=== PATIENT | male | born 1940 | race Caucasian/White ===

== ENCOUNTER → 2017-01-16 | Outpatient (CLI) | payer MEDICARE, BC ==
--- NOTE | 2017-01-16 10:53 | US ---
EXAMINATION TYPE: US venous doppler duplex LE DATE OF EXAM: 01/16/2017 9:28 AM COMPARISON: NONE CLINICAL HISTORY: I82.579 DVT. SIDE PERFORMED: Leg swelling TECHNIQUE: The lower extremity deep venous system is examined utilizing real time linear array sonog linda with graded compression, doppler sonography and color-flow sonography. VESSELS IMAGED: External Iliac Vein (EIV) Common Femoral Vein Deep Femoral Vein Greater Saphenous Vein * Femoral Vein Popliteal Vein Small Saphenous Vein * Proximal Calf Veins (* superficial vessels) Right Leg: Positive for DVT at distal popliteal extending into calf v's Left Leg: Negative for DVT Peripherally within the right popliteal vein there is a lack of color flow and compressibility extend ing into the calf veins on the right. IMPRESSION: Grayscale, color doppler, spectral doppler imaging performed of the deep veins of the lo wer extremities. There is deep venous thrombosis within the right popliteal vein described. Report r elayed to Dr. Orellana telephonically at the time of performance of the exam.
--- NOTE | 2017-01-17 09:08 | ECHOF ---
Referral Reason:Z01.818 pre chemo,C85.10 lymphoma MEASUREMENTS -------- HEIGHT: 177.8 cm WEIGHT: 65.8 kg BP: 114/51 RVIDd: 3.2 cm (< 3.3) IVSd: 1.2 cm (0.6 - 1.1) LVIDd: 5.4 cm (3.9 - 5.3) LVPWd: 1.2 cm (0.6 - 1.1) IVSs: 1.7 cm LVIDs: 3.7 cm LVPWs: 2.0 cm LA Diam: 3.9 cm (2.7 - 3.8) LAESV Index (A-L): 44.88 ml/m Ao Diam: 3.3 cm (2.0 - 3.7) AV Cusp: 2.1 cm (1.5 - 2.6) MV EXCURSION: 21.866 mm (> 18.000) MV EF SLOPE: 70 mm/s (70 - 150) EPSS: 0.9 cm MV E Urban: 0.62 m/s MV DecT: 317 ms MV A Urban: 0.71 m/s MV E/A Ratio: 0.88 AV maxP.47 mmHg AV meanP.32 mmHg AR PHT: 1384 ms RAP: 5.00 mmHg RVSP: 34.46 mmHg FINDINGS -------- Resting bradycardia (HR<60bpm). This was a technically good study. The left ventricular size is normal. There is borderline concentric left ventricular hypertrophy. Overall left ventricular systolic function is normal with, an EF between 60 - 65 %. The right ventricle is normal in size. LA is severely dilated >40 ml/m2 The right atrium is normal in size. There is mild aortic valve sclerosis. There is mild aortic regurgitation. There is mild aortic st enosis present. Peak/mean gradient across the Aortic Valve is 16.47mmHg / 6.32mmHg. Mild mitral annular calcification present. Mild mitral regurgitation is present. There is mildly calcified chordae. Mild tricuspid regurgitation present. There is borderline pulmonary hypertension. The right ventr icular systolic pressure, as measured by Doppler, is 34.46mmHg. Trace/mild (physiologic) pulmonic regurgitation. The aortic root size is normal. Normal inferior vena cava with normal inspiratory collapse consistent with estimated right atrial pre ssure of 5 mmHg. There is no pericardial effusion. CONCLUSIONS -------- 1. Resting bradycardia (HR<60bpm). 2. This was a technically good study. 3. The left ventricular size is normal. 4. There is borderline concentric left ventricular hypertrophy. 5. Overall left ventricular systolic function is normal with, an EF between 60 - 65 %. 6. The right ventricle is normal in size. 7. LA is severely dilated >40 ml/m2 8. The right atrium is normal in size. 9. There is mild aortic valve sclerosis. 10. There is mild aortic regurgitation. 11. There is mild aortic stenosis present. 12. Peak/mean gradient across the Aortic Valve is 16.47mmHg / 6.32mmHg. 13. Mild mitral annular calcification present. 14. Mild mitral regurgitation is present. 15. There is mildly calcified chordae. 16. Mild tricuspid regurgitation present. 17. There is borderline pulmonary hypertension. 18. The right ventricular systolic pressure, as measured by Doppler, is 34.46mmHg. 19. Trace/mild (physiologic) pulmonic regurgitation. 20. The aortic root size is normal. 21. Normal inferior vena cava with normal inspiratory collapse consistent with estimated right atrial pressure of 5 mmHg. 22. There is no pericardial effusion. [employer] FRIER: Kelly Mcdonald RDCS
== END | disposition home or self-care (01) ==
LOC: RADUSMAIN 08:29
PROVIDERS: ATTEND Internal Medicine Hematology & Oncology
DX: I82.4Z1 Acute embolism and thrombosis of unspecified deep veins of right distal lower extremity (principal)
CPT/HCPCS: 93306; 93970

== ENCOUNTER → 2017-01-17 | Outpatient (CLI) | payer MEDICARE, BC ==
--- NOTE | 2017-01-20 13:11 | PE ---
Nuclear medicine PET/CT HISTORY: Diffuse large B-cell lymphoma, subsequent treatment strategy, PS Patient received 15.6 mCi F-18 FDG intravenously. Delayed scanning performed from the skull base to t he mid thighs. No comparisons Patient received 15.6 mCi F-18 FDG intravenously in delayed scanning was performed from the skull bas e to the mid thighs. Localization and attenuation correction CT was also performed. Neck and chest: There is no cervical, mediastinal, axillary, or hilar adenopathy. Carotid artery calc ifications are present. Dental mouth causes some streak artifact on the exam. Lung bases are normal. No suspicious hypermetabolic uptake. Coronary artery calcifications are present. No evident lung mass . No pleural or pericardial effusion. Gynecomastia changes are present. Abdomen and pelvis: Left inguinal hernia is present containing bowel loops. No evident bowel obstruct ion. No retroperitoneal adenopathy, no pelvic adenopathy. No suspicious hypermetabolic uptake. Surgic al clips are present in the pelvis. Patient may be post prostatectomy. Aorta shows atheromatous trevizo e and tortuosity. Diverticular changes associated with the colon. Postop changes noted to the bowel. Paraspinal musculature and bowel shows uptake likely physiologic. Osseous structures: Multilevel degenerative disc change, osteoporotic compression fracture noted. Old rib fractures are present, some uptake along the anterior ribs likely due to remote trauma, healing fractures. Uptake in the cervical spine likely due to facet arthropathy at C3 on the left. IMPRESSION: No evident recurrence. Additional findings above.
== END | disposition home or self-care (01) ==
LOC: RADPETMAIN 07:53
PROVIDERS: ATTEND Internal Medicine Hematology & Oncology
DX: C83.38 Diffuse large B-cell lymphoma, lymph nodes of multiple sites (principal)
CPT/HCPCS: 78815; A9552

== ENCOUNTER 2017-03-03 08:03 | Inpatient (IN) | payer MEDICARE, BC ==
[2017-03-03 10:14] LABS: Basophils # (A) 0.1 k/uL (0-0.2); Basophils % (A) 0 %; Eosinophils # (A) 0.3 k/uL (0-0.7); Eosinophils % (A) 2 %; HCT 26.8 % (39.0-53.0); HGB 8.6 gm/dL (13.0-17.5); Lymphocytes % (A) 9 %; MCH 33.4 pg (25.0-35.0); MCHC 32.2 g/dL (31.0-37.0); MCV 103.6 fL (80.0-100.0); Macrocytosis Slight; Mean Platelet Volume 7.9; Monocytes # (A) 0.5 k/uL (0-1.0); Monocytes % (A) 5 %; Neutrophils # (A) 8.9 k/uL (1.3-7.7); Neutrophils % (A) 81 %; Platelet Count 333 k/uL (150-450); RBC 2.59 m/uL (4.30-5.90); RDW 15.2 % (11.5-15.5)
[2017-03-03 10:29] LABS: ALT 30 U/L (21-72); AST 17 U/L (17-59); Albumin 2.8 g/dL (3.5-5.0); Alkaline Phosphatase 81 U/L (38-126); Anion Gap 7 mmol/L; Blood Urea Nitrogen 24 mg/dL (9-20); Carbon Dioxide 28 mmol/L (22-30); Chloride 107 mmol/L (98-107); Glucose 89 mg/dL (74-99); Potassium 4.3 mmol/L (3.5-5.1); Sodium 142 mmol/L (137-145); Total Bilirubin 0.3 mg/dL (0.2-1.3); Total Protein 5.2 g/dL (6.3-8.2); Uric Acid 4.6 mg/dL (3.5-8.5)
[2017-03-03] MEDS ORDERED: FAMOTIDINE 20 MG/2 ML VIAL IV SCH ×2 (10:30)
[2017-03-03] MEDS ORDERED: ACETAMINOPHEN TAB 325 MG TAB PO ONE (10:30)
[2017-03-03] MEDS ORDERED: ONDANSETRON 16 MG in SODIUM CHLORIDE 0.9% 50 ML IVPB SCH (10:30)
[2017-03-03] MEDS ORDERED: diphenhydrAMINE 50 MG/ML 1 ML VIAL IVP ONE (10:30)
[2017-03-03] MEDS ORDERED: riTUXimab 700 MG in SODIUM CHLORIDE 0.9% 500 ML IV ONE (11:00)
[2017-03-03] MEDS: metFORMIN 500 MG TAB PO SCH ×2 (11:03→18:17)
[2017-03-03] MEDS: predniSONE 50 MG TAB PO SCH ×2 (11:04→20:28)
[2017-03-03] MEDS: ALLOPURINOL 300 MG TAB PO SCH (11:04)
[2017-03-03] MEDS: predniSONE 10 MG TAB PO SCH ×2 (11:04→20:13)
[2017-03-03] MEDS: SODIUM CHLORIDE 0.9% 1,000 ML IV SCH (11:05)
[2017-03-03] MEDS ORDERED: METOPROLOL SUCCINATE (ER) 25 MG TAB.ER.24H PO STA (11:07)
[2017-03-03] MEDS: SODIUM CHLORIDE 0.9% IV SCH ×2 (16:32→16:33)
[2017-03-03] MEDS: VINCRISTINE SULFATE IV SCH (16:32)
[2017-03-03] MEDS: DOXORUBICIN HCL IV SCH (16:33)
[2017-03-03] MEDS: ETOPOSIDE 90 MG in SODIUM CHLORIDE 0.9% 250 ML IV SCH (16:33)
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
[2017-03-03] MEDS: CHOLECALCIFEROL 1,000 UNIT TAB PO SCH (18:18)
[2017-03-03] MEDS: VIT A,C & E-LUTEIN-MINERALS 1 EACH TAB PO SCH (20:13)
[2017-03-03] MEDS: CLOBETASOL PROP 0.05% CR 15GM TOPICAL SCH (20:13)
[2017-03-03] MEDS: CALCIUM CARB-VIT D 500MG-200UN 1 EACH TAB PO SCH (20:13)
[2017-03-03] MEDS: FERROUS SULFATE 325 MG TAB PO SCH (20:13)
[2017-03-03] MEDS: ASPIRIN 81 MG PO SCH (20:13)
[2017-03-03] MEDS: SALT AND SODA MOUTHWASH 1,000 ML PO SCH (20:15)
[2017-03-03] MEDS: ACETAMINOPHEN TAB 325 MG TAB PO SCH (20:21)
[2017-03-03] MEDS: NON-FORMULARY DRUG (Mirabegron [Myrbetriq] 50 MG) PO SCH (20:24)
[2017-03-03] MEDS ORDERED: NON-FORMULARY DRUG (Omega-3 Fatty Acids/Fish Oil [Fish Oil 1,000 Mg Softgel] 1 CAP) PO SCH (21:00)
[2017-03-04] MEDS: SODIUM CHLORIDE 0.9% 1,000 ML IV SCH ×2 (00:14→16:29)
[2017-03-04] MEDS: SALT AND SODA MOUTHWASH 1,000 ML PO SCH ×6 (00:15→22:52)
[2017-03-04 07:38] LABS: Phosphorus 3.4 mg/dL (2.5-4.5); Uric Acid 3.4 mg/dL (3.5-8.5)
[2017-03-04] MEDS: metFORMIN 500 MG TAB PO SCH ×2 (07:46→18:22)
[2017-03-04] MEDS: PANTOPRAZOLE 40 MG TABLET PO SCH (07:46)
[2017-03-04] MEDS: predniSONE 50 MG TAB PO SCH ×2 (07:47→22:52)
[2017-03-04] MEDS: ACETAMINOPHEN TAB 325 MG TAB PO SCH ×2 (07:47→22:55)
[2017-03-04] MEDS: predniSONE 10 MG TAB PO SCH ×2 (07:48→22:53)
[2017-03-04] MEDS: CLOBETASOL PROP 0.05% CR 15GM TOPICAL SCH ×2 (07:48→22:52)
[2017-03-04] MEDS: ALLOPURINOL 300 MG TAB PO SCH (07:49)
[2017-03-04] MEDS: CLOPIDOGREL 75 MG TAB PO SCH (07:49)
[2017-03-04] MEDS: DOCUSATE 100 MG CAP PO SCH (07:49)
[2017-03-04] MEDS: METOPROLOL SUCCINATE (ER) 25 MG TAB.ER.24H PO SCH (07:50)
[2017-03-04] MEDS: ENOXAPARIN 40 MG/0.4 ML SYRINGE SQ SCH (07:50)
[2017-03-04] MEDS: ATORVASTATIN 10 MG TAB PO SCH (07:50)
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
[2017-03-04] MEDS ORDERED: ALLOPURINOL 300 MG TAB PO SCH (09:00)
[2017-03-04 10:02] LABS: Basophils % (A) 0 %; Eosinophils % (A) 0 %; HCT 27.4 % (39.0-53.0); HGB 8.6 gm/dL (13.0-17.5); Lymphocytes # (A) 0.5 k/uL (1.0-4.8); Lymphocytes % (A) 3 %; MCHC 31.2 g/dL (31.0-37.0); MCV 105.5 fL (80.0-100.0); Macrocytosis Moderate; Mean Platelet Volume 8.3; Monocytes # (A) 0.3 k/uL (0-1.0); Monocytes % (A) 2 %; Neutrophils # (A) 14.1 k/uL (1.3-7.7); Neutrophils % (A) 94 %; Platelet Count 395 k/uL (150-450); RBC 2.59 m/uL (4.30-5.90); RDW 14.4 % (11.5-15.5)
[2017-03-04] MEDS: CHOLECALCIFEROL 1,000 UNIT TAB PO SCH ×2 (11:57→18:22)
--- NOTE | 2017-03-04 16:42 | P.PN ---
Subjective Progress Note Date: 03/04/17 Principal diagnosis: CIVI DLBCL Pt seen today in follow up, he is eating and drinking in decent amounts, no fevers, oral irritation, nausea, cough, constipation, diarrhea, dysuria or pain. Objective - Vital Signs Vital signs: Vital Signs Temp 97.0 F L 03/04/17 15:00 Pulse 66 03/04/17 15:00 Resp 16 03/04/17 15:00 BP 141/74 03/04/17 15:00 Pulse Ox 98 03/04/17 15:00 Intake & Output 03/03/17 03/04/17 03/04/17 18:59 06:59 18:59 Intake Total 1045.666 800 Balance 1045.666 800 Weight 67.721 kg Intake: Intake, IV Titration 1045.666 600 Amount Ondansetron 16 mg In 50 Sodium Chloride 0.9% 50 ml @ 100 mls/hr IVPB Q24H [facility] Rx#:[id number] Sodium Chloride 0.9% 1, 525 600 000 ml @ 75 mls/hr IV . [id number] [facility] Rx#:[id number] riTUXimab 700 mg In 470.666 Sodium Chloride 0.9% 500 ml @ Titrate IV .Q0M [facility] Rx#:[id number] Oral 200 Other: Voiding Method Toilet Toilet Toilet # Voids 1 2 - Constitutional General appearance: Present: cooperative, no acute distress - EENT Eyes: Present: EOMI ENT: Present: normal oropharynx - Respiratory Respiratory: bilateral: CTA - Cardiovascular Heart sounds: normal: S1, S2 - Peripheral edema leg Peripheral Edema: bilateral: 2+, Pitting - Gastrointestinal General gastrointestinal: Present: normal bowel sounds, soft. Absent: absent bowel sounds, decreased bowel sounds, distended, hepatomegaly, hyperactive bowel sounds, organomegaly, rigid, scaphoid, splenomegaly, tenderness, umbilical hernia, ventral hernia - Integumentary Integumentary: Present: normal - Neurologic Neurologic: Present: CNII-XII intact - Musculoskeletal Musculoskeletal: Present: generalized weakness, strength equal bilaterally - Psychiatric Psychiatric: Present: A&O x's 3, appropriate affect, intact judgment & insight - Labs CBC & Chem 7: 03/04/17 06:59 03/03/17 10:00 Labs: Abnormal Lab Results - Last 24 Hours (Table) 03/04/17 03/04/17 Range/Units 06:59 06:59 WBC 15.0 H (3.8-10.6) k/uL RBC 2.59 L (4.30-5.90) m/uL Hgb 8.6 L (13.0-17.5) gm/dL Hct 27.4 L (39.0-53.0) % MCV 105.5 H (80.0-100.0) fL Neutrophils # 14.1 H (1.3-7.7) k/uL Lymphocytes # 0.5 L (1.0-4.8) k/uL Uric Acid 3.4 L (3.5-8.5) mg/dL Assessment and Plan (1) Diffuse large B-cell lymphoma of extranodal site Narrative/Plan: Cont chemo without adjustement Labs daily Supportive meds as ordered Current Visit: Yes Status: Acute Priority: High Code(s): C83.39 - DIFFUSE LARGE B-CELL LYMPHOMA, EXTRNOD AND SOLID ORGAN SITES SNOMED Code(s): 522403110 (2) Essential (primary) hypertension Current Visit: No Status: Acute Code(s): I10 - ESSENTIAL (PRIMARY) HYPERTENSION SNOMED Code(s): 33515906 (3) Diabetes mellitus Current Visit: No Status: Chronic Priority: Medium Code(s): E11.9 - TYPE 2 DIABETES MELLITUS WITHOUT COMPLICATIONS SNOMED Code(s): 06141199 (4) Hyperlipidemia Current Visit: No Status: Chronic Priority: Low Code(s): E78.5 - HYPERLIPIDEMIA, UNSPECIFIED SNOMED Code(s): 15716335 Plan: Medical Management per Dr. Frances
[2017-03-04] MEDS: ONDANSETRON 16 MG in SODIUM CHLORIDE 0.9% 50 ML IVPB SCH (17:17)
[2017-03-04] MEDS: FAMOTIDINE 20 MG/2 ML VIAL IV SCH (17:18)
[2017-03-04] MEDS: VINCRISTINE SULFATE IV SCH (18:09)
[2017-03-04] MEDS: SODIUM CHLORIDE 0.9% IV SCH ×2 (18:09)
[2017-03-04] MEDS: DOXORUBICIN HCL IV SCH (18:09)
[2017-03-04] MEDS: ETOPOSIDE 90 MG in SODIUM CHLORIDE 0.9% 250 ML IV SCH (18:09)
[2017-03-04] MEDS: FERROUS SULFATE 325 MG TAB PO SCH (22:52)
[2017-03-04] MEDS: CALCIUM CARB-VIT D 500MG-200UN 1 EACH TAB PO SCH (22:52)
[2017-03-04] MEDS: VIT A,C & E-LUTEIN-MINERALS 1 EACH TAB PO SCH (22:52)
[2017-03-04] MEDS: ASPIRIN 81 MG PO SCH (22:53)
[2017-03-04] MEDS: NON-FORMULARY DRUG (Mirabegron [Myrbetriq] 50 MG) PO SCH (22:56)
[2017-03-05] MEDS: SALT AND SODA MOUTHWASH 1,000 ML PO SCH ×7 (02:05→23:40)
[2017-03-05] MEDS: SODIUM CHLORIDE 0.9% 1,000 ML IV SCH ×2 (05:33→19:33)
[2017-03-05] MEDS: predniSONE 50 MG TAB PO SCH ×2 (08:00→20:17)
[2017-03-05] MEDS: PANTOPRAZOLE 40 MG TABLET PO SCH (08:01)
[2017-03-05] MEDS: CLOPIDOGREL 75 MG TAB PO SCH (08:01)
[2017-03-05] MEDS: DOCUSATE 100 MG CAP PO SCH (08:01)
[2017-03-05] MEDS: ATORVASTATIN 10 MG TAB PO SCH (08:01)
[2017-03-05] MEDS: predniSONE 10 MG TAB PO SCH ×2 (08:01→20:17)
[2017-03-05] MEDS: ALLOPURINOL 300 MG TAB PO SCH (08:01)
[2017-03-05] MEDS: metFORMIN 500 MG TAB PO SCH ×2 (08:01→19:33)
[2017-03-05] MEDS: METOPROLOL SUCCINATE (ER) 25 MG TAB.ER.24H PO SCH (08:01)
[2017-03-05] MEDS: CHOLECALCIFEROL 1,000 UNIT TAB PO SCH ×2 (08:02→19:33)
[2017-03-05] MEDS: CLOBETASOL PROP 0.05% CR 15GM TOPICAL SCH ×2 (08:02→20:17)
[2017-03-05] MEDS: ACETAMINOPHEN TAB 325 MG TAB PO SCH ×2 (08:19→19:32)
[2017-03-05 08:20] LABS: Basophils % (A) 0 %; Eosinophils % (A) 0 %; HCT 24.5 % (39.0-53.0); HGB 7.7 gm/dL (13.0-17.5); Lymphocytes # (A) 0.3 k/uL (1.0-4.8); Lymphocytes % (A) 2 %; MCH 32.9 pg (25.0-35.0); MCHC 31.5 g/dL (31.0-37.0); MCV 104.3 fL (80.0-100.0); Macrocytosis Slight; Mean Platelet Volume 7.3; Monocytes # (A) 0.4 k/uL (0-1.0); Monocytes % (A) 2 %; Neutrophils # (A) 18.3 k/uL (1.3-7.7); Neutrophils % (A) 96 %; Platelet Count 431 k/uL (150-450); RBC 2.35 m/uL (4.30-5.90); RDW 14.6 % (11.5-15.5); WBC 19.1 k/uL (3.8-10.6)
[2017-03-05 08:41] LABS: ALT 28 U/L (21-72); AST 15 U/L (17-59); Albumin 2.5 g/dL (3.5-5.0); Alkaline Phosphatase 61 U/L (38-126); Anion Gap 6 mmol/L; Blood Urea Nitrogen 30 mg/dL (9-20); Calcium 8.8 mg/dL (8.4-10.2); Carbon Dioxide 23 mmol/L (22-30); Chloride 109 mmol/L (98-107); Glucose 133 mg/dL (74-99); Phosphorus 3.1 mg/dL (2.5-4.5); Potassium 4.8 mmol/L (3.5-5.1); Sodium 138 mmol/L (137-145); Total Bilirubin 0.2 mg/dL (0.2-1.3); Total Protein 4.8 g/dL (6.3-8.2); Uric Acid 3.5 mg/dL (3.5-8.5)
--- NOTE | 2017-03-05 10:40 | P.PN ---
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 He is ambulating to the bathroom. Objective - Vital Signs Vital signs: Vital Signs Temp 96.6 F L 03/05/17 07:00 Pulse 73 03/05/17 07:00 Resp 16 03/05/17 07:00 BP 141/78 03/05/17 07:00 Pulse Ox 96 03/05/17 07:00 Intake & Output 03/04/17 03/05/17 03/05/17 18:59 06:59 18:59 Intake Total 800 Balance 800 Intake: Intake, IV Titration 600 Amount Sodium Chloride 0.9% 1, 600 000 ml @ 75 mls/hr IV . [id number] [facility] Rx#:[id number] Oral 200 Other: Voiding Method Toilet Toilet # Voids 2 2 - Constitutional General appearance: Present: cooperative, no acute distress, thin - EENT Eyes: Present: anicteric sclerae, normal appearance ENT: Present: normal oropharynx - Respiratory Respiratory: bilateral: CTA - Cardiovascular Heart sounds: normal: S1, S2 - Peripheral edema leg Peripheral Edema: bilateral: 2+, Pitting - Gastrointestinal General gastrointestinal: Present: normal bowel sounds, soft - Integumentary Integumentary: Present: pale - Neurologic Neurologic: Present: CNII-XII intact - Musculoskeletal Musculoskeletal: Present: strength equal bilaterally - Psychiatric Psychiatric: Present: A&O x's 3, appropriate affect, intact judgment & insight - Labs CBC & Chem 7: 03/05/17 07:51 03/05/17 07:51 Labs: Abnormal Lab Results - Last 24 Hours (Table) 03/05/17 03/05/17 Range/Units 07:51 07:51 WBC 19.1 H (3.8-10.6) k/uL RBC 2.35 L (4.30-5.90) m/uL Hgb 7.7 L (13.0-17.5) gm/dL Hct 24.5 L (39.0-53.0) % MCV 104.3 H (80.0-100.0) fL Neutrophils # 18.3 H (1.3-7.7) k/uL Lymphocytes # 0.3 L (1.0-4.8) k/uL Chloride 109 H (98-107) mmol/L BUN 30 H (9-20) mg/dL Creatinine 1.33 H (0.66-1.25) mg/dL Glucose 133 H (74-99) mg/dL AST 15 L (17-59) U/L Total Protein 4.8 L (6.3-8.2) g/dL Albumin 2.5 L (3.5-5.0) g/dL Assessment and Plan (1) Diffuse large B-cell lymphoma of extranodal site Narrative/Plan: continue chemotherapy without adjustment Supportive medications ordered Labs daily Current Visit: Yes Status: Acute Priority: High Code(s): C83.39 - DIFFUSE LARGE B-CELL LYMPHOMA, EXTRNOD AND SOLID ORGAN SITES SNOMED Code(s): 741286737 (2) Essential (primary) hypertension Current Visit: No Status: Acute Code(s): I10 - ESSENTIAL (PRIMARY) HYPERTENSION SNOMED Code(s): 23648941 (3) Diabetes mellitus Current Visit: No Status: Chronic Priority: Medium Code(s): E11.9 - TYPE 2 DIABETES MELLITUS WITHOUT COMPLICATIONS SNOMED Code(s): 19836700 (4) Hyperlipidemia Current Visit: No Status: Chronic Priority: Low Code(s): E78.5 - HYPERLIPIDEMIA, UNSPECIFIED SNOMED Code(s): 40213911 Plan: Medical Management per Dr. Frances GI/DVT prophylaxis
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
[2017-03-05] MEDS: ONDANSETRON 16 MG in SODIUM CHLORIDE 0.9% 50 ML IVPB SCH (18:18)
[2017-03-05] MEDS: FAMOTIDINE 20 MG/2 ML VIAL IV SCH (18:19)
[2017-03-05] MEDS: SODIUM CHLORIDE 0.9% IV SCH ×2 (19:34)
[2017-03-05] MEDS: ETOPOSIDE 90 MG in SODIUM CHLORIDE 0.9% 250 ML IV SCH (19:34)
[2017-03-05] MEDS: VINCRISTINE SULFATE IV SCH (19:34)
[2017-03-05] MEDS: DOXORUBICIN HCL IV SCH (19:34)
[2017-03-05] MEDS: VIT A,C & E-LUTEIN-MINERALS 1 EACH TAB PO SCH (20:16)
[2017-03-05] MEDS: CALCIUM CARB-VIT D 500MG-200UN 1 EACH TAB PO SCH (20:17)
[2017-03-05] MEDS: FERROUS SULFATE 325 MG TAB PO SCH (20:17)
[2017-03-05] MEDS: ASPIRIN 81 MG PO SCH (20:17)
[2017-03-05] MEDS: NON-FORMULARY DRUG (Mirabegron [Myrbetriq] 50 MG) PO SCH (20:39)
--- NOTE | 2017-03-05 23:53 | P.CON ---
Consult Note - . Consult date: 03/05/17 Assessment/Plan:: This is a 76-year-old male patient who was diagnosed with diffuse large B-cell non-Hodgkin's lymphoma in August 2016 with a complicated course status post bowel resection with perforation and injected jejunum followed by infection treated in [facility]. He recently started chemotherapy with R- EPOCH last month. Patient states he did not have any difficulties with the chemotherapy and didn't develop any significant symptoms. He has been admitted now for his second cycle. We have been asked to see the patient regarding redness to the left knee and drainage. Patient states that he has had a problem with this for many years and was seen by a head of precision targeting in [place] 5 years ago as he was already there for treatment of skin lesions on his scalp. The head of precision targeting placed on clobetasol cream for the knee lesion which he has continued. Patient states that he does not have any pain and has good range of motion. Initially and recently there has been no injury. He states initially the area started out as a pimple which she manipulated and with scab over and he 'll eventually recur tenderness pattern continued for a number of years. He also states that when he was kneeling it was sometimes pop open on its own. Recently, the drainage has been in the form of blood and he stopped trying to pop it. He denies any fever or chills and he has full range of motion. Also noted and patient's history is rheumatoid arthritis for which she was previously on methotrexate and a second medication which she could not remember the name and these were discontinued once he was diagnosed with lymphoma. Please see the consult note is dictated by nurse practitioner Mrs. Gerri Gaming. Pleasant 76-year-old gentleman who has noted has diffuse large B-cell lymphoma is presented first chemotherapy. As noted he has a chronic difficulty to the skin of his left knee. Isn't present for years and uses some topical therapy. It continues to give him irritation at times. The patient used to work for the [employer]. Likely has an area of chronic irritation to the tissue that is not infected at this point in time. Certainly if it changes he may require some further intervention. We discussed that if he has a chronic irritation to the bursa in that region which is showing as this difficulty only a surgical debridement would be possible which she is not a candidate for. In since he is not ill and having no difficulties infection at that site is not indicated at this time anyway. Local care can be given with antibiotic ointment. I agree with evaluation, assessment and plan is dictated by nurse practitioner Mrs. Gerri Gaming.
[2017-03-06] MEDS: SALT AND SODA MOUTHWASH 1,000 ML PO SCH ×6 (03:38→23:28)
[2017-03-06 07:50] LABS: Uric Acid 3.4 mg/dL (3.5-8.5)
[2017-03-06] MEDS: ACETAMINOPHEN TAB 325 MG TAB PO SCH ×2 (07:53→20:35)
[2017-03-06] MEDS: CLOBETASOL PROP 0.05% CR 15GM TOPICAL SCH ×2 (07:54→20:35)
[2017-03-06] MEDS: CLOPIDOGREL 75 MG TAB PO SCH (07:54)
[2017-03-06] MEDS: predniSONE 50 MG TAB PO SCH ×2 (07:54→20:35)
[2017-03-06] MEDS: METOPROLOL SUCCINATE (ER) 25 MG TAB.ER.24H PO SCH (07:54)
[2017-03-06] MEDS: ALLOPURINOL 300 MG TAB PO SCH (07:54)
[2017-03-06] MEDS: metFORMIN 500 MG TAB PO SCH ×2 (07:55→17:34)
[2017-03-06] MEDS: PANTOPRAZOLE 40 MG TABLET PO SCH (07:55)
[2017-03-06] MEDS: ENOXAPARIN 40 MG/0.4 ML SYRINGE SQ SCH (07:56)
[2017-03-06] MEDS: predniSONE 10 MG TAB PO SCH ×2 (07:56→20:35)
[2017-03-06] MEDS: MUPIROCIN 2% OINT 22 GM TUBE TOPICAL SCH (07:57)
--- NOTE | 2017-03-06 08:34 | P.PN ---
Subjective Progress Note Date: 03/06/17 Principal diagnosis: The patient is a 76-year-old white male with history of B-cell lymphoma. This is a continue present on a 76-year-old white male who was new to my practice but I have known since she's been in the area. We are following from a medical perspective. He has underlying history of hypertension. He has some confusion last night but now seems to be stable this morning. Objective - Vital Signs Vital signs: Vital Signs Temp 98.1 F 03/06/17 07:00 Pulse 47 L 03/06/17 07:00 Resp 16 03/06/17 07:00 BP 137/64 03/06/17 07:00 Pulse Ox 97 03/06/17 07:00 Intake & Output 03/05/17 03/06/17 03/06/17 18:59 06:59 18:59 Intake Total 1100 1180 Balance 1100 1180 Intake: Intake, IV Titration 600 Amount Sodium Chloride 0.9% 1, 600 000 ml @ 75 mls/hr IV . [id number] [facility] Rx#:[id number] Oral 500 1180 Other: Voiding Method Toilet Toilet # Voids 2 3 - Constitutional General appearance: Present: average body habitus - EENT Eyes: Absent: abnormal pupil - Neck Neck: Absent: lymphadenopathy - Respiratory Respiratory: bilateral: CTA - Cardiovascular Rhythm: regular Heart sounds: normal: S1, S2 - Gastrointestinal General gastrointestinal: Present: soft. Absent: tenderness - Labs CBC & Chem 7: 03/05/17 07:51 03/05/17 07:51 Labs: Abnormal Lab Results - Last 24 Hours (Table) 03/05/17 03/06/17 Range/Units 07:51 07:00 Chloride 109 H (98-107) mmol/L BUN 30 H (9-20) mg/dL Creatinine 1.33 H (0.66-1.25) mg/dL Glucose 133 H (74-99) mg/dL Uric Acid 3.4 L (3.5-8.5) mg/dL AST 15 L (17-59) U/L Total Protein 4.8 L (6.3-8.2) g/dL Albumin 2.5 L (3.5-5.0) g/dL Assessment and Plan (1) Diffuse large B-cell lymphoma of extranodal site Current Visit: Yes Status: Acute Priority: High Code(s): C83.39 - DIFFUSE LARGE B-CELL LYMPHOMA, EXTRNOD AND SOLID ORGAN SITES SNOMED Code(s): 159952277 (2) Essential (primary) hypertension Current Visit: No Status: Acute Code(s): I10 - ESSENTIAL (PRIMARY) HYPERTENSION SNOMED Code(s): 24046650 (3) Diabetes mellitus Current Visit: No Status: Chronic Priority: Medium Code(s): E11.9 - TYPE 2 DIABETES MELLITUS WITHOUT COMPLICATIONS SNOMED Code(s): 89405205 (4) Hyperlipidemia Current Visit: No Status: Chronic Priority: Low Code(s): E78.5 - HYPERLIPIDEMIA, UNSPECIFIED SNOMED Code(s): 30453132 Plan: Continue current regimen of treatment. We will continue to follow her medical perspective. Dr. Sher's group will be covering for the weekend. See orders otherwise.
[2017-03-06 08:46] LABS: Basophils % (A) 0 %; Eosinophils % (A) 0 %; HCT 25.1 % (39.0-53.0); HGB 7.8 gm/dL (13.0-17.5); Lymphocytes # (A) 0.3 k/uL (1.0-4.8); Lymphocytes % (A) 2 %; MCH 32.5 pg (25.0-35.0); MCHC 31.1 g/dL (31.0-37.0); MCV 104.6 fL (80.0-100.0); Macrocytosis Slight; Mean Platelet Volume 7.6; Monocytes # (A) 0.3 k/uL (0-1.0); Monocytes % (A) 2 %; Neutrophils # (A) 14.1 k/uL (1.3-7.7); Neutrophils % (A) 96 %; Platelet Count 489 k/uL (150-450); RBC 2.39 m/uL (4.30-5.90); RDW 14.8 % (11.5-15.5); WBC 14.7 k/uL (3.8-10.6)
[2017-03-06] MEDS: SODIUM CHLORIDE 0.9% 1,000 ML IV SCH (12:05)
[2017-03-06] MEDS: CHOLECALCIFEROL 1,000 UNIT TAB PO SCH ×2 (12:05→17:34)
[2017-03-06] MEDS: DOCUSATE 100 MG CAP PO SCH (12:05)
[2017-03-06] MEDS: ATORVASTATIN 10 MG TAB PO SCH (12:05)
[2017-03-06 13:46] LABS: ALT 31 U/L (21-72); AST 15 U/L (17-59); Albumin 2.5 g/dL (3.5-5.0); Alkaline Phosphatase 57 U/L (38-126); Anion Gap 7 mmol/L; Blood Urea Nitrogen 31 mg/dL (9-20); Calcium 8.8 mg/dL (8.4-10.2); Carbon Dioxide 25 mmol/L (22-30); Chloride 108 mmol/L (98-107); Glucose 130 mg/dL (74-99); Potassium 4.5 mmol/L (3.5-5.1); Sodium 140 mmol/L (137-145); Total Bilirubin 0.2 mg/dL (0.2-1.3); Total Protein 4.7 g/dL (6.3-8.2)
--- NOTE | 2017-03-06 15:14 | P.PN ---
Subjective Progress Note Date: 03/06/17 Principal diagnosis: continuous IV infusion chemotherapy for diffuse large B-cell lymphoma Pt seen in f/u, he continues to tolerate treatment well, no fever, nausea, oral irritation, cough, abd pain, diarrhea or constipation, he is ambulating in the room, sleeping fairly well, no pain. Objective - Vital Signs Vital signs: Vital Signs Temp 98.1 F 03/06/17 07:00 Pulse 47 L 03/06/17 07:00 Resp 16 03/06/17 07:00 BP 137/64 03/06/17 07:00 Pulse Ox 97 03/06/17 07:00 Intake & Output 03/05/17 03/06/17 03/06/17 18:59 06:59 18:59 Intake Total 1100 1180 792 Balance 1100 1180 792 Intake: Intake, IV Titration 600 792 Amount DOXOrubicin HCL 18 mg In 88 Sodium Chloride 0.9% 250 ml @ 10.792 mls/hr IV Q24H [facility] Rx#:[id number] Etoposide 90 mg In Sodium 88 Chloride 0.9% 250 ml @ 10.604 mls/hr IV Q24H [facility] Rx#:[id number] Sodium Chloride 0.9% 1, 600 600 000 ml @ 75 mls/hr IV . [id number] [facility] Rx#:[id number] vinCRIStine SULFATE 0.7 16 mg In Sodium Chloride 0.9 % 50 ml @ 2.113 mls/hr IV Q24H [facility] Rx#:[id number] Oral 500 1180 Other: Voiding Method Toilet Toilet Toilet # Voids 2 3 - Constitutional General appearance: Present: cooperative, no acute distress, thin - EENT Eyes: Present: anicteric sclerae, normal appearance ENT: Present: normal oropharynx - Respiratory Respiratory: bilateral: CTA - Cardiovascular Heart sounds: normal: S1, S2 Abnormal Heart Sounds: Present: systolic murmur - Peripheral edema leg Peripheral Edema: bilateral: 1+, Pitting - Gastrointestinal General gastrointestinal: Present: normal bowel sounds, soft - Integumentary Integumentary: Present: pale - Neurologic Neurologic: Present: CNII-XII intact - Musculoskeletal Musculoskeletal: Present: generalized weakness, strength equal bilaterally - Psychiatric Psychiatric: Present: A&O x's 3, appropriate affect, intact judgment & insight - Labs CBC & Chem 7: 03/06/17 07:00 01/05/18 07:00 Labs: Abnormal Lab Results - Last 24 Hours (Table) 03/06/17 03/06/17 03/06/17 Range/Units 07:00 07:00 07:00 WBC 14.7 H (3.8-10.6) k/uL RBC 2.39 L (4.30-5.90) m/uL Hgb 7.8 L (13.0-17.5) gm/dL Hct 25.1 L (39.0-53.0) % MCV 104.6 H (80.0-100.0) fL Plt Count 489 H (150-450) k/uL Neutrophils # 14.1 H (1.3-7.7) k/uL Lymphocytes # 0.3 L (1.0-4.8) k/uL Chloride 108 H (98-107) mmol/L BUN 31 H (9-20) mg/dL Creatinine 1.37 H (0.66-1.25) mg/dL Glucose 130 H (74-99) mg/dL Uric Acid 3.4 L (3.5-8.5) mg/dL AST 15 L (17-59) U/L Total Protein 4.7 L (6.3-8.2) g/dL Albumin 2.5 L (3.5-5.0) g/dL Assessment and Plan (1) Diffuse large B-cell lymphoma of extranodal site Narrative/Plan: continue chemotherapy without adjustment, should be completed in the next 48 hours Supportive medications as ordered Labs continue daily Current Visit: Yes Status: Acute Priority: High Code(s): C83.39 - DIFFUSE LARGE B-CELL LYMPHOMA, EXTRNOD AND SOLID ORGAN SITES SNOMED Code(s): 563072465 (2) Essential (primary) hypertension Current Visit: No Status: Acute Code(s): I10 - ESSENTIAL (PRIMARY) HYPERTENSION SNOMED Code(s): 62374052 (3) Diabetes mellitus Current Visit: No Status: Chronic Priority: Medium Code(s): E11.9 - TYPE 2 DIABETES MELLITUS WITHOUT COMPLICATIONS SNOMED Code(s): 55325332 (4) Hyperlipidemia Current Visit: No Status: Chronic Priority: Low Code(s): E78.5 - HYPERLIPIDEMIA, UNSPECIFIED SNOMED Code(s): 52760218 (5) Anemia Narrative/Plan: No transfusion at this time. Current Visit: Yes Status: Acute Priority: Medium Code(s): D64.9 - ANEMIA , UNSPECIFIED SNOMED Code(s): 844179824 Plan: Medical Management per Dr. Frances GI/DVT prophylaxis
[2017-03-06] MEDS: ASPIRIN 81 MG PO SCH (20:35)
[2017-03-06] MEDS: VIT A,C & E-LUTEIN-MINERALS 1 EACH TAB PO SCH (20:35)
[2017-03-06] MEDS: FERROUS SULFATE 325 MG TAB PO SCH (20:35)
[2017-03-06] MEDS: CALCIUM CARB-VIT D 500MG-200UN 1 EACH TAB PO SCH (20:35)
[2017-03-06] MEDS: FAMOTIDINE 20 MG/2 ML VIAL IV SCH (20:35)
[2017-03-06] MEDS: ONDANSETRON 16 MG in SODIUM CHLORIDE 0.9% 50 ML IVPB SCH (20:36)
[2017-03-06 21:24] LABS: Glucose,Whole Blood 133 mg/dL (75-99)
[2017-03-06] MEDS: ETOPOSIDE 90 MG in SODIUM CHLORIDE 0.9% 250 ML IV SCH (23:24)
[2017-03-06] MEDS: DOXORUBICIN HCL IV SCH (23:24)
[2017-03-06] MEDS: SODIUM CHLORIDE 0.9% IV SCH ×2 (23:24)
[2017-03-06] MEDS: VINCRISTINE SULFATE IV SCH (23:24)
[2017-03-06] MEDS: NON-FORMULARY DRUG (Mirabegron [Myrbetriq] 50 MG) PO SCH (23:28)
[2017-03-07] MEDS: SODIUM CHLORIDE 0.9% 1,000 ML IV SCH ×2 (03:45→07:44)
[2017-03-07] MEDS: SALT AND SODA MOUTHWASH 1,000 ML PO SCH ×5 (06:21→20:06)
[2017-03-07 07:12] LABS: Basophils % (A) 0 %; Eosinophils % (A) 0 %; HCT 24.5 % (39.0-53.0); HGB 7.6 gm/dL (13.0-17.5); Lymphocytes # (A) 0.3 k/uL (1.0-4.8); Lymphocytes % (A) 2 %; MCH 31.8 pg (25.0-35.0); MCHC 31.1 g/dL (31.0-37.0); MCV 102.5 fL (80.0-100.0); Macrocytosis Slight; Monocytes # (A) 0.1 k/uL (0-1.0); Monocytes % (A) 1 %; Neutrophils % (A) 96 %; Platelet Count 481 k/uL (150-450); RBC 2.39 m/uL (4.30-5.90); RDW 15.2 % (11.5-15.5); WBC 10.4 k/uL (3.8-10.6)
[2017-03-07] MEDS: metFORMIN 500 MG TAB PO SCH ×2 (07:38→17:46)
[2017-03-07] MEDS: predniSONE 50 MG TAB PO SCH ×2 (07:38→20:07)
[2017-03-07] MEDS: MUPIROCIN 2% OINT 22 GM TUBE TOPICAL SCH (07:38)
[2017-03-07] MEDS: CLOBETASOL PROP 0.05% CR 15GM TOPICAL SCH ×2 (07:39→20:07)
[2017-03-07] MEDS: METOPROLOL SUCCINATE (ER) 25 MG TAB.ER.24H PO SCH (07:39)
[2017-03-07] MEDS: predniSONE 10 MG TAB PO SCH ×2 (07:39→20:07)
[2017-03-07] MEDS: DOCUSATE 100 MG CAP PO SCH (07:39)
[2017-03-07] MEDS: ENOXAPARIN 40 MG/0.4 ML SYRINGE SQ SCH (07:39)
[2017-03-07] MEDS: CLOPIDOGREL 75 MG TAB PO SCH (07:39)
[2017-03-07] MEDS: PANTOPRAZOLE 40 MG TABLET PO SCH (07:40)
[2017-03-07] MEDS: ATORVASTATIN 10 MG TAB PO SCH (07:40)
[2017-03-07] MEDS: ALLOPURINOL 300 MG TAB PO SCH (07:40)
[2017-03-07] MEDS: ACETAMINOPHEN TAB 325 MG TAB PO SCH ×2 (07:44→20:06)
[2017-03-07 07:56] LABS: ALT 30 U/L (21-72); AST 13 U/L (17-59); Albumin 2.4 g/dL (3.5-5.0); Alkaline Phosphatase 51 U/L (38-126); Anion Gap 8 mmol/L; Blood Urea Nitrogen 31 mg/dL (9-20); Calcium 8.5 mg/dL (8.4-10.2); Carbon Dioxide 26 mmol/L (22-30); Chloride 108 mmol/L (98-107); Glucose 132 mg/dL (74-99); Potassium 4.4 mmol/L (3.5-5.1); Sodium 142 mmol/L (137-145); Total Bilirubin 0.4 mg/dL (0.2-1.3); Total Protein 4.6 g/dL (6.3-8.2)
[2017-03-07] MEDS: CHOLECALCIFEROL 1,000 UNIT TAB PO SCH ×2 (11:27→17:46)
[2017-03-07] MEDS ORDERED: SODIUM CHLORIDE 0.9% IV ONE (13:00)
[2017-03-07] MEDS ORDERED: CYCLOPHOSPHAMIDE IV ONE (13:00)
--- NOTE | 2017-03-07 15:44 | P.PN ---
Subjective Feels well Tolerating Chemotherapy well > No N/V Reported mild/moderate weakness Objective - Vital Signs Vital signs: Vital Signs Temp 97.8 F 03/07/17 14:55 Pulse 59 L 03/07/17 14:55 Resp 16 03/07/17 14:55 BP 123/63 03/07/17 14:55 Pulse Ox 97 03/07/17 14:55 Intake & Output 03/06/17 03/07/17 03/07/17 18:59 06:59 18:59 Intake Total 792 366 792.8 Balance 792 366 792.8 Intake: Intake, IV Titration 792 366 792.8 Amount DOXOrubicin HCL 18 mg In 88 42 88 Sodium Chloride 0.9% 250 ml @ 10.792 mls/hr IV Q24H SHERICE Rx#:[id number] Etoposide 90 mg In Sodium 88 42 88 Chloride 0.9% 250 ml @ 10.604 mls/hr IV Q24H SHERICE Rx#:[id number] Ondansetron 16 mg In 50 Sodium Chloride 0.9% 50 ml @ 100 mls/hr IVPB Q24H SHER[facility] Rx#:[id number] Sodium Chloride 0.9% 1, 600 225 600 000 ml @ 75 mls/hr IV . [id number] SHERICE Rx#:[id number] vinCRIStine SULFATE 0.7 16 7 16.8 mg In Sodium Chloride 0.9 % 50 ml @ 2.113 mls/hr IV Q24H SHERICE Rx#:[id number] Other: Voiding Method Toilet Toilet Toilet # Voids 3 - Constitutional General appearance: Present: no acute distress - EENT Eyes: Present: PERRLA ENT: Present: normal oropharynx - Neck Neck: Present: normal ROM - Respiratory Respiratory: bilateral: CTA - Cardiovascular Rhythm: regular Heart sounds: normal: S1, S2 - Gastrointestinal General gastrointestinal: Present: absent bowel sounds, soft - Labs CBC & Chem 7: 03/07/17 06:35 03/07/17 06:35 Labs: Abnormal Lab Results - Last 24 Hours (Table) 03/06/17 03/07/17 03/07/17 Range/Units 21:18 06:35 06:35 RBC 2.39 L (4.30-5.90) m/uL Hgb 7.6 L (13.0-17.5) gm/dL Hct 24.5 L (39.0-53.0) % MCV 102.5 H (80.0-100.0) fL Plt Count 481 H (150-450) k/uL Neutrophils # 10.0 H (1.3-7.7) k/uL Lymphocytes # 0.3 L (1.0-4.8) k/uL Chloride 108 H (98-107) mmol/L BUN 31 H (9-20) mg/dL Glucose 132 H (74-99) mg/dL POC Glucose (mg/dL) 133 H (75-99) mg/dL AST 13 L (17-59) U/L Total Protein 4.6 L (6.3-8.2) g/dL Albumin 2.4 L (3.5-5.0) g/dL Assessment and Plan (1) Anemia Current Visit: Yes Status: Acute Priority: Medium Code(s): D64.9 - ANEMIA , UNSPECIFIED SNOMED Code(s): 641757733 (2) Diffuse large B-cell lymphoma of extranodal site Current Visit: Yes Status: Acute Priority: High Code(s): C83.39 - DIFFUSE LARGE B-CELL LYMPHOMA, EXTRNOD AND SOLID ORGAN SITES SNOMED Code(s): 001246449 (3) Essential (primary) hypertension Current Visit: No Status: Acute Code(s): I10 - ESSENTIAL (PRIMARY) HYPERTENSION SNOMED Code(s): 78858365 (4) Diabetes mellitus Current Visit: No Status: Chronic Priority: Medium Code(s): E11.9 - TYPE 2 DIABETES MELLITUS WITHOUT COMPLICATIONS SNOMED Code(s): 59904519 (5) Hyperlipidemia Current Visit: No Status: Chronic Priority: Low Code(s): E78.5 - HYPERLIPIDEMIA, UNSPECIFIED SNOMED Code(s): 03956019 Plan: 1- Proceed with day#4 of 4 of Chemotherapy today 2- Will discharge in AM
[2017-03-07] MEDS: ONDANSETRON 16 MG in SODIUM CHLORIDE 0.9% 50 ML IVPB SCH (20:05)
[2017-03-07] MEDS: FAMOTIDINE 20 MG/2 ML VIAL IV SCH (20:05)
[2017-03-07] MEDS: FERROUS SULFATE 325 MG TAB PO SCH (20:06)
[2017-03-07] MEDS: CALCIUM CARB-VIT D 500MG-200UN 1 EACH TAB PO SCH (20:06)
[2017-03-07] MEDS: VIT A,C & E-LUTEIN-MINERALS 1 EACH TAB PO SCH (20:06)
[2017-03-07] MEDS: ASPIRIN 81 MG PO SCH (20:07)
--- NOTE | 2017-03-07 21:11 | PN ---
PROGRESS NOTE DATE OF SERVICE: 03/07/2017 I am covering for Dr. Frances. This 76-year-old gentleman was admitted with diffuse large-cell B-cell lymphoma is being closely monitored. Chemotherapy is ongoing at this time. Patient has hypertension. No chest pain. No palpitations. No fever. EXAM: Alert and oriented times three. Pulse 59, blood pressure 123/60. Respirations 16, temperature 97.8, pulse ox 97% on room air. HEENT: Conjunctivae normal. Neck: No jugular venous distention. Cardiovascular systems: S1, S2 muffled. Respirations: Breath sounds diminished at the bases. No rhonchi and no crackles. Abdomen is soft, nontender. No mass palpable. Legs: No edema. No swelling. Nervous system: No focal deficits. LAB STUDIES: WBC 10.2, hemoglobin 7.6, sodium 142, potassium 4.4. ASSESSMENT: 1. Diffuse B-cell lymphoma on chemotherapy. 2. Hypertension. 3. Diabetes type 2. 4. Hyperlipidemia. 5. Anemia, macrocytic possibly secondary to chemotherapy. RECOMMENDATIONS AND DISCUSSION: Recommend to continue current management and symptomatic treatment. Otherwise monitor closely. Repeat labs. Continue the chemotherapy. Closely follow with Hematology/Oncology. Further recommendations to follow. MMODL / IJN: [id number] /
[2017-03-07] MEDS: NON-FORMULARY DRUG (Mirabegron [Myrbetriq] 50 MG) PO SCH (21:47)
[2017-03-08] MEDS: SALT AND SODA MOUTHWASH 1,000 ML PO SCH ×3 (03:42→08:02)
[2017-03-08] MEDS: SODIUM CHLORIDE 0.9% 1,000 ML IV SCH (03:56)
[2017-03-08 04:20] VITALS: RESP 16
[2017-03-08 07:43] LABS: Albumin 2.6 g/dL (3.5-5.0); Anion Gap 7 mmol/L; Calcium 8.5 mg/dL (8.4-10.2); Carbon Dioxide 23 mmol/L (22-30); Chloride 110 mmol/L (98-107); Glucose 116 mg/dL (74-99); Sodium 140 mmol/L (137-145); Total Bilirubin 0.6 mg/dL (0.2-1.3)
[2017-03-08 07:50] LABS: Basophils % (A) 0 %; Eosinophils % (A) 0 %; HGB 7.9 gm/dL (13.0-17.5); Lymphocytes # (A) 0.2 k/uL (1.0-4.8); Lymphocytes % (A) 2 %; MCH 32.7 pg (25.0-35.0); MCHC 31.6 g/dL (31.0-37.0); MCV 103.2 fL (80.0-100.0); Macrocytosis Slight; Mean Platelet Volume 7.2; Monocytes # (A) 0.1 k/uL (0-1.0); Monocytes % (A) 1 %; Neutrophils # (A) 9.9 k/uL (1.3-7.7); Neutrophils % (A) 97 %; Platelet Count 551 k/uL (150-450); RBC 2.42 m/uL (4.30-5.90); RDW 14.5 % (11.5-15.5); WBC 10.3 k/uL (3.8-10.6)
[2017-03-08 07:54] LABS: ALT 31 U/L (21-72); AST 19 U/L (17-59); Alkaline Phosphatase 44 U/L (38-126); Blood Urea Nitrogen 36 mg/dL (9-20); Potassium 4.6 mmol/L (3.5-5.1)
[2017-03-08] MEDS: metFORMIN 500 MG TAB PO SCH (08:01)
[2017-03-08] MEDS: CLOBETASOL PROP 0.05% CR 15GM TOPICAL SCH (08:02)
[2017-03-08] MEDS: ALLOPURINOL 300 MG TAB PO SCH (08:02)
[2017-03-08] MEDS: ATORVASTATIN 10 MG TAB PO SCH (08:02)
[2017-03-08] MEDS: MUPIROCIN 2% OINT 22 GM TUBE TOPICAL SCH (08:02)
[2017-03-08] MEDS: ENOXAPARIN 40 MG/0.4 ML SYRINGE SQ SCH (08:02)
[2017-03-08] MEDS: DOCUSATE 100 MG CAP PO SCH (08:02)
[2017-03-08] MEDS: CLOPIDOGREL 75 MG TAB PO SCH (08:02)
[2017-03-08] MEDS: PANTOPRAZOLE 40 MG TABLET PO SCH (08:02)
[2017-03-08] MEDS: METOPROLOL SUCCINATE (ER) 25 MG TAB.ER.24H PO SCH (08:03)
[2017-03-08] MEDS: ACETAMINOPHEN TAB 325 MG TAB PO SCH (08:04)
[2017-03-08 08:35] VITALS: BP 148/76; PULSE 71; TEMP 97.6
--- NOTE | 2017-03-09 10:34 | PN ---
PROGRESS NOTE DATE OF SERVICE: 03/08/2017. I am covering for Dr. Frances. HISTORY: This 76-year-old gentleman who was admitted after chemotherapy for diffuse large B cell lymphoma, is improving significantly. No chest pain, no palpitations, no fever. EXAM: Alert and oriented x3, pulse 71, blood pressure 140/70, respirations 16, temperature 97.2, pulse ox 97% on room air. HEENT: Conjunctivae normal. NECK: No JVD. RESPIRATORY SYSTEM: Breath sounds diminished at the bases. No rhonchi, no crackles. ABDOMEN: Soft, nontender. EXTREMITIES: Legs no edema. CENTRAL NERVOUS SYSTEM: No focal deficits. LABS: Hemoglobin 7.9, otherwise albumin is 2.6. ASSESSMENT: 1. Diffuse B-cell lymphoma, on chemotherapy. 2. Hypertension. 3. Diabetes type 2. 4. Hyperlipidemia. 5. Anemia, macrocytic, possibly secondary to chemotherapy. RECOMMENDATIONS AND DISCUSSION: Continue current management and symptomatic. Recommendations per Dr. Garcia. Follow closely with Dr. Frances in the outpatient setting. Further recommendations to follow. MMODL / IJN: [id number] /
--- NOTE | 2017-05-18 15:45 | P.DS ---
Providers Date of admission: 03/03/17 08:03 Expected date of discharge: 03/08/17 Attending physician: Bennie Garcia Consults: 03/03/17 09:56 Consult Physician Routine Consulting Provider: Ck Frances Consult Reason/Comments: medical management Do you want consulting provider notified?: Yes 03/04/17 16:42 Consult Physician Routine Consulting Provider: Jason Franz Consult Reason/Comments: left knee redness and drainage Do you want consulting provider notified?: Yes, Notify in am Primary care physician: Stated None - Discharge Diagnosis(es) (1) Diffuse large B-cell lymphoma of extranodal site Status: Acute Priority: High (2) Essential (primary) hypertension Status: Chronic (3) Diabetes mellitus Status: Chronic Priority: Medium (4) Hyperlipidemia Status: Chronic Priority: Low (5) Anemia Status: Chronic Priority: Medium Hospital Course: Pt admitted for cycle #2 of CIVI chemo for DLBCL, pt tolerated treatment well, remained afebrile, no acute chemo side effects, denies physical c/o, has follow up in the AM at the office. Pertinent Studies: none Procedures: none Patient Condition at Discharge: Stable Plan - Discharge Summary Discharge Rx Participant: Yes New Discharge Prescriptions: No Action Docusate [Colace] 100 mg PO DAILY@1200 Vits A,C,E/Lutein/Minerals [Ocuvite with Lutein Tablet] 1 tab PO HS Cholecalciferol [Vitamin D3] 1,000 unit PO BID Acetaminophen [Tylenol 8 Hour] 650 mg PO BID Ferrous Sulfate [Iron (65 MG Elemental)] 325 mg PO HS Cameron-3 Fatty Acids/Fish Oil [Fish Oil 1,000 mg Softgel] 1 cap PO BID Jeferson/D3/Mag11/Zinc/Cash Manager/Azar/Bor [Caltrate 600+D Plus Tablet] 1 tab PO HS Aspirin 81 mg PO HS Allopurinol [Zyloprim] 300 mg PO DAILY Pantoprazole Sodium [Protonix] 40 mg PO AC-BRKFST Mirabegron [Myrbetriq] 50 mg PO HS metFORMIN HCL 1,000 mg PO BID Metoprolol Succinate [Toprol XL] 25 mg PO DAILY Clopidogrel Bisulfate [Plavix] 75 mg PO DAILY Atorvastatin [Lipitor] 10 mg PO DAILY Ondansetron [Zofran ODT] 4 mg PO Q4HR PRN #50 tab PRN Reason: Nausea And Vomiting amLODIPine [Norvasc] 10 mg PO HS Magnesium Oxide [Mag-Ox] 400 mg PO HS Discharge Medication List Acetaminophen [Tylenol 8 Hour] 650 mg PO BID 02/10/17 [History] Allopurinol [Zyloprim] 300 mg PO DAILY 02/10/17 [History] Aspirin 81 mg PO HS 02/10/17 [History] Atorvastatin [Lipitor] 10 mg PO DAILY 02/10/17 [History] Jeferson/D3/Mag11/Zinc/Cash Manager/Azar/Bor [Caltrate 600+D Plus Tablet] 1 tab PO HS [History] Cholecalciferol [Vitamin D3] 1,000 unit PO BID 02/10/17 [History] Clopidogrel Bisulfate [Plavix] 75 mg PO DAILY 02/10/17 [History] Docusate [Colace] 100 mg PO DAILY@1200 02/10/17 [History] Ferrous Sulfate [Iron (65 MG Elemental)] 325 mg PO HS 02/10/17 [History] Metoprolol Succinate [Toprol XL] 25 mg PO DAILY 02/10/17 [History] Mirabegron [Myrbetriq] 50 mg PO HS 02/10/17 [History] Cameron-3 Fatty Acids/Fish Oil [Fish Oil 1,000 mg Softgel] 1 cap PO BID 02/10/17 [ History] Pantoprazole Sodium [Protonix] 40 mg PO AC-BRKFST 02/10/17 [History] Vits A,C,E/Lutein/Minerals [Ocuvite with Lutein Tablet] 1 tab PO HS 02/10/17 [ History] metFORMIN HCL 1,000 mg PO BID 02/10/17 [History] Ondansetron [Zofran ODT] 4 mg PO Q4HR PRN #50 tab 02/15/17 [Rx] Magnesium Oxide [Mag-Ox] 400 mg PO HS 04/07/17 [History] amLODIPine [Norvasc] 10 mg PO HS 04/07/17 [History] Follow up Appointment(s)/Referral(s): Coleman Orellana MD [STAFF PHYSICIAN] - 03/09/17 10:00 am Patient Instructions/Handouts: Eating During Cancer Treatment (DC) Activity/Diet/Wound Care/Special Instructions: Activity as tolerated Diet as tolerated Discharge Disposition: HOME SELF-CARE Pending Studies Pending Results: none
== END 2017-03-08 13:10 | disposition home or self-care (01) | DRG 847 ==
LOC: 5ONC 08:03
PROVIDERS: ADMIT Internal Medicine Hematology & Oncology; ATTEND Internal Medicine Hematology & Oncology
DX: Z51.11 Encounter for antineoplastic chemotherapy (principal); C83.39 Diffuse large B-cell lymphoma, extranodal and solid organ sites; D64.81 Anemia due to antineoplastic chemotherapy; T45.1X5A Adverse effect of antineoplastic and immunosuppressive drugs, initial encounter; E11.9 Type 2 diabetes mellitus without complications; E78.5 Hyperlipidemia, unspecified; I10 Essential (primary) hypertension; K21.9 Gastro-esophageal reflux disease without esophagitis; M06.9 Rheumatoid arthritis, unspecified; Z79.02 Long term (current) use of antithrombotics/antiplatelets; Z79.82 Long term (current) use of aspirin; Z79.84 Long term (current) use of oral hypoglycemic drugs; Z79.899 Other long term (current) drug therapy; Z82.49 Family history of ischemic heart disease and other diseases of the circulatory system; Z85.46 Personal history of malignant neoplasm of prostate; Z90.49 Acquired absence of other specified parts of digestive tract; Z88.2 Allergy status to sulfonamides; Z88.0 Allergy status to penicillin
CPT/HCPCS: 80053; 84100; 84550; 85025

== ENCOUNTER 2017-03-14 08:43 | Inpatient (IN) | payer MEDICARE, BC ==
[2017-03-14] MEDS ORDERED: SODIUM CHLORIDE 0.9% 1,000 ML IV STA (09:07)
[2017-03-14] MEDS ORDERED: FAMOTIDINE 20 MG/2 ML VIAL IV STA (09:08)
[2017-03-14 09:27] LABS: HCT 23.3 % (39.0-53.0); HGB 7.5 gm/dL (13.0-17.5); MCH 33.1 pg (25.0-35.0); MCHC 32.1 g/dL (31.0-37.0); MCV 103.1 fL (80.0-100.0); Macrocytosis Slight; Mean Platelet Volume 7.9; RBC 2.26 m/uL (4.30-5.90); RDW 14.2 % (11.5-15.5)
[2017-03-14 09:39] LABS: ALT 25 U/L (21-72); AST 12 U/L (17-59); Albumin 2.6 g/dL (3.5-5.0); Alkaline Phosphatase 53 U/L (38-126); Amylase 36 U/L (30-110); Anion Gap 8 mmol/L; Blood Urea Nitrogen 29 mg/dL (9-20); Calcium 8.3 mg/dL (8.4-10.2); Carbon Dioxide 28 mmol/L (22-30); Chloride 105 mmol/L (98-107); Glucose 171 mg/dL (74-99); Lipase 22 U/L (23-300); Platelet Count 134 k/uL (150-450); Potassium 4.2 mmol/L (3.5-5.1); Sodium 141 mmol/L (137-145); Total Bilirubin 0.7 mg/dL (0.2-1.3); Total Protein 4.8 g/dL (6.3-8.2)
[2017-03-14 09:40] LABS: WBC 0.3 k/uL (3.8-10.6)
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
--- NOTE | 2017-03-14 10:37 | XR ---
EXAMINATION TYPE: XR KUB , ONE VIEW DATE OF EXAM ORDERED: 03/14/2017 HISTORY: pain. COMPARISON: None. FINDINGS: There are scattered air-fluid levels throughout the abdomen. There is no evidence of obstr uction or free air. No unusual air collections are seen. The lung bases are clear. IMPRESSION: FINDINGS MOST CONSISTENT WITH GENERALIZED ILEUS.
[2017-03-14 10:50] LABS: Appearance,Urine Clear (Clear); Bacteria,Urine Few /hpf; Bilirubin,Urine Negative (Negative); Blood,Urine Negative (Negative); Color,Urine Yellow; Glucose,Urine (UA) Negative (Negative); Ketones,Urine Negative (Negative); Leukocyte Esterase,Urine Negative (Negative); Mucus,Urine Occasional /hpf; Nitrite,Urine Negative (Negative); PH, Urine 6.5 (5.0-8.0); Protein,Urine 2+ (Negative); RBC,Urine <1 /hpf (0-5); Specific Gravity,Urine 1.015 (1.001-1.035); WBC,Urine 3 /hpf (0-5)
[2017-03-14] MEDS ORDERED: RX INFO: IV CONTRAST WAS GIVEN 1 EACH MISC MISCELLANE PRN (10:52)
--- NOTE | 2017-03-14 11:47 | CT ---
EXAMINATION TYPE: CT abdomen pelvis w con DATE OF EXAM: 03/14/2017 REFERENCE: NONE HISTORY: Pain HISTORY: Nausea and vomiting REFERENCE: NONE CT DLP: 490.7 mGy Automated exposure control for dose reduction was used. TECHNIQUE: Helical acquisition through the abdomen and pelvis was obtained following the oral ingesti on of without Oral Contrast and following intravenous administration of 80 mL of Visipaque 320. The d adrian was reformatted in axial, coronal and sagittal projections. FINDINGS: Visualized portions of the lungs are clear. There is evidence of an old fracture of the po sterior aspect of the left eighth rib. There is no pleural or pericardial fluid. The heart is upper limits of normal in size. Within the abdomen, the liver and spleen are normal. The gallbladder is contracted. Both adrenal glands are normal. Both kidneys demonstrate function and appear morphologically normal. Limited views of the pancreas are normal. There is no significant retroperitoneal, iliac or inguinal adenopathy. The bladder is unremarkable. There is a large amount of stool within the colon. The appendix is not visualized. There is mild dilatation of the proximal small bowel. The distal small bowel is more normal in calibe r. There has been a previous bowel resection in the on the right. This appears to represent the trans ition point. No free fluid or free air is seen. There are wedge compression fractures of L1, L2 on L3. There have been previous kyphoplasty is at L2 and L3. There is a moderate dextroscoliosis in the dorsal spine. IMPRESSION: 1. PARTIAL SMALL BOWEL OBSTRUCTION WITH A TRANSITION POINT AT APPROXIMATELY THE LEVEL OF THE PREVIOUS RESECTION. 2. CONSTIPATION. 3. WEDGE COMPRESSION FRACTURES OF L1, L2 ON L3 WELL IN THE LEFT-SIDED EIGHTH RIB FRACTURE.
[2017-03-14] MEDS ORDERED: ONDANSETRON 4 MG/2 ML VIAL IVP PRN (13:39)
[2017-03-14] MEDS ORDERED: NALOXONE 0.4 MG/ML 1 ML VIAL IV PRN (13:39)
[2017-03-14] MEDS ORDERED: HYDROmorphone 0.5 MG/0.5 ML SYRINGE IVP PRN (13:39)
--- NOTE | 2017-03-14 14:12 | XR ---
EXAMINATION TYPE: XR abdomen 1V , ONE VIEW DATE OF EXAM ORDERED: 03/14/2017 HISTORY: verify placement of NG tube. COMPARISON: Previous study of earlier today.. FINDINGS: An NG tube is been passed. Its tip is in the distal esophagus. This should BE advanced. There continue to be multiple air-fluid levels within the abdomen. There is evidence of previous kyph oplasty in the upper lumbar spine. IMPRESSION: HIGH RIDING NG TUBE. THIS SHOULD BE ADVANCED.
[2017-03-14 15:53] VITALS: BMI 21.5
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
[2017-03-14 17:17] LABS: Glucose,Whole Blood 135 mg/dL (75-99)
[2017-03-14] MEDS: INSULIN ASPART 100 UNIT/ML 1 ML 10 ML VIAL SQ SCH ×2 (17:27→21:39)
[2017-03-14] MEDS: SODIUM CHLORIDE 0.9% 1,000 ML IV SCH (18:48)
[2017-03-14 20:57] LABS: Glucose,Whole Blood 103 mg/dL (75-99)
[2017-03-14] MEDS: HEPARIN SODIUM,PORCINE 5,000 UNIT/ML 1 ML VIAL SQ SCH (21:39)
[2017-03-15] MEDS: SODIUM CHLORIDE 0.9% 1,000 ML IV SCH (07:24)
[2017-03-15] MEDS: INSULIN ASPART 100 UNIT/ML 1 ML 10 ML VIAL SQ SCH ×4 (07:33→21:35)
[2017-03-15] MEDS: HEPARIN SODIUM,PORCINE 5,000 UNIT/ML 1 ML VIAL SQ SCH (07:33)
[2017-03-15 07:36] LABS: MCHC 31.7 g/dL (31.0-37.0); MCV 104.1 fL (80.0-100.0); Macrocytosis Slight; RBC 1.91 m/uL (4.30-5.90); RDW 14.2 % (11.5-15.5)
[2017-03-15 07:39] LABS: Glucose,Whole Blood 79 mg/dL (75-99)
[2017-03-15 07:40] LABS: Anion Gap 5 mmol/L; Blood Urea Nitrogen 22 mg/dL (9-20); Calcium 7.7 mg/dL (8.4-10.2); Carbon Dioxide 29 mmol/L (22-30); Chloride 108 mmol/L (98-107); Glucose 81 mg/dL (74-99); Potassium 3.6 mmol/L (3.5-5.1); Sodium 142 mmol/L (137-145)
[2017-03-15 07:42] LABS: HCT 19.9 % (39.0-53.0)
[2017-03-15 07:43] LABS: HGB 6.3 gm/dL (13.0-17.5); Platelet Count 74 k/uL (150-450); WBC 0.8 k/uL (3.8-10.6)
[2017-03-15] MEDS: DEXTROSE 5%-0.9% NACL 1,000 ML IV SCH ×2 (09:10→23:03)
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
[2017-03-15 10:03] LABS: Poikilocytosis (M) Present
[2017-03-15 11:35] LABS: Glucose,Whole Blood 101 mg/dL (75-99)
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
[2017-03-15 17:37] LABS: Glucose,Whole Blood 78 mg/dL (75-99)
[2017-03-15 18:41] LABS: Hemoglobin A1C 6.2 % (4.0-6.0)
[2017-03-15 21:22] LABS: Glucose,Whole Blood 85 mg/dL (75-99)
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
[2017-03-16 07:05] LABS: Glucose,Whole Blood 93 mg/dL (75-99)
[2017-03-16 07:18] LABS: Anisocytosis Slight; HCT 25.2 % (39.0-53.0); Hypochromasia Slight; MCH 31.9 pg (25.0-35.0); MCV 99.7 fL (80.0-100.0); Macrocytosis Slight; Mean Platelet Volume 8.8; RBC 2.53 m/uL (4.30-5.90); RDW 18.6 % (11.5-15.5); WBC 4.9 k/uL (3.8-10.6)
[2017-03-16 07:19] LABS: HGB 8.1 gm/dL (13.0-17.5); Platelet Count 78 k/uL (150-450)
[2017-03-16 07:48] LABS: Anion Gap 6 mmol/L; Blood Urea Nitrogen 18 mg/dL (9-20); Calcium 8.1 mg/dL (8.4-10.2); Carbon Dioxide 29 mmol/L (22-30); Chloride 110 mmol/L (98-107); Glucose 97 mg/dL (74-99); Potassium 3.3 mmol/L (3.5-5.1); Sodium 145 mmol/L (137-145)
[2017-03-16] MEDS: INSULIN ASPART 100 UNIT/ML 1 ML 10 ML VIAL SQ SCH ×4 (07:56→22:06)
[2017-03-16 08:14] LABS: Band Neutrophils % 4 %; Eosinophils # (M) 0.25 k/uL (0-0.7); Lymphocytes # (M) 0.15 k/uL (1.0-4.8); Monocytes # (M) 0.15 k/uL (0-1.0); Neutrophils % (M) 85 %; Nucleated Red Blood Cells 0 /100 WBC (0-0); Total Cells Counted 100
[2017-03-16 08:19] LABS: Poikilocytosis (M) Present
--- NOTE | 2017-03-16 08:31 | XR ---
EXAMINATION TYPE: XR abdomen 2V DATE OF EXAM: 03/16/2017 COMPARISON: 03/14/2017 HISTORY: Abdominal pain TECHNIQUE: 3 view abdominal series FINDINGS: Vertebroplasty, compression deformities and severe degenerative disc disease noted. NG tube noted. Jacques rgical change seen. Bowel gas pattern nonspecific. Extensive retained fecal debris throughout the col on. Right interstitial lung disease at the lung bases suspected. Atherosclerotic change of the aorta. Nathalia gical clips in the pelvis noted. Arthropathy of the hips. Diffuse osteopenia. IMPRESSION: 1. Nonspecific abdomen no evidence of bowel dilation. Air is seen throughout the colon.
--- NOTE | 2017-03-16 08:35 | P.PN ---
Subjective Progress Note Date: 03/16/17 Principal diagnosis: History of B-cell lymphoma with partial small bowel obstruction. This is a history and physical/progress note on a 76-year-old white male who has recently joined my practice. Patient has an underlying history of B-cell lymphoma. This developed partial small bowel obstruction and now has NG tube suction. The patient states he is much more comfortable mobility perspective. He states flatus. No overt bowel movement is otherwise noted. Objective - Vital Signs Vital signs: Vital Signs Temp 98.3 F 03/15/17 21:52 Pulse 76 03/15/17 21:52 Resp 18 03/15/17 21:52 BP 153/74 03/15/17 21:52 Pulse Ox 97 03/15/17 21:52 Intake & Output 03/15/17 03/16/17 03/16/17 18:59 06:59 18:59 Intake Total 310 1000 Output Total 725 500 Balance -415 500 Intake: Intake, IV Titration 1000 Amount Sodium Chloride 0.9% 1, 1000 000 ml @ 80 mls/hr IV . [id number] [facility] Rx#:[id number] Blood Product 310 Rc As-1 Unit 310 [id number] Output: Gastric Drainage 325 200 Urine 400 300 Other: Voiding Method Toilet Toilet Urinal Urinal # Voids 1 1 - Constitutional General appearance: Present: average body habitus - EENT Eyes: Absent: abnormal pupil - Respiratory Respiratory: bilateral: CTA - Cardiovascular Rhythm: regular Heart sounds: normal: S1, S2 - Gastrointestinal General gastrointestinal: Present: absent bowel sounds - Psychiatric Psychiatric: Present: A&O x's 3. Absent: appropriate affect - Labs CBC & Chem 7: 03/16/17 06:56 03/16/17 06:56 Labs: Abnormal Lab Results - Last 24 Hours (Table) 03/14/17 03/15/17 03/15/17 Range/Units 09:00 09:32 11:16 RBC (4.30-5.90) m/uL Hgb (13.0-17.5) gm/dL Hct (39.0-53.0) % RDW (11.5-15.5) % Plt Count (150-450) k/uL Lymphocytes # (Manual) (1.0-4.8) k/uL Potassium (3.5-5.1) mmol/L Chloride (98-107) mmol/L POC Glucose (mg/dL) 101 H (75-99) mg/dL Hemoglobin A1c 6.2 H (4.0-6.0) % Calcium (8.4-10.2) mg/dL Crossmatch See Detail 03/16/17 03/16/17 Range/Units 06:56 06:56 RBC 2.53 L (4.30-5.90) m/uL Hgb 8.1 L D (13.0-17.5) gm/dL Hct 25.2 L (39.0-53.0) % RDW 18.6 H (11.5-15.5) % Plt Count 78 L (150-450) k/uL Lymphocytes # (Manual) 0.15 L (1.0-4.8) k/uL Potassium 3.3 L (3.5-5.1) mmol/L Chloride 110 H (98-107) mmol/L POC Glucose (mg/dL) (75-99) mg/dL Hemoglobin A1c (4.0-6.0) % Calcium 8.1 L (8.4-10.2) mg/dL Crossmatch Assessment and Plan (1) Pancytopenia due to antineoplastic chemotherapy Current Visit: Yes Status: Acute Code(s): D61.810 - ANTINEOPLASTIC CHEMOTHERAPY INDUCED PANCYTOPENIA; T45.1X5A - ADVERSE EFFECT OF ANTINEOPLASTIC AND IMMUNOSUP DRUGS, INIT SNOMED Code(s): 730863674211884 (2) Partial small bowel obstruction Current Visit: Yes Status: Acute Code(s): K56.600 - PARTIAL INTESTINAL OBSTRUCTION, UNSPECIFIED TO CAUSE SNOMED Code(s): 232125085 (3) Essential (primary) hypertension Current Visit: No Status: Acute Code(s): I10 - ESSENTIAL (PRIMARY) HYPERTENSION SNOMED Code(s): 99864490 (4) Diabetes mellitus Current Visit: No Status: Chronic Priority: Medium Code(s): E11.9 - TYPE 2 DIABETES MELLITUS WITHOUT COMPLICATIONS SNOMED Code(s): 00984323 Plan: Continue NG tube suction. Check CBC and CMP in a.m. Appreciate surgical consultation. Had a long discussion about the prognostic indicators for the patient's pathology. Abdominal x-ray is pending.
[2017-03-16] MEDS: DEXTROSE 5%-0.9% NACL 1,000 ML IV SCH ×2 (10:41→11:31)
[2017-03-16] MEDS ORDERED: Potassium Replacement Protocol 1 EACH MISC MISCELLANE PRN (10:57)
[2017-03-16] MEDS ORDERED: POTASSIUM CHLORIDE 20 MEQ in WATER FOR INJECTION 1 100ML.BAG IVPB ONE ×2 (10:57→16:00)
[2017-03-16] MEDS: POTASSIUM CHLORIDE 10 MEQ in WATER FOR INJECTION 1 100ML.BAG IVPB SCH ×2 (11:31→12:42)
[2017-03-16 12:05] LABS: Glucose,Whole Blood 88 mg/dL (75-99)
--- NOTE | 2017-03-16 12:23 | CDI ---
Last Revision, January 2017 Documentation Clarification Form Date: 03/16/2017 11:49:00 AM From: Marimar Hollis RN, CCDS Admit Date: 03/14/2017 2:11:00 PM Patient Name: Zev Strong Visit Number: [id number] Discharge Date: ATTENTION: The Clinical Documentation Specialists (CDI) and [facility] Coding Staff appreciate your assistance in clarifying documentation. Please respond to the clarification below the line at the bottom and electronically sign. The CDI & [facility] Coding staff will review the response and follow-up if needed. Please note: Queries are made part of the Legal Health Record. If you have any questions, please contact the author of this message via ITS. Dr. Ck Frances Partial small bowel obstruction is documented in your progress notes. Patient history/risk factors: Diffuse large B cell lymphoma, NIDDM type II, Hypertension, Clinical Indicators: Present with complaints of belching and heartburn. He developed nausea and vomiting. Lab findings: WBC 0.8, HGB 6.3, HCT 19.9, PLT 74 Cat scan showed suspected partial small bowel obstruction at the anastomosis site. Vital Signs on admission: 117/58 84 16 99 97 % RA Treatment: Small bowel series NGT to suction Monitor labs NPO IV Fluids Oncology consults: Presentation is highly unlikely to be related to lymphoma recurrence. This is more likely due to adhesions and or constipation. In your professional opinion, can you please further clarify possible, suspected , cause of the partial small bowel obstruction? With adhesion Other, please specify Unable to determine Please continue to document in your progress notes and discharge summary in order to capture severity of illness and risk of mortality. Include clinical findings that support your diagnosis. MTDD
[2017-03-16 16:22] LABS: Glucose,Whole Blood 92 mg/dL (75-99)
--- NOTE | 2017-03-16 16:50 | P.PN ---
Subjective Progress Note Date: 03/16/17 Principal diagnosis: Small bowel obstruction Patient doing well today. No flatus or bowel movement. Denies abdominal pain. Nasogastric tube remains intact. Today's x-rays are nonspecific. White blood cell count improved. He is afebrile. Objective - Vital Signs Vital signs: Vital Signs Temp 98.8 F 03/16/17 15:00 Pulse 75 03/16/17 15:00 Resp 16 03/16/17 15:00 BP 165/73 03/16/17 15:00 Pulse Ox 99 03/16/17 15:00 Intake & Output 03/15/17 03/16/17 03/16/17 18:59 06:59 18:59 Intake Total 310 1000 Output Total 725 500 400 Balance -415 500 -400 Intake: Intake, IV Titration 1000 Amount Sodium Chloride 0.9% 1, 1000 000 ml @ 80 mls/hr IV . [id number] [facility] Rx#:[id number] Blood Product 310 Rc As-1 Unit 310 [id number] Output: Gastric Drainage 325 200 Urine 400 300 400 Other: Voiding Method Toilet Toilet Toilet Urinal Urinal Urinal # Voids 1 1 2 - Exam Abdomen: Soft, nondistended, nontender - Labs CBC & Chem 7: 03/16/17 06:56 03/16/17 14:53 Labs: Abnormal Lab Results - Last 24 Hours (Table) 03/14/17 03/16/17 03/16/17 Range/Units 09:00 06:56 06:56 RBC 2.53 L (4.30-5.90) m/uL Hgb 8.1 L D (13.0-17.5) gm/dL Hct 25.2 L (39.0-53.0) % RDW 18.6 H (11.5-15.5) % Plt Count 78 L (150-450) k/uL Lymphocytes # (Manual) 0.15 L (1.0-4.8) k/uL Potassium 3.3 L (3.5-5.1) mmol/L Chloride 110 H (98-107) mmol/L Hemoglobin A1c 6.2 H (4.0-6.0) % Calcium 8.1 L (8.4-10.2) mg/dL 01/15/18 Range/Units 14:53 RBC (4.30-5.90) m/uL Hgb (13.0-17.5) gm/dL Hct (39.0-53.0) % RDW (11.5-15.5) % Plt Count (150-450) k/uL Lymphocytes # (Manual) (1.0-4.8) k/uL Potassium 3.3 L (3.5-5.1) mmol/L Chloride (98-107) mmol/L Hemoglobin A1c (4.0-6.0) % Calcium (8.4-10.2) mg/dL Assessment and Plan (1) Partial small bowel obstruction Narrative/Plan: Today's x-rays are improved. CAT scan however did suggest a partial obstruction at the anastomosis. Will check small bowel series tomorrow. Decisions regarding surgery will be made based on that study. Current Visit: Yes Status: Acute Code(s): K56.600 - PARTIAL INTESTINAL OBSTRUCTION, UNSPECIFIED TO CAUSE SNOMED Code(s): 905665061
--- NOTE | 2017-03-16 16:55 | P.PN ---
Subjective Progress Note Date: 03/16/17 Principal diagnosis: SBO Pt seen today in follow up. He does not remember what brought him to the hospital, he denies nausea, minimal discomfort from the NG tube, he does not remember his last BM, his abd is tender to deep palpation. Objective - Vital Signs Vital signs: Vital Signs Temp 98.8 F 03/16/17 15:00 Pulse 75 03/16/17 15:00 Resp 16 03/16/17 15:00 BP 165/73 03/16/17 15:00 Pulse Ox 99 03/16/17 15:00 Intake & Output 03/15/17 03/16/17 03/16/17 18:59 06:59 18:59 Intake Total 310 1000 Output Total 725 500 400 Balance -415 500 -400 Intake: Intake, IV Titration 1000 Amount Sodium Chloride 0.9% 1, 1000 000 ml @ 80 mls/hr IV . [id number] [facility] Rx#:[id number] Blood Product 310 Rc As-1 Unit 310 [id number] Output: Gastric Drainage 325 200 Urine 400 300 400 Other: Voiding Method Toilet Toilet Toilet Urinal Urinal Urinal # Voids 1 1 2 - Constitutional General appearance: Present: cooperative, no acute distress, thin - EENT Eyes: Present: anicteric sclerae - Respiratory Respiratory: bilateral: CTA - Cardiovascular Details: aortic pulsations can be felt in the abdomen Heart sounds: normal: S1, S2 - Gastrointestinal General gastrointestinal: Present: soft, tenderness Localized gastrointestinal: tender: epigastric periumbilical, suprabubic, midline - Integumentary Integumentary: Present: pale - Neurologic Neurologic: Present: CNII-XII intact - Musculoskeletal Musculoskeletal: Present: generalized weakness, strength equal bilaterally - Psychiatric Psychiatric: Present: A&O x's 3, appropriate affect - Labs CBC & Chem 7: 03/16/17 06:56 03/16/17 14:53 Labs: Abnormal Lab Results - Last 24 Hours (Table) 03/14/17 03/16/17 03/16/17 Range/Units 09:00 06:56 06:56 RBC 2.53 L (4.30-5.90) m/uL Hgb 8.1 L D (13.0-17.5) gm/dL Hct 25.2 L (39.0-53.0) % RDW 18.6 H (11.5-15.5) % Plt Count 78 L (150-450) k/uL Lymphocytes # (Manual) 0.15 L (1.0-4.8) k/uL Potassium 3.3 L (3.5-5.1) mmol/L Chloride 110 H (98-107) mmol/L Hemoglobin A1c 6.2 H (4.0-6.0) % Calcium 8.1 L (8.4-10.2) mg/dL 03/16/17 Range/Units 14:53 RBC (4.30-5.90) m/uL Hgb (13.0-17.5) gm/dL Hct (39.0-53.0) % RDW (11.5-15.5) % Plt Count (150-450) k/uL Lymphocytes # (Manual) (1.0-4.8) k/uL Potassium 3.3 L (3.5-5.1) mmol/L Chloride (98-107) mmol/L Hemoglobin A1c (4.0-6.0) % Calcium (8.4-10.2) mg/dL Assessment and Plan (1) Partial small bowel obstruction Narrative/Plan: NG output seems to be decreasing, pt does not recall BM, no documented BM. Abd Xray today shows large amt of stool retained in large intestine. Pt being monitored and managed by Surgery. Current Visit: Yes Status: Acute Priority: High Code(s): K56.600 - PARTIAL INTESTINAL OBSTRUCTION, UNSPECIFIED TO CAUSE SNOMED Code(s): 686224905 (2) Pancytopenia due to antineoplastic chemotherapy Narrative/Plan: WBC recovered, adequate ANC, mild anemia and thrombocytopenia, no transfusions needed today, CBC in AM. Current Visit: Yes Status: Acute Priority: Medium Code(s): D61.810 - ANTINEOPLASTIC CHEMOTHERAPY INDUCED PANCYTOPENIA; T45.1X5A - ADVERSE EFFECT OF ANTINEOPLASTIC AND IMMUNOSUP DRUGS, INIT SNOMED Code(s): 113758061621044 (3) Diffuse large B-cell lymphoma of extranodal site Narrative/Plan: Pt will likely continue his treatment for DLBCL on schedule if he is completely recovered, pt will be evaluated prior to next cycle. Current Visit: No Status: Chronic Priority: Medium Code(s): C83.39 - DIFFUSE LARGE B-CELL LYMPHOMA, EXTRNOD AND SOLID ORGAN SITES SNOMED Code(s): 882034223
[2017-03-16 20:16] LABS: Glucose,Whole Blood 85 mg/dL (75-99)
[2017-03-16] MEDS ORDERED: POTASSIUM CHLORIDE 20 MEQ in WATER FOR INJECTION 1 100ML.BAG IVPB STA (20:40)
[2017-03-17] MEDS ORDERED: Potassium Replacement Protocol 1 EACH MISC MISCELLANE PRN ×2 (02:51→07:09)
[2017-03-17] MEDS: POTASSIUM CHLORIDE 10 MEQ in WATER FOR INJECTION 1 100ML.BAG IVPB SCH ×2 (03:58→05:01)
[2017-03-17 06:50] LABS: Glucose,Whole Blood 87 mg/dL (75-99)
[2017-03-17 07:00] LABS: Anisocytosis Slight; HCT 25.7 % (39.0-53.0); HGB 8.2 gm/dL (13.0-17.5); Hypochromasia Slight; MCH 31.1 pg (25.0-35.0); MCHC 31.7 g/dL (31.0-37.0); MCV 97.9 fL (80.0-100.0); Macrocytosis Slight; Mean Platelet Volume 8.7; RBC 2.63 m/uL (4.30-5.90); RDW 18.2 % (11.5-15.5); WBC 16.4 k/uL (3.8-10.6)
[2017-03-17 07:14] LABS: Platelet Count 77 k/uL (150-450)
[2017-03-17 07:17] LABS: ALT 28 U/L (21-72); AST 16 U/L (17-59); Albumin 2.4 g/dL (3.5-5.0); Alkaline Phosphatase 88 U/L (38-126); Anion Gap 9 mmol/L; Blood Urea Nitrogen 15 mg/dL (9-20); Calcium 8.3 mg/dL (8.4-10.2); Carbon Dioxide 26 mmol/L (22-30); Chloride 111 mmol/L (98-107); Glucose 84 mg/dL (74-99); Potassium 3.9 mmol/L (3.5-5.1); Sodium 146 mmol/L (137-145); Total Bilirubin 0.8 mg/dL (0.2-1.3); Total Protein 4.5 g/dL (6.3-8.2)
--- NOTE | 2017-03-17 07:23 | P.PN ---
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 This is a history and physical/progress note on a 76-year-old white male who has recently joined my practice. Patient has an underlying history of B-cell lymphoma. This developed partial small bowel obstruction and now has NG tube suction. The patient states he is much more comfortable mobility perspective. He states flatus. No overt bowel movement is otherwise noted. Objective - Vital Signs Vital signs: Vital Signs Temp 98.7 F 03/16/17 22:16 Pulse 86 03/16/17 22:16 Resp 16 03/16/17 22:16 BP 140/70 03/16/17 22:16 Pulse Ox 100 03/16/17 22:16 Intake & Output 03/16/17 03/17/17 03/17/17 18:59 06:59 18:59 Intake Total 380 Output Total 700 600 Balance -700 -220 Weight 68.039 kg Intake: Intake, IV Titration 380 Amount Dextrose 5%-0.9% NaCl 1, 80 000 ml @ 83 mls/hr IV . Q12H3M [facility] Rx#:[id number] Potassium Chloride 10 meq 100 In Water For Injection 1 100ml.bag @ 100 mls/hr IVPB Q1H [facility] Rx#: [id number] Potassium Chloride 20 meq 200 In Water For Injection 1 100ml.bag @ 50 mls/hr IVPB ONCE [facility] Rx#: [id number] Output: Gastric Drainage 300 Urine 400 600 Other: Voiding Method Toilet Toilet Urinal Urinal # Voids 2 - Constitutional General appearance: Present: average body habitus - EENT Eyes: Absent: abnormal pupil - Neck Neck: Absent: lymphadenopathy - Respiratory Respiratory: bilateral: CTA - Gastrointestinal General gastrointestinal: Present: distended, normal bowel sounds - Neurologic Neurologic: Present: CNII-XII intact - Labs CBC & Chem 7: 03/17/17 06:37 03/17/17 06:37 Labs: Abnormal Lab Results - Last 24 Hours (Table) 03/16/17 03/16/17 03/16/17 Range/Units 06:56 06:56 14:53 WBC (3.8-10.6) k/uL RBC (4.30-5.90) m/uL Hgb (13.0-17.5) gm/dL Hct (39.0-53.0) % RDW (11.5-15.5) % Plt Count (150-450) k/uL Lymphocytes # (Manual) 0.15 L (1.0-4.8) k/uL Sodium (137-145) mmol/L Potassium 3.3 L 3.3 L (3.5-5.1) mmol/L Chloride 110 H (98-107) mmol/L Calcium 8.1 L (8.4-10.2) mg/dL AST (17-59) U/L Total Protein (6.3-8.2) g/dL Albumin (3.5-5.0) g/dL 03/16/17 03/17/17 03/17/17 Range/Units 20:05 06:37 06:37 WBC 16.4 H (3.8-10.6) k/uL RBC 2.63 L (4.30-5.90) m/uL Hgb 8.2 L (13.0-17.5) gm/dL Hct 25.7 L (39.0-53.0) % RDW 18.2 H (11.5-15.5) % Plt Count 77 L (150-450) k/uL Lymphocytes # (Manual) (1.0-4.8) k/uL Sodium 146 H (137-145) mmol/L Potassium 3.4 L (3.5-5.1) mmol/L Chloride 111 H (98-107) mmol/L Calcium 8.3 L (8.4-10.2) mg/dL AST 16 L (17-59) U/L Total Protein 4.5 L (6.3-8.2) g/dL Albumin 2.4 L (3.5-5.0) g/dL Assessment and Plan (1) Pancytopenia due to antineoplastic chemotherapy Current Visit: Yes Status: Acute Priority: Medium Code(s): D61.810 - ANTINEOPLASTIC CHEMOTHERAPY INDUCED PANCYTOPENIA; T45.1X5A - ADVERSE EFFECT OF ANTINEOPLASTIC AND IMMUNOSUP DRUGS, INIT SNOMED Code(s): 916149738265899 (2) Partial small bowel obstruction Current Visit: Yes Status: Acute Priority: High Code(s): K56.600 - PARTIAL INTESTINAL OBSTRUCTION, UNSPECIFIED TO CAUSE SNOMED Code(s): 678750071 (3) Essential (primary) hypertension Current Visit: No Status: Acute Code(s): I10 - ESSENTIAL (PRIMARY) HYPERTENSION SNOMED Code(s): 39697365 (4) Diabetes mellitus Current Visit: No Status: Chronic Priority: Medium Code(s): E11.9 - TYPE 2 DIABETES MELLITUS WITHOUT COMPLICATIONS SNOMED Code(s): 13276961 Plan: We'll continue to follow with surgery. Small bowel series being consulted by surgery at this time. Prognosis is guarded secondary multiple comorbidities.
[2017-03-17] MEDS ORDERED: POTASSIUM CHLORIDE 10 MEQ in WATER FOR INJECTION 1 100ML.BAG IVPB SCH (08:00)
[2017-03-17] MEDS: INSULIN ASPART 100 UNIT/ML 1 ML 10 ML VIAL SQ SCH ×4 (09:06→20:12)
[2017-03-17] MEDS: DEXTROSE 5%-0.9% NACL 1,000 ML IV SCH ×2 (12:07→20:41)
[2017-03-17] MEDS: PANTOPRAZOLE 40 MG/10 ML VIAL IVP SCH (12:08)
[2017-03-17 12:22] LABS: Glucose,Whole Blood 111 mg/dL (75-99)
--- NOTE | 2017-03-17 12:52 | FL ---
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 CT with concern for partial small bowel obstruction and transition point at the prior rese ction site. TECHNIQUE: A single contrast small bowel follow through is performed utilizing barium. 9 images we re saved and 8 seconds of fluoroscopy time was utilized. COMPARISON: None FINDINGS: Area Field Manager image of the abdomen demonstrates enteric tube slightly cephalad placement with its radiopaque fenestrated portion above the gastroesophageal junction. This should be advanced at least 6 cm optimal placement. Additionally multilevel vertebroplasty changes of the lumbar spine are noted. Surgical sutures are noted within the right mid abdomen at the level of the transverse process of L4 . The small bowel study shows normal transit to the colon in less then 106 minutes. There is a normal m ucosal fold pattern throughout the small bowel. There is no evidence of any stricture or filling def ect noted. The terminal ileum is spotted and appears unremarkable. IMPRESSION: No evidence of bowel obstruction. Enteric tube should be advanced at least 6 cm for optim al placement.
--- NOTE | 2017-03-17 13:03 | P.PN ---
Subjective Progress Note Date: 03/17/17 Principal diagnosis: Small bowel obstruction Patient doing well today. Denies abdominal pain. Small bowel series showed no evidence of bowel obstruction. Objective - Vital Signs Vital signs: Vital Signs Temp 98 F 03/17/17 07:00 Pulse 71 03/17/17 07:00 Resp 20 03/17/17 08:00 BP 142/70 03/17/17 07:00 Pulse Ox 96 03/17/17 07:00 Intake & Output 03/16/17 03/17/17 03/17/17 18:59 06:59 18:59 Intake Total 380 360 Output Total 700 600 400 Balance -700 -220 -40 Weight 68.039 kg 68.039 kg Intake: Intake, IV Titration 380 360 Amount Dextrose 5%-0.9% NaCl 1, 80 360 000 ml @ 83 mls/hr IV . Q12H3M [facility] Rx#:[id number] Potassium Chloride 10 meq 100 In Water For Injection 1 100ml.bag @ 100 mls/hr IVPB Q1H [facility] Rx#: [id number] Potassium Chloride 20 meq 200 In Water For Injection 1 100ml.bag @ 50 mls/hr IVPB ONCE STA Rx#: [id number] Output: Gastric Drainage 300 400 Urine 400 600 Other: Voiding Method Toilet Toilet Toilet Urinal Urinal Urinal # Voids 2 2 - Exam Abdomen: Soft, nondistended, nontender - Labs CBC & Chem 7: 03/17/17 06:37 03/17/17 06:37 Labs: Abnormal Lab Results - Last 24 Hours (Table) 03/16/17 03/16/17 03/17/17 Range/Units 14:53 20:05 06:37 WBC 16.4 H (3.8-10.6) k/uL RBC 2.63 L (4.30-5.90) m/uL Hgb 8.2 L (13.0-17.5) gm/dL Hct 25.7 L (39.0-53.0) % RDW 18.2 H (11.5-15.5) % Plt Count 77 L (150-450) k/uL Sodium (137-145) mmol/L Potassium 3.3 L 3.4 L (3.5-5.1) mmol/L Chloride (98-107) mmol/L POC Glucose (mg/dL) (75-99) mg/dL Calcium (8.4-10.2) mg/dL AST (17-59) U/L Total Protein (6.3-8.2) g/dL Albumin (3.5-5.0) g/dL 03/17/17 03/17/17 Range/Units 06:37 12:10 WBC (3.8-10.6) k/uL RBC (4.30-5.90) m/uL Hgb (13.0-17.5) gm/dL Hct (39.0-53.0) % RDW (11.5-15.5) % Plt Count (150-450) k/uL Sodium 146 H (137-145) mmol/L Potassium (3.5-5.1) mmol/L Chloride 111 H (98-107) mmol/L POC Glucose (mg/dL) 111 H (75-99) mg/dL Calcium 8.3 L (8.4-10.2) mg/dL AST 16 L (17-59) U/L Total Protein 4.5 L (6.3-8.2) g/dL Albumin 2.4 L (3.5-5.0) g/dL Assessment and Plan (1) Partial small bowel obstruction Narrative/Plan: We'll remove the nasogastric tube today. Start clear liquids. Agree with antiacid therapy. Current Visit: Yes Status: Acute Priority: High Code(s): K56.600 - PARTIAL INTESTINAL OBSTRUCTION, UNSPECIFIED TO CAUSE SNOMED Code(s): 113988505
[2017-03-17 16:53] LABS: Glucose,Whole Blood 116 mg/dL (75-99)
[2017-03-17 19:51] LABS: Glucose,Whole Blood 276 mg/dL (75-99)
[2017-03-18 07:15] LABS: Glucose,Whole Blood 108 mg/dL (75-99)
[2017-03-18] MEDS: INSULIN ASPART 100 UNIT/ML 1 ML 10 ML VIAL SQ SCH ×4 (07:41→21:25)
[2017-03-18] MEDS: PANTOPRAZOLE 40 MG/10 ML VIAL IVP SCH (07:44)
[2017-03-18] MEDS: DEXTROSE 5%-0.9% NACL 1,000 ML IV SCH (07:44)
[2017-03-18 08:51] LABS: Anisocytosis Slight; HCT 24.6 % (39.0-53.0); HGB 7.7 gm/dL (13.0-17.5); MCH 31.4 pg (25.0-35.0); MCHC 31.5 g/dL (31.0-37.0); MCV 99.6 fL (80.0-100.0); Macrocytosis Slight; Mean Platelet Volume 9.1; RBC 2.47 m/uL (4.30-5.90); RDW 18.8 % (11.5-15.5); WBC 16.3 k/uL (3.8-10.6)
[2017-03-18 08:53] LABS: Platelet Count 91 k/uL (150-450)
[2017-03-18 09:32] LABS: Band Neutrophils % 5 %; Eosinophils # (M) 0.16 k/uL (0-0.7); Lymphocytes # (M) 0.65 k/uL (1.0-4.8); Metamyelocytes # (M) 0.33 k/uL (0); Metamyelocytes % 2 %; Monocytes # (M) 1.47 k/uL (0-1.0); Myelocytes # (M) 0.33 k/uL (0); Myelocytes % 2 %; Neutrophils % (M) 79 %; Nucleated Red Blood Cells 0 /100 WBC (0-0); Total Cells Counted 200
[2017-03-18 09:33] LABS: Poikilocytosis (M) Present; Toxic Granulation Present
--- NOTE | 2017-03-18 11:12 | P.PN ---
Subjective Progress Note Date: 03/18/17 Principal diagnosis: Small bowel obstruction Patient doing better at this time. Denies abdominal pain. Tolerating clear liquids. No nausea or vomiting Objective - Vital Signs Vital signs: Vital Signs Temp 99.5 F 03/18/17 07:00 Pulse 76 03/18/17 07:00 Resp 18 03/18/17 07:00 BP 94/54 03/18/17 07:00 Pulse Ox 96 03/18/17 07:00 Intake & Output 03/17/17 03/18/17 03/18/17 18:59 06:59 18:59 Intake Total 780 904 Output Total 1000 300 Balance -220 604 Weight 68.039 kg Intake: Intake, IV Titration 660 664 Amount Dextrose 5%-0.9% NaCl 1, 660 664 000 ml @ 83 mls/hr IV . Q12H3M [facility] Rx#:[id number] Oral 120 240 Output: Gastric Drainage 400 Urine 600 300 Other: Voiding Method Toilet Toilet Toilet Urinal Urinal Urinal # Voids 3 1 - Exam Abdomen: Soft, nontender, nondistended - Labs CBC & Chem 7: 03/18/17 08:03 03/17/17 06:37 Labs: Abnormal Lab Results - Last 24 Hours (Table) 03/17/17 03/17/17 03/17/17 Range/Units 12:10 16:51 19:49 WBC (3.8-10.6) k/uL RBC (4.30-5.90) m/uL Hgb (13.0-17.5) gm/dL Hct (39.0-53.0) % RDW (11.5-15.5) % Plt Count (150-450) k/uL Neutrophils # (Manual) (1.3-7.7) k/uL Lymphocytes # (Manual) (1.0-4.8) k/uL Monocytes # (Manual) (0-1.0) k/uL Metamyelocytes # (Man) (0) k/uL Myelocytes # (Manual) (0) k/uL POC Glucose (mg/dL) 111 H 116 H 276 H (75-99) mg/dL 03/18/17 03/18/17 Range/Units 07:10 08:03 WBC 16.3 H (3.8-10.6) k/uL RBC 2.47 L (4.30-5.90) m/uL Hgb 7.7 L (13.0-17.5) gm/dL Hct 24.6 L (39.0-53.0) % RDW 18.8 H (11.5-15.5) % Plt Count 91 L (150-450) k/uL Neutrophils # (Manual) 13.60 H (1.3-7.7) k/uL Lymphocytes # (Manual) 0.65 L (1.0-4.8) k/uL Monocytes # (Manual) 1.47 H (0-1.0) k/uL Metamyelocytes # (Man) 0.33 H (0) k/uL Myelocytes # (Manual) 0.33 H (0) k/uL POC Glucose (mg/dL) 108 H (75-99) mg/dL Assessment and Plan (1) Partial small bowel obstruction Narrative/Plan: Will advance diet to full liquids. Ambulate. Possible discharge tomorrow. Current Visit: Yes Status: Acute Priority: High Code(s): K56.600 - PARTIAL INTESTINAL OBSTRUCTION, UNSPECIFIED TO CAUSE SNOMED Code(s): 834131501
[2017-03-18 11:26] LABS: Glucose,Whole Blood 131 mg/dL (75-99)
[2017-03-18 17:22] LABS: Glucose,Whole Blood 129 mg/dL (75-99)
[2017-03-18 20:53] LABS: Glucose,Whole Blood 160 mg/dL (75-99)
[2017-03-19] MEDS: DEXTROSE 5%-0.9% NACL 1,000 ML IV SCH ×2 (03:26→07:50)
[2017-03-19 07:04] LABS: Glucose,Whole Blood 109 mg/dL (75-99)
[2017-03-19] MEDS: INSULIN ASPART 100 UNIT/ML 1 ML 10 ML VIAL SQ SCH ×2 (07:48→12:37)
[2017-03-19] MEDS: PANTOPRAZOLE 40 MG/10 ML VIAL IVP SCH (07:50)
--- NOTE | 2017-03-19 07:54 | P.DS ---
Providers Date of admission: 03/14/17 14:11 Attending physician: Ck Frances Consults: 03/14/17 13:39 Consult Physician Stat Consulting Provider: iKp Adam Consult Reason/Comments: Partial Small Bowel Obstruction Do you want consulting provider notified?: Yes 03/15/17 08:51 Consult Physician Routine Consulting Provider: Coleman Orellana Consult Reason/Comments: B cell lymphoma Do you want consulting provider notified?: Already Contacted Primary care physician: Ck Frances - Discharge Diagnosis(es) (1) Pancytopenia due to antineoplastic chemotherapy Current Visit: Yes Status: Acute Priority: Medium (2) Partial small bowel obstruction Current Visit: Yes Status: Acute Priority: High (3) Essential (primary) hypertension Current Visit: No Status: Acute (4) Diabetes mellitus Current Visit: No Status: Chronic Priority: Medium Hospital Course: This is a discharge summary 76-year-old white male with history of B-cell lymphoma who had a partial small bowel obstruction. After NG tube suction and nothing by mouth treatment, the patient was stabilized. Surgical evaluation did not reveal any necessary surgery requirement at this time. The patient is tolerant diet and once he is cleared by surgical team, he'll be discharged in stable condition to follow-up in about one week. Patient Condition at Discharge: Serious Plan - Discharge Summary Discharge Rx Participant: No New Discharge Prescriptions: Continue Docusate [Colace] 100 mg PO DAILY Vits A,C,E/Lutein/Minerals [Ocuvite with Lutein Tablet] 1 tab PO HS Cholecalciferol [Vitamin D3] 1,000 unit PO BID Acetaminophen [Tylenol 8 Hour] 650 mg PO BID Ferrous Sulfate [Iron (65 MG Elemental)] 325 mg PO HS [place]-3 Fatty Acids/Fish Oil [Fish Oil 1,000 mg Softgel] 1 cap PO BID Jeferson/D3/Mag11/Zinc/Explosive Specialist/Azar/Bor [Caltrate 600+D Plus Tablet] 1 tab PO HS Naproxen Sodium [Aleve] 440 mg PO BID Cyanocobalamin [Vitamin B-12 Injection] 1,000 mcg SQ QMONTH Aspirin 81 mg PO HS Allopurinol [Zyloprim] 300 mg PO DAILY Pantoprazole Sodium [Protonix] 40 mg PO AC-BRKFST Mirabegron [Myrbetriq] 50 mg PO HS Clobetasol Propionate [Temovate 0.05% Cream] 1 applic TOPICAL BID metFORMIN HCL 1,000 mg PO BID Metoprolol Succinate [Toprol XL] 25 mg PO DAILY Clopidogrel Bisulfate [Plavix] 75 mg PO DAILY Atorvastatin [Lipitor] 10 mg PO DAILY Ondansetron [Zofran ODT] 4 mg PO Q4HR PRN #50 tab PRN Reason: Nausea And Vomiting Discharge Medication List Acetaminophen [Tylenol 8 Hour] 650 mg PO BID 02/10/17 [History] Allopurinol [Zyloprim] 300 mg PO DAILY 02/10/17 [History] Aspirin 81 mg PO HS 02/10/17 [History] Atorvastatin [Lipitor] 10 mg PO DAILY 02/10/17 [History] Jeferson/D3/Mag11/Zinc/Explosive Specialist/Azar/Bor [Caltrate 600+D Plus Tablet] 1 tab PO HS [History] Cholecalciferol [Vitamin D3] 1,000 unit PO BID 02/10/17 [History] Clobetasol Propionate [Temovate 0.05% Cream] 1 applic TOPICAL BID 02/10/17 [ History] Clopidogrel Bisulfate [Plavix] 75 mg PO DAILY 02/10/17 [History] Cyanocobalamin [Vitamin B-12 Injection] 1,000 mcg SQ QMONTH 02/10/17 [History] Docusate [Colace] 100 mg PO DAILY 02/10/17 [History] Ferrous Sulfate [Iron (65 MG Elemental)] 325 mg PO HS 02/10/17 [History] Metoprolol Succinate [Toprol XL] 25 mg PO DAILY 02/10/17 [History] Mirabegron [Myrbetriq] 50 mg PO HS 02/10/17 [History] Naproxen Sodium [Aleve] 440 mg PO BID 02/10/17 [History] [place]-3 Fatty Acids/Fish Oil [Fish Oil 1,000 mg Softgel] 1 cap PO BID 02/10/17 [ History] Pantoprazole Sodium [Protonix] 40 mg PO AC-BRKFST 02/10/17 [History] Vits A,C,E/Lutein/Minerals [Ocuvite with Lutein Tablet] 1 tab PO HS 02/10/17 [ History] metFORMIN HCL 1,000 mg PO BID 02/10/17 [History] Ondansetron [Zofran ODT] 4 mg PO Q4HR PRN #50 tab 02/15/17 [Rx] Follow up Appointment(s)/Referral(s): [facility] Nurse, [NON-STAFF] - 1 Week Ck Frances MD [Primary Care Provider] - 1 Week Discharge Disposition: HOME SELF-CARE
[2017-03-19 11:45] LABS: Glucose,Whole Blood 113 mg/dL (75-99)
--- NOTE | 2017-03-19 13:16 | P.PN ---
<Khushi Martinez - Last Filed: 03/19/17 13:16> Subjective Progress Note Date: 03/19/17 76-year-old male seen and examined sitting up in bed taking a diet states had a bowel movement this morning reports no nausea vomiting states no abdominal pain Objective - Vital Signs Vital signs: Vital Signs Temp 98.2 F 03/19/17 07:00 Pulse 70 03/19/17 09:15 Resp 18 03/19/17 09:15 BP 134/72 03/19/17 07:00 Pulse Ox 99 03/19/17 07:00 Intake & Output 03/18/17 03/19/17 03/19/17 18:59 06:59 18:59 Intake Total 590 Balance 590 Intake: Oral 590 Other: Voiding Method Toilet Toilet Toilet Urinal Urinal Urinal # Voids 3 2 - Exam Focused exam Abdomen soft not distended nontender tolerating a diet no nausea no vomiting states had a bowel movement this morning - Labs CBC & Chem 7: 03/18/17 08:03 03/17/17 06:37 Labs: Abnormal Lab Results - Last 24 Hours (Table) 03/18/17 03/18/17 03/19/17 Range/Units 17:09 20:52 07:02 POC Glucose (mg/dL) 129 H 160 H 109 H (75-99) mg/dL 03/19/17 Range/Units 11:39 POC Glucose (mg/dL) 113 H (75-99) mg/dL Assessment and Plan Assessment: Assessment and plan Abdominal pain suspect due to partial small bowel obstruction resolving The above impression and plan of care have been discussed and directed by signing physician. Khushi Martinez nurse practitioner acting as scribe for signing physician. <Kip Adam - Last Filed: 03/19/17 14:41> Objective - Vital Signs Vital signs: Vital Signs Temp 98.2 F 03/19/17 07:00 Pulse 70 03/19/17 09:15 Resp 18 03/19/17 09:15 BP 134/72 03/19/17 07:00 Pulse Ox 99 03/19/17 07:00 Intake & Output 03/18/17 03/19/17 03/19/17 18:59 06:59 18:59 Intake Total 590 664 Balance 590 664 Intake: Intake, IV Titration 664 Amount Dextrose 5%-0.9% NaCl 1, 664 000 ml @ 83 mls/hr IV . Q12H3M [facility] Rx#:[id number] Oral 590 Other: Voiding Method Toilet Toilet Toilet Urinal Urinal Urinal # Voids 3 2 - Labs CBC & Chem 7: 03/18/17 08:03 03/17/17 06:37 Labs: Abnormal Lab Results - Last 24 Hours (Table) 03/18/17 03/18/17 03/19/17 Range/Units 17:09 20:52 07:02 POC Glucose (mg/dL) 129 H 160 H 109 H (75-99) mg/dL 03/19/17 Range/Units 11:39 POC Glucose (mg/dL) 113 H (75-99) mg/dL Assessment and Plan Assessment: Patient doing well today. Tolerating diet. No abdominal pain. He is having bowel movement. Stable for discharge. Return to hospital if symptoms recur. (1) Partial small bowel obstruction Current Visit: Yes Status: Acute Priority: High Code(s): K56.600 - PARTIAL INTESTINAL OBSTRUCTION, UNSPECIFIED TO CAUSE SNOMED Code(s): 928057737
[2017-03-19 15:10] VITALS: BP 144/64; PULSE 85; RESP 16; TEMP 97.8
== END 2017-03-19 17:20 | disposition home health service (06) | DRG 388 ==
LOC: EC 08:43 → 5ONC 14:11
PROVIDERS: ADMIT Family Medicine; ATTEND Family Medicine
PROC: 0D9670Z Drainage of Stomach with Drainage Device, Via Natural or Artificial Opening (ICD-10-PCS; principal; 2017-03-14)
PROC: 30243N1 Transfusion of Nonautologous Red Blood Cells into Central Vein, Percutaneous Approach (ICD-10-PCS; 2017-03-15)
DX: K56.51 Intestinal adhesions [bands], with partial obstruction (principal); D61.810 Antineoplastic chemotherapy induced pancytopenia; E46 Unspecified protein-calorie malnutrition; C83.39 Diffuse large B-cell lymphoma, extranodal and solid organ sites; E11.9 Type 2 diabetes mellitus without complications; F90.9 Attention-deficit hyperactivity disorder, unspecified type; I10 Essential (primary) hypertension; M06.9 Rheumatoid arthritis, unspecified; K21.9 Gastro-esophageal reflux disease without esophagitis; T45.1X5A Adverse effect of antineoplastic and immunosuppressive drugs, initial encounter; R32 Unspecified urinary incontinence; S32.010D Wedge compression fracture of first lumbar vertebra, subsequent encounter for fracture with routine healing; S32.020D Wedge compression fracture of second lumbar vertebra, subsequent encounter for fracture with routine healing; S32.030D Wedge compression fracture of third lumbar vertebra, subsequent encounter for fracture with routine healing; S22.32XD Fracture of one rib, left side, subsequent encounter for fracture with routine healing; Z68.21 Body mass index [BMI] 21.0-21.9, adult; Z79.82 Long term (current) use of aspirin; Z79.02 Long term (current) use of antithrombotics/antiplatelets; Z79.84 Long term (current) use of oral hypoglycemic drugs; Z79.899 Other long term (current) drug therapy; Z79.1 Long term (current) use of non-steroidal anti-inflammatories (NSAID); Z85.46 Personal history of malignant neoplasm of prostate; Z86.718 Personal history of other venous thrombosis and embolism; Z88.5 Allergy status to narcotic agent; Z88.0 Allergy status to penicillin; Z88.2 Allergy status to sulfonamides
CPT/HCPCS: 36415; 74018; 74019; 74177; 74250; 80048; 80053; 81001; 82150; 83036; 83690; 84132; 85025; 85027; 86850; 86900; 86901; 86920; 96361; 96374; 99285

== ENCOUNTER 2017-04-07 08:16 | Inpatient (IN) | payer MEDICARE, BC ==
[2017-04-07 09:52] LABS: ALT 24 U/L (21-72); AST 20 U/L (17-59); Albumin 3.2 g/dL (3.5-5.0); Alkaline Phosphatase 81 U/L (38-126); Anion Gap 7 mmol/L; Blood Urea Nitrogen 23 mg/dL (9-20); Carbon Dioxide 28 mmol/L (22-30); Chloride 106 mmol/L (98-107); Glucose 111 mg/dL (74-99); Potassium 4.8 mmol/L (3.5-5.1); Sodium 141 mmol/L (137-145); Total Bilirubin 0.2 mg/dL (0.2-1.3); Total Protein 5.6 g/dL (6.3-8.2)
[2017-04-07 10:14] LABS: Anisocytosis Moderate; Basophils # (A) 0.1 k/uL (0-0.2); Basophils % (A) 1 %; Eosinophils # (A) 0.5 k/uL (0-0.7); Eosinophils % (A) 7 %; HGB 7.9 gm/dL (13.0-17.5); Hypochromasia Moderate; Lymphocytes # (A) 0.9 k/uL (1.0-4.8); Lymphocytes % (A) 13 %; MCH 32.8 pg (25.0-35.0); MCHC 30.2 g/dL (31.0-37.0); Macrocytosis Marked; Mean Platelet Volume 6.6; Monocytes # (A) 0.5 k/uL (0-1.0); Monocytes % (A) 7 %; Neutrophils # (A) 4.4 k/uL (1.3-7.7); Neutrophils % (A) 68 %; RDW 20.2 % (11.5-15.5); WBC 6.4 k/uL (3.8-10.6)
[2017-04-07 10:20] LABS: MCV 108.6 fL (80.0-100.0); Platelet Count 336 k/uL (150-450)
[2017-04-07] MEDS ORDERED: ONDANSETRON 4 MG/2 ML VIAL IVP PRN (10:48)
[2017-04-07 11:18] LABS: Poikilocytosis (M) Present
[2017-04-07 11:58] LABS: Glucose,Whole Blood 125 mg/dL (75-99)
[2017-04-07] MEDS: FAMOTIDINE 20 MG/2 ML VIAL IV SCH (11:58)
[2017-04-07] MEDS: ONDANSETRON 16 MG in SODIUM CHLORIDE 0.9% 50 ML IVPB SCH (11:59)
[2017-04-07] MEDS: SODIUM CHLORIDE 0.9% 1,000 ML IV SCH (11:59)
[2017-04-07] MEDS ORDERED: methylPREDNISolone SOD SUCCI 125 MG/2 ML VIAL IV ONE (12:00)
[2017-04-07] MEDS ORDERED: riTUXimab 700 MG in SODIUM CHLORIDE 0.9% 500 ML IV ONE (12:00)
[2017-04-07] MEDS ORDERED: diphenhydrAMINE 50 MG/ML 1 ML VIAL IVP ONE (12:00)
[2017-04-07] MEDS ORDERED: ACETAMINOPHEN TAB 325 MG TAB PO ONE (12:00)
[2017-04-07] MEDS: predniSONE 50 MG TAB PO SCH ×2 (12:49→20:39)
[2017-04-07] MEDS ORDERED: MAGNESIUM HYDROXIDE 2,400 MG/10 ML CUP PO PRN (16:11)
[2017-04-07] MEDS: SODIUM CHLORIDE 0.9% IV SCH ×3 (16:15→16:16)
[2017-04-07] MEDS: VINCRISTINE SULFATE IV SCH (16:15)
[2017-04-07] MEDS: ETOPOSIDE IV SCH (16:15)
[2017-04-07] MEDS: DOXORUBICIN HCL IV SCH (16:16)
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
[2017-04-07 16:59] LABS: Glucose,Whole Blood 186 mg/dL (75-99)
[2017-04-07] MEDS: SALT AND SODA MOUTHWASH 1,000 ML PO SCH ×2 (17:36→20:40)
[2017-04-07 20:17] LABS: Glucose,Whole Blood 219 mg/dL (75-99)
[2017-04-08] MEDS: SALT AND SODA MOUTHWASH 1,000 ML PO SCH ×5 (00:24→20:27)
[2017-04-08] MEDS: SODIUM CHLORIDE 0.9% 1,000 ML IV SCH ×2 (00:25→15:45)
--- NOTE | 2017-04-08 03:05 | US ---
EXAMINATION TYPE: US venous doppler duplex LE RT DATE OF EXAM: 04/07/2017 7:15 PM COMPARISON: 01/16/2017 CLINICAL HISTORY: Increased swelling. Right leg swelling SIDE PERFORMED: Right TECHNIQUE: The lower extremity deep venous system is examined utilizing real time linear array sonog linda with graded compression, doppler sonography and color-flow sonography. VESSELS IMAGED: External Iliac Vein (EIV) Common Femoral Vein Deep Femoral Vein Greater Saphenous Vein * Femoral Vein Popliteal Vein Small Saphenous Vein * Proximal Calf Veins (* superficial vessels) FINDINGS: Grayscale, color doppler, spectral doppler imaging performed of the deep veins of the lower extremities. There is normal flow, compressibility, vascular waveforms. Color flow is seen in dist al popliteal and calf veins. Distal popliteal compressed and augmented. IMPRESSION: RIGHT LOWER EXTREMITY: NEGATIVE FOR DVT.
[2017-04-08 07:06] LABS: Glucose,Whole Blood 148 mg/dL (75-99)
[2017-04-08 08:14] LABS: Anisocytosis Slight; Basophils % (A) 0 %; Eosinophils % (A) 0 %; HCT 26.7 % (39.0-53.0); HGB 7.9 gm/dL (13.0-17.5); Hypochromasia Moderate; Lymphocytes # (A) 0.6 k/uL (1.0-4.8); Lymphocytes % (A) 4 %; MCH 32.3 pg (25.0-35.0); MCHC 29.6 g/dL (31.0-37.0); MCV 109.1 fL (80.0-100.0); Macrocytosis Marked; Mean Platelet Volume 6.8; Monocytes # (A) 0.4 k/uL (0-1.0); Monocytes % (A) 3 %; Neutrophils # (A) 13.3 k/uL (1.3-7.7); Neutrophils % (A) 92 %; Platelet Count 324 k/uL (150-450); RBC 2.45 m/uL (4.30-5.90); RDW 19.9 % (11.5-15.5); WBC 14.4 k/uL (3.8-10.6)
[2017-04-08 08:25] LABS: ALT 21 U/L (21-72); AST 16 U/L (17-59); Albumin 2.9 g/dL (3.5-5.0); Alkaline Phosphatase 73 U/L (38-126); Anion Gap 9 mmol/L; Blood Urea Nitrogen 28 mg/dL (9-20); Carbon Dioxide 24 mmol/L (22-30); Chloride 107 mmol/L (98-107); Glucose 129 mg/dL (74-99); Sodium 140 mmol/L (137-145); Total Bilirubin 0.2 mg/dL (0.2-1.3); Total Protein 5.4 g/dL (6.3-8.2)
[2017-04-08] MEDS: ENOXAPARIN 30 MG/0.3 ML SYRINGE SQ SCH (09:12)
[2017-04-08] MEDS: predniSONE 50 MG TAB PO SCH ×2 (09:12→20:26)
--- NOTE | 2017-04-08 10:09 | P.PN ---
Subjective Progress Note Date: 04/08/17 Day 2, Cycle 3 of R-EPOCH tolerating well. Eating good this am with no acute complaints. Denies nausea, vomiting, constipation or diarrhea. Intermittent discomfort at diaphragm level, unable to describe any association with food, movement or time. Urinating without difficulty. Doppler negative for DVT RLE, completed 04/07/17. No Pain in extremities. Objective - Vital Signs Vital signs: Vital Signs Temp 98.3 F 04/08/17 07:00 Pulse 72 04/08/17 07:00 Resp 18 04/08/17 07:00 BP 135/70 04/08/17 07:00 Pulse Ox 98 04/08/17 07:00 Intake & Output 04/07/17 04/08/17 04/08/17 18:59 06:59 18:59 Intake Total 334.8 2570 Balance 334.8 2570 Weight 69.967 kg 70.1 kg Intake: Intake, IV Titration 334.8 900 Amount Sodium Chloride 0.9% 1, 900 000 ml @ 75 mls/hr IV . [id number] [facility] Rx#:[id number] riTUXimab 700 mg In 334.8 Sodium Chloride 0.9% 500 ml @ Titrate IV .Q0M ONE Rx#:[id number] Oral 1670 Other: # Voids 2 2 - EENT Eyes: Present: normal appearance ENT: Present: normal oropharynx - Neck Neck: Present: normal ROM - Respiratory Respiratory: bilateral: CTA - Cardiovascular Rhythm: regular Heart sounds: normal: S1, S2 - Gastrointestinal General gastrointestinal: Present: normal bowel sounds, tenderness Localized gastrointestinal: tender: epigastric periumbilical - Integumentary Integumentary: Present: normal - Neurologic Neurologic Comment(s): no abnormalities noted - Musculoskeletal Musculoskeletal: Present: generalized weakness - Psychiatric Psychiatric: Present: A&O x's 3 - Labs CBC & Chem 7: 04/08/17 07:29 04/08/17 07:29 Labs: Abnormal Lab Results - Last 24 Hours (Table) 04/07/17 04/07/17 04/07/17 Range/Units 09:25 09:25 11:46 WBC (3.8-10.6) k/uL RBC 2.40 L (4.30-5.90) m/uL Hgb 7.9 L (13.0-17.5) gm/dL Hct 26.0 L (39.0-53.0) % MCV 108.6 H D (80.0-100.0) fL MCHC 30.2 L (31.0-37.0) g/dL RDW 20.2 H (11.5-15.5) % Neutrophils # (1.3-7.7) k/uL Lymphocytes # 0.9 L (1.0-4.8) k/uL BUN 23 H (9-20) mg/dL Creatinine 1.35 H (0.66-1.25) mg/dL Glucose 111 H (74-99) mg/dL POC Glucose (mg/dL) 125 H (75-99) mg/dL AST (17-59) U/L Total Protein 5.6 L (6.3-8.2) g/dL Albumin 3.2 L (3.5-5.0) g/dL 04/07/17 04/07/17 04/08/17 Range/Units 16:58 20:15 06:56 WBC (3.8-10.6) k/uL RBC (4.30-5.90) m/uL Hgb (13.0-17.5) gm/dL Hct (39.0-53.0) % MCV (80.0-100.0) fL MCHC (31.0-37.0) g/dL RDW (11.5-15.5) % Neutrophils # (1.3-7.7) k/uL Lymphocytes # (1.0-4.8) k/uL BUN (9-20) mg/dL Creatinine (0.66-1.25) mg/dL Glucose (74-99) mg/dL POC Glucose (mg/dL) 186 H 219 H 148 H (75-99) mg/dL AST (17-59) U/L Total Protein (6.3-8.2) g/dL Albumin (3.5-5.0) g/dL 04/08/17 04/08/17 Range/Units 07:29 07:29 WBC 14.4 H (3.8-10.6) k/uL RBC 2.45 L (4.30-5.90) m/uL Hgb 7.9 L (13.0-17.5) gm/dL Hct 26.7 L (39.0-53.0) % MCV 109.1 H (80.0-100.0) fL MCHC 29.6 L (31.0-37.0) g/dL RDW 19.9 H (11.5-15.5) % Neutrophils # 13.3 H (1.3-7.7) k/uL Lymphocytes # 0.6 L (1.0-4.8) k/uL BUN 28 H (9-20) mg/dL Creatinine 1.31 H (0.66-1.25) mg/dL Glucose 129 H (74-99) mg/dL POC Glucose (mg/dL) (75-99) mg/dL AST 16 L (17-59) U/L Total Protein 5.4 L (6.3-8.2) g/dL Albumin 2.9 L (3.5-5.0) g/dL Assessment and Plan (1) Diffuse large B-cell lymphoma of extranodal site Current Visit: Yes Status: Chronic Priority: Medium Code(s): C83.39 - DIFFUSE LARGE B-CELL LYMPHOMA, EXTRNOD AND SOLID ORGAN SITES SNOMED Code(s): 453160025 (2) Anemia Current Visit: Yes Status: Chronic Priority: Medium Code(s): D64.9 - ANEMIA, UNSPECIFIED SNOMED Code(s): 272016004 Plan: Doppler of RLE Negative, Platelets wnl - Dietitian consult for nutritional support Continue with Cycle 3 Day 2 of R-EPOCH, Prednisone and PPI Continue CBC, CMP daily while on chemotherapy Monitor neurological status with history of intermittent delirium PCP Dr. Frances following for med management GI/DVT prophylaxis Prophylaxis initiated with lovenox (30mg daily) Zev will receive Neulasta in office day after chemotherapy completed
[2017-04-08 10:55] LABS: Glucose,Whole Blood 151 mg/dL (75-99)
--- NOTE | 2017-04-08 13:09 | CDI ---
Last Revision, January 2017 Documentation Clarification Form Date: 04/08/2017 1:03:00 PM From: Annemarie MagallonDARÍO, CCDS Admit Date: 04/07/2017 8:16:00 AM Patient Name: Zev Strong Visit Number: [id number] Discharge Date: ATTENTION: The Clinical Documentation Specialists (CDI) and [facility] Coding Staff appreciate your assistance in clarifying documentation. Please respond to the clarification below the line at the bottom and electronically sign. The CDI & [facility] Coding staff will review the response and follow-up if needed. Please note: Queries are made part of the Legal Health Record. If you have any questions, please contact the author of this message via ITS. Dr. Coleman Orellana: A diagnosis of anemia lacks specificity to accurately reflect your patients severity of condition and clarification is needed. Per the H/P & the progress note, the patient is diagnosed with anemia, nos. Patient is admitted to receive chemotherapy for Diffuse large B-cell Lymphoma. History/Risk Factors: Previously diagnosed with pancytopenia, DM, DVT. Clinical indicators: Lymphoma, admit for chemotherapy. Hemoglobin: 7.9 Hematocrit: 26.0 Treatment: Will transfuse prn, monitoring H/H. In order to capture the severity of condition, please clarify the type of anemia and etiology if known: Acute blood loss anemia Acute on chronic blood loss anemia Chronic blood loss anemia Hemolytic anemia Drug induced anemia Anemia due to malignancy Nutritional anemia Unable to determine Other, please specify Please continue to document in your progress notes and discharge summary in order to capture severity of illness and risk of mortality. Include clinical findings that support your diagnosis. MTDD
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
[2017-04-08 17:26] LABS: Hemoglobin A1C 5.4 % (4.0-6.0)
[2017-04-08 17:34] LABS: Glucose,Whole Blood 180 mg/dL (75-99)
[2017-04-08] MEDS: ONDANSETRON 16 MG in SODIUM CHLORIDE 0.9% 50 ML IVPB SCH (17:43)
[2017-04-08] MEDS: FAMOTIDINE 20 MG/2 ML VIAL IV SCH (17:43)
[2017-04-08] MEDS: DOXORUBICIN HCL IV SCH (18:55)
[2017-04-08] MEDS: ETOPOSIDE IV SCH (18:55)
[2017-04-08] MEDS: VINCRISTINE SULFATE IV SCH (18:55)
[2017-04-08] MEDS: SODIUM CHLORIDE 0.9% IV SCH ×3 (18:55)
[2017-04-08 20:18] LABS: Glucose,Whole Blood 189 mg/dL (75-99)
[2017-04-09] MEDS: SALT AND SODA MOUTHWASH 1,000 ML PO SCH ×5 (01:35→21:41)
[2017-04-09 07:16] LABS: Glucose,Whole Blood 144 mg/dL (75-99)
[2017-04-09 07:24] LABS: Anisocytosis Slight; Basophils % (A) 0 %; Eosinophils % (A) 0 %; HCT 25.9 % (39.0-53.0); HGB 7.9 gm/dL (13.0-17.5); Hypochromasia Slight; Lymphocytes # (A) 0.4 k/uL (1.0-4.8); Lymphocytes % (A) 4 %; MCH 32.9 pg (25.0-35.0); MCHC 30.5 g/dL (31.0-37.0); MCV 107.8 fL (80.0-100.0); Macrocytosis Marked; Monocytes # (A) 0.2 k/uL (0-1.0); Monocytes % (A) 2 %; Neutrophils # (A) 10.5 k/uL (1.3-7.7); Neutrophils % (A) 94 %; Platelet Count 314 k/uL (150-450); RBC 2.41 m/uL (4.30-5.90); RDW 19.8 % (11.5-15.5); WBC 11.2 k/uL (3.8-10.6)
[2017-04-09 07:41] LABS: ALT 22 U/L (21-72); AST 14 U/L (17-59); Albumin 2.7 g/dL (3.5-5.0); Alkaline Phosphatase 63 U/L (38-126); Anion Gap 10 mmol/L; Blood Urea Nitrogen 28 mg/dL (9-20); Calcium 8.7 mg/dL (8.4-10.2); Carbon Dioxide 23 mmol/L (22-30); Chloride 109 mmol/L (98-107); Glucose 135 mg/dL (74-99); Potassium 4.4 mmol/L (3.5-5.1); Sodium 142 mmol/L (137-145); Total Bilirubin 0.3 mg/dL (0.2-1.3); Total Protein 5.1 g/dL (6.3-8.2)
[2017-04-09] MEDS: SODIUM CHLORIDE 0.9% 1,000 ML IV SCH (07:47)
[2017-04-09] MEDS: predniSONE 50 MG TAB PO SCH ×2 (08:24→21:41)
[2017-04-09] MEDS: ENOXAPARIN 30 MG/0.3 ML SYRINGE SQ SCH (08:24)
[2017-04-09 11:48] LABS: Glucose,Whole Blood 145 mg/dL (75-99)
[2017-04-09 12:00] VITALS: BMI 23.1
[2017-04-09 17:24] LABS: Glucose,Whole Blood 219 mg/dL (75-99)
[2017-04-09] MEDS: ONDANSETRON 16 MG in SODIUM CHLORIDE 0.9% 50 ML IVPB SCH (19:36)
[2017-04-09] MEDS: FAMOTIDINE 20 MG/2 ML VIAL IV SCH (19:36)
[2017-04-09] MEDS: DOXORUBICIN HCL IV SCH (20:00)
[2017-04-09] MEDS: SODIUM CHLORIDE 0.9% IV SCH ×3 (20:00→20:01)
[2017-04-09] MEDS: VINCRISTINE SULFATE IV SCH (20:01)
[2017-04-09] MEDS: ETOPOSIDE IV SCH (20:01)
[2017-04-09 20:30] LABS: Glucose,Whole Blood 204 mg/dL (75-99)
--- NOTE | 2017-04-09 23:04 | P.PN ---
Subjective Progress Note Date: 04/09/17 the patient is tolerating his chemotherapy regimen well so far. He denies any untoward side effects such as fever, chills, significant nausea or vomiting or diarrhea. He has actually not had a bowel movement today. Appetite is maintained. Objective - Vital Signs Vital signs: Vital Signs Temp 98 F 04/09/17 14:48 Pulse 71 04/09/17 14:48 Resp 20 04/09/17 14:48 BP 129/60 04/09/17 14:48 Pulse Ox 93 L 04/09/17 14:48 Intake & Output 04/09/17 04/09/17 04/10/17 06:59 18:59 06:59 Intake Total 590 436 Output Total 300 Balance 590 136 Weight 71 kg 71 kg Intake: Oral 590 436 Output: Urine 300 Other: # Voids 2 - Constitutional General appearance: Present: no acute distress - EENT Eyes: Present: EOMI, PERRLA ENT: Present: normal oropharynx - Respiratory Respiratory: bilateral: CTA - Cardiovascular Rhythm: regular Heart sounds: normal: S1, S2 - Gastrointestinal General gastrointestinal: Present: normal bowel sounds, soft - Integumentary Integumentary: Present: normal - Neurologic Neurologic: Present: CNII-XII intact - Musculoskeletal Musculoskeletal: Present: generalized weakness, strength equal bilaterally - Psychiatric Psychiatric: Present: A&O x's 3 - Labs CBC & Chem 7: 04/09/17 06:56 04/09/17 06:56 Labs: Abnormal Lab Results - Last 24 Hours (Table) 04/09/17 04/09/17 04/09/17 Range/Units 06:56 06:56 07:08 WBC 11.2 H (3.8-10.6) k/uL RBC 2.41 L (4.30-5.90) m/uL Hgb 7.9 L (13.0-17.5) gm/dL Hct 25.9 L (39.0-53.0) % MCV 107.8 H (80.0-100.0) fL MCHC 30.5 L (31.0-37.0) g/dL RDW 19.8 H (11.5-15.5) % Neutrophils # 10.5 H (1.3-7.7) k/uL Lymphocytes # 0.4 L (1.0-4.8) k/uL Chloride 109 H (98-107) mmol/L BUN 28 H (9-20) mg/dL Glucose 135 H (74-99) mg/dL POC Glucose (mg/dL) 144 H (75-99) mg/dL AST 14 L (17-59) U/L Total Protein 5.1 L (6.3-8.2) g/dL Albumin 2.7 L (3.5-5.0) g/dL 04/09/17 04/09/17 04/09/17 Range/Units 11:44 17:21 20:27 WBC (3.8-10.6) k/uL RBC (4.30-5.90) m/uL Hgb (13.0-17.5) gm/dL Hct (39.0-53.0) % MCV (80.0-100.0) fL MCHC (31.0-37.0) g/dL RDW (11.5-15.5) % Neutrophils # (1.3-7.7) k/uL Lymphocytes # (1.0-4.8) k/uL Chloride (98-107) mmol/L BUN (9-20) mg/dL Glucose (74-99) mg/dL POC Glucose (mg/dL) 145 H 219 H 204 H (75-99) mg/dL AST (17-59) U/L Total Protein (6.3-8.2) g/dL Albumin (3.5-5.0) g/dL Assessment and Plan (1) Macrocytic anemia Narrative/Plan: I due to chemotherapy effect. Hemoglobin remains in a safe range at 7.9 today. No indication for transfusion. Continue to monitor with transfusion support as needed Current Visit: Yes Status: Acute Code(s): D53.9 - NUTRITIONAL ANEMIA, UNSPECIFIED SNOMED Code(s): 13387191 (2) Diffuse large B-cell lymphoma of extranodal site Narrative/Plan: patient is currently on cycle 3 day 3 of R-EPOCH. He is tolerating treatment well and maintaining his counts. Continue chemotherapy per protocol. Continue to monitor with clinical exams and labs, which have been ordered Current Visit: Yes Status: Chronic Priority: Medium Code(s): C83.39 - DIFFUSE LARGE B-CELL LYMPHOMA, EXTRNOD AND SOLID ORGAN SITES SNOMED Code(s): 440266153
[2017-04-10] MEDS: SALT AND SODA MOUTHWASH 1,000 ML PO SCH ×5 (01:12→20:31)
[2017-04-10] MEDS: SODIUM CHLORIDE 0.9% 1,000 ML IV SCH ×3 (01:20→20:34)
[2017-04-10 06:55] LABS: Glucose,Whole Blood 164 mg/dL (75-99)
--- NOTE | 2017-04-10 08:02 | P.PN ---
Subjective Progress Note Date: 04/09/17 Principal diagnosis: Continuing care. This is a continue progress on a 76-year-old white male essentially admitted for chemotherapy for B-cell lymphoma. He has not underlying history diabetes with hypertension. He is emulating appropriately without difficulty. No voiding difficulties are noted. Objective - Vital Signs Vital signs: Vital Signs Temp 97.4 F L 04/10/17 07:00 Pulse 54 L 04/10/17 07:00 Resp 18 04/10/17 07:00 BP 133/65 04/10/17 07:00 Pulse Ox 95 04/10/17 07:00 Intake & Output 04/09/17 04/10/17 04/10/17 18:59 06:59 18:59 Intake Total 436 590 Output Total 300 Balance 136 590 Weight 71 kg 71 kg Intake: Oral 436 590 Output: Urine 300 Other: # Voids 3 - Constitutional General appearance: Present: average body habitus - EENT Eyes: Absent: abnormal pupil - Neck Neck: Absent: other - Respiratory Respiratory: bilateral: CTA - Cardiovascular Rhythm: regular Heart sounds: normal: S1, S2 - Gastrointestinal General gastrointestinal: Present: soft. Absent: tenderness - Neurologic Neurologic: Present: CNII-XII intact, focal deficits - Labs CBC & Chem 7: 04/09/17 06:56 04/09/17 06:56 Labs: Abnormal Lab Results - Last 24 Hours (Table) 04/09/17 04/09/17 04/09/17 Range/Units 11:44 17:21 20:27 POC Glucose (mg/dL) 145 H 219 H 204 H (75-99) mg/dL 04/10/17 Range/Units 06:54 POC Glucose (mg/dL) 164 H (75-99) mg/dL Assessment and Plan (1) Anemia Current Visit: Yes Status: Chronic Priority: Medium Code(s): D64.9 - ANEMIA, UNSPECIFIED SNOMED Code(s): 064745426 (2) Diffuse large B-cell lymphoma of extranodal site Current Visit: Yes Status: Chronic Priority: Medium Code(s): C83.39 - DIFFUSE LARGE B-CELL LYMPHOMA, EXTRNOD AND SOLID ORGAN SITES SNOMED Code(s): 146413960 (3) At risk for readmission to hospital Current Visit: No Status: Acute Code(s): Z91.89 - OTH PERSONAL RISK FACTORS , NOT ELSEWHERE CLASSIFIED SNOMED Code(s): 432311729 (4) Essential (primary) hypertension Current Visit: No Status: Acute Code(s): I10 - ESSENTIAL (PRIMARY) HYPERTENSION SNOMED Code(s): 49858470 (5) Diabetes mellitus Current Visit: No Status: Chronic Priority: Medium Code(s): E11.9 - TYPE 2 DIABETES MELLITUS WITHOUT COMPLICATIONS SNOMED Code(s): 96304625 (6) Hyperlipidemia Current Visit: No Status: Chronic Priority: Low Code(s): E78.5 - HYPERLIPIDEMIA, UNSPECIFIED SNOMED Code(s): 79553485 Plan: We'll continue to follow with oncology. The patient is fairly stable from medical perspective. Check CBC and CMP in a.m. See orders otherwise.
[2017-04-10 08:15] LABS: ALT 23 U/L (21-72); AST 15 U/L (17-59); Albumin 2.8 g/dL (3.5-5.0); Alkaline Phosphatase 62 U/L (38-126); Anion Gap 6 mmol/L; Blood Urea Nitrogen 32 mg/dL (9-20); Calcium 8.4 mg/dL (8.4-10.2); Carbon Dioxide 25 mmol/L (22-30); Chloride 109 mmol/L (98-107); Glucose 146 mg/dL (74-99); Potassium 4.5 mmol/L (3.5-5.1); Sodium 140 mmol/L (137-145); Total Bilirubin 0.4 mg/dL (0.2-1.3); Total Protein 5.1 g/dL (6.3-8.2)
--- NOTE | 2017-04-10 08:17 | P.PN ---
Subjective Progress Note Date: 04/10/17 Principal diagnosis: Continuing care. This is a continue progress on a 76-year-old white male essentially admitted for chemotherapy for B-cell lymphoma. He has not underlying history diabetes with hypertension. He is emulating appropriately without difficulty. No voiding difficulties are noted. Objective - Vital Signs Vital signs: Vital Signs Temp 97.4 F L 04/10/17 07:00 Pulse 54 L 04/10/17 07:00 Resp 18 04/10/17 07:00 BP 133/65 04/10/17 07:00 Pulse Ox 95 04/10/17 07:00 Intake & Output 04/09/17 04/10/17 04/10/17 18:59 06:59 18:59 Intake Total 436 590 Output Total 300 Balance 136 590 Weight 71 kg 71 kg Intake: Oral 436 590 Output: Urine 300 Other: # Voids 3 - Constitutional General appearance: Present: average body habitus - Respiratory Respiratory: bilateral: CTA - Cardiovascular Rhythm: regular Heart sounds: normal: S1, S2 - Gastrointestinal General gastrointestinal: Present: soft. Absent: tenderness - Neurologic Neurologic: Absent: CNII-XII intact, focal deficits - Musculoskeletal Musculoskeletal: Present: gait normal - Labs CBC & Chem 7: 04/09/17 06:56 04/09/17 06:56 Labs: Abnormal Lab Results - Last 24 Hours (Table) 04/09/17 04/09/17 04/09/17 Range/Units 11:44 17:21 20:27 POC Glucose (mg/dL) 145 H 219 H 204 H (75-99) mg/dL 04/10/17 Range/Units 06:54 POC Glucose (mg/dL) 164 H (75-99) mg/dL Assessment and Plan (1) Anemia Current Visit: Yes Status: Chronic Priority: Medium Code(s): D64.9 - ANEMIA, UNSPECIFIED SNOMED Code(s): 202797548 (2) Diffuse large B-cell lymphoma of extranodal site Current Visit: Yes Status: Chronic Priority: Medium Code(s): C83.39 - DIFFUSE LARGE B-CELL LYMPHOMA, EXTRNOD AND SOLID ORGAN SITES SNOMED Code(s): 730726054 (3) At risk for readmission to hospital Current Visit: No Status: Acute Code(s): Z91.89 - OTH PERSONAL RISK FACTORS , NOT ELSEWHERE CLASSIFIED SNOMED Code(s): 022684288 (4) Essential (primary) hypertension Current Visit: No Status: Acute Code(s): I10 - ESSENTIAL (PRIMARY) HYPERTENSION SNOMED Code(s): 21269961 (5) Diabetes mellitus Current Visit: No Status: Chronic Priority: Medium Code(s): E11.9 - TYPE 2 DIABETES MELLITUS WITHOUT COMPLICATIONS SNOMED Code(s): 58136844 (6) Hyperlipidemia Current Visit: No Status: Chronic Priority: Low Code(s): E78.5 - HYPERLIPIDEMIA, UNSPECIFIED SNOMED Code(s): 23392181 Plan: Continue current regimen of treatment. Check CBC in the a.m. with CMP. Dr. Sher's group will covering for the weekend. See orders otherwise. Time with Patient: Less than 30
[2017-04-10] MEDS: predniSONE 50 MG TAB PO SCH ×2 (08:29→20:31)
[2017-04-10] MEDS: ENOXAPARIN 30 MG/0.3 ML SYRINGE SQ SCH (08:29)
[2017-04-10 08:31] LABS: Anisocytosis Slight; HCT 27.3 % (39.0-53.0); HGB 8.2 gm/dL (13.0-17.5); Hypochromasia Marked; MCH 33.2 pg (25.0-35.0); MCHC 29.9 g/dL (31.0-37.0); MCV 111.2 fL (80.0-100.0); Macrocytosis Marked; Mean Platelet Volume 7.2; Platelet Count 297 k/uL (150-450); RBC 2.46 m/uL (4.30-5.90); RDW 19.7 % (11.5-15.5); WBC 9.7 k/uL (3.8-10.6)
[2017-04-10 10:43] LABS: Monocytes # (M) 0.29 k/uL (0-1.0); Neutrophils # (M) 9.31 k/uL (1.3-7.7); Neutrophils % (M) 96 %; Nucleated Red Blood Cells 0 /100 WBC (0-0); Total Cells Counted 100
[2017-04-10 10:44] LABS: Poikilocytosis (M) Present
[2017-04-10 10:47] LABS: Ovalocytes Present
[2017-04-10 12:17] LABS: Glucose,Whole Blood 191 mg/dL (75-99)
[2017-04-10 17:05] LABS: Glucose,Whole Blood 271 mg/dL (75-99)
[2017-04-10] MEDS: INSULIN ASPART 100 UNIT/ML 1 ML 10 ML VIAL SQ SCH ×2 (17:56→21:09)
[2017-04-10 20:15] LABS: Glucose,Whole Blood 251 mg/dL (75-99)
[2017-04-10] MEDS: FAMOTIDINE 20 MG/2 ML VIAL IV SCH (20:31)
[2017-04-10] MEDS: ONDANSETRON 16 MG in SODIUM CHLORIDE 0.9% 50 ML IVPB SCH (20:34)
[2017-04-10] MEDS: CHOLECALCIFEROL 1,000 UNIT TAB PO SCH (20:38)
[2017-04-10] MEDS: MAGNESIUM OXIDE 400 MG TAB PO SCH (20:38)
[2017-04-10] MEDS: metFORMIN 500 MG TAB PO SCH (20:38)
[2017-04-10] MEDS: FERROUS SULFATE 325 MG TAB PO SCH (20:38)
[2017-04-10] MEDS: amLODIPine 10 MG TAB PO SCH (20:39)
[2017-04-10] MEDS: CALCIUM CARB-VIT D 500MG-200UN 1 EACH TAB PO SCH (20:39)
[2017-04-10] MEDS: VIT A,C & E-LUTEIN-MINERALS 1 EACH TAB PO SCH (20:39)
[2017-04-10] MEDS: ASPIRIN 81 MG PO SCH (20:39)
[2017-04-10] MEDS: SODIUM CHLORIDE 0.9% IV SCH ×3 (20:40)
[2017-04-10] MEDS: VINCRISTINE SULFATE IV SCH (20:40)
[2017-04-10] MEDS: ETOPOSIDE IV SCH (20:40)
[2017-04-10] MEDS: DOXORUBICIN HCL IV SCH (20:40)
[2017-04-10] MEDS ORDERED: NON-FORMULARY DRUG (Omega-3 Fatty Acids/Fish Oil [Fish Oil 1,000 Mg Softgel] 1 CAP) PO SCH (21:00)
[2017-04-10] MEDS: Mirabegron [Myrbetriq] 50 MG PO SCH (21:09)
--- NOTE | 2017-04-10 22:54 | P.PN ---
Subjective Progress Note Date: 04/10/17 Principal diagnosis: B Cell Lymphoma Mr. Strong continues to tolerate his third cycle of R-EPOCH chemotherapy well. Denies any fever, chills, nausea, vomiting, dysuria, constipation or diarrhea. Objective - Vital Signs Vital signs: Vital Signs Temp 97.4 F L 04/10/17 07:00 Pulse 54 L 04/10/17 07:00 Resp 18 04/10/17 07:00 BP 133/65 04/10/17 07:00 Pulse Ox 95 04/10/17 07:00 Intake & Output 04/09/17 04/10/17 04/10/17 18:59 06:59 18:59 Intake Total 436 590 Output Total 300 Balance 136 590 Weight 71 kg 71 kg Intake: Oral 436 590 Output: Urine 300 Other: Voiding Method Toilet # Voids 3 - Constitutional General appearance: Present: no acute distress, thin - EENT Eyes: Present: EOMI, normal appearance ENT: Present: NA/AT, normal oropharynx - Neck Neck: Present: normal ROM - Respiratory Respiratory: bilateral: CTA - Cardiovascular Rhythm: regular - Gastrointestinal General gastrointestinal: Present: normal bowel sounds, soft - Integumentary Integumentary: Present: normal - Neurologic Neurologic: Present: CNII-XII intact - Musculoskeletal Musculoskeletal: Present: generalized weakness, strength equal bilaterally - Psychiatric Psychiatric: Present: A&O x's 3, appropriate affect - Labs CBC & Chem 7: 04/10/17 06:56 04/10/17 06:56 Labs: Abnormal Lab Results - Last 24 Hours (Table) 04/09/17 04/09/17 04/09/17 Range/Units 11:44 17:21 20:27 RBC (4.30-5.90) m/uL Hgb (13.0-17.5) gm/dL Hct (39.0-53.0) % MCV (80.0-100.0) fL MCHC (31.0-37.0) g/dL RDW (11.5-15.5) % Chloride (98-107) mmol/L BUN (9-20) mg/dL Glucose (74-99) mg/dL POC Glucose (mg/dL) 145 H 219 H 204 H (75-99) mg/dL AST (17-59) U/L Total Protein (6.3-8.2) g/dL Albumin (3.5-5.0) g/dL 04/10/17 04/10/17 04/10/17 Range/Units 06:54 06:56 06:56 RBC 2.46 L (4.30-5.90) m/uL Hgb 8.2 L (13.0-17.5) gm/dL Hct 27.3 L (39.0-53.0) % MCV 111.2 H (80.0-100.0) fL MCHC 29.9 L (31.0-37.0) g/dL RDW 19.7 H (11.5-15.5) % Chloride 109 H (98-107) mmol/L BUN 32 H (9-20) mg/dL Glucose 146 H (74-99) mg/dL POC Glucose (mg/dL) 164 H (75-99) mg/dL AST 15 L (17-59) U/L Total Protein 5.1 L (6.3-8.2) g/dL Albumin 2.8 L (3.5-5.0) g/dL Assessment and Plan (1) Macrocytic anemia Narrative/Plan: Hemoglobin stable today 8.2. Continue to monitor. supportive transfusions as needed Current Visit: Yes Status: Acute Code(s): D53.9 - NUTRITIONAL ANEMIA, UNSPECIFIED SNOMED Code(s): 40588555 (2) Diffuse large B-cell lymphoma of extranodal site Narrative/Plan: Continue with Day 4, cycle 3 of R-EPOCH, he is tolerating well and blood counts are remaining stable. Discharge after chemo completed Plan for Neulasta in Office on Thursday04/13/17@10am Current Visit: Yes Status: Chronic Priority: Medium Code(s): C83.39 - DIFFUSE LARGE B-CELL LYMPHOMA, EXTRNOD AND SOLID ORGAN SITES SNOMED Code(s): 550975838
[2017-04-11] MEDS: SALT AND SODA MOUTHWASH 1,000 ML PO SCH ×6 (03:10→23:14)
[2017-04-11] MEDS: CHOLECALCIFEROL 1,000 UNIT TAB PO SCH ×2 (08:54→20:46)
[2017-04-11] MEDS: ENOXAPARIN 30 MG/0.3 ML SYRINGE SQ SCH (08:54)
[2017-04-11 08:55] LABS: Glucose,Whole Blood 197 mg/dL (75-99)
[2017-04-11] MEDS: predniSONE 50 MG TAB PO SCH ×2 (08:55→20:46)
[2017-04-11] MEDS: ALLOPURINOL 300 MG TAB PO SCH (08:55)
[2017-04-11] MEDS: metFORMIN 500 MG TAB PO SCH ×2 (08:55→20:46)
[2017-04-11] MEDS: METOPROLOL SUCCINATE (ER) 25 MG TAB.ER.24H PO SCH (08:55)
[2017-04-11] MEDS: PANTOPRAZOLE 40 MG TABLET PO SCH (08:55)
[2017-04-11] MEDS: CLOPIDOGREL 75 MG TAB PO SCH (08:55)
[2017-04-11] MEDS: ATORVASTATIN 10 MG TAB PO SCH (08:55)
[2017-04-11] MEDS: SODIUM CHLORIDE 0.9% 1,000 ML IV SCH ×2 (08:56→21:54)
[2017-04-11] MEDS: INSULIN ASPART 100 UNIT/ML 1 ML 10 ML VIAL SQ SCH ×4 (09:01→21:53)
[2017-04-11 11:37] LABS: Glucose,Whole Blood 273 mg/dL (75-99)
[2017-04-11] MEDS: FAMOTIDINE 20 MG/2 ML VIAL IV SCH (12:38)
[2017-04-11] MEDS: ONDANSETRON 16 MG in SODIUM CHLORIDE 0.9% 50 ML IVPB SCH (12:42)
[2017-04-11] MEDS ORDERED: SODIUM CHLORIDE 0.9% IV ONE (16:00)
[2017-04-11] MEDS ORDERED: CYCLOPHOSPHAMIDE IV ONE (16:00)
[2017-04-11 17:09] LABS: Glucose,Whole Blood 205 mg/dL (75-99)
--- NOTE | 2017-04-11 18:47 | PN ---
PROGRESS NOTE DATE OF SERVICE: 04/11/2017 I am covering for Dr. Frances. This 76-year-old gentleman patient who was admitted for non-Hodgkin's lymphoma. Chemotherapy is being closely monitored. No chest pain. No palpitations. No fever. EXAM: Alert and oriented x3. Pulse 80, blood pressure 140/84, respirations 18, temperature 97.4, pulse ox 98% room air. HEENT: Conjunctivae normal. Oral mucosa moist. NECK: No jugular venous distention. No carotid bruits. No lymph node enlargement. CARDIOVASCULAR: S1, S2 muffled. No S3. No S4. RESPIRATORY: Breath sounds diminished in the bases. No rhonchi. No crackles. ABDOMEN: Soft, nontender. No mass palpable. LEGS: No edema. NERVOUS SYSTEM: No focal deficits. LABS: Accu-Cheks 272, 205 and hemoglobin is 8.2. ASSESSMENT: 1. 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 2. Hypertension. 3. Diabetes mellitus type 2. 4. Hyperlipidemia. 5. Anemia. RECOMMENDATIONS AND DISCUSSION: Recommend to continue current medical management and symptomatic treatment. I would order repeat labs in the morning. Otherwise, closely monitor, closely follow with Hematology/Oncology. Further recommendations to follow Home medications are reconciled. MMODL / IJN: [id number] / MTDD
[2017-04-11] MEDS: CALCIUM CARB-VIT D 500MG-200UN 1 EACH TAB PO SCH (20:46)
[2017-04-11] MEDS: ASPIRIN 81 MG PO SCH (20:46)
[2017-04-11] MEDS: MAGNESIUM OXIDE 400 MG TAB PO SCH (20:46)
[2017-04-11] MEDS: VIT A,C & E-LUTEIN-MINERALS 1 EACH TAB PO SCH (20:46)
[2017-04-11] MEDS: FERROUS SULFATE 325 MG TAB PO SCH (20:46)
[2017-04-11] MEDS: amLODIPine 10 MG TAB PO SCH (20:46)
[2017-04-11] MEDS: DOCUSATE 100 MG CAP PO SCH (20:47)
[2017-04-11] MEDS: Mirabegron [Myrbetriq] 50 MG PO SCH (20:48)
[2017-04-11 21:12] LABS: Glucose,Whole Blood 251 mg/dL (75-99)
[2017-04-12] MEDS: SALT AND SODA MOUTHWASH 1,000 ML PO SCH ×2 (06:30→12:33)
[2017-04-12 07:25] LABS: Glucose,Whole Blood 136 mg/dL (75-99)
[2017-04-12] MEDS: METOPROLOL SUCCINATE (ER) 25 MG TAB.ER.24H PO SCH (07:48)
[2017-04-12] MEDS: metFORMIN 500 MG TAB PO SCH (07:48)
[2017-04-12] MEDS: CHOLECALCIFEROL 1,000 UNIT TAB PO SCH (07:48)
[2017-04-12] MEDS: DOCUSATE 100 MG CAP PO SCH (07:49)
[2017-04-12] MEDS: PANTOPRAZOLE 40 MG TABLET PO SCH (07:49)
[2017-04-12] MEDS: CLOPIDOGREL 75 MG TAB PO SCH (07:49)
[2017-04-12] MEDS: INSULIN ASPART 100 UNIT/ML 1 ML 10 ML VIAL SQ SCH ×2 (07:49→12:33)
[2017-04-12] MEDS: ENOXAPARIN 30 MG/0.3 ML SYRINGE SQ SCH (07:49)
[2017-04-12] MEDS: ALLOPURINOL 300 MG TAB PO SCH (07:49)
[2017-04-12] MEDS: ATORVASTATIN 10 MG TAB PO SCH (07:49)
[2017-04-12] MEDS: SODIUM CHLORIDE 0.9% 1,000 ML IV SCH (07:50)
[2017-04-12 08:13] LABS: Anion Gap 6 mmol/L; Blood Urea Nitrogen 33 mg/dL (9-20); Calcium 8.5 mg/dL (8.4-10.2); Carbon Dioxide 28 mmol/L (22-30); Chloride 107 mmol/L (98-107); Glucose 123 mg/dL (74-99); Potassium 4.7 mmol/L (3.5-5.1); Sodium 141 mmol/L (137-145)
[2017-04-12 08:18] VITALS: BP 122/66; PULSE 56; RESP 18; TEMP 97.5
[2017-04-12 08:39] LABS: Anisocytosis Slight; Basophils % (A) 0 %; Eosinophils % (A) 0 %; HCT 27.7 % (39.0-53.0); HGB 8.3 gm/dL (13.0-17.5); Hypochromasia Moderate; Lymphocytes # (A) 0.5 k/uL (1.0-4.8); Lymphocytes % (A) 4 %; MCH 32.8 pg (25.0-35.0); MCV 109.6 fL (80.0-100.0); Macrocytosis Marked; Mean Platelet Volume 6.9; Monocytes # (A) 0.2 k/uL (0-1.0); Monocytes % (A) 2 %; Neutrophils # (A) 9.7 k/uL (1.3-7.7); Neutrophils % (A) 94 %; Platelet Count 311 k/uL (150-450); RBC 2.53 m/uL (4.30-5.90); RDW 18.8 % (11.5-15.5); WBC 10.4 k/uL (3.8-10.6)
[2017-04-12 11:10] LABS: Glucose,Whole Blood 156 mg/dL (75-99)
--- NOTE | 2017-04-12 14:54 | P.DS ---
Providers Date of admission: 04/07/17 08:16 Expected date of discharge: 04/12/17 Attending physician: Coleman Orellana Consults: 04/07/17 16:05 Consult Physician Routine Consulting Provider: Ck Frances Consult Reason/Comments: medical management Do you want consulting provider notified?: Yes, Notify in am Primary care physician: Ck Frances - Discharge Diagnosis(es) (1) Macrocytic anemia Current Visit: Yes Status: Acute (2) Diffuse large B-cell lymphoma of extranodal site Current Visit: Yes Status: Chronic Priority: Medium Hospital Course: The patient is a 76-year-old gentleman, was diagnosed with diffuse large B-cell non-Hodgkin's lymphoma involving the small bowel after presenting with bowel obstruction. He had surgery with relief of obstruction but could not start chemotherapy because of multiple consultations post surgery. He ultimately started chemotherapy here in late 02/15. He is status post 2 cycles , and has tolerated it well, other than the need for transfusion support, as well as an and admission for SBO after cycle 2, that was managed with conservative measures. He was admitted for cycle 3. He received treatment per protocol and tolerated it well. He was anemic at the time of admission, but showed stability of hemoglobin without need for additional transfusion. He had some increased swelling of his right lower extremity compared to his baseline and had a Doppler done that was negative. After completion of chemotherapy it was therefore decided to discharge him home. Pertinent Studies: Doppler right lower extremity Procedures: High-dose infusional chemotherapy Right lower extremity venous Doppler Patient Condition at Discharge: Fair Plan - Discharge Summary Discharge Rx Participant: No New Discharge Prescriptions: No Action Docusate [Colace] 100 mg PO DAILY Vits A,C,E/Lutein/Minerals [Ocuvite with Lutein Tablet] 1 tab PO HS Cholecalciferol [Vitamin D3] 1,000 unit PO BID Acetaminophen [Tylenol 8 Hour] 650 mg PO BID Ferrous Sulfate [Iron (65 MG Elemental)] 325 mg PO HS [place]-3 Fatty Acids/Fish Oil [Fish Oil 1,000 mg Softgel] 1 cap PO BID Jeferson/D3/Mag11/Zinc/Bull Chain Operator/Azar/Bor [Caltrate 600+D Plus Tablet] 1 tab PO HS Aspirin 81 mg PO HS Allopurinol [Zyloprim] 300 mg PO DAILY Pantoprazole Sodium [Protonix] 40 mg PO AC-BRKFST Mirabegron [Myrbetriq] 50 mg PO HS metFORMIN HCL 1,000 mg PO BID Metoprolol Succinate [Toprol XL] 25 mg PO DAILY Clopidogrel Bisulfate [Plavix] 75 mg PO DAILY Atorvastatin [Lipitor] 10 mg PO DAILY Ondansetron [Zofran ODT] 4 mg PO Q4HR PRN #50 tab PRN Reason: Nausea And Vomiting amLODIPine [Norvasc] 10 mg PO HS Magnesium Oxide [Mag-Ox] 400 mg PO HS Discharge Medication List Acetaminophen [Tylenol 8 Hour] 650 mg PO BID 02/10/17 [History] Allopurinol [Zyloprim] 300 mg PO DAILY 02/10/17 [History] Aspirin 81 mg PO HS 02/10/17 [History] Atorvastatin [Lipitor] 10 mg PO DAILY 02/10/17 [History] Jeferson/D3/Mag11/Zinc/Bull Chain Operator/Azar/Bor [Caltrate 600+D Plus Tablet] 1 tab PO HS [History] Cholecalciferol [Vitamin D3] 1,000 unit PO BID 02/10/17 [History] Clopidogrel Bisulfate [Plavix] 75 mg PO DAILY 02/10/17 [History] Docusate [Colace] 100 mg PO DAILY 02/10/17 [History] Ferrous Sulfate [Iron (65 MG Elemental)] 325 mg PO HS 02/10/17 [History] Metoprolol Succinate [Toprol XL] 25 mg PO DAILY 02/10/17 [History] Mirabegron [Myrbetriq] 50 mg PO HS 02/10/17 [History] [place]-3 Fatty Acids/Fish Oil [Fish Oil 1,000 mg Softgel] 1 cap PO BID 02/10/17 [ History] Pantoprazole Sodium [Protonix] 40 mg PO AC-BRKFST 02/10/17 [History] Vits A,C,E/Lutein/Minerals [Ocuvite with Lutein Tablet] 1 tab PO HS 02/10/17 [ History] metFORMIN HCL 1,000 mg PO BID 02/10/17 [History] Ondansetron [Zofran ODT] 4 mg PO Q4HR PRN #50 tab 02/15/17 [Rx] Magnesium Oxide [Mag-Ox] 400 mg PO HS 04/07/17 [History] amLODIPine [Norvasc] 10 mg PO HS 04/07/17 [History] Follow up Appointment(s)/Referral(s): Coleman Orellana MD [Family Provider] - 04/13/17 10:00 am (Office for Neulasta Injection) Ck Frances MD [Primary Care Provider] - 1 Week (Patient to call Dr. Frances's office Thursday morning to schedule follow up appointment. The office is closed at time of discharge. ) [facility] Visiting Nurse, [NON-STAFF] - As Needed Patient Instructions/Handouts: Anemia (DC) Discharge Disposition: HOME SELF-CARE
--- NOTE | 2017-04-12 17:42 | PN ---
PROGRESS NOTE DATE OF SERVICE: 04/12/2017 I am covering for Dr. Frances. This 76-year-old gentleman admitted for diffuse large B-cell lymphoma, undergoing chemotherapy, is being closely monitored. Patient improved significantly. No chest pain. No palpitations. No fever. PHYSICAL EXAM: Alert and oriented times three. Pulse 56, blood pressure 122/60, respiration 18, temperature 97.4. Pulse ox 98% on room air. HEENT: Conjunctivae pale. Oral mucosa moist. Neck is no jugular venous distention. No carotid bruit. No lymph node enlargement. Cardiovascular S1, S2 muffled. Respirations: Breath sounds diminished in the bases. A few rhonchi and no crackles. ABDOMEN: Soft, nontender. No mass palpable. Legs: No edema. No swelling. LABS: WBC 7.2, hemoglobin 8.3. ASSESSMENT: 1. Diffuse B-cell lymphoma, large cell type on chemotherapy. 2. Hypertension. 3. Diabetes type 2. 4. Hyperlipidemia. 5. Anemia. RECOMMENDATIONS AND DISCUSSION: Recommend to continue current medications, symptomatic treatment. Resume the home medications. Closely follow with Dr. Frances in the outpatient setting. Also recommend Hematology, Oncology. Further recommendations to follow. MMODL / IJN: [id number] /
--- NOTE | 2017-04-13 01:06 | P.PN ---
Subjective Progress Note Date: 04/12/17 the patient is on day 5 of his chemotherapy regimen. Again, he continues to tolerated well and denies any new side effects. Specifically there is no history of any fever, chills, nausea or vomiting. Denies any significant mouth sores. Appetite is maintained. Objective - Vital Signs Vital signs: Vital Signs Temp 97.5 F L 04/12/17 07:00 Pulse 56 L 04/12/17 07:00 Resp 18 04/12/17 07:00 BP 122/66 04/12/17 07:00 Pulse Ox 98 04/12/17 07:00 Intake & Output 04/12/17 04/12/17 04/13/17 06:59 18:59 06:59 Intake Total 1539.4 450 Output Total 200 Balance 1339.4 450 Weight 74 kg Intake: IV 949.4 450 DOXOrubicin HCL 17 mg In 22.6 Sodium Chloride 0.9% 250 ml @ 10.77 mls/hr IV Q24H [facility] Rx#:[id number] Etoposide 80 mg In Sodium 22.6 Chloride 0.9% 250 ml @ 10.58 mls/hr IV Q24H [facility] Rx#:[id number] Sodium Chloride 0.9% 1, 900 450 000 ml @ 75 mls/hr IV . [id number] [facility] Rx#:[id number] vinCRIStine SULFATE 0.7 4.2 mg In Sodium Chloride 0.9 % 50 ml @ 2.11 mls/hr IV Q24H [facility] Rx#:[id number] Oral 590 Output: Urine 200 Other: Voiding Method Toilet Toilet # Voids 3 # Bowel Movements 1 - Constitutional General appearance: Present: no acute distress - EENT Eyes: Present: EOMI, PERRLA ENT: Present: hearing grossly normal, normal oropharynx - Respiratory Respiratory: bilateral: CTA - Cardiovascular Rhythm: regular Heart sounds: normal: S1, S2 - Gastrointestinal General gastrointestinal: Present: normal bowel sounds, soft - Integumentary Integumentary: Present: normal - Musculoskeletal Musculoskeletal: Present: generalized weakness - Psychiatric Psychiatric: Present: A&O x's 3, appropriate affect - Labs CBC & Chem 7: 04/12/17 07:53 04/12/17 07:53 Labs: Abnormal Lab Results - Last 24 Hours (Table) 04/12/17 04/12/17 04/12/17 Range/Units 07:23 07:53 07:53 RBC 2.53 L (4.30-5.90) m/uL Hgb 8.3 L (13.0-17.5) gm/dL Hct 27.7 L (39.0-53.0) % MCV 109.6 H (80.0-100.0) fL MCHC 30.0 L (31.0-37.0) g/dL RDW 18.8 H (11.5-15.5) % Neutrophils # 9.7 H (1.3-7.7) k/uL Lymphocytes # 0.5 L (1.0-4.8) k/uL BUN 33 H (9-20) mg/dL Glucose 123 H (74-99) mg/dL POC Glucose (mg/dL) 136 H (75-99) mg/dL 04/12/17 Range/Units 11:08 RBC (4.30-5.90) m/uL Hgb (13.0-17.5) gm/dL Hct (39.0-53.0) % MCV (80.0-100.0) fL MCHC (31.0-37.0) g/dL RDW (11.5-15.5) % Neutrophils # (1.3-7.7) k/uL Lymphocytes # (1.0-4.8) k/uL BUN (9-20) mg/dL Glucose (74-99) mg/dL POC Glucose (mg/dL) 156 H (75-99) mg/dL Assessment and Plan (1) Macrocytic anemia Narrative/Plan: hemoglobin has actually remained stable, in the low 8 range. Continue to monitor and transfuse as needed. No transfusions required currently Status: Acute Code(s): D53.9 - NUTRITIONAL ANEMIA, UNSPECIFIED SNOMED Code(s ): 66011738 (2) Diffuse large B-cell lymphoma of extranodal site Narrative/Plan: the patient is continuing his inpatient high-dose infusion chemotherapy with good tolerance. Continue treatment per protocol. Continue to monitor with clinical exams and labs. After completion of chemotherapy he will be discharged home and receive Neulasta as an outpatient Status: Chronic Priority: Medium Code(s): C83.39 - DIFFUSE LARGE B-CELL LYMPHOMA, EXTRNOD AND SOLID ORGAN SITES SNOMED Code(s): 076472462
== END 2017-04-12 15:40 | disposition home or self-care (01) | DRG 847 ==
LOC: 5ONC 08:16 → UNDODISIN 04-10 15:00
PROVIDERS: ADMIT Internal Medicine Hematology & Oncology; ATTEND Internal Medicine Hematology & Oncology
DX: Z51.11 Encounter for antineoplastic chemotherapy (principal); C83.39 Diffuse large B-cell lymphoma, extranodal and solid organ sites; D64.81 Anemia due to antineoplastic chemotherapy; D63.0 Anemia in neoplastic disease; E11.9 Type 2 diabetes mellitus without complications; E78.5 Hyperlipidemia, unspecified; T45.1X5A Adverse effect of antineoplastic and immunosuppressive drugs, initial encounter; I10 Essential (primary) hypertension; M06.9 Rheumatoid arthritis, unspecified; K21.9 Gastro-esophageal reflux disease without esophagitis; Z79.02 Long term (current) use of antithrombotics/antiplatelets; Z79.82 Long term (current) use of aspirin; Z79.84 Long term (current) use of oral hypoglycemic drugs; Z82.49 Family history of ischemic heart disease and other diseases of the circulatory system; Z85.46 Personal history of malignant neoplasm of prostate; Z79.899 Other long term (current) drug therapy; Z88.2 Allergy status to sulfonamides; Z88.1 Allergy status to other antibiotic agents
CPT/HCPCS: 80048; 80053; 83036; 85025

== ENCOUNTER 2017-04-28 08:06 | Inpatient (IN) | payer MEDICARE, BC ==
[2017-04-28] MEDS ORDERED: ONDANSETRON 4 MG/2 ML VIAL IVP PRN (09:00)
[2017-04-28 09:20] LABS: Anisocytosis Slight; HCT 24.2 % (39.0-53.0); HGB 7.4 gm/dL (13.0-17.5); Hypochromasia Slight; MCH 34.4 pg (25.0-35.0); MCHC 30.7 g/dL (31.0-37.0); MCV 111.9 fL (80.0-100.0); Macrocytosis Marked; Mean Platelet Volume 7.6; Platelet Count 298 k/uL (150-450); RBC 2.17 m/uL (4.30-5.90); RDW 19.8 % (11.5-15.5)
[2017-04-28 09:33] LABS: Albumin 3.2 g/dL (3.5-5.0); Calcium 8.9 mg/dL (8.4-10.2); Potassium 4.6 mmol/L (3.5-5.1); Total Bilirubin 0.1 mg/dL (0.2-1.3); Total Protein 5.5 g/dL (6.3-8.2)
[2017-04-28] MEDS: SODIUM CHLORIDE 0.9% 1,000 ML IV SCH ×2 (12:08→22:44)
[2017-04-28] MEDS ORDERED: methylPREDNISolone SOD SUCCI 125 MG/2 ML VIAL IV ONE (12:30)
[2017-04-28] MEDS ORDERED: ACETAMINOPHEN TAB 325 MG TAB PO ONE (12:30)
[2017-04-28] MEDS ORDERED: diphenhydrAMINE 50 MG/ML 1 ML VIAL IVP ONE (12:30)
[2017-04-28 12:50] LABS: Band Neutrophils % 1 %; Eosinophils # (M) 0.21 k/uL (0-0.7); Lymphocytes # (M) 1.05 k/uL (1.0-4.8); Monocytes # (M) 0.77 k/uL (0-1.0); Myelocytes # (M) 0.07 k/uL (0); Myelocytes % 1 %; Neutrophils % (M) 70 %; Nucleated Red Blood Cells 0 /100 WBC (0-0); Total Cells Counted 200
[2017-04-28 12:53] LABS: Poikilocytosis (M) Present
[2017-04-28 12:54] LABS: RBC Fragments Present
[2017-04-28] MEDS: predniSONE 50 MG TAB PO SCH ×2 (12:55→22:49)
[2017-04-28] MEDS: FAMOTIDINE 20 MG/2 ML VIAL IV SCH (12:56)
[2017-04-28] MEDS: ONDANSETRON 16 MG in SODIUM CHLORIDE 0.9% 50 ML IVPB SCH (12:56)
[2017-04-28] MEDS ORDERED: riTUXimab 700 MG in SODIUM CHLORIDE 0.9% 500 ML IV ONE (13:00)
[2017-04-28] MEDS: SALT AND SODA MOUTHWASH 1,000 ML PO SCH ×3 (13:46→22:47)
[2017-04-28] MEDS: VINCRISTINE SULFATE IV SCH (16:23)
[2017-04-28] MEDS: DOXORUBICIN HCL IV SCH (16:23)
[2017-04-28] MEDS: SODIUM CHLORIDE 0.9% IV SCH ×3 (16:23)
[2017-04-28] MEDS: ETOPOSIDE IV SCH (16:23)
[2017-04-28 17:26] LABS: Glucose,Whole Blood 227 mg/dL (75-99)
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
[2017-04-28] MEDS: INSULIN ASPART 100 UNIT/ML 1 ML 10 ML VIAL SQ SCH ×2 (17:57→22:55)
[2017-04-28] MEDS: MUPIROCIN 2% OINT 22 GM TUBE TOPICAL SCH ×2 (18:53→22:49)
[2017-04-28] MEDS ORDERED: NON-FORMULARY DRUG (Omega-3 Fatty Acids/Fish Oil [Fish Oil 1,000 Mg Softgel] 1 CAP) PO SCH (21:00)
[2017-04-28 21:10] LABS: Glucose,Whole Blood 249 mg/dL (75-99)
[2017-04-28] MEDS: ASPIRIN 81 MG PO SCH (22:47)
[2017-04-28] MEDS: amLODIPine 10 MG TAB PO SCH (22:47)
[2017-04-28] MEDS: MAGNESIUM OXIDE 400 MG TAB PO SCH (22:48)
[2017-04-28] MEDS: metFORMIN 500 MG TAB PO SCH (22:48)
[2017-04-28] MEDS: CHOLECALCIFEROL 1,000 UNIT TAB PO SCH (22:48)
[2017-04-28] MEDS: FERROUS SULFATE 325 MG TAB PO SCH (22:48)
[2017-04-28] MEDS: CALCIUM CARB-VIT D 500MG-200UN 1 EACH TAB PO SCH (22:48)
[2017-04-28] MEDS: VIT A,C & E-LUTEIN-MINERALS 1 EACH TAB PO SCH (22:48)
[2017-04-29] MEDS: PATIENT'S OWN MED (Mirabegron [Myrbetriq] 50 MG) PO SCH ×2 (01:37→22:09)
[2017-04-29] MEDS: SALT AND SODA MOUTHWASH 1,000 ML PO SCH ×6 (02:10→23:45)
[2017-04-29 07:47] LABS: Glucose,Whole Blood 143 mg/dL (75-99)
[2017-04-29] MEDS: INSULIN ASPART 100 UNIT/ML 1 ML 10 ML VIAL SQ SCH ×4 (07:53→22:01)
[2017-04-29] MEDS: metFORMIN 500 MG TAB PO SCH ×2 (07:53→22:01)
[2017-04-29] MEDS: predniSONE 50 MG TAB PO SCH ×2 (07:53→22:01)
[2017-04-29] MEDS: METOPROLOL SUCCINATE (ER) 25 MG TAB.ER.24H PO SCH (07:54)
[2017-04-29] MEDS: CLOPIDOGREL 75 MG TAB PO SCH (07:54)
[2017-04-29] MEDS: ATORVASTATIN 10 MG TAB PO SCH (07:54)
[2017-04-29] MEDS: ALLOPURINOL 300 MG TAB PO SCH (07:54)
[2017-04-29] MEDS: CHOLECALCIFEROL 1,000 UNIT TAB PO SCH ×2 (07:54→22:01)
[2017-04-29] MEDS: MUPIROCIN 2% OINT 22 GM TUBE TOPICAL SCH ×3 (07:55→22:03)
[2017-04-29 08:12] LABS: ALT 34 U/L (21-72); AST 27 U/L (17-59); Albumin 3.5 g/dL (3.5-5.0); Alkaline Phosphatase 106 U/L (38-126); Anion Gap 13 mmol/L; Anisocytosis Slight; Blood Urea Nitrogen 24 mg/dL (9-20); Calcium 8.7 mg/dL (8.4-10.2); Carbon Dioxide 23 mmol/L (22-30); Chloride 108 mmol/L (98-107); Glucose 142 mg/dL (74-99); HCT 27.1 % (39.0-53.0); HGB 8.1 gm/dL (13.0-17.5); Hypochromasia Slight; MCH 33.9 pg (25.0-35.0); MCHC 30.1 g/dL (31.0-37.0); MCV 112.6 fL (80.0-100.0); Macrocytosis Marked; Mean Platelet Volume 7.7; Platelet Count 334 k/uL (150-450); Potassium 5.1 mmol/L (3.5-5.1); RBC 2.41 m/uL (4.30-5.90); RDW 19.1 % (11.5-15.5); Sodium 144 mmol/L (137-145); Total Bilirubin 0.2 mg/dL (0.2-1.3); Total Protein 5.9 g/dL (6.3-8.2)
[2017-04-29] MEDS ORDERED: ENOXAPARIN 30 MG/0.3 ML SYRINGE SQ SCH ×2 (09:00)
[2017-04-29 10:33] LABS: Band Neutrophils % 6 %; Lymphocytes # (M) 0.32 k/uL (1.0-4.8); Monocytes # (M) 0.16 k/uL (0-1.0); Neutrophils % (M) 92 %; Nucleated Red Blood Cells 0 /100 WBC (0-0); Total Cells Counted 200
[2017-04-29 10:34] LABS: Poikilocytosis (M) Present; Polychromasia Present
[2017-04-29] MEDS: SODIUM CHLORIDE 0.9% 1,000 ML IV SCH (12:42)
[2017-04-29] MEDS: DOCUSATE 100 MG CAP PO SCH (12:43)
[2017-04-29 13:33] VITALS: BMI 21.9
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
[2017-04-29 16:41] LABS: Glucose,Whole Blood 175 mg/dL (75-99)
[2017-04-29] MEDS: ONDANSETRON 16 MG in SODIUM CHLORIDE 0.9% 50 ML IVPB SCH (16:54)
[2017-04-29] MEDS: FAMOTIDINE 20 MG/2 ML VIAL IV SCH (16:54)
[2017-04-29] MEDS: DOXORUBICIN HCL IV SCH (17:44)
[2017-04-29] MEDS: ETOPOSIDE IV SCH (17:44)
[2017-04-29] MEDS: VINCRISTINE SULFATE IV SCH (17:44)
[2017-04-29] MEDS: SODIUM CHLORIDE 0.9% IV SCH ×3 (17:44)
--- NOTE | 2017-04-29 19:48 | P.PN ---
Subjective Progress Note Date: 04/29/17 Principal diagnosis: Cycle #4 R-EPOCH CIVI, DLBCL Pt seen on follow up, he denies fever, oral irritation, lip is feeling a little better, no nausea, cough, SOB, indigestion, abd bloating, dysuria, diarrhea, constipation, he is putting cream on his left knee, denies drainage, no bleeding , he is ambulating in the hallway several times a day, denies pain. Objective - Vital Signs Vital signs: Vital Signs Temp 98.2 F 04/29/17 15:00 Pulse 70 04/29/17 15:00 Resp 16 04/29/17 15:00 BP 119/85 04/29/17 15:00 Pulse Ox 99 04/29/17 15:00 Intake & Output 04/29/17 04/29/17 04/30/17 06:59 18:59 06:59 Intake Total 225 776 Balance 225 776 Weight 67.5 kg Intake: Intake, IV Titration 225 776 Amount DOXOrubicin HCL 17 mg In 80 Sodium Chloride 0.9% 250 ml @ 10.77 mls/hr IV Q24H [facility] Rx#:[id number] Etoposide 80 mg In Sodium 80 Chloride 0.9% 250 ml @ 10.58 mls/hr IV Q24H [facility] Rx#:[id number] Sodium Chloride 0.9% 1, 225 600 000 ml @ 75 mls/hr IV . [id number] [facility] Rx#:[id number] vinCRIStine SULFATE 0.7 16 mg In Sodium Chloride 0.9 % 50 ml @ 2.11 mls/hr IV Q24H [facility] Rx#:[id number] Other: Voiding Method Toilet # Voids 2 - Constitutional General appearance: Present: cooperative, no acute distress, thin - EENT EENT Comment(s): lower lip looks like cold sore, no drainage, looks better then yesterday Eyes: Present: anicteric sclerae ENT: Present: normal oropharynx - Respiratory Respiratory: bilateral: CTA - Cardiovascular Rhythm: regular Heart sounds: normal: S1, S2 - Peripheral edema foot Peripheral Edema: bilateral: 1+ - Gastrointestinal General gastrointestinal: Present: normal bowel sounds, soft - Integumentary Integumentary: Present: pale - Neurologic Neurologic: Present: CNII-XII intact - Musculoskeletal Musculoskeletal: Present: strength equal bilaterally - Psychiatric Psychiatric: Present: A&O x's 3, appropriate affect, intact judgment & insight - Labs CBC & Chem 7: 04/29/17 07:09 04/29/17 07:09 Labs: Abnormal Lab Results - Last 24 Hours (Table) 04/28/17 04/29/17 04/29/17 Range/Units 20:52 07:09 07:09 WBC 16.0 H (3.8-10.6) k/uL RBC 2.41 L (4.30-5.90) m/uL Hgb 8.1 L (13.0-17.5) gm/dL Hct 27.1 L (39.0-53.0) % MCV 112.6 H (80.0-100.0) fL MCHC 30.1 L (31.0-37.0) g/dL RDW 19.1 H (11.5-15.5) % Neutrophils # (Manual) 15.60 H (1.3-7.7) k/uL Lymphocytes # (Manual) 0.32 L (1.0-4.8) k/uL Chloride 108 H (98-107) mmol/L BUN 24 H (9-20) mg/dL Glucose 142 H (74-99) mg/dL POC Glucose (mg/dL) 249 H (75-99) mg/dL Total Protein 5.9 L (6.3-8.2) g/dL 04/29/17 04/29/17 Range/Units 07:31 16:27 WBC (3.8-10.6) k/uL RBC (4.30-5.90) m/uL Hgb (13.0-17.5) gm/dL Hct (39.0-53.0) % MCV (80.0-100.0) fL MCHC (31.0-37.0) g/dL RDW (11.5-15.5) % Neutrophils # (Manual) (1.3-7.7) k/uL Lymphocytes # (Manual) (1.0-4.8) k/uL Chloride (98-107) mmol/L BUN (9-20) mg/dL Glucose (74-99) mg/dL POC Glucose (mg/dL) 143 H 175 H (75-99) mg/dL Total Protein (6.3-8.2) g/dL Assessment and Plan (1) Diffuse large B-cell lymphoma of extranodal site Narrative/Plan: Admit for cycle #4 of R-EPOCH for DLBCL. Cont chemo without adjustment. Cont labs daily Daily f/u Current Visit: Yes Status: Acute Priority: High Code(s): C83.39 - DIFFUSE LARGE B-CELL LYMPHOMA, EXTRNOD AND SOLID ORGAN SITES SNOMED Code(s): 685865852 (2) Anemia aplastic aregenerative Narrative/Plan: Secondary to chemo and lymphoma. Conservative transfusions to keep Hgb >7. No intervention today. CBC daily Current Visit: Yes Status: Chronic Priority: Medium Code(s): D61.9 - APLASTIC ANEMIA, UNSPECIFIED SNOMED Code(s): 046627746 (3) Leukocytosis Narrative/Plan: Acute, mostly neutrophils on diff, likely secondary to steroids. Labs drawn daily, will monitor. Current Visit: Yes Status: Acute Priority: Low Code(s): D72.829 - ELEVATED WHITE BLOOD CELL COUNT, UNSPECIFIED SNOMED Code(s): 437096035 Plan: GI/DVT prophylaxis Family to bring topical abreva for lip Dr. Frances for medical management
[2017-04-29 20:48] LABS: Glucose,Whole Blood 223 mg/dL (75-99)
[2017-04-29] MEDS: ASPIRIN 81 MG PO SCH (21:59)
[2017-04-29] MEDS: CALCIUM CARB-VIT D 500MG-200UN 1 EACH TAB PO SCH (22:00)
[2017-04-29] MEDS: amLODIPine 10 MG TAB PO SCH (22:00)
[2017-04-29] MEDS: MAGNESIUM OXIDE 400 MG TAB PO SCH (22:00)
[2017-04-29] MEDS: VIT A,C & E-LUTEIN-MINERALS 1 EACH TAB PO SCH (22:01)
[2017-04-29] MEDS: FERROUS SULFATE 325 MG TAB PO SCH (22:01)
[2017-04-30] MEDS: SODIUM CHLORIDE 0.9% 1,000 ML IV SCH ×2 (05:15→15:51)
[2017-04-30] MEDS: SALT AND SODA MOUTHWASH 1,000 ML PO SCH ×4 (05:15→20:36)
[2017-04-30 07:04] LABS: Anisocytosis Slight; Basophils % (A) 0 %; Eosinophils % (A) 0 %; HCT 24.2 % (39.0-53.0); HGB 7.3 gm/dL (13.0-17.5); Hypochromasia Slight; Lymphocytes # (A) 0.3 k/uL (1.0-4.8); Lymphocytes % (A) 2 %; MCHC 30.2 g/dL (31.0-37.0); MCV 112.5 fL (80.0-100.0); Macrocytosis Marked; Mean Platelet Volume 7.9; Monocytes # (A) 0.3 k/uL (0-1.0); Monocytes % (A) 2 %; Neutrophils % (A) 96 %; Platelet Count 321 k/uL (150-450); RBC 2.15 m/uL (4.30-5.90); RDW 19.3 % (11.5-15.5); WBC 16.7 k/uL (3.8-10.6)
[2017-04-30 07:19] LABS: ALT 22 U/L (21-72); AST 19 U/L (17-59); Albumin 2.9 g/dL (3.5-5.0); Alkaline Phosphatase 73 U/L (38-126); Anion Gap 8 mmol/L; Blood Urea Nitrogen 32 mg/dL (9-20); Calcium 8.1 mg/dL (8.4-10.2); Carbon Dioxide 22 mmol/L (22-30); Chloride 108 mmol/L (98-107); Glucose 145 mg/dL (74-99); Potassium 4.9 mmol/L (3.5-5.1); Sodium 138 mmol/L (137-145); Total Bilirubin 0.2 mg/dL (0.2-1.3); Total Protein 5.2 g/dL (6.3-8.2)
[2017-04-30] MEDS: ATORVASTATIN 10 MG TAB PO SCH (08:11)
[2017-04-30] MEDS: predniSONE 50 MG TAB PO SCH ×2 (08:11→20:35)
[2017-04-30] MEDS: metFORMIN 500 MG TAB PO SCH ×2 (08:11→20:35)
[2017-04-30] MEDS: ALLOPURINOL 300 MG TAB PO SCH (08:11)
[2017-04-30] MEDS: METOPROLOL SUCCINATE (ER) 25 MG TAB.ER.24H PO SCH (08:11)
[2017-04-30] MEDS: CLOPIDOGREL 75 MG TAB PO SCH (08:12)
[2017-04-30] MEDS: ENOXAPARIN 40 MG/0.4 ML SYRINGE SQ SCH (08:12)
[2017-04-30] MEDS: INSULIN ASPART 100 UNIT/ML 1 ML 10 ML VIAL SQ SCH ×4 (08:12→20:35)
[2017-04-30] MEDS: CHOLECALCIFEROL 1,000 UNIT TAB PO SCH ×2 (08:12→22:50)
[2017-04-30] MEDS: MUPIROCIN 2% OINT 22 GM TUBE TOPICAL SCH ×3 (08:13→22:54)
[2017-04-30 08:39] LABS: Glucose,Whole Blood 227 mg/dL (75-99)
[2017-04-30 11:13] LABS: Glucose,Whole Blood 251 mg/dL (75-99)
[2017-04-30] MEDS: DOCUSATE 100 MG CAP PO SCH (11:45)
[2017-04-30] MEDS: FAMOTIDINE 20 MG/2 ML VIAL IV SCH (11:45)
[2017-04-30] MEDS: ONDANSETRON 16 MG in SODIUM CHLORIDE 0.9% 50 ML IVPB SCH (11:45)
[2017-04-30 17:23] LABS: Glucose,Whole Blood 222 mg/dL (75-99)
--- NOTE | 2017-04-30 19:22 | P.PN ---
Subjective Progress Note Date: 04/30/17 Principal diagnosis: Lymphoma in for timed chemo R-EPOCH cycle 4 Patient was seen and examined today in follow-up, he has no acute complaints. No nausea, vomiting, diarrhea or constipation. His appetite is good, he was finishing all of his breakfast during assessment Objective - Vital Signs Vital signs: Vital Signs Temp 97.6 F 04/30/17 14:59 Pulse 60 04/30/17 14:59 Resp 16 04/30/17 14:59 BP 126/77 04/30/17 14:59 Pulse Ox 99 04/30/17 14:59 Intake & Output 04/29/17 04/30/17 04/30/17 18:59 06:59 18:59 Intake Total 776 650 Balance 776 650 Weight 67.5 kg Intake: Intake, IV Titration 776 650 Amount DOXOrubicin HCL 17 mg In 80 Sodium Chloride 0.9% 250 ml @ 10.77 mls/hr IV Q24H [facility] Rx#:[id number] Etoposide 80 mg In Sodium 80 Chloride 0.9% 250 ml @ 10.58 mls/hr IV Q24H [facility] Rx#:[id number] Ondansetron 16 mg In 50 Sodium Chloride 0.9% 50 ml @ 100 mls/hr IVPB Q24H [facility] Rx#:[id number] Sodium Chloride 0.9% 1, 600 600 000 ml @ 75 mls/hr IV . [id number] [facility] Rx#:[id number] vinCRIStine SULFATE 0.7 16 mg In Sodium Chloride 0.9 % 50 ml @ 2.11 mls/hr IV Q24H [facility] Rx#:[id number] Other: Voiding Method Toilet Toilet # Voids 2 - Constitutional General appearance: Present: cooperative - EENT Eyes: Present: dentition normal, normal appearance ENT: Present: NA/AT, normal oropharynx - Respiratory Details: No increased respiratory effort noted Respiratory: bilateral: CTA - Cardiovascular Rhythm: regular Heart sounds: normal: S1, S2 - Gastrointestinal General gastrointestinal: Present: normal bowel sounds, soft - Integumentary Integumentary: Present: pale - Neurologic Neurologic Comment(s): No focal Defects. - Musculoskeletal Musculoskeletal: Present: generalized weakness - Psychiatric Psychiatric Comment(s): Poor historian Psychiatric: Present: A&O x's 3, appropriate affect - Labs CBC & Chem 7: 04/30/17 06:45 04/30/17 06:45 Labs: Abnormal Lab Results - Last 24 Hours (Table) 04/29/17 04/29/17 04/30/17 Range/Units 11:35 20:46 06:45 WBC 16.7 H (3.8-10.6) k/uL RBC 2.15 L (4.30-5.90) m/uL Hgb 7.3 L (13.0-17.5) gm/dL Hct 24.2 L (39.0-53.0) % MCV 112.5 H (80.0-100.0) fL MCHC 30.2 L (31.0-37.0) g/dL RDW 19.3 H (11.5-15.5) % Neutrophils # 16.0 H (1.3-7.7) k/uL Lymphocytes # 0.3 L (1.0-4.8) k/uL Chloride (98-107) mmol/L BUN (9-20) mg/dL Glucose (74-99) mg/dL POC Glucose (mg/dL) 227 H 223 H (75-99) mg/dL Calcium (8.4-10.2) mg/dL Total Protein (6.3-8.2) g/dL Albumin (3.5-5.0) g/dL 04/30/17 04/30/17 Range/Units 06:45 11:11 WBC (3.8-10.6) k/uL RBC (4.30-5.90) m/uL Hgb (13.0-17.5) gm/dL Hct (39.0-53.0) % MCV (80.0-100.0) fL MCHC (31.0-37.0) g/dL RDW (11.5-15.5) % Neutrophils # (1.3-7.7) k/uL Lymphocytes # (1.0-4.8) k/uL Chloride 108 H (98-107) mmol/L BUN 32 H (9-20) mg/dL Glucose 145 H (74-99) mg/dL POC Glucose (mg/dL) 251 H (75-99) mg/dL Calcium 8.1 L (8.4-10.2) mg/dL Total Protein 5.2 L (6.3-8.2) g/dL Albumin 2.9 L (3.5-5.0) g/dL Assessment and Plan (1) Diffuse large B-cell lymphoma of extranodal site Narrative/Plan: Continue with day 3 cycle 4 of R-EPOCH, He will have Neulasta injection in office after discharge - Monitor CBC with DIff and CMP daily on chemo - Transfuse Hgb less than 7, plt less than 10 - Monitor for bleeding, infection - Supportive care for symptom management from chemo Current Visit: Yes Status: Acute Priority: High Code(s): C83.39 - DIFFUSE LARGE B-CELL LYMPHOMA, EXTRNOD AND SOLID ORGAN SITES SNOMED Code(s): 831006016 (2) Macrocytic anemia Narrative/Plan: Due to Chemo. He is asymptomatic. Continue to monitor and transfuse for Hgb < 7 Current Visit: No Status: Acute Code(s): D53.9 - NUTRITIONAL ANEMIA, UNSPECIFIED SNOMED Code(s): 81376540
[2017-04-30] MEDS: CALCIUM CARB-VIT D 500MG-200UN 1 EACH TAB PO SCH (20:35)
[2017-04-30] MEDS: MAGNESIUM OXIDE 400 MG TAB PO SCH (20:35)
[2017-04-30] MEDS: FERROUS SULFATE 325 MG TAB PO SCH (20:35)
[2017-04-30] MEDS: amLODIPine 10 MG TAB PO SCH (20:35)
[2017-04-30] MEDS: ASPIRIN 81 MG PO SCH (20:35)
[2017-04-30] MEDS: VIT A,C & E-LUTEIN-MINERALS 1 EACH TAB PO SCH (20:35)
[2017-04-30 20:43] LABS: Glucose,Whole Blood 218 mg/dL (75-99)
[2017-04-30] MEDS: DOXORUBICIN HCL IV SCH (21:56)
[2017-04-30] MEDS: ETOPOSIDE IV SCH (21:56)
[2017-04-30] MEDS: VINCRISTINE SULFATE IV SCH (21:56)
[2017-04-30] MEDS: SODIUM CHLORIDE 0.9% IV SCH ×3 (21:56)
[2017-04-30] MEDS: PATIENT'S OWN MED (Mirabegron [Myrbetriq] 50 MG) PO SCH (22:48)
[2017-05-01] MEDS: SALT AND SODA MOUTHWASH 1,000 ML PO SCH ×5 (00:32→21:28)
[2017-05-01] MEDS: SODIUM CHLORIDE 0.9% 1,000 ML IV SCH ×2 (05:54→17:23)
[2017-05-01 07:47] LABS: ALT 35 U/L (21-72); AST 20 U/L (17-59); Albumin 2.9 g/dL (3.5-5.0); Alkaline Phosphatase 74 U/L (38-126); Anion Gap 8 mmol/L; Blood Urea Nitrogen 32 mg/dL (9-20); Calcium 8.4 mg/dL (8.4-10.2); Carbon Dioxide 25 mmol/L (22-30); Chloride 108 mmol/L (98-107); Glucose 136 mg/dL (74-99); Potassium 4.7 mmol/L (3.5-5.1); Sodium 141 mmol/L (137-145); Total Bilirubin 0.3 mg/dL (0.2-1.3); Total Protein 5.1 g/dL (6.3-8.2)
[2017-05-01 07:56] LABS: Anisocytosis Slight; Basophils % (A) 0 %; Eosinophils % (A) 0 %; HCT 23.4 % (39.0-53.0); HGB 7.1 gm/dL (13.0-17.5); Hypochromasia Slight; Lymphocytes # (A) 0.2 k/uL (1.0-4.8); Lymphocytes % (A) 2 %; MCH 34.3 pg (25.0-35.0); MCHC 30.5 g/dL (31.0-37.0); MCV 112.4 fL (80.0-100.0); Macrocytosis Marked; Mean Platelet Volume 7.7; Monocytes # (A) 0.4 k/uL (0-1.0); Monocytes % (A) 3 %; Neutrophils # (A) 12.1 k/uL (1.3-7.7); Neutrophils % (A) 95 %; Platelet Count 330 k/uL (150-450); RBC 2.08 m/uL (4.30-5.90); RDW 19.2 % (11.5-15.5); WBC 12.7 k/uL (3.8-10.6)
[2017-05-01] MEDS: CHOLECALCIFEROL 1,000 UNIT TAB PO SCH ×2 (08:34→21:56)
[2017-05-01] MEDS: ENOXAPARIN 40 MG/0.4 ML SYRINGE SQ SCH (08:34)
[2017-05-01] MEDS: INSULIN ASPART 100 UNIT/ML 1 ML 10 ML VIAL SQ SCH ×4 (08:34→21:32)
[2017-05-01] MEDS: METOPROLOL SUCCINATE (ER) 25 MG TAB.ER.24H PO SCH (08:35)
[2017-05-01] MEDS: ALLOPURINOL 300 MG TAB PO SCH (08:35)
[2017-05-01] MEDS: metFORMIN 500 MG TAB PO SCH ×2 (08:35→21:28)
[2017-05-01] MEDS: CLOPIDOGREL 75 MG TAB PO SCH (08:35)
[2017-05-01] MEDS: predniSONE 50 MG TAB PO SCH ×2 (08:35→21:28)
[2017-05-01] MEDS: ATORVASTATIN 10 MG TAB PO SCH (08:35)
[2017-05-01] MEDS: MUPIROCIN 2% OINT 22 GM TUBE TOPICAL SCH ×3 (08:36→21:33)
[2017-05-01] MEDS: ONDANSETRON 16 MG in SODIUM CHLORIDE 0.9% 50 ML IVPB SCH (11:27)
[2017-05-01] MEDS: DOCUSATE 100 MG CAP PO SCH (11:27)
[2017-05-01] MEDS: FAMOTIDINE 20 MG/2 ML VIAL IV SCH (11:27)
[2017-05-01 12:47] LABS: Glucose,Whole Blood 133 mg/dL (75-99)
[2017-05-01 16:52] LABS: Glucose,Whole Blood 179 mg/dL (75-99)
--- NOTE | 2017-05-01 17:56 | XR ---
EXAMINATION TYPE: XR chest 2V DATE OF EXAM: 05/01/2017 COMPARISON: NONE HISTORY: Short of breath TECHNIQUE: Frontal and lateral views of the chest are obtained. FINDINGS: There is no heart failure nor confluent pneumonic infiltrate. There is very slight bluntin g of the costophrenic angles. There is anterior wedging of upper lumbar vertebra. There are no hilar masses. There is right central venous catheter with tip in the superior vena cava. There are multiple old left-sided posterior rib fractures. IMPRESSION: Pleural diaphragmatic scarring at the lung bases. No acute lung disease. Normal heart.
[2017-05-01 20:40] LABS: Glucose,Whole Blood 183 mg/dL (75-99)
[2017-05-01] MEDS: SODIUM CHLORIDE 0.9% IV SCH ×3 (21:21→21:22)
[2017-05-01] MEDS: ETOPOSIDE IV SCH (21:21)
[2017-05-01] MEDS: VINCRISTINE SULFATE IV SCH (21:22)
[2017-05-01] MEDS: DOXORUBICIN HCL IV SCH (21:22)
[2017-05-01] MEDS: VIT A,C & E-LUTEIN-MINERALS 1 EACH TAB PO SCH (21:28)
[2017-05-01] MEDS: FERROUS SULFATE 325 MG TAB PO SCH (21:28)
[2017-05-01] MEDS: CALCIUM CARB-VIT D 500MG-200UN 1 EACH TAB PO SCH (21:28)
[2017-05-01] MEDS: MAGNESIUM OXIDE 400 MG TAB PO SCH (21:29)
[2017-05-01] MEDS: ASPIRIN 81 MG PO SCH (21:29)
[2017-05-01] MEDS: amLODIPine 10 MG TAB PO SCH (21:29)
[2017-05-01] MEDS: PATIENT'S OWN MED (Mirabegron [Myrbetriq] 50 MG) PO SCH (21:30)
[2017-05-01] MEDS: ACYCLOVIR 200 MG CAP PO SCH (21:32)
--- NOTE | 2017-05-01 23:53 | CONS ---
CONSULTATION DATE OF SERVICE: 05/01/2017. REASON FOR CONSULTATION: Exposure to healthcare worker with active TB and further workup for possible latent TB. HISTORY OF PRESENT ILLNESS: The patient is a 76-year-old male with the past medical history significant for a diffuse large B-cell lymphoma diagnosed back in August of 2016 for which the patient had received 3 cycles of chemotherapy and has been admitted to hospital on April for his 4th cycle. The patient seemed to have been previously admitted at outside facility, [place] in [facility]. The patient initially was not exactly sure when that admission was, but then mentioned the possibility of December of last year and apparently the patient has been exposed to a healthcare worker who was later on diagnosed with active TB. The patient did receive a letter from the [facility] advising him to get tested for TB. I was asked by the admitting team for further evaluation of the same. The patient did mention that he used to get a skin test when he was in high school; however, did not remember getting exposed to anybody who had TB either at work or in the family setting 1 and did not recall anybody with active cough who took care of him while he was admitted to the outside facility. The patient currently denies having any fever or chills and no night sweats. Denies having any cough or sputum production. No chest pain. No nausea, vomiting. No abdominal pain and no diarrhea. REVIEW OF SYSTEMS: CONSTITUTIONAL: Positive for weakness. No fever. EYES: No complaint. ENT: No complaint. RESPIRATORY: No complaint. CARDIOVASCULAR: No complaint. GENITOURINARY: No complaint. GASTROINTESTINAL: No complaint. MUSCULOSKELETAL: No complaint. INTEGUMENTARY: No complaint. PSYCHOLOGICAL: No complaint. ENDOCRINE: No complaint. NEUROLOGIC: No complaint. PAST MEDICAL HISTORY: Significant for large B-cell lymphoma for which the patient currently getting chemotherapy. He did have a history of DVT, gastroesophageal reflux disease, hypertension, rheumatoid arthritis, diabetes mellitus, partial small-bowel obstruction. PAST SURGICAL HISTORY: Adenoidectomy, appendectomy, tonsillectomy, prostatectomy, bowel resection for , Mediport placement, colonoscopy and several skin lesions removed. SOCIAL HISTORY: No history of smoking, drinking or drug use. FAMILY HISTORY: Father with history of [place], at the age of 49. ALLERGIES: AMOXICILLIN, SULFA and HYDROCODONE. MEDICATIONS: The patient is currently on: 1. Acyclovir. 2. Zyloprim. 3. Norvasc. 4. Aspirin. 5. Lipitor. 6. Os-Jeferson D. 7. Vitamin D3. 8. Plavix. 9. Cyclophosphamide. 10.Doxorubicin. 11.Lovenox. 12.Etoposide. 13.Pepcid. 14.Iron sulfate. 15.NovoLog. 16.Mag oxide. 17.Glucophage. 18.Toprol-XL. 19. . 20.Zofran. EXAMINATION: Blood pressure is 121/60 with a pulse of 87, temperature is 98.2. He is 100% on room air. General description is an elderly male up in the chair in no distress. No tachypnea or accessory muscle of respiration use. HEENT shows slight pallor. No scleral icterus. Oral mucous membranes are dry. No pharyngeal erythema or thrush. NECK: Trachea is central. No thyromegaly. LUNGS: Unlabored breathing. Some decreased breath sounds in the bases. No wheeze or crackle. HEART: S1, S2. Regular rate and rhythm. No murmur. ABDOMEN: Soft, no tenderness. No guarding or rigidity. No organomegaly. EXTREMITIES: No edema of the feet. SKIN: No rash or masses palpable. NEUROLOGICAL: Patient is awake, alert, oriented. Mood and affect normal. LABS: Hemoglobin 7.1, white count 12.7 with a BUN of 32, creatinine is 1.12. Electrolytes have been normal. Liver enzymes are normal. 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 Patient currently with no signs or symptoms suggestive of active tuberculosis. Currently, however, in view of exposure, we will need to make sure we are not dealing with a case of latent tuberculosis. While the ideal test could have been a tuberculin skin test; however, the patient undergoing chemotherapy for a large B-cell lymphoma. We may not see any good immune response, even if there was exposure. Hence, I would recommend blood test for it and a T-spot if available or QuantiFERON gold TB test. A chest x-ray will also be ordered to make sure no evidence of any pulmonary lesion, though clinically doubt any features suggestive of pulmonary tuberculosis. PLAN: 1. A chest x-ray, PA, lateral has been ordered and will be followed. 2. We will order a QuantiFERON TB gold test and follow the results. 3. Thank you for this consult. Will follow this patient along with you. No need for any isolation, as currently patient not showing any symptoms to be suspicion for active TB. MMODL / IJN: [id number] /
[2017-05-02] MEDS: SALT AND SODA MOUTHWASH 1,000 ML PO SCH ×6 (01:46→23:59)
[2017-05-02] MEDS: SODIUM CHLORIDE 0.9% 1,000 ML IV SCH ×2 (06:08→19:15)
[2017-05-02 06:12] LABS: Anisocytosis Slight; Basophils % (A) 0 %; Eosinophils % (A) 0 %; HCT 24.6 % (39.0-53.0); HGB 7.4 gm/dL (13.0-17.5); Hypochromasia Slight; Lymphocytes # (A) 0.2 k/uL (1.0-4.8); Lymphocytes % (A) 2 %; MCH 33.9 pg (25.0-35.0); MCHC 30.2 g/dL (31.0-37.0); MCV 112.2 fL (80.0-100.0); Mean Platelet Volume 8.1; Monocytes # (A) 0.3 k/uL (0-1.0); Monocytes % (A) 3 %; Neutrophils # (A) 9.5 k/uL (1.3-7.7); Neutrophils % (A) 95 %; Platelet Count 336 k/uL (150-450); RDW 19.1 % (11.5-15.5)
[2017-05-02 06:24] LABS: Macrocytosis Marked
[2017-05-02 06:25] LABS: ALT 30 U/L (21-72); AST 15 U/L (17-59); Albumin 2.8 g/dL (3.5-5.0); Alkaline Phosphatase 71 U/L (38-126); Anion Gap 8 mmol/L; Blood Urea Nitrogen 33 mg/dL (9-20); Calcium 8.5 mg/dL (8.4-10.2); Carbon Dioxide 26 mmol/L (22-30); Chloride 107 mmol/L (98-107); Glucose 134 mg/dL (74-99); Potassium 4.4 mmol/L (3.5-5.1); Sodium 141 mmol/L (137-145); Total Bilirubin 0.4 mg/dL (0.2-1.3)
[2017-05-02 07:16] LABS: Glucose,Whole Blood 139 mg/dL (75-99)
[2017-05-02] MEDS: INSULIN ASPART 100 UNIT/ML 1 ML 10 ML VIAL SQ SCH ×4 (07:46→20:39)
[2017-05-02] MEDS: ALLOPURINOL 300 MG TAB PO SCH (07:48)
[2017-05-02] MEDS: CHOLECALCIFEROL 1,000 UNIT TAB PO SCH ×2 (07:48→20:40)
[2017-05-02] MEDS: predniSONE 50 MG TAB PO SCH ×2 (07:48→20:40)
[2017-05-02] MEDS: ENOXAPARIN 40 MG/0.4 ML SYRINGE SQ SCH (07:48)
[2017-05-02] MEDS: metFORMIN 500 MG TAB PO SCH ×2 (07:49→20:40)
[2017-05-02] MEDS: ACYCLOVIR 200 MG CAP PO SCH ×2 (07:50→20:40)
[2017-05-02] MEDS: CLOPIDOGREL 75 MG TAB PO SCH (07:50)
[2017-05-02] MEDS: METOPROLOL SUCCINATE (ER) 25 MG TAB.ER.24H PO SCH (07:50)
[2017-05-02] MEDS: ATORVASTATIN 10 MG TAB PO SCH (07:51)
[2017-05-02] MEDS: MUPIROCIN 2% OINT 22 GM TUBE TOPICAL SCH ×3 (10:42→20:43)
[2017-05-02 11:30] LABS: Glucose,Whole Blood 204 mg/dL (75-99)
[2017-05-02] MEDS: DOCUSATE 100 MG CAP PO SCH (12:48)
--- NOTE | 2017-05-02 15:03 | PN ---
PROGRESS NOTE DATE OF SERVICE: 05/02/2017 CHIEF COMPLAINT: Tired. Zev seen today as a followup. He is overall is doing fairly well. He is tolerating chemotherapy very well. No nausea, vomiting, his bowels are working fine and no melena, hematochezia or hematuria. MEDICATION: Reviewed in his electronic medical record. PHYSICAL EXAMINATION: He is alert, oriented x3, in no distress. VITAL SIGNS: Temperature 97.9. Afebrile. Pulse is 49, regular, respiration 18, blood pressure 136/65. HEENT: Normocephalic, atraumatic. No obvious icterus. NECK: Supple. CHEST: Equal expansion bilaterally. LUNGS: Clear. HEART: Regular rate and rhythm. ABDOMEN: Soft, nontender. EXTREMITIES: Revealed no edema. SKIN: No significant bruises, ecchymosis, or petechiae. LABORATORY DATA: From today, WBC are 10.0, hemoglobin 7.4, hematocrit 24.6, platelets are 336. Sodium 141, potassium 4.4, chloride 107, CO2 is 26, BUN is 33, creatinine 1.04. IMPRESSION: 1. Diffuse large B-cell lymphoma. He is on day 4 of cycle 4 of R-EPOCH. He is tolerating treatment fairly well. 2. Anemia, secondary to above. His hemoglobin has been relatively stable and he is not symptomatic from it at this point in time. PLAN: 1. Continue systemic treatment as scheduled. 2. If he is doing well and hemoglobin remained stable and he feels fine, he will be discharged home tomorrow morning after completion of systemic treatment and he will follow up in the office on this coming Thursday to receive Neulasta injection upon discharge in the office. MMODL / IJN: [id number] /
--- NOTE | 2017-05-02 15:42 | PN ---
PROGRESS NOTE DATE OF SERVICE: 05/02/2017 REASON FOR FOLLOWUP: Exposure to healthcare worker with active TB, concern for possible latent TB. INTERVAL HISTORY: The patient is afebrile, he is breathing comfortably. Denies having any chest pain, shortness of breath or cough. No nausea, vomiting. No abdominal pain or any diarrhea. PHYSICAL EXAMINATION: Blood pressure 136/65 with a pulse of 49, temperature 97.9. He is 99% on room air. General description is an elderly male, lying in bed in no distress. RESPIRATORY SYSTEM: Unlabored breathing, clear to auscultation anteriorly. HEART: S1, S2. Regular rate and rhythm. ABDOMEN: Soft, no tenderness. EXTREMITIES: No edema of the feet. LABS: Hemoglobin 7.4, white count of 10 with a BUN of 33, creatinine 1.04. Patient did have a chest x-ray done yesterday which did show pleural diaphragmatic scarring at the bases. No acute lung disease. DIAGNOSTIC IMPRESSION AND PLAN: Patient with recent exposure to healthcare worker with active TB. Patient with no respiratory symptoms in the patient for active TB and his chest x-ray was negative for any acute infiltrate making it to be unlikely acute TB. However, he needs to be worked up for latent TB for we did obtain a QuantiFERON gold TB test with the results currently pending. All his questions and concerns were answered. MMODL / IJN: [id number] /
[2017-05-02 17:05] LABS: Glucose,Whole Blood 146 mg/dL (75-99)
[2017-05-02] MEDS: FAMOTIDINE 20 MG/2 ML VIAL IV SCH (19:16)
[2017-05-02] MEDS: ONDANSETRON 16 MG in SODIUM CHLORIDE 0.9% 50 ML IVPB SCH (19:24)
[2017-05-02 20:30] LABS: Glucose,Whole Blood 238 mg/dL (75-99)
[2017-05-02] MEDS: VIT A,C & E-LUTEIN-MINERALS 1 EACH TAB PO SCH (20:40)
[2017-05-02] MEDS: ASPIRIN 81 MG PO SCH (20:40)
[2017-05-02] MEDS: FERROUS SULFATE 325 MG TAB PO SCH (20:40)
[2017-05-02] MEDS: CALCIUM CARB-VIT D 500MG-200UN 1 EACH TAB PO SCH (20:40)
[2017-05-02] MEDS: MAGNESIUM OXIDE 400 MG TAB PO SCH (20:40)
[2017-05-02] MEDS: amLODIPine 10 MG TAB PO SCH (20:40)
[2017-05-02] MEDS: PATIENT'S OWN MED (Mirabegron [Myrbetriq] 50 MG) PO SCH (20:42)
[2017-05-02] MEDS ORDERED: SODIUM CHLORIDE 0.9% IV ONE (21:00)
[2017-05-02] MEDS ORDERED: CYCLOPHOSPHAMIDE IV ONE (21:00)
[2017-05-03] MEDS: SALT AND SODA MOUTHWASH 1,000 ML PO SCH ×2 (06:16→12:25)
[2017-05-03 06:56] LABS: Anisocytosis Slight; Basophils % (A) 0 %; Eosinophils % (A) 0 %; HCT 23.7 % (39.0-53.0); HGB 7.2 gm/dL (13.0-17.5); Lymphocytes # (A) 0.3 k/uL (1.0-4.8); Lymphocytes % (A) 3 %; MCH 33.9 pg (25.0-35.0); MCHC 30.4 g/dL (31.0-37.0); MCV 111.5 fL (80.0-100.0); Mean Platelet Volume 7.2; Monocytes # (A) 0.2 k/uL (0-1.0); Monocytes % (A) 3 %; Neutrophils # (A) 8.9 k/uL (1.3-7.7); Neutrophils % (A) 95 %; Platelet Count 378 k/uL (150-450); RBC 2.13 m/uL (4.30-5.90); RDW 18.9 % (11.5-15.5); WBC 9.4 k/uL (3.8-10.6)
[2017-05-03 06:57] LABS: Macrocytosis Marked
[2017-05-03 07:13] LABS: ALT 30 U/L (21-72); AST 18 U/L (17-59); Albumin 2.8 g/dL (3.5-5.0); Alkaline Phosphatase 68 U/L (38-126); Anion Gap 7 mmol/L; Blood Urea Nitrogen 34 mg/dL (9-20); Calcium 8.5 mg/dL (8.4-10.2); Carbon Dioxide 26 mmol/L (22-30); Chloride 109 mmol/L (98-107); Glucose 122 mg/dL (74-99); Potassium 4.8 mmol/L (3.5-5.1); Sodium 142 mmol/L (137-145); Total Bilirubin 0.5 mg/dL (0.2-1.3); Total Protein 4.9 g/dL (6.3-8.2)
[2017-05-03 07:21] LABS: Glucose,Whole Blood 131 mg/dL (75-99)
[2017-05-03] MEDS: CLOPIDOGREL 75 MG TAB PO SCH (07:21)
[2017-05-03] MEDS: ACYCLOVIR 200 MG CAP PO SCH (07:21)
[2017-05-03] MEDS: CHOLECALCIFEROL 1,000 UNIT TAB PO SCH (07:21)
[2017-05-03] MEDS: ATORVASTATIN 10 MG TAB PO SCH (07:22)
[2017-05-03] MEDS: metFORMIN 500 MG TAB PO SCH (07:22)
[2017-05-03] MEDS: ENOXAPARIN 40 MG/0.4 ML SYRINGE SQ SCH (07:22)
[2017-05-03] MEDS: METOPROLOL SUCCINATE (ER) 25 MG TAB.ER.24H PO SCH (07:22)
[2017-05-03] MEDS: ALLOPURINOL 300 MG TAB PO SCH (07:22)
[2017-05-03] MEDS: INSULIN ASPART 100 UNIT/ML 1 ML 10 ML VIAL SQ SCH ×2 (07:23→12:25)
[2017-05-03] MEDS: MUPIROCIN 2% OINT 22 GM TUBE TOPICAL SCH (07:26)
[2017-05-03 07:51] VITALS: RESP 18
[2017-05-03 11:08] LABS: Glucose,Whole Blood 186 mg/dL (75-99)
[2017-05-03] MEDS: SODIUM CHLORIDE 0.9% 1,000 ML IV SCH (12:23)
[2017-05-03] MEDS: DOCUSATE 100 MG CAP PO SCH (12:23)
[2017-05-03 15:26] VITALS: BP 131/64; PULSE 56; TEMP 96.4
[2017-05-03 16:41] LABS: Glucose,Whole Blood 84 mg/dL (75-99)
--- NOTE | 2017-05-03 20:59 | P.PN ---
Subjective Progress Note Date: 05/01/17 Principal diagnosis: Lymphoma in for timed chemo R-EPOCH cycle 4 Patient was seen and examined today in follow-up, he has no acute complaints. No nausea, vomiting, diarrhea or constipation. His appetite is good, he has small scabbed lesion on lip otherwise no other sores or concerns. His hemoglobin 7.1 today. No SOB Objective - Vital Signs Vital signs: Vital Signs Temp 97.2 F L 05/01/17 15:00 Pulse 57 L 05/01/17 15:00 Resp 16 05/01/17 15:00 BP 121/60 05/01/17 15:00 Pulse Ox 100 05/01/17 15:00 Intake & Output 04/30/17 05/01/17 05/01/17 18:59 06:59 18:59 Intake Total 650 540 650 Output Total 1 Balance 650 539 650 Intake: Intake, IV Titration 650 650 Amount Ondansetron 16 mg In 50 50 Sodium Chloride 0.9% 50 ml @ 100 mls/hr IVPB Q24H [facility] Rx#:[id number] Sodium Chloride 0.9% 1, 600 600 000 ml @ 75 mls/hr IV . [id number] [facility] Rx#:[id number] Oral 540 Output: Urine 1 Other: Voiding Method Toilet # Bowel Movements 1 - Constitutional General appearance: Present: cooperative, no acute distress - EENT Eyes: Present: dentition normal ENT: Present: hearing grossly normal, NA/AT, normal oropharynx - Neck Neck: Present: other - Respiratory Respiratory: bilateral: CTA (NO increased effort) - Cardiovascular Rhythm: regular Heart sounds: normal: S1, S2 - Gastrointestinal General gastrointestinal: Present: normal bowel sounds, soft - Integumentary Integumentary: Present: normal - Neurologic Neurologic Comment(s): No focal defects - Musculoskeletal Musculoskeletal: Present: strength equal bilaterally - Psychiatric Psychiatric: Present: A&O x's 3, appropriate affect, intact judgment & insight - Labs CBC & Chem 7: 05/03/17 06:33 05/03/17 06:33 Labs: Abnormal Lab Results - Last 24 Hours (Table) 04/30/17 04/30/17 05/01/17 Range/Units 17:08 20:32 07:03 WBC 12.7 H (3.8-10.6) k/uL RBC 2.08 L (4.30-5.90) m/uL Hgb 7.1 L (13.0-17.5) gm/dL Hct 23.4 L (39.0-53.0) % MCV 112.4 H (80.0-100.0) fL MCHC 30.5 L (31.0-37.0) g/dL RDW 19.2 H (11.5-15.5) % Neutrophils # 12.1 H (1.3-7.7) k/uL Lymphocytes # 0.2 L (1.0-4.8) k/uL Chloride (98-107) mmol/L BUN (9-20) mg/dL Glucose (74-99) mg/dL POC Glucose (mg/dL) 222 H 218 H (75-99) mg/dL Total Protein (6.3-8.2) g/dL Albumin (3.5-5.0) g/dL 05/01/17 05/01/17 Range/Units 07:03 12:44 WBC (3.8-10.6) k/uL RBC (4.30-5.90) m/uL Hgb (13.0-17.5) gm/dL Hct (39.0-53.0) % MCV (80.0-100.0) fL MCHC (31.0-37.0) g/dL RDW (11.5-15.5) % Neutrophils # (1.3-7.7) k/uL Lymphocytes # (1.0-4.8) k/uL Chloride 108 H (98-107) mmol/L BUN 32 H (9-20) mg/dL Glucose 136 H (74-99) mg/dL POC Glucose (mg/dL) 133 H (75-99) mg/dL Total Protein 5.1 L (6.3-8.2) g/dL Albumin 2.9 L (3.5-5.0) g/dL Assessment and Plan (1) Diffuse large B-cell lymphoma of extranodal site Narrative/Plan: Continue with day 4 cycle 4 of R-EPOCH, He will have Neulasta injection in office after discharge, mike thursday at 10am - Monitor CBC with DIff and CMP daily on chemo - Transfuse Hgb less than 7, plt less than 10 - Monitor for bleeding, infection - Supportive care for symptom management from chemo Status: Acute Priority: High Code(s): C83.39 - DIFFUSE LARGE B-CELL LYMPHOMA , EXTRNOD AND SOLID ORGAN SITES SNOMED Code(s): 029697206 (2) Macrocytic anemia Narrative/Plan: Due to Chemo. He is asymptomatic. Continue to monitor and transfuse for Hgb < 7 Status: Acute Code(s): D53.9 - NUTRITIONAL ANEMIA, UNSPECIFIED SNOMED Code(s ): 77588155
--- NOTE | 2017-05-04 11:47 | PN ---
PROGRESS NOTE DATE OF SERVICE: 05/03/2017 REASON FOR FOLLOWUP: Possible latent tuberculosis. INTERVAL HISTORY: The patient was seen on rounds on the afternoon of 05/03/2017. The patient has been afebrile, breathing comfortably. Denies having any chest pain or shortness of breath or cough. No abdominal pain, nausea, vomiting, or any diarrhea. PHYSICAL EXAMINATION: On examination, blood pressure is 131/64 with a pulse of 56, temperature 96.4. He is 100% on room air. General description is an elderly male up in the bed in no distress. RESPIRATORY SYSTEM: Unlabored breathing, clear to auscultation. No wheeze or crackle. HEART: S1, S2. Regular rate and rhythm. ABDOMEN: Soft, no tenderness. LABS: Hemoglobin 7.8, white count 9.4, BUN of 34, creatinine 1.13. QuantiFERON-TB Gold test currently pending. 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 Chest x-ray has been negative. Patient with no respiratory symptoms making it unlikely to be active bacteremia. However, latent tuberculosis currently workup is in progress. Will wait for the QuantiFERON-TB Gold test to be finalized and follow up the patient in the outpatient setting. Plan of care was discussed with the attending, admitting physician. ANUM / KALPANA: [id number] /
== END 2017-05-03 17:46 | disposition home health service (06) | DRG 846 ==
LOC: 5ONC 08:06
PROVIDERS: ADMIT Internal Medicine Hematology & Oncology; ATTEND Internal Medicine Hematology & Oncology
DX: Z51.11 Encounter for antineoplastic chemotherapy (principal); D61.1 Drug-induced aplastic anemia; C83.39 Diffuse large B-cell lymphoma, extranodal and solid organ sites; E11.9 Type 2 diabetes mellitus without complications; D72.829 Elevated white blood cell count, unspecified; D53.9 Nutritional anemia, unspecified; E78.5 Hyperlipidemia, unspecified; K21.9 Gastro-esophageal reflux disease without esophagitis; T38.0X5A Adverse effect of glucocorticoids and synthetic analogues, initial encounter; Z20.1 Contact with and (suspected) exposure to tuberculosis; T45.1X5A Adverse effect of antineoplastic and immunosuppressive drugs, initial encounter; K13.0 Diseases of lips; I10 Essential (primary) hypertension; M06.9 Rheumatoid arthritis, unspecified; R32 Unspecified urinary incontinence; Z79.82 Long term (current) use of aspirin; Z79.02 Long term (current) use of antithrombotics/antiplatelets; Z79.84 Long term (current) use of oral hypoglycemic drugs; Z79.899 Other long term (current) drug therapy; Z86.718 Personal history of other venous thrombosis and embolism; Z85.46 Personal history of malignant neoplasm of prostate; Z90.79 Acquired absence of other genital organ(s); Z88.5 Allergy status to narcotic agent; Z88.0 Allergy status to penicillin; Z88.2 Allergy status to sulfonamides; Z90.49 Acquired absence of other specified parts of digestive tract
CPT/HCPCS: 71046; 80053; 85025; 86480

== ENCOUNTER → 2017-05-08 | Outpatient (CLI) | payer MEDICARE, BC ==
--- NOTE | 2017-05-08 12:09 | US ---
EXAMINATION TYPE: US venous doppler duplex LE RT DATE OF EXAM: 05/08/2017 11:57 AM COMPARISON: US 2018 CLINICAL HISTORY: M79.661 PAIN IN RT LIMB,R22.41 SWELLING RT LIMB. Patient denies right leg pain. SIDE PERFORMED: Right TECHNIQUE: The lower extremity deep venous system is examined utilizing real time linear array sonog linda with graded compression, doppler sonography and color-flow sonography. VESSELS IMAGED: Common Femoral Vein Deep Femoral Vein Greater Saphenous Vein * Femoral Vein Popliteal Vein Small Saphenous Vein * Proximal Calf Veins (* superficial vessels) Grayscale, color doppler, spectral doppler imaging performed of the deep veins of the lower extremiti es. There is normal flow, compressibility, vascular waveforms. Right Leg: Negative for DVT. Right medial popliteal fossa cyst is imaged = 2.7 x 1.4 x 0.9cm IMPRESSION: No sonographic evidence of deep venous arthrosis within the right lower extremity as see n on the recent exam of 04/07/2017. Incidentally noted 2.7 cm popliteal fossa cyst.
== END ==
LOC: RADUSWWP 11:25
PROVIDERS: ATTEND Internal Medicine Hematology & Oncology
DX: M79.661 Pain in right lower leg (principal); R22.41 Localized swelling, mass and lump, right lower limb

== ENCOUNTER 2017-05-18 16:17 | Inpatient (IN) | payer MEDICARE, BC ==
[2017-05-19] MEDS ORDERED: methylPREDNISolone SOD SUCCI 125 MG/2 ML VIAL IV ONE (09:00)
[2017-05-19] MEDS ORDERED: ONDANSETRON 16 MG in SODIUM CHLORIDE 0.9% 50 ML IVPB SCH (09:00)
[2017-05-19] MEDS ORDERED: ACETAMINOPHEN TAB 325 MG TAB PO ONE (09:00)
[2017-05-19] MEDS ORDERED: FAMOTIDINE 20 MG/2 ML VIAL IV SCH (09:00)
[2017-05-19] MEDS ORDERED: ONDANSETRON 4 MG/2 ML VIAL IVP PRN (09:00)
[2017-05-19] MEDS ORDERED: diphenhydrAMINE 50 MG/ML 1 ML VIAL IVP ONE (09:00)
[2017-05-19 10:23] LABS: Anisocytosis Slight; Basophils # (A) 0.1 k/uL (0-0.2); Basophils % (A) 1 %; Eosinophils # (A) 0.3 k/uL (0-0.7); Eosinophils % (A) 3 %; HCT 28.9 % (39.0-53.0); Lymphocytes % (A) 11 %; MCH 34.5 pg (25.0-35.0); MCHC 32.1 g/dL (31.0-37.0); MCV 107.6 fL (80.0-100.0); Macrocytosis Marked; Mean Platelet Volume 7.4; Monocytes # (A) 0.5 k/uL (0-1.0); Monocytes % (A) 5 %; Neutrophils # (A) 7.3 k/uL (1.3-7.7); Neutrophils % (A) 78 %; Platelet Count 376 k/uL (150-450); RBC 2.68 m/uL (4.30-5.90); RDW 19.1 % (11.5-15.5); WBC 9.4 k/uL (3.8-10.6)
[2017-05-19 10:34] LABS: Albumin 3.5 g/dL (3.5-5.0); Calcium 9.9 mg/dL (8.4-10.2); Potassium 5.3 mmol/L (3.5-5.1); Total Bilirubin 0.2 mg/dL (0.2-1.3); Total Protein 5.9 g/dL (6.3-8.2)
[2017-05-19 10:43] LABS: HGB 9.2 gm/dL (13.0-17.5)
[2017-05-19 11:14] LABS: Glucose,Whole Blood 156 mg/dL (75-99)
[2017-05-19] MEDS ORDERED: BISMUTH SUBSALICYLATE 4,192 MG/240 ML BOTTLE PO PRN (11:24)
[2017-05-19 11:38] VITALS: BMI 23.4
[2017-05-19] MEDS ORDERED: INSULIN ASPART 100 UNIT/ML 1 ML 10 ML VIAL SQ SCH (12:30)
[2017-05-19] MEDS ORDERED: riTUXimab 700 MG in SODIUM CHLORIDE 0.9% 500 ML IV ONE (13:00)
[2017-05-19] MEDS: IOPAMIDOL-300 CONTRAST 30 ML VIAL (ORAL USE) PO PRN ×2 (13:25→14:11)
[2017-05-19] MEDS: INSULIN ASPART 100 UNIT/ML 1 ML 10 ML VIAL SQ SCH ×4 (13:35→21:45)
[2017-05-19] MEDS: SODIUM CHLORIDE 0.9% 1,000 ML IV SCH ×2 (14:01→22:26)
[2017-05-19] MEDS: DOCUSATE 100 MG CAP PO SCH (15:09)
--- NOTE | 2017-05-19 15:18 | CT ---
EXAMINATION TYPE: CT abdomen pelvis wo con DATE OF EXAM: 05/19/2017 HISTORY: Right-sided abdominal pain CT DLP: 344.5 mGycm. Automated Exposure Control for Dose Reduction was Utilized. TECHNIQUE: CT scan of the abdomen and pelvis is performed with oral but without IV contrast. COMPARISON: CT abdomen and pelvis March 14, 2017 FINDINGS: Within the limitations of a non-contrast study, the following observations are made. LUNG BASES: There is patchy left basilar linear scarring and/or atelectasis. LIVER/GB: No significant abnormality is appreciated. PANCREAS: No significant abnormality is seen. SPLEEN: No significant abnormality is seen. ADRENALS: No significant abnormality is seen. KIDNEYS: No renal calculi or hydronephrosis is present bilaterally. BOWEL: The oral contrast only reaches mid small bowel loops. There is no suspicious small or large oylie wel dilatation. Occasional scattered colonic diverticula are identified. There is left inguinal herni a containing portions of sigmoid colon. No suspicious proximal dilatation is identified. There is sma ll bowel feces sign in the majority of ileal loops. GENITAL ORGANS: Surgical clips from prostatectomy are present. LYMPH NODES: No greater than 1cm abdominal or pelvic lymph nodes are appreciated. OSSEOUS STRUCTURES: No significant abnormality is seen. Osseous structures are demineralized. There i s vertebroplasty with mild compression fracture L3 level redemonstrated. There is vertebroplasty with moderate compression fracture L2 level redemonstrated. There is moderate chronic compression fractur e L1 level with sclerosis redemonstrated. There is loss of normal thoracolumbar curvature with straig htening. There is moderate to severe disc space narrowing L4-L5 level with vacuum disc phenomenon. OTHER: There is moderate to severe calcified plaque in abdominal aorta with ectatic course redemonstr ated. IMPRESSION: New left inguinal hernia containing portion of sigmoid colon not causing significant obst ruction currently. Small bowel feces sign is consistent with delayed passage of ingested material to colonic level. No bowel obstruction currently. Persistent mild proximal to mid colonic fecal stasis i mproved from prior.
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
[2017-05-19 17:36] LABS: Glucose,Whole Blood 179 mg/dL (75-99)
[2017-05-19] MEDS: SALT AND SODA MOUTHWASH 1,000 ML PO SCH ×2 (17:44→21:26)
[2017-05-19] MEDS: metFORMIN 500 MG TAB PO SCH (17:45)
[2017-05-19] MEDS ORDERED: NON-FORMULARY DRUG (Omega-3 Fatty Acids/Fish Oil [Fish Oil 1,000 Mg Softgel] 1 CAP) PO SCH (21:00)
[2017-05-19] MEDS: FAMOTIDINE 20 MG/2 ML VIAL IV SCH (21:26)
[2017-05-19] MEDS: ONDANSETRON 16 MG in SODIUM CHLORIDE 0.9% 50 ML IVPB SCH (21:26)
[2017-05-19] MEDS: predniSONE 50 MG TAB PO SCH (21:26)
[2017-05-19] MEDS: MAGNESIUM OXIDE 400 MG TAB PO SCH (21:27)
[2017-05-19] MEDS: CHOLECALCIFEROL 1,000 UNIT TAB PO SCH (21:27)
[2017-05-19] MEDS: predniSONE 20 MG TAB PO SCH (21:27)
[2017-05-19] MEDS: VIT A,C & E-LUTEIN-MINERALS 1 EACH TAB PO SCH (21:27)
[2017-05-19] MEDS: amLODIPine 10 MG TAB PO SCH (21:27)
[2017-05-19] MEDS: FERROUS SULFATE 325 MG TAB PO SCH (21:27)
[2017-05-19] MEDS: ASPIRIN 81 MG PO SCH (21:27)
[2017-05-19] MEDS: CALCIUM CARB-VIT D 500MG-200UN 1 EACH TAB PO SCH (21:27)
[2017-05-19] MEDS: ACETAMINOPHEN TAB 325 MG TAB PO SCH (21:29)
[2017-05-19] MEDS: Mirabegron [Myrbetriq] 50 MG PO SCH (21:29)
[2017-05-19 21:34] LABS: Glucose,Whole Blood 308 mg/dL (75-99)
[2017-05-19] MEDS: SODIUM CHLORIDE 0.9% IV SCH ×3 (22:25→22:26)
[2017-05-19] MEDS: VINCRISTINE SULFATE IV SCH (22:25)
[2017-05-19] MEDS: DOXORUBICIN HCL IV SCH (22:25)
[2017-05-19] MEDS: ETOPOSIDE IV SCH (22:26)
[2017-05-19 22:38] LABS: Hemoglobin A1C 5.4 % (4.0-6.0)
--- NOTE | 2017-05-19 22:44 | CONS ---
CONSULTATION DATE OF SERVICE: 05/19/2017. REASON FOR CONSULTATION: Inconclusive TB test and question of tuberculosis. 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 During that visit apparently the patient was exposed to healthcare worker that was later on diagnosed with active TB. The patient had receiving a letter back in the end of April regarding seeking medical attention for the same. I did evaluate this patient on his last admission to this hospital beginning of April of 2017. At that time, the patient did not have any respiratory symptoms. A chest x-ray was done which was negative for any acute infiltrate. A QuantiFERON TB gold test was ordered with results coming back, however, the patient was discharged from the hospital and the result was indeterminate. The patient has now been admitted to the hospital for chemotherapy for diffuse large B-cell lymphoma. I was asked to see the patient for further evaluation with the patient had continue with his chemo however did question about possible latent TB. The patient at the time of my evaluation has been feeling fine. He denies having any fever, rigors or chills and no night sweats. The patient denies having any chest pain, shortness of breath or cough. He is complaining of some lower abdominal pain, more of a dull aching pain 2 to 3/10 off and on, but no radiation. No nausea, no vomiting. No diarrhea. REVIEW OF SYSTEMS: Constitutional: Positive for weakness. No fever. Eyes: No complaint. ENT no complaint. Respiratory no complaint. Cardiovascular no complaint. Genitourinary no complaint. GASTROINTESTINAL: As per HPI. Musculoskeletal no complaint. Integumentary: No complaint. Psychological: No complaint. Neurologic no complaint. PAST MEDICAL HISTORY: Positive for large B-cell lymphoma, DVT, gastroesophageal reflux disease, hypertension, rheumatoid arthritis, diabetes mellitus, possible bowel obstruction, perforation. PAST SURGERY HISTORY: Significant for adenoidectomy, appendectomy, tonsillectomy, prostatectomy, bowel resection for bowel obstruction, MediPort placement, colonoscopy and several skin lesions removed. SOCIAL HISTORY: No history of smoking, drinking or drug use. FAMILY HISTORY: Father history of [place], at age of 49. ALLERGIES: Include AMOXICILLIN, SULFA AND HYDROCODONE. MEDICATIONS: Include the patient is currently on Tylenol, Zyloprim, Norvasc, aspirin, Lipitor, , Os-Jeferson D, vitamin D3, Plavix, cyclophosphamide, doxorubicin, Lovenox, Pepcid iron sulfate, NovoLog, Mag oxide, Glucophage, Toprol-XL , Zofran, prednisone and . EXAMINATION: Blood pressure 122/67, pulse of 75, temperature of 98. He is 98% on room air. General description is an elderly male up in the chair in no distress. No tachypnea or accessory muscle of respiration use. HEENT: Shows pallor no scleral icterus. Oral mucosa is moist. No pharyngeal erythema, thrush. Neck trachea central. No thyromegaly. Lungs unlabored breathing, clear to auscultation. No wheeze or crackles. Heart S1, S2. Regular rate and rhythm. ABDOMEN: Soft. No tenderness. No guarding. No rigidity. No organomegaly. EXTREMITIES: No edema of the feet. Skin examination no rash or mass palpable. Neurological: Patient is awake, alert, oriented times three. Mood and affect normal. LABS: BUN of 27, creatinine 1.30. Hemoglobin is 9.2 with a white count of 9.4. He did have a CT abdominal and pelvis with no obstructive or acute abdomen. Chest shows some atelectasis left base. DIAGNOSTIC IMPRESSION AND PLAN: Patient who did have an exposure to a healthcare worker with active TB back in August of 2016, when he was admitted to [facility]. Currently the patient did not have any respiratory symptoms. He did have a chest x-ray beginning of this month which was negative for any acute infiltrate. He did have QuantiFERON-TB gold TB test which came back indeterminate, possible because of his underlying immune deficiency because of his large B-cell lymphoma and exposure to chemotherapy. Clinical suspicion remains to be low for bacteremia and less likely latent TB or any risk of reactivation. PLAN: 1. QuantiFERON-TB gold test has been repeated to compare with previous test. 2. As clinical suspicion remains to be low, the patient is to continue with his chemotherapy. 3. Daughter was present at bedside, all her questions and concerns were answered. Thank you for this consultation. MMODL / IJN: [id number] /
[2017-05-20] MEDS: SALT AND SODA MOUTHWASH 1,000 ML PO SCH ×6 (02:57→23:55)
[2017-05-20 07:12] LABS: Glucose,Whole Blood 221 mg/dL (75-99)
[2017-05-20] MEDS: INSULIN ASPART 100 UNIT/ML 1 ML 10 ML VIAL SQ SCH ×4 (08:10→22:28)
[2017-05-20] MEDS: DOCUSATE 100 MG CAP PO SCH (08:11)
[2017-05-20] MEDS: predniSONE 20 MG TAB PO SCH ×2 (08:11→22:26)
[2017-05-20] MEDS: predniSONE 50 MG TAB PO SCH ×2 (08:12→22:26)
[2017-05-20] MEDS: metFORMIN 500 MG TAB PO SCH ×2 (08:13→17:44)
[2017-05-20] MEDS: ATORVASTATIN 10 MG TAB PO SCH (08:13)
[2017-05-20] MEDS: ALLOPURINOL 300 MG TAB PO SCH (08:13)
[2017-05-20] MEDS: PANTOPRAZOLE 40 MG TABLET PO SCH (08:13)
[2017-05-20] MEDS: ENOXAPARIN 40 MG/0.4 ML SYRINGE SQ SCH (08:14)
[2017-05-20] MEDS: CHOLECALCIFEROL 1,000 UNIT TAB PO SCH ×2 (08:14→22:27)
[2017-05-20] MEDS: CLOPIDOGREL 75 MG TAB PO SCH (08:14)
[2017-05-20] MEDS: METOPROLOL SUCCINATE (ER) 25 MG TAB.ER.24H PO SCH (08:15)
[2017-05-20] MEDS: ACETAMINOPHEN TAB 325 MG TAB PO SCH ×2 (08:17→22:26)
[2017-05-20 08:58] LABS: Albumin 3.1 g/dL (3.5-5.0); Potassium 5.3 mmol/L (3.5-5.1); Total Bilirubin 0.1 mg/dL (0.2-1.3); Total Protein 5.4 g/dL (6.3-8.2)
[2017-05-20 10:02] LABS: Anisocytosis Slight; Basophils % (A) 0 %; Eosinophils % (A) 0 %; HCT 26.9 % (39.0-53.0); HGB 8.5 gm/dL (13.0-17.5); Lymphocytes # (A) 0.4 k/uL (1.0-4.8); Lymphocytes % (A) 3 %; MCH 34.6 pg (25.0-35.0); MCHC 31.7 g/dL (31.0-37.0); MCV 109.1 fL (80.0-100.0); Macrocytosis Marked; Mean Platelet Volume 7.7; Monocytes # (A) 0.3 k/uL (0-1.0); Monocytes % (A) 2 %; Neutrophils % (A) 95 %; Platelet Count 368 k/uL (150-450); RBC 2.47 m/uL (4.30-5.90); RDW 18.8 % (11.5-15.5); WBC 12.7 k/uL (3.8-10.6)
[2017-05-20 11:37] LABS: Poikilocytosis (M) Present
[2017-05-20 11:38] LABS: RBC Fragments Present
[2017-05-20 11:39] LABS: Glucose,Whole Blood 199 mg/dL (75-99)
[2017-05-20] MEDS: SODIUM CHLORIDE 0.9% 1,000 ML IV SCH ×2 (12:43→12:44)
--- NOTE | 2017-05-20 13:37 | P.PN ---
Subjective Progress Note Date: 05/20/17 Principal diagnosis: Medical management for CLL. This is a history and physical on a 76-year-old white male who is fairly well known to my practice and has an underlying history of hypertension with diabetes , who has an underlying history of CLL. I am consulted by oncology for medical management. The patient states no new complaints. He is sleeping comfortably with no voiding difficulties. No significant nausea, vomiting or diarrhea is noted. Objective - Vital Signs Vital signs: Vital Signs Temp 97.9 F 05/20/17 12:00 Pulse 72 05/20/17 12:00 Resp 16 05/20/17 12:00 BP 138/72 05/20/17 12:00 Pulse Ox 98 05/20/17 12:00 Intake & Output 05/19/17 05/20/17 05/20/17 18:59 06:59 18:59 Intake Total 628.450 Balance 628.450 Weight 71.923 kg Intake: Intake, IV Titration 628.450 Amount Sodium Chloride 0.9% 1, 75 000 ml @ 75 mls/hr IV . [id number] [facility] Rx#:[id number] riTUXimab 700 mg In 553.450 Sodium Chloride 0.9% 500 ml @ Titrate IV .Q0M ONE Rx#:[id number] Other: # Voids 2 - Constitutional General appearance: Present: average body habitus - EENT Eyes: Absent: abnormal pupil - Respiratory Respiratory: bilateral: CTA - Cardiovascular Rhythm: regular Heart sounds: normal: S1, S2 Abnormal Heart Sounds: Absent: systolic murmur - Gastrointestinal General gastrointestinal: Present: soft. Absent: tenderness - Integumentary Integumentary: Absent: cellulitis - Neurologic Neurologic: Present: CNII-XII intact. Absent: focal deficits - Musculoskeletal Musculoskeletal: Present: gait normal - Psychiatric Psychiatric: Present: A&O x's 3 - Labs CBC & Chem 7: 05/20/17 07:18 05/20/17 07:18 Labs: Abnormal Lab Results - Last 24 Hours (Table) 05/19/17 05/19/17 05/20/17 Range/Units 17:22 21:32 07:07 WBC (3.8-10.6) k/uL RBC (4.30-5.90) m/uL Hgb (13.0-17.5) gm/dL Hct (39.0-53.0) % MCV (80.0-100.0) fL RDW (11.5-15.5) % Neutrophils # (1.3-7.7) k/uL Lymphocytes # (1.0-4.8) k/uL Potassium (3.5-5.1) mmol/L BUN (9-20) mg/dL Creatinine (0.66-1.25) mg/dL Glucose (74-99) mg/dL POC Glucose (mg/dL) 179 H 308 H 221 H (75-99) mg/dL Total Bilirubin (0.2-1.3) mg/dL Total Protein (6.3-8.2) g/dL Albumin (3.5-5.0) g/dL 05/20/17 05/20/17 05/20/17 Range/Units 07:18 07:18 11:27 WBC 12.7 H (3.8-10.6) k/uL RBC 2.47 L (4.30-5.90) m/uL Hgb 8.5 L (13.0-17.5) gm/dL Hct 26.9 L (39.0-53.0) % MCV 109.1 H (80.0-100.0) fL RDW 18.8 H (11.5-15.5) % Neutrophils # 12.0 H (1.3-7.7) k/uL Lymphocytes # 0.4 L (1.0-4.8) k/uL Potassium 5.3 H (3.5-5.1) mmol/L BUN 30 H (9-20) mg/dL Creatinine 1.26 H (0.66-1.25) mg/dL Glucose 174 H (74-99) mg/dL POC Glucose (mg/dL) 199 H (75-99) mg/dL Total Bilirubin 0.1 L (0.2-1.3) mg/dL Total Protein 5.4 L (6.3-8.2) g/dL Albumin 3.1 L (3.5-5.0) g/dL Assessment and Plan (1) At risk for readmission to hospital Current Visit: Yes Status: Acute Code(s): Z91.89 - OTH PERSONAL RISK FACTORS , NOT ELSEWHERE CLASSIFIED SNOMED Code(s): 4181734696524 (2) Diffuse large B-cell lymphoma of extranodal site Current Visit: Yes Status: Acute Priority: High Code(s): C83.39 - DIFFUSE LARGE B-CELL LYMPHOMA, EXTRNOD AND SOLID ORGAN SITES SNOMED Code(s): 055857876 (3) Macrocytic anemia Current Visit: Yes Status: Acute Priority: Medium Code(s): D53.9 - NUTRITIONAL ANEMIA, UNSPECIFIED SNOMED Code(s): 29536961 (4) Leukocytosis Current Visit: No Status: Acute Priority: Low Code(s): D72.829 - ELEVATED WHITE BLOOD CELL COUNT, UNSPECIFIED SNOMED Code(s): 574723034 (5) Anemia Current Visit: No Status: Chronic Priority: Medium Code(s): D64.9 - ANEMIA , UNSPECIFIED SNOMED Code(s): 811080563 (6) Diabetes mellitus Current Visit: No Status: Chronic Priority: Medium Code(s): E11.9 - TYPE 2 DIABETES MELLITUS WITHOUT COMPLICATIONS SNOMED Code(s): 25891324 (7) Essential (primary) hypertension Current Visit: No Status: Chronic Code(s): I10 - ESSENTIAL (PRIMARY) HYPERTENSION SNOMED Code(s): 04872569 (8) Hyperlipidemia Current Visit: No Status: Chronic Priority: Low Code(s): E78.5 - HYPERLIPIDEMIA, UNSPECIFIED SNOMED Code(s): 95220536 Plan: Reconcile home medications as necessary. Placed on sliding scale as needed. Otherwise will follow from a medical perspective as necessary. Time with Patient: Less than 30
--- NOTE | 2017-05-20 15:48 | PN ---
PROGRESS NOTE DATE OF SERVICE: 05/20/2017 REASON FOR FOLLOWUP: Indeterminate TB test and a question of latent TB. INTERVAL HISTORY: The patient is afebrile. He is breathing comfortably. He denies having any chest pain, shortness of breath or cough. No nausea, vomiting, abdominal pain or any diarrhea. PHYSICAL EXAMINATION: Blood pressure is 138/72 with a pulse of 72, temperature 97.9. He is 98% on room air. General description is an elderly male up in the room in no distress. RESPIRATORY SYSTEM: Unlabored breathing. Clear to auscultation. No wheeze or crackle. HEART: S1, S2. Regular rate and rhythm. ABDOMEN: Soft. No tenderness. LABS: Hemoglobin 8.5, white count 12.7, BUN of 30, creatinine 1.26. DIAGNOSTIC IMPRESSION AND PLAN: Patient with exposure to a healthcare worker with TB. He did have an x-ray at the beginning of this month which was negative for any acute infiltrate. No respiratory symptoms. Clinically doubt The QuantiFERON Gold test was indeterminate, more likely because of underlying immune status and use of chemo. Repeat has been ordered; that will be followed. No need for any specific intervention or treatment for the same while waiting for the testing to be finalized. Continue supportive care. MMODL / IJN: [id number] /
[2017-05-20 17:17] LABS: Glucose,Whole Blood 258 mg/dL (75-99)
--- NOTE | 2017-05-20 17:38 | P.PN ---
Subjective Progress Note Date: 05/20/17 Principal diagnosis: DLBCL, admit for CIVI chemo Patient seen today in follow-up, denies fevers, oral irritation, ate good breakfast without nausea, indigestion, his right-sided abdominal discomfort is less today, patient did have a bowel movement yesterday, denies cough, shortness of breath, he is ambulating independently, frequently. Objective - Vital Signs Vital signs: Vital Signs Temp 97.3 F L 05/20/17 15:48 Pulse 82 05/20/17 15:48 Resp 16 05/20/17 15:48 BP 131/68 05/20/17 15:48 Pulse Ox 97 05/20/17 15:48 Intake & Output 05/19/17 05/20/17 05/20/17 18:59 06:59 18:59 Intake Total 628.450 736 Balance 628.450 736 Weight 71.923 kg Intake: Intake, IV Titration 628.450 736 Amount DOXOrubicin HCL 15 mg In 60 Sodium Chloride 0.9% 250 ml @ 10.729 mls/hr IV Q24H [facility] Rx#:[id number] Etoposide 76 mg In Sodium 60 Chloride 0.9% 250 ml @ 10.575 mls/hr IV Q24H [facility] Rx#:[id number] Sodium Chloride 0.9% 1, 75 600 000 ml @ 75 mls/hr IV . [id number] [facility] Rx#:[id number] riTUXimab 700 mg In 553.450 Sodium Chloride 0.9% 500 ml @ Titrate IV .Q0M [facility] Rx#:[id number] vinCRIStine SULFATE 0.6 16 mg In Sodium Chloride 0.9 % 50 ml @ 2.108 mls/hr IV Q24H [facility] Rx#:[id number] Other: # Voids 2 - Constitutional General appearance: Present: cooperative, no acute distress, thin - EENT Eyes: Present: anicteric sclerae ENT: Present: normal oropharynx - Neck Neck: Absent: lymphadenopathy, normal ROM, other, rigidity, stridor, thyromegaly - Respiratory Respiratory: bilateral: CTA - Cardiovascular Rhythm: regular Heart sounds: normal: S1, S2 Abnormal Heart Sounds: Present: systolic murmur - Peripheral edema foot Peripheral Edema: bilateral: 1+ - Gastrointestinal Gastrointestinal Comment(s): no tenderness today General gastrointestinal: Present: normal bowel sounds, soft. Absent: absent bowel sounds, decreased bowel sounds, distended, hepatomegaly, hyperactive bowel sounds, organomegaly, rigid, scaphoid, splenomegaly, tenderness, umbilical hernia, ventral hernia - Integumentary Integumentary: Present: pale - Neurologic Neurologic: Present: CNII-XII intact - Musculoskeletal Musculoskeletal: Present: generalized weakness, strength equal bilaterally - Psychiatric Psychiatric Comment(s): minor memory issues Psychiatric: Present: A&O x's 3, appropriate affect, intact judgment & insight - Labs CBC & Chem 7: 05/20/17 07:18 05/20/17 07:18 Labs: Abnormal Lab Results - Last 24 Hours (Table) 05/19/17 05/19/17 05/20/17 Range/Units 17:22 21:32 07:07 WBC (3.8-10.6) k/uL RBC (4.30-5.90) m/uL Hgb (13.0-17.5) gm/dL Hct (39.0-53.0) % MCV (80.0-100.0) fL RDW (11.5-15.5) % Neutrophils # (1.3-7.7) k/uL Lymphocytes # (1.0-4.8) k/uL Potassium (3.5-5.1) mmol/L BUN (9-20) mg/dL Creatinine (0.66-1.25) mg/dL Glucose (74-99) mg/dL POC Glucose (mg/dL) 179 H 308 H 221 H (75-99) mg/dL Total Bilirubin (0.2-1.3) mg/dL Total Protein (6.3-8.2) g/dL Albumin (3.5-5.0) g/dL 05/20/17 05/20/17 05/20/17 Range/Units 07:18 07:18 11:27 WBC 12.7 H (3.8-10.6) k/uL RBC 2.47 L (4.30-5.90) m/uL Hgb 8.5 L (13.0-17.5) gm/dL Hct 26.9 L (39.0-53.0) % MCV 109.1 H (80.0-100.0) fL RDW 18.8 H (11.5-15.5) % Neutrophils # 12.0 H (1.3-7.7) k/uL Lymphocytes # 0.4 L (1.0-4.8) k/uL Potassium 5.3 H (3.5-5.1) mmol/L BUN 30 H (9-20) mg/dL Creatinine 1.26 H (0.66-1.25) mg/dL Glucose 174 H (74-99) mg/dL POC Glucose (mg/dL) 199 H (75-99) mg/dL Total Bilirubin 0.1 L (0.2-1.3) mg/dL Total Protein 5.4 L (6.3-8.2) g/dL Albumin 3.1 L (3.5-5.0) g/dL 05/20/17 Range/Units 17:14 WBC (3.8-10.6) k/uL RBC (4.30-5.90) m/uL Hgb (13.0-17.5) gm/dL Hct (39.0-53.0) % MCV (80.0-100.0) fL RDW (11.5-15.5) % Neutrophils # (1.3-7.7) k/uL Lymphocytes # (1.0-4.8) k/uL Potassium (3.5-5.1) mmol/L BUN (9-20) mg/dL Creatinine (0.66-1.25) mg/dL Glucose (74-99) mg/dL POC Glucose (mg/dL) 258 H (75-99) mg/dL Total Bilirubin (0.2-1.3) mg/dL Total Protein (6.3-8.2) g/dL Albumin (3.5-5.0) g/dL Assessment and Plan (1) Diffuse large B-cell lymphoma of extranodal site Narrative/Plan: Pt admitted for CIVI chemotherapy. No acute c/o, cont chemo, supportive meds and labs ordered Current Visit: Yes Status: Acute Priority: High Code(s): C83.39 - DIFFUSE LARGE B-CELL LYMPHOMA, EXTRNOD AND SOLID ORGAN SITES SNOMED Code(s): 127703561 (2) Macrocytic anemia Narrative/Plan: Secondary to treatment, progressive anemia likely due to dilution from all IV fluids. MMA pending. No transfusion at this time Current Visit: Yes Status: Acute Priority: Medium Code(s): D53.9 - NUTRITIONAL ANEMIA, UNSPECIFIED SNOMED Code(s): 81944523 Plan: GI/DVT prophylaxis. Dr. Frances medical management
[2017-05-20 19:54] LABS: Glucose,Whole Blood 213 mg/dL (75-99)
[2017-05-20] MEDS: amLODIPine 10 MG TAB PO SCH (22:26)
[2017-05-20] MEDS: ASPIRIN 81 MG PO SCH (22:26)
[2017-05-20] MEDS: CALCIUM CARB-VIT D 500MG-200UN 1 EACH TAB PO SCH (22:26)
[2017-05-20] MEDS: VIT A,C & E-LUTEIN-MINERALS 1 EACH TAB PO SCH (22:27)
[2017-05-20] MEDS: FERROUS SULFATE 325 MG TAB PO SCH (22:27)
[2017-05-20] MEDS: FAMOTIDINE 20 MG/2 ML VIAL IV SCH (22:27)
[2017-05-20] MEDS: MAGNESIUM OXIDE 400 MG TAB PO SCH (22:27)
[2017-05-20] MEDS: Mirabegron [Myrbetriq] 50 MG PO SCH (22:28)
[2017-05-20] MEDS: ONDANSETRON 16 MG in SODIUM CHLORIDE 0.9% 50 ML IVPB SCH (22:29)
[2017-05-21] MEDS: VINCRISTINE SULFATE IV SCH (02:45)
[2017-05-21] MEDS: ETOPOSIDE IV SCH (02:45)
[2017-05-21] MEDS: SODIUM CHLORIDE 0.9% IV SCH ×3 (02:45)
[2017-05-21] MEDS: DOXORUBICIN HCL IV SCH (02:45)
[2017-05-21] MEDS: SALT AND SODA MOUTHWASH 1,000 ML PO SCH ×4 (06:18→22:43)
[2017-05-21 07:28] LABS: Glucose,Whole Blood 185 mg/dL (75-99)
[2017-05-21 07:54] LABS: Albumin 2.9 g/dL (3.5-5.0); Calcium 8.7 mg/dL (8.4-10.2); Total Bilirubin 0.1 mg/dL (0.2-1.3); Total Protein 5.1 g/dL (6.3-8.2)
[2017-05-21 08:06] LABS: Anisocytosis Slight; Basophils % (A) 0 %; Eosinophils % (A) 0 %; HCT 24.1 % (39.0-53.0); HGB 7.4 gm/dL (13.0-17.5); Hypochromasia Slight; Lymphocytes # (A) 0.3 k/uL (1.0-4.8); Lymphocytes % (A) 2 %; MCH 33.2 pg (25.0-35.0); MCHC 30.7 g/dL (31.0-37.0); Macrocytosis Marked; Mean Platelet Volume 7.8; Monocytes # (A) 0.4 k/uL (0-1.0); Monocytes % (A) 2 %; Neutrophils % (A) 96 %; Platelet Count 348 k/uL (150-450); RBC 2.23 m/uL (4.30-5.90); RDW 18.8 % (11.5-15.5); WBC 16.7 k/uL (3.8-10.6)
[2017-05-21] MEDS: INSULIN ASPART 100 UNIT/ML 1 ML 10 ML VIAL SQ SCH ×4 (08:12→22:46)
[2017-05-21 08:39] LABS: Poikilocytosis (M) Present
[2017-05-21] MEDS: ALLOPURINOL 300 MG TAB PO SCH (09:17)
[2017-05-21] MEDS: ATORVASTATIN 10 MG TAB PO SCH (09:17)
[2017-05-21] MEDS: CHOLECALCIFEROL 1,000 UNIT TAB PO SCH ×2 (09:17→22:46)
[2017-05-21] MEDS: ENOXAPARIN 40 MG/0.4 ML SYRINGE SQ SCH (09:17)
[2017-05-21] MEDS: CLOPIDOGREL 75 MG TAB PO SCH (09:18)
[2017-05-21] MEDS: predniSONE 50 MG TAB PO SCH ×2 (09:18→22:47)
[2017-05-21] MEDS: metFORMIN 500 MG TAB PO SCH ×2 (09:18→17:50)
[2017-05-21] MEDS: METOPROLOL SUCCINATE (ER) 25 MG TAB.ER.24H PO SCH (09:18)
[2017-05-21] MEDS: PANTOPRAZOLE 40 MG TABLET PO SCH (09:18)
[2017-05-21] MEDS: predniSONE 20 MG TAB PO SCH ×2 (09:19→22:47)
[2017-05-21] MEDS: ACETAMINOPHEN TAB 325 MG TAB PO SCH ×2 (09:22→22:44)
[2017-05-21] MEDS: SENNOSIDES 8.6 MG TAB PO PRN (10:42)
[2017-05-21 11:14] LABS: Glucose,Whole Blood 243 mg/dL (75-99)
[2017-05-21] MEDS: DOCUSATE 100 MG CAP PO SCH (13:13)
[2017-05-21] MEDS: SODIUM CHLORIDE 0.9% 1,000 ML IV SCH (15:53)
[2017-05-21 17:43] LABS: Glucose,Whole Blood 216 mg/dL (75-99)
--- NOTE | 2017-05-21 19:22 | P.PN ---
Subjective Progress Note Date: 05/21/17 Principal diagnosis: B cell Lymphoma Patient is doing well. No nausea, vomiting, diarrhea. His appetite is good. Denies pain. Objective - Vital Signs Vital signs: Vital Signs Temp 98 F 05/21/17 12:00 Pulse 66 05/21/17 12:00 Resp 16 05/21/17 12:00 BP 128/68 05/21/17 12:00 Pulse Ox 94 L 05/21/17 12:00 Intake & Output 05/20/17 05/21/17 05/21/17 18:59 06:59 18:59 Intake Total 736 240 Balance 736 240 Intake: Intake, IV Titration 736 Amount DOXOrubicin HCL 15 mg In 60 Sodium Chloride 0.9% 250 ml @ 10.729 mls/hr IV Q24H [facility] Rx#:[id number] Etoposide 76 mg In Sodium 60 Chloride 0.9% 250 ml @ 10.575 mls/hr IV Q24H [facility] Rx#:[id number] Sodium Chloride 0.9% 1, 600 000 ml @ 75 mls/hr IV . [id number] [facility] Rx#:[id number] vinCRIStine SULFATE 0.6 16 mg In Sodium Chloride 0.9 % 50 ml @ 2.108 mls/hr IV Q24H [facility] Rx#:[id number] Oral 240 Other: Voiding Method Toilet # Voids 2 - Constitutional General appearance: Present: no acute distress - EENT Eyes: Present: normal appearance ENT: Present: NA/AT, normal oropharynx - Neck Neck: Present: normal ROM - Respiratory Respiratory: bilateral: CTA (No increased respiratory effort) - Cardiovascular Rhythm: regular - Gastrointestinal General gastrointestinal: Present: normal bowel sounds, soft - Integumentary Integumentary: Present: normal, pale - Neurologic Neurologic Comment(s): No focal defects Neurologic: Present: CNII-XII intact - Musculoskeletal Musculoskeletal: Present: gait normal, generalized weakness - Psychiatric Psychiatric: Present: A&O x's 3, appropriate affect, intact judgment & insight - Labs CBC & Chem 7: 05/21/17 06:43 05/21/17 06:43 Labs: Abnormal Lab Results - Last 24 Hours (Table) 05/20/17 05/20/17 05/21/17 Range/Units 17:14 19:52 06:43 WBC 16.7 H (3.8-10.6) k/uL RBC 2.23 L (4.30-5.90) m/uL Hgb 7.4 L (13.0-17.5) gm/dL Hct 24.1 L (39.0-53.0) % MCV 108.0 H (80.0-100.0) fL MCHC 30.7 L (31.0-37.0) g/dL RDW 18.8 H (11.5-15.5) % Neutrophils # 16.0 H (1.3-7.7) k/uL Lymphocytes # 0.3 L (1.0-4.8) k/uL Chloride (98-107) mmol/L BUN (9-20) mg/dL Glucose (74-99) mg/dL POC Glucose (mg/dL) 258 H 213 H (75-99) mg/dL Total Bilirubin (0.2-1.3) mg/dL AST (17-59) U/L ALT (21-72) U/L Total Protein (6.3-8.2) g/dL Albumin (3.5-5.0) g/dL 05/21/17 05/21/17 05/21/17 Range/Units 06:43 07:23 11:11 WBC (3.8-10.6) k/uL RBC (4.30-5.90) m/uL Hgb (13.0-17.5) gm/dL Hct (39.0-53.0) % MCV (80.0-100.0) fL MCHC (31.0-37.0) g/dL RDW (11.5-15.5) % Neutrophils # (1.3-7.7) k/uL Lymphocytes # (1.0-4.8) k/uL Chloride 108 H (98-107) mmol/L BUN 33 H (9-20) mg/dL Glucose 149 H (74-99) mg/dL POC Glucose (mg/dL) 185 H 243 H (75-99) mg/dL Total Bilirubin 0.1 L (0.2-1.3) mg/dL AST 16 L (17-59) U/L ALT 20 L (21-72) U/L Total Protein 5.1 L (6.3-8.2) g/dL Albumin 2.9 L (3.5-5.0) g/dL Assessment and Plan (1) Diffuse large B-cell lymphoma of extranodal site Narrative/Plan: 1. Continue with R-EPOCH 2. CBC with DIff and CMP and Uric acid daily 3. Monitor for symptom control and adverse events from treatment 4. Encourage patient up and out of bed with all meals and two walks a day 5. Increase bowel regimen and fluids for constipation. 6. Neulasta in office after chemo complete Current Visit: Yes Status: Acute Priority: High Code(s): C83.39 - DIFFUSE LARGE B-CELL LYMPHOMA, EXTRNOD AND SOLID ORGAN SITES SNOMED Code(s): 150386340 (2) Macrocytic anemia Narrative/Plan: 1. Due to chemo. Monitor Daily 2. Transfusion support only if less than 7 Current Visit: Yes Status: Acute Priority: Medium Code(s): D53.9 - NUTRITIONAL ANEMIA, UNSPECIFIED SNOMED Code(s): 41818315
[2017-05-21 20:27] LABS: Glucose,Whole Blood 168 mg/dL (75-99)
--- NOTE | 2017-05-21 21:52 | PN ---
PROGRESS NOTE DATE OF SERVICE: 05/21/2017. REASON FOR FOLLOWUP: 1. Exposure to a healthcare worker with TB. 2. Indeterminate TB gold test. INTERVAL HISTORY: The patient is afebrile. He is breathing comfortably. Denies having any chest pain, shortness of breath, cough. No nausea, vomiting. No abdominal pain. No diarrhea. EXAMINATION: Blood pressure 121/58 with a pulse of 68, temperature 97.7. He is 97% on room air. General description is an elderly male lying in bed in no distress. Respiratory system: Unlabored breathing. Clear to auscultation. No wheeze. Heart S1, S2. Regular rate and rhythm. Abdomen: Soft, no tenderness. EXTREMITIES: No edema of the feet. LABS: Hemoglobin 7.4, white count 16.7, BUN of 33, creatinine is 1.14. DIAGNOSTIC IMPRESSION AND PLAN: Patient with exposure to health care worker at an outside hospital with active TB that has been in August. Patient with no respiratory symptoms. X-rays beginning of April was negative. QuantiFERON-TB gold TB test came back indeterminate. Repeat has been ordered. Will follow. Currently, no signs, symptoms suspicious for tuberculosis. Continue supportive care. MMODL / IJN: [id number] /
[2017-05-21] MEDS: ASPIRIN 81 MG PO SCH (22:45)
[2017-05-21] MEDS: amLODIPine 10 MG TAB PO SCH (22:45)
[2017-05-21] MEDS: FERROUS SULFATE 325 MG TAB PO SCH (22:46)
[2017-05-21] MEDS: CALCIUM CARB-VIT D 500MG-200UN 1 EACH TAB PO SCH (22:46)
[2017-05-21] MEDS: MAGNESIUM OXIDE 400 MG TAB PO SCH (22:46)
[2017-05-21] MEDS: VIT A,C & E-LUTEIN-MINERALS 1 EACH TAB PO SCH (22:47)
[2017-05-22] MEDS: Mirabegron [Myrbetriq] 50 MG PO SCH ×2 (01:35→21:13)
[2017-05-22] MEDS: ONDANSETRON 16 MG in SODIUM CHLORIDE 0.9% 50 ML IVPB SCH ×2 (01:45→21:18)
[2017-05-22] MEDS: FAMOTIDINE 20 MG/2 ML VIAL IV SCH ×2 (02:51→21:13)
[2017-05-22] MEDS: ETOPOSIDE IV SCH (04:36)
[2017-05-22] MEDS: DOXORUBICIN HCL IV SCH (04:36)
[2017-05-22] MEDS: VINCRISTINE SULFATE IV SCH (04:36)
[2017-05-22] MEDS: SODIUM CHLORIDE 0.9% IV SCH ×3 (04:36)
[2017-05-22] MEDS: SALT AND SODA MOUTHWASH 1,000 ML PO SCH ×5 (04:43→21:15)
[2017-05-22] MEDS: SODIUM CHLORIDE 0.9% 1,000 ML IV SCH ×2 (05:53→16:28)
[2017-05-22 07:16] LABS: Glucose,Whole Blood 170 mg/dL (75-99)
[2017-05-22 07:45] LABS: Albumin 3.3 g/dL (3.5-5.0); Calcium 8.7 mg/dL (8.4-10.2); Potassium 4.8 mmol/L (3.5-5.1); Total Bilirubin 0.3 mg/dL (0.2-1.3); Total Protein 5.6 g/dL (6.3-8.2)
[2017-05-22] MEDS: INSULIN ASPART 100 UNIT/ML 1 ML 10 ML VIAL SQ SCH ×5 (07:50→21:13)
[2017-05-22 07:52] LABS: Anisocytosis Slight; HCT 27.1 % (39.0-53.0); HGB 8.8 gm/dL (13.0-17.5); MCH 34.7 pg (25.0-35.0); MCHC 32.4 g/dL (31.0-37.0); Macrocytosis Marked; Mean Platelet Volume 7.1; Platelet Count 420 k/uL (150-450); RBC 2.53 m/uL (4.30-5.90); RDW 18.4 % (11.5-15.5); WBC 14.3 k/uL (3.8-10.6)
[2017-05-22] MEDS: CHOLECALCIFEROL 1,000 UNIT TAB PO SCH ×2 (07:52→21:11)
[2017-05-22] MEDS: metFORMIN 500 MG TAB PO SCH ×2 (07:52→16:28)
[2017-05-22] MEDS: ACETAMINOPHEN TAB 325 MG TAB PO SCH ×2 (07:53→21:18)
[2017-05-22] MEDS: PANTOPRAZOLE 40 MG TABLET PO SCH (07:53)
[2017-05-22] MEDS: ENOXAPARIN 40 MG/0.4 ML SYRINGE SQ SCH (07:54)
[2017-05-22] MEDS: ATORVASTATIN 10 MG TAB PO SCH (07:54)
[2017-05-22] MEDS: CLOPIDOGREL 75 MG TAB PO SCH (07:54)
[2017-05-22] MEDS: ALLOPURINOL 300 MG TAB PO SCH (07:54)
[2017-05-22] MEDS: predniSONE 20 MG TAB PO SCH ×2 (07:55→21:12)
[2017-05-22] MEDS: predniSONE 50 MG TAB PO SCH ×2 (07:55→21:12)
[2017-05-22] MEDS: METOPROLOL SUCCINATE (ER) 25 MG TAB.ER.24H PO SCH (07:55)
--- NOTE | 2017-05-22 08:03 | P.PN ---
Subjective Principal diagnosis: Medical management for CLL. This is a history and physical on a 76-year-old white male who is fairly well known to my practice and has an underlying history of hypertension with diabetes , who has an underlying history of CLL. I am consulted by oncology for medical management. The patient states no new complaints. He is sleeping comfortably with no voiding difficulties. No significant nausea, vomiting or diarrhea is noted. Objective - Vital Signs Vital signs: Vital Signs Temp 97.8 F 05/22/17 07:17 Pulse 66 05/22/17 07:17 Resp 16 05/22/17 07:17 BP 165/69 05/22/17 07:17 Pulse Ox 91 L 05/22/17 04:00 Intake & Output 05/21/17 05/22/17 05/22/17 18:59 06:59 18:59 Intake Total 1016 Balance 1016 Intake: Intake, IV Titration 776 Amount DOXOrubicin HCL 15 mg In 80 Sodium Chloride 0.9% 250 ml @ 10.729 mls/hr IV Q24H [facility] Rx#:[id number] Etoposide 76 mg In Sodium 80 Chloride 0.9% 250 ml @ 10.575 mls/hr IV Q24H [facility] Rx#:[id number] Sodium Chloride 0.9% 1, 600 000 ml @ 75 mls/hr IV . [id number] [facility] Rx#:[id number] vinCRIStine SULFATE 0.6 16 mg In Sodium Chloride 0.9 % 50 ml @ 2.108 mls/hr IV Q24H [facility] Rx#:[id number] Oral 240 Other: Voiding Method Toilet # Voids 3 2 - Constitutional General appearance: Present: average body habitus - EENT Eyes: Absent: abnormal pupil - Neck Neck: Absent: stridor - Respiratory Respiratory: bilateral: CTA - Cardiovascular Rhythm: regular Heart sounds: normal: S1, S2 Abnormal Heart Sounds: Absent: S3 Gallop - Gastrointestinal General gastrointestinal: Present: soft. Absent: tenderness - Labs CBC & Chem 7: 05/22/17 07:16 05/22/17 07:16 Labs: Abnormal Lab Results - Last 24 Hours (Table) 05/21/17 05/21/17 05/21/17 Range/Units 06:43 11:11 17:38 WBC 16.7 H (3.8-10.6) k/uL RBC 2.23 L (4.30-5.90) m/uL Hgb 7.4 L (13.0-17.5) gm/dL Hct 24.1 L (39.0-53.0) % MCV 108.0 H (80.0-100.0) fL MCHC 30.7 L (31.0-37.0) g/dL RDW 18.8 H (11.5-15.5) % Neutrophils # 16.0 H (1.3-7.7) k/uL Lymphocytes # 0.3 L (1.0-4.8) k/uL BUN (9-20) mg/dL Glucose (74-99) mg/dL POC Glucose (mg/dL) 243 H 216 H (75-99) mg/dL AST (17-59) U/L Total Protein (6.3-8.2) g/dL Albumin (3.5-5.0) g/dL 05/21/17 05/22/17 05/22/17 Range/Units 20:26 07:15 07:16 WBC 14.3 H (3.8-10.6) k/uL RBC 2.53 L (4.30-5.90) m/uL Hgb 8.8 L (13.0-17.5) gm/dL Hct 27.1 L (39.0-53.0) % MCV 107.0 H (80.0-100.0) fL MCHC (31.0-37.0) g/dL RDW 18.4 H (11.5-15.5) % Neutrophils # (1.3-7.7) k/uL Lymphocytes # (1.0-4.8) k/uL BUN (9-20) mg/dL Glucose (74-99) mg/dL POC Glucose (mg/dL) 168 H 170 H (75-99) mg/dL AST (17-59) U/L Total Protein (6.3-8.2) g/dL Albumin (3.5-5.0) g/dL 05/22/17 Range/Units 07:16 WBC (3.8-10.6) k/uL RBC (4.30-5.90) m/uL Hgb (13.0-17.5) gm/dL Hct (39.0-53.0) % MCV (80.0-100.0) fL MCHC (31.0-37.0) g/dL RDW (11.5-15.5) % Neutrophils # (1.3-7.7) k/uL Lymphocytes # (1.0-4.8) k/uL BUN 36 H (9-20) mg/dL Glucose 147 H (74-99) mg/dL POC Glucose (mg/dL) (75-99) mg/dL AST 15 L (17-59) U/L Total Protein 5.6 L (6.3-8.2) g/dL Albumin 3.3 L (3.5-5.0) g/dL Assessment and Plan (1) At risk for readmission to hospital Current Visit: Yes Status: Acute Code(s): Z91.89 - OTH PERSONAL RISK FACTORS , NOT ELSEWHERE CLASSIFIED SNOMED Code(s): 0932843268216 (2) Diffuse large B-cell lymphoma of extranodal site Current Visit: Yes Status: Acute Priority: High Code(s): C83.39 - DIFFUSE LARGE B-CELL LYMPHOMA, EXTRNOD AND SOLID ORGAN SITES SNOMED Code(s): 109835385 (3) Macrocytic anemia Current Visit: Yes Status: Acute Priority: Medium Code(s): D53.9 - NUTRITIONAL ANEMIA, UNSPECIFIED SNOMED Code(s): 62845114 (4) Leukocytosis Current Visit: No Status: Acute Priority: Low Code(s): D72.829 - ELEVATED WHITE BLOOD CELL COUNT, UNSPECIFIED SNOMED Code(s): 547591453 (5) Anemia Current Visit: No Status: Chronic Priority: Medium Code(s): D64.9 - ANEMIA , UNSPECIFIED SNOMED Code(s): 321925719 (6) Diabetes mellitus Current Visit: No Status: Chronic Priority: Medium Code(s): E11.9 - TYPE 2 DIABETES MELLITUS WITHOUT COMPLICATIONS SNOMED Code(s): 15670386 (7) Essential (primary) hypertension Current Visit: No Status: Chronic Code(s): I10 - ESSENTIAL (PRIMARY) HYPERTENSION SNOMED Code(s): 32402904 (8) Hyperlipidemia Current Visit: No Status: Chronic Priority: Low Code(s): E78.5 - HYPERLIPIDEMIA, UNSPECIFIED SNOMED Code(s): 68615067 Plan: Medically, he seems stable. We'll continue to follow. Dr. Sher's group will covering for the weekend. Anticipate discharge in next 24-48 hours after his infusion is completed.
[2017-05-22 09:13] LABS: Band Neutrophils % 2 %; Lymphocytes # (M) 0.43 k/uL (1.0-4.8); Monocytes # (M) 0.14 k/uL (0-1.0); Neutrophils % (M) 94 %; Nucleated Red Blood Cells 0 /100 WBC (0-0); Total Cells Counted 100
[2017-05-22 09:14] LABS: Poikilocytosis (M) Present
[2017-05-22 09:15] LABS: Polychromasia Present
[2017-05-22 11:12] LABS: Glucose,Whole Blood 265 mg/dL (75-99)
[2017-05-22] MEDS ORDERED: INSULIN ASPART 100 UNIT/ML 1 ML 10 ML VIAL SQ ONE (12:13)
[2017-05-22] MEDS: DOCUSATE 100 MG CAP PO SCH (13:05)
[2017-05-22 17:29] LABS: Glucose,Whole Blood 217 mg/dL (75-99)
[2017-05-22] MEDS: SENNOSIDES 8.6 MG TAB PO PRN (17:41)
--- NOTE | 2017-05-22 18:17 | P.PN ---
Subjective Progress Note Date: 05/22/17 Principal diagnosis: B cell Lymphoma Patient is feeling good today, no acute complaints. Sitting up in chair, no nausea, vomiting, diarrhea, fevers or chills. Blood counts are remaining stable. Objective - Vital Signs Vital signs: Vital Signs Temp 97.8 F 05/22/17 07:17 Pulse 66 05/22/17 10:03 Resp 16 05/22/17 10:03 BP 165/69 05/22/17 07:17 Pulse Ox 91 L 05/22/17 04:00 Intake & Output 05/21/17 05/22/17 05/22/17 18:59 06:59 18:59 Intake Total 1016 Balance 1016 Weight 71.923 kg Intake: Intake, IV Titration 776 Amount DOXOrubicin HCL 15 mg In 80 Sodium Chloride 0.9% 250 ml @ 10.729 mls/hr IV Q24H [facility] Rx#:[id number] Etoposide 76 mg In Sodium 80 Chloride 0.9% 250 ml @ 10.575 mls/hr IV Q24H [facility] Rx#:[id number] Sodium Chloride 0.9% 1, 600 000 ml @ 75 mls/hr IV . [id number] [facility] Rx#:[id number] vinCRIStine SULFATE 0.6 16 mg In Sodium Chloride 0.9 % 50 ml @ 2.108 mls/hr IV Q24H [facility] Rx#:[id number] Oral 240 Other: Voiding Method Toilet Toilet # Voids 3 2 - Constitutional General appearance: Present: cooperative, no acute distress - EENT Eyes: Present: normal appearance ENT: Present: normal oropharynx - Neck Neck: Present: normal ROM - Respiratory Respiratory: bilateral: CTA (No increased effort) - Cardiovascular Rhythm: regular - Gastrointestinal General gastrointestinal: Present: normal bowel sounds, soft - Integumentary Integumentary: Present: pale - Neurologic Neurologic Comment(s): No focal defects Neurologic: Present: CNII-XII intact - Musculoskeletal Musculoskeletal: Present: gait normal, generalized weakness - Psychiatric Psychiatric: Present: A&O x's 3, appropriate affect, intact judgment & insight - Labs CBC & Chem 7: 05/22/17 07:16 05/22/17 07:16 Labs: Abnormal Lab Results - Last 24 Hours (Table) 05/20/17 05/21/17 05/21/17 Range/Units 07:18 17:38 20:26 WBC (3.8-10.6) k/uL RBC (4.30-5.90) m/uL Hgb (13.0-17.5) gm/dL Hct (39.0-53.0) % MCV (80.0-100.0) fL RDW (11.5-15.5) % Neutrophils # (Manual) (1.3-7.7) k/uL Lymphocytes # (Manual) (1.0-4.8) k/uL BUN (9-20) mg/dL Glucose (74-99) mg/dL POC Glucose (mg/dL) 216 H 168 H (75-99) mg/dL AST (17-59) U/L Total Protein (6.3-8.2) g/dL Albumin (3.5-5.0) g/dL Methylmalonic Acid 0.62 H (<0.40) umol/L 05/22/17 05/22/17 05/22/17 Range/Units 07:15 07:16 07:16 WBC 14.3 H (3.8-10.6) k/uL RBC 2.53 L (4.30-5.90) m/uL Hgb 8.8 L (13.0-17.5) gm/dL Hct 27.1 L (39.0-53.0) % MCV 107.0 H (80.0-100.0) fL RDW 18.4 H (11.5-15.5) % Neutrophils # (Manual) 13.70 H (1.3-7.7) k/uL Lymphocytes # (Manual) 0.43 L (1.0-4.8) k/uL BUN 36 H (9-20) mg/dL Glucose 147 H (74-99) mg/dL POC Glucose (mg/dL) 170 H (75-99) mg/dL AST 15 L (17-59) U/L Total Protein 5.6 L (6.3-8.2) g/dL Albumin 3.3 L (3.5-5.0) g/dL Methylmalonic Acid (<0.40) umol/L 05/22/17 Range/Units 11:10 WBC (3.8-10.6) k/uL RBC (4.30-5.90) m/uL Hgb (13.0-17.5) gm/dL Hct (39.0-53.0) % MCV (80.0-100.0) fL RDW (11.5-15.5) % Neutrophils # (Manual) (1.3-7.7) k/uL Lymphocytes # (Manual) (1.0-4.8) k/uL BUN (9-20) mg/dL Glucose (74-99) mg/dL POC Glucose (mg/dL) 265 H (75-99) mg/dL AST (17-59) U/L Total Protein (6.3-8.2) g/dL Albumin (3.5-5.0) g/dL Methylmalonic Acid (<0.40) umol/L Assessment and Plan (1) Diffuse large B-cell lymphoma of extranodal site Narrative/Plan: 1. Complete R-EPOCH 2. Neulasta in Office on 05/25/17, appointe provided to patient 3. CBC and CMP daily while on chemotherapy 4. Continue supportive Care. Current Visit: Yes Status: Acute Priority: High Code(s): C83.39 - DIFFUSE LARGE B-CELL LYMPHOMA, EXTRNOD AND SOLID ORGAN SITES SNOMED Code(s): 044582669 (2) Pancytopenia due to antineoplastic chemotherapy Narrative/Plan: 1. Monitor daily, transfusions with leukoreduced irradiated blood if hgb less than 7, platlets less than 10, unless s/s bleeding. Current Visit: No Status: Acute Priority: Medium Code(s): D61.810 - ANTINEOPLASTIC CHEMOTHERAPY INDUCED PANCYTOPENIA; T45.1X5A - ADVERSE EFFECT OF ANTINEOPLASTIC AND IMMUNOSUP DRUGS, INIT SNOMED Code(s): 283791010616533
[2017-05-22 20:11] LABS: Glucose,Whole Blood 126 mg/dL (75-99)
[2017-05-22] MEDS: FERROUS SULFATE 325 MG TAB PO SCH (21:11)
[2017-05-22] MEDS: VIT A,C & E-LUTEIN-MINERALS 1 EACH TAB PO SCH (21:11)
[2017-05-22] MEDS: CALCIUM CARB-VIT D 500MG-200UN 1 EACH TAB PO SCH (21:12)
[2017-05-22] MEDS: ASPIRIN 81 MG PO SCH (21:12)
[2017-05-22] MEDS: amLODIPine 10 MG TAB PO SCH (21:12)
[2017-05-22] MEDS: MAGNESIUM OXIDE 400 MG TAB PO SCH (21:12)
[2017-05-23] MEDS: SALT AND SODA MOUTHWASH 1,000 ML PO SCH ×5 (01:03→20:12)
[2017-05-23] MEDS: SODIUM CHLORIDE 0.9% IV SCH ×3 (03:34→03:35)
[2017-05-23] MEDS: DOXORUBICIN HCL IV SCH (03:34)
[2017-05-23] MEDS: VINCRISTINE SULFATE IV SCH (03:34)
[2017-05-23] MEDS: ETOPOSIDE IV SCH (03:35)
[2017-05-23 07:35] LABS: Glucose,Whole Blood 153 mg/dL (75-99)
[2017-05-23] MEDS: ACETAMINOPHEN TAB 325 MG TAB PO SCH ×2 (08:02→21:31)
[2017-05-23 08:03] LABS: Anisocytosis Slight; Basophils % (A) 0 %; Eosinophils % (A) 0 %; HCT 24.6 % (39.0-53.0); HGB 7.5 gm/dL (13.0-17.5); Hypochromasia Slight; Lymphocytes # (A) 0.2 k/uL (1.0-4.8); Lymphocytes % (A) 2 %; MCH 32.4 pg (25.0-35.0); MCHC 30.3 g/dL (31.0-37.0); MCV 107.2 fL (80.0-100.0); Macrocytosis Marked; Mean Platelet Volume 7.6; Monocytes # (A) 0.2 k/uL (0-1.0); Monocytes % (A) 2 %; Neutrophils # (A) 8.4 k/uL (1.3-7.7); Neutrophils % (A) 96 %; Platelet Count 357 k/uL (150-450); RDW 18.5 % (11.5-15.5); WBC 8.7 k/uL (3.8-10.6)
[2017-05-23] MEDS: predniSONE 50 MG TAB PO SCH ×2 (08:03→20:12)
[2017-05-23] MEDS: predniSONE 20 MG TAB PO SCH ×2 (08:03→20:12)
[2017-05-23] MEDS: CLOPIDOGREL 75 MG TAB PO SCH (08:03)
[2017-05-23] MEDS: METOPROLOL SUCCINATE (ER) 25 MG TAB.ER.24H PO SCH (08:03)
[2017-05-23] MEDS: CHOLECALCIFEROL 1,000 UNIT TAB PO SCH ×2 (08:03→20:12)
[2017-05-23] MEDS: PANTOPRAZOLE 40 MG TABLET PO SCH (08:03)
[2017-05-23] MEDS: ALLOPURINOL 300 MG TAB PO SCH (08:03)
[2017-05-23] MEDS: ATORVASTATIN 10 MG TAB PO SCH (08:03)
[2017-05-23] MEDS: metFORMIN 500 MG TAB PO SCH ×2 (08:03→17:32)
[2017-05-23] MEDS: SODIUM CHLORIDE 0.9% 1,000 ML IV SCH ×2 (08:04→20:10)
[2017-05-23] MEDS: ENOXAPARIN 40 MG/0.4 ML SYRINGE SQ SCH (08:04)
[2017-05-23] MEDS: INSULIN ASPART 100 UNIT/ML 1 ML 10 ML VIAL SQ SCH ×7 (08:04→21:31)
[2017-05-23 08:23] LABS: Albumin 2.7 g/dL (3.5-5.0); Calcium 8.1 mg/dL (8.4-10.2); Total Bilirubin 0.3 mg/dL (0.2-1.3); Total Protein 4.7 g/dL (6.3-8.2)
--- NOTE | 2017-05-23 10:22 | P.PN ---
Subjective Progress Note Date: 05/23/17 Principal diagnosis: B cell Lymphoma Patient is feeling good today, no acute complaints. Sitting up in chair, no nausea, vomiting, diarrhea, fevers or chills. Blood counts are remaining stable. Objective - Vital Signs Vital signs: Vital Signs Temp 97.5 F L 05/23/17 08:00 Pulse 56 L 05/23/17 08:00 Resp 16 05/23/17 08:00 BP 129/69 05/23/17 08:00 Pulse Ox 97 05/23/17 08:00 Intake & Output 05/22/17 05/23/17 05/23/17 18:59 06:59 18:59 Intake Total 1000 1328 Balance 1000 1328 Weight 71.923 kg Intake: IV 1328 DOXOrubicin HCL 15 mg In 149 Sodium Chloride 0.9% 250 ml @ 10.729 mls/hr IV Q24H [facility] Rx#:[id number] Etoposide 76 mg In Sodium 149 Chloride 0.9% 250 ml @ 10.575 mls/hr IV Q24H [facility] Rx#:[id number] Ondansetron 16 mg In 100 Sodium Chloride 0.9% 50 ml @ 100 mls/hr IVPB Q24HR@1930 [facility] Rx#: [id number] Sodium Chloride 0.9% 1, 900 000 ml @ 75 mls/hr IV . [id number] [facility] Rx#:[id number] vinCRIStine SULFATE 0.6 30 mg In Sodium Chloride 0.9 % 50 ml @ 2.108 mls/hr IV Q24H [facility] Rx#:[id number] Oral 1000 Other: Voiding Method Toilet Toilet # Voids 3 - Constitutional General appearance: Present: cooperative, no acute distress - EENT Eyes: Present: normal appearance ENT: Present: normal oropharynx - Respiratory Respiratory: bilateral: CTA (No increased respiratory effort) - Cardiovascular Rhythm: regular - Gastrointestinal General gastrointestinal: Present: normal bowel sounds, soft - Neurologic Neurologic Comment(s): No focal defects Neurologic: Present: CNII-XII intact - Musculoskeletal Musculoskeletal: Present: gait normal, strength equal bilaterally - Psychiatric Psychiatric: Present: A&O x's 3, appropriate affect, intact judgment & insight - Labs CBC & Chem 7: 05/23/17 07:02 05/23/17 07:02 Labs: Abnormal Lab Results - Last 24 Hours (Table) 05/22/17 05/22/17 05/22/17 Range/Units 07:16 11:10 17:28 RBC (4.30-5.90) m/uL Hgb (13.0-17.5) gm/dL Hct (39.0-53.0) % MCV (80.0-100.0) fL MCHC (31.0-37.0) g/dL RDW (11.5-15.5) % Neutrophils # (1.3-7.7) k/uL Neutrophils # (Manual) 13.70 H (1.3-7.7) k/uL Lymphocytes # (1.0-4.8) k/uL Lymphocytes # (Manual) 0.43 L (1.0-4.8) k/uL Chloride (98-107) mmol/L BUN (9-20) mg/dL Glucose (74-99) mg/dL POC Glucose (mg/dL) 265 H 217 H (75-99) mg/dL Calcium (8.4-10.2) mg/dL AST (17-59) U/L ALT (21-72) U/L Total Protein (6.3-8.2) g/dL Albumin (3.5-5.0) g/dL 05/22/17 05/23/17 05/23/17 Range/Units 20:09 07:02 07:02 RBC 2.30 L (4.30-5.90) m/uL Hgb 7.5 L (13.0-17.5) gm/dL Hct 24.6 L (39.0-53.0) % MCV 107.2 H (80.0-100.0) fL MCHC 30.3 L (31.0-37.0) g/dL RDW 18.5 H (11.5-15.5) % Neutrophils # 8.4 H (1.3-7.7) k/uL Neutrophils # (Manual) (1.3-7.7) k/uL Lymphocytes # 0.2 L (1.0-4.8) k/uL Lymphocytes # (Manual) (1.0-4.8) k/uL Chloride 110 H (98-107) mmol/L BUN 35 H (9-20) mg/dL Glucose 140 H (74-99) mg/dL POC Glucose (mg/dL) 126 H (75-99) mg/dL Calcium 8.1 L (8.4-10.2) mg/dL AST 12 L (17-59) U/L ALT 20 L (21-72) U/L Total Protein 4.7 L (6.3-8.2) g/dL Albumin 2.7 L (3.5-5.0) g/dL 05/23/17 Range/Units 07:32 RBC (4.30-5.90) m/uL Hgb (13.0-17.5) gm/dL Hct (39.0-53.0) % MCV (80.0-100.0) fL MCHC (31.0-37.0) g/dL RDW (11.5-15.5) % Neutrophils # (1.3-7.7) k/uL Neutrophils # (Manual) (1.3-7.7) k/uL Lymphocytes # (1.0-4.8) k/uL Lymphocytes # (Manual) (1.0-4.8) k/uL Chloride (98-107) mmol/L BUN (9-20) mg/dL Glucose (74-99) mg/dL POC Glucose (mg/dL) 153 H (75-99) mg/dL Calcium (8.4-10.2) mg/dL AST (17-59) U/L ALT (21-72) U/L Total Protein (6.3-8.2) g/dL Albumin (3.5-5.0) g/dL Assessment and Plan (1) Diffuse large B-cell lymphoma of extranodal site Narrative/Plan: 1. Complete R-EPOCH 2. Neulasta in Office on 05/25/17, appointe provided to patient 3. CBC and CMP daily while on chemotherapy 4. Continue supportive Care. 5. Discharge completed patient may be discharged after chemo is complete, if hgb less than 7 transfuse Current Visit: Yes Status: Acute Priority: High Code(s): C83.39 - DIFFUSE LARGE B-CELL LYMPHOMA, EXTRNOD AND SOLID ORGAN SITES SNOMED Code(s): 957392813 (2) Pancytopenia due to antineoplastic chemotherapy Narrative/Plan: 1. Monitor daily, transfusions with leukoreduced irradiated blood if hgb less than 7, platlets less than 10, unless s/s bleeding. Current Visit: No Status: Acute Priority: Medium Code(s): D61.810 - ANTINEOPLASTIC CHEMOTHERAPY INDUCED PANCYTOPENIA; T45.1X5A - ADVERSE EFFECT OF ANTINEOPLASTIC AND IMMUNOSUP DRUGS, INIT SNOMED Code(s): 737948811029975 Plan: Dispo Plan: Likely Thursday (Chemo Completion) - Patient will be seen in office Thursday05/25/17 for Christopher Physician attestation: I have performed a complete history and physical of this patient and discussed with [employer]OUNTAIN OPERATOR, Marta Oakes. I agree with dictators note, documented as a scribe.
--- NOTE | 2017-05-23 10:45 | P.PN ---
Subjective 76-year-old the male is admitted for inpatient chemo for large B-cell lymphoma. No overnight events patient is clinically doing well is receiving IV fluids and the patient had a history of tuberculosis in the past because of which patient had TB quantiferon test along with gold test both of which are indeterminate. Constitutional: Denied any fatigue denied any fever. Cardio vascular: denied any chest pain, palpitations Gastrointestinal denied any nausea vomiting Pulmonary: Denied any shortness of breath cough Neurologic denied any new focal deficits Objective - Vital Signs Vital signs: Vital Signs Temp 97.5 F L 05/23/17 08:00 Pulse 56 L 05/23/17 08:00 Resp 16 05/23/17 08:00 BP 129/69 05/23/17 08:00 Pulse Ox 97 05/23/17 08:00 Intake & Output 05/22/17 05/23/17 05/23/17 18:59 06:59 18:59 Intake Total 1000 1328 Balance 1000 1328 Weight 71.923 kg Intake: IV 1328 DOXOrubicin HCL 15 mg In 149 Sodium Chloride 0.9% 250 ml @ 10.729 mls/hr IV Q24H [facility] Rx#:[id number] Etoposide 76 mg In Sodium 149 Chloride 0.9% 250 ml @ 10.575 mls/hr IV Q24H [facility] Rx#:[id number] Ondansetron 16 mg In 100 Sodium Chloride 0.9% 50 ml @ 100 mls/hr IVPB Q24HR@1930 [facility] Rx#: [id number] Sodium Chloride 0.9% 1, 900 000 ml @ 75 mls/hr IV . [id number] [facility] Rx#:[id number] vinCRIStine SULFATE 0.6 30 mg In Sodium Chloride 0.9 % 50 ml @ 2.108 mls/hr IV Q24H [facility] Rx#:[id number] Oral 1000 Other: Voiding Method Toilet Toilet # Voids 3 - Exam PHYSICAL EXAMINATION: GENERAL: The patient is alert and oriented x3, not in any acute distress. Well developed, well nourished. HEENT: Pupils are round and equally reacting to light. EOMI. No scleral icterus. No conjunctival pallor. Normocephalic, atraumatic. No pharyngeal erythema. No thyromegaly. CARDIOVASCULAR: S1 and S2 present. No murmurs, rubs, or gallops. PULMONARY: Chest is clear to auscultation, no wheezing or crackles. ABDOMEN: Soft, nontender, nondistended, normoactive bowel sounds. No palpable organomegaly. MUSCULOSKELETAL: No joint swelling or deformity. EXTREMITIES: No cyanosis, clubbing, or pedal edema. NEUROLOGICAL: Gross neurological examination did not reveal any focal deficits. SKIN: No rashes. - Labs CBC & Chem 7: 05/23/17 07:02 05/23/17 07:02 Labs: Abnormal Lab Results - Last 24 Hours (Table) 05/22/17 05/22/17 05/22/17 Range/Units 11:10 17:28 20:09 RBC (4.30-5.90) m/uL Hgb (13.0-17.5) gm/dL Hct (39.0-53.0) % MCV (80.0-100.0) fL MCHC (31.0-37.0) g/dL RDW (11.5-15.5) % Neutrophils # (1.3-7.7) k/uL Lymphocytes # (1.0-4.8) k/uL Chloride (98-107) mmol/L BUN (9-20) mg/dL Glucose (74-99) mg/dL POC Glucose (mg/dL) 265 H 217 H 126 H (75-99) mg/dL Calcium (8.4-10.2) mg/dL AST (17-59) U/L ALT (21-72) U/L Total Protein (6.3-8.2) g/dL Albumin (3.5-5.0) g/dL 05/23/17 05/23/17 05/23/17 Range/Units 07:02 07:02 07:32 RBC 2.30 L (4.30-5.90) m/uL Hgb 7.5 L (13.0-17.5) gm/dL Hct 24.6 L (39.0-53.0) % MCV 107.2 H (80.0-100.0) fL MCHC 30.3 L (31.0-37.0) g/dL RDW 18.5 H (11.5-15.5) % Neutrophils # 8.4 H (1.3-7.7) k/uL Lymphocytes # 0.2 L (1.0-4.8) k/uL Chloride 110 H (98-107) mmol/L BUN 35 H (9-20) mg/dL Glucose 140 H (74-99) mg/dL POC Glucose (mg/dL) 153 H (75-99) mg/dL Calcium 8.1 L (8.4-10.2) mg/dL AST 12 L (17-59) U/L ALT 20 L (21-72) U/L Total Protein 4.7 L (6.3-8.2) g/dL Albumin 2.7 L (3.5-5.0) g/dL Assessment and Plan Plan: -Large piece lymphoma: Receiving chemo therapy -hypertension -Hyperlipidemia -History of tuberculosis -Leukocytosis without any active signs or symptoms of infection. Plan is to continue present medications IV fluids clinical monitoring and basic metabolic profile testing tomorrow morning
[2017-05-23 11:09] LABS: Glucose,Whole Blood 225 mg/dL (75-99)
[2017-05-23] MEDS: DOCUSATE 100 MG CAP PO SCH (12:41)
[2017-05-23 17:31] LABS: Glucose,Whole Blood 97 mg/dL (75-99)
[2017-05-23] MEDS ORDERED: CYCLOPHOSPHAMIDE IV ONE (20:00)
[2017-05-23] MEDS ORDERED: SODIUM CHLORIDE 0.9% IV ONE (20:00)
[2017-05-23] MEDS: ONDANSETRON 16 MG in SODIUM CHLORIDE 0.9% 50 ML IVPB SCH (20:08)
[2017-05-23] MEDS: FAMOTIDINE 20 MG/2 ML VIAL IV SCH (20:09)
[2017-05-23] MEDS: FERROUS SULFATE 325 MG TAB PO SCH (20:12)
[2017-05-23] MEDS: ASPIRIN 81 MG PO SCH (20:12)
[2017-05-23] MEDS: MAGNESIUM OXIDE 400 MG TAB PO SCH (20:12)
[2017-05-23] MEDS: Mirabegron [Myrbetriq] 50 MG PO SCH (20:12)
[2017-05-23] MEDS: CALCIUM CARB-VIT D 500MG-200UN 1 EACH TAB PO SCH (20:12)
[2017-05-23] MEDS: VIT A,C & E-LUTEIN-MINERALS 1 EACH TAB PO SCH (20:12)
[2017-05-23 20:21] LABS: Glucose,Whole Blood 218 mg/dL (75-99)
[2017-05-23] MEDS: amLODIPine 10 MG TAB PO SCH (21:31)
[2017-05-23 23:13] VITALS: RESP 16
[2017-05-24] MEDS: SALT AND SODA MOUTHWASH 1,000 ML PO SCH ×2 (00:26→06:13)
[2017-05-24 07:00] LABS: Glucose,Whole Blood 167 mg/dL (75-99)
[2017-05-24] MEDS: ACETAMINOPHEN TAB 325 MG TAB PO SCH (07:31)
[2017-05-24] MEDS: predniSONE 20 MG TAB PO SCH (07:32)
[2017-05-24] MEDS: ENOXAPARIN 40 MG/0.4 ML SYRINGE SQ SCH (07:33)
[2017-05-24] MEDS: ATORVASTATIN 10 MG TAB PO SCH (07:33)
[2017-05-24] MEDS: METOPROLOL SUCCINATE (ER) 25 MG TAB.ER.24H PO SCH (07:33)
[2017-05-24] MEDS: CHOLECALCIFEROL 1,000 UNIT TAB PO SCH (07:33)
[2017-05-24] MEDS: ALLOPURINOL 300 MG TAB PO SCH (07:33)
[2017-05-24] MEDS: PANTOPRAZOLE 40 MG TABLET PO SCH (07:33)
[2017-05-24] MEDS: metFORMIN 500 MG TAB PO SCH (07:33)
[2017-05-24] MEDS: predniSONE 50 MG TAB PO SCH (07:33)
[2017-05-24] MEDS: CLOPIDOGREL 75 MG TAB PO SCH (07:33)
[2017-05-24 07:35] LABS: Anisocytosis Slight; Basophils % (A) 0 %; Eosinophils % (A) 0 %; HCT 27.8 % (39.0-53.0); HGB 8.9 gm/dL (13.0-17.5); Lymphocytes # (A) 0.2 k/uL (1.0-4.8); Lymphocytes % (A) 2 %; MCH 34.6 pg (25.0-35.0); MCHC 32.2 g/dL (31.0-37.0); MCV 107.4 fL (80.0-100.0); Macrocytosis Marked; Mean Platelet Volume 7.1; Monocytes # (A) 0.2 k/uL (0-1.0); Monocytes % (A) 2 %; Neutrophils # (A) 10.2 k/uL (1.3-7.7); Neutrophils % (A) 96 %; Platelet Count 419 k/uL (150-450); RBC 2.59 m/uL (4.30-5.90); RDW 18.2 % (11.5-15.5); WBC 10.6 k/uL (3.8-10.6)
[2017-05-24 07:46] LABS: Albumin 3.3 g/dL (3.5-5.0); Calcium 8.7 mg/dL (8.4-10.2); Potassium 4.8 mmol/L (3.5-5.1); Total Bilirubin 0.5 mg/dL (0.2-1.3); Total Protein 5.6 g/dL (6.3-8.2)
[2017-05-24 08:03] VITALS: BP 143/71; TEMP 97.6
[2017-05-24] MEDS: INSULIN ASPART 100 UNIT/ML 1 ML 10 ML VIAL SQ SCH ×2 (08:30)
[2017-05-24 09:59] VITALS: PULSE 66
[2017-05-24] MEDS: SODIUM CHLORIDE 0.9% 1,000 ML IV SCH (10:35)
--- NOTE | 2017-05-24 10:35 | P.PN ---
Subjective 76-year-old the male is admitted for inpatient chemo for large B-cell lymphoma. No overnight events patient is clinically doing well is receiving IV fluids and the patient had a history of tuberculosis in the past because of which patient had TB quantiferon test along with gold test both of which are indeterminate. 05/24/2012 No overnight events Constitutional: Denied any fatigue denied any fever. Cardio vascular: denied any chest pain, palpitations Gastrointestinal denied any nausea vomiting Pulmonary: Denied any shortness of breath cough Neurologic denied any new focal deficits Objective - Vital Signs Vital signs: Vital Signs Temp 97.6 F 05/24/17 08:00 Pulse 66 05/24/17 08:00 Resp 16 05/24/17 08:00 BP 143/71 05/24/17 08:00 Pulse Ox 99 05/24/17 08:00 Intake & Output 05/23/17 05/24/17 05/24/17 18:59 06:59 18:59 Intake Total 600 1315.2 Balance 600 1315.2 Intake: IV 600 1315.2 Cyclophosphamide 1,000 mg 250 Cyclophosphamide 138 mg In Sodium Chloride 0.9% 250 ml @ 625 mls/hr IV ONCE ONE Rx#:[id number] DOXOrubicin HCL 15 mg In 52 Sodium Chloride 0.9% 250 ml @ 10.729 mls/hr IV Q24H [facility] Rx#:[id number] Etoposide 76 mg In Sodium 52 Chloride 0.9% 250 ml @ 10.575 mls/hr IV Q24H [facility] Rx#:[id number] Ondansetron 16 mg In 50 Sodium Chloride 0.9% 50 ml @ 100 mls/hr IVPB Q24HR@1930 [facility] Rx#: [id number] Sodium Chloride 0.9% 1, 600 900 000 ml @ 75 mls/hr IV . [id number] [facility] Rx#:[id number] vinCRIStine SULFATE 0.6 11.2 mg In Sodium Chloride 0.9 % 50 ml @ 2.108 mls/hr IV Q24H [facility] Rx#:[id number] Other: Voiding Method Toilet Toilet - Exam PHYSICAL EXAMINATION: GENERAL: The patient is alert and oriented x3, not in any acute distress. Well developed, well nourished. HEENT: Pupils are round and equally reacting to light. EOMI. No scleral icterus. No conjunctival pallor. Normocephalic, atraumatic. No pharyngeal erythema. No thyromegaly. CARDIOVASCULAR: S1 and S2 present. No murmurs, rubs, or gallops. PULMONARY: Chest is clear to auscultation, no wheezing or crackles. ABDOMEN: Soft, nontender, nondistended, normoactive bowel sounds. No palpable organomegaly. MUSCULOSKELETAL: No joint swelling or deformity. EXTREMITIES: No cyanosis, clubbing, or pedal edema. NEUROLOGICAL: Gross neurological examination did not reveal any focal deficits. SKIN: No rashes. - Labs CBC & Chem 7: 05/24/17 06:55 05/24/17 06:55 Labs: Abnormal Lab Results - Last 24 Hours (Table) 05/21/17 05/23/17 05/23/17 Range/Units 06:43 11:06 20:19 RBC (4.30-5.90) m/uL Hgb (13.0-17.5) gm/dL Hct (39.0-53.0) % MCV (80.0-100.0) fL RDW (11.5-15.5) % Neutrophils # (1.3-7.7) k/uL Lymphocytes # (1.0-4.8) k/uL BUN (9-20) mg/dL Glucose (74-99) mg/dL POC Glucose (mg/dL) 225 H 218 H (75-99) mg/dL AST (17-59) U/L Total Protein (6.3-8.2) g/dL Albumin (3.5-5.0) g/dL Methylmalonic Acid 0.52 H (<0.40) umol/L 05/24/17 05/24/17 05/24/17 Range/Units 06:55 06:55 06:57 RBC 2.59 L (4.30-5.90) m/uL Hgb 8.9 L (13.0-17.5) gm/dL Hct 27.8 L (39.0-53.0) % MCV 107.4 H (80.0-100.0) fL RDW 18.2 H (11.5-15.5) % Neutrophils # 10.2 H (1.3-7.7) k/uL Lymphocytes # 0.2 L (1.0-4.8) k/uL BUN 35 H (9-20) mg/dL Glucose 152 H (74-99) mg/dL POC Glucose (mg/dL) 167 H (75-99) mg/dL AST 15 L (17-59) U/L Total Protein 5.6 L (6.3-8.2) g/dL Albumin 3.3 L (3.5-5.0) g/dL Methylmalonic Acid (<0.40) umol/L Assessment and Plan Plan: -Large piece lymphoma: Receiving chemo therapy she is being discharged today -hypertension -Hyperlipidemia -History of tuberculosis -Leukocytosis without any active signs or symptoms of infection. His appropriate for discharge and the discharge medications will be reviewed
== END 2017-05-24 11:55 | disposition home or self-care (01) | DRG 847 ==
LOC: 5ONC 05-19 08:00
PROVIDERS: ADMIT Internal Medicine Hematology & Oncology; ATTEND Internal Medicine Hematology & Oncology
PROC: 3E0430M Introduction of Antineoplastic, Monoclonal Antibody, into Central Vein, Percutaneous Approach (ICD-10-PCS; principal; 2017-05-19)
PROC: 3E04305 Introduction of Other Antineoplastic into Central Vein, Percutaneous Approach (ICD-10-PCS; 2017-05-19)
PROC: 3E0333Z Introduction of Anti-inflammatory into Peripheral Vein, Percutaneous Approach (ICD-10-PCS; 2017-05-19)
DX: Z51.11 Encounter for antineoplastic chemotherapy (principal); C83.39 Diffuse large B-cell lymphoma, extranodal and solid organ sites; D53.9 Nutritional anemia, unspecified; D72.829 Elevated white blood cell count, unspecified; E11.9 Type 2 diabetes mellitus without complications; E78.5 Hyperlipidemia, unspecified; I10 Essential (primary) hypertension; K21.9 Gastro-esophageal reflux disease without esophagitis; K59.00 Constipation, unspecified; M06.9 Rheumatoid arthritis, unspecified; T45.1X5A Adverse effect of antineoplastic and immunosuppressive drugs, initial encounter; R32 Unspecified urinary incontinence; Z79.899 Other long term (current) drug therapy; Z79.02 Long term (current) use of antithrombotics/antiplatelets; Z79.82 Long term (current) use of aspirin; Z79.84 Long term (current) use of oral hypoglycemic drugs; Z90.49 Acquired absence of other specified parts of digestive tract; Z85.46 Personal history of malignant neoplasm of prostate; Z90.79 Acquired absence of other genital organ(s); Z86.718 Personal history of other venous thrombosis and embolism; Z82.49 Family history of ischemic heart disease and other diseases of the circulatory system; Z88.5 Allergy status to narcotic agent; Z88.0 Allergy status to penicillin; Z88.2 Allergy status to sulfonamides
CPT/HCPCS: 74176; 80053; 83036; 83921; 84550; 85025; 86480

== ENCOUNTER 2017-06-09 13:21 | Inpatient (IN) | payer MEDICARE, BC ==
[2017-06-10] MEDS ORDERED: ONDANSETRON 4 MG/2 ML VIAL IVP PRN (08:00)
[2017-06-10 09:59] LABS: Anisocytosis Slight; Basophils % (A) 1 %; Eosinophils # (A) 0.2 k/uL (0-0.7); Eosinophils % (A) 3 %; HCT 28.4 % (39.0-53.0); HGB 9.2 gm/dL (13.0-17.5); Lymphocytes # (A) 0.7 k/uL (1.0-4.8); Lymphocytes % (A) 9 %; MCHC 32.3 g/dL (31.0-37.0); MCV 108.4 fL (80.0-100.0); Macrocytosis Marked; Mean Platelet Volume 7.6; Monocytes # (A) 0.4 k/uL (0-1.0); Monocytes % (A) 6 %; Neutrophils # (A) 5.4 k/uL (1.3-7.7); Neutrophils % (A) 78 %; Platelet Count 282 k/uL (150-450); RBC 2.62 m/uL (4.30-5.90); RDW 17.7 % (11.5-15.5)
[2017-06-10 10:02] LABS: Albumin 3.6 g/dL (3.5-5.0); Calcium 9.1 mg/dL (8.4-10.2); Potassium 4.6 mmol/L (3.5-5.1); Total Bilirubin 0.1 mg/dL (0.2-1.3); Total Protein 5.9 g/dL (6.3-8.2)
[2017-06-10] MEDS: SODIUM CHLORIDE 0.9% 1,000 ML IV SCH ×2 (10:11→22:42)
[2017-06-10 10:17] LABS: Poikilocytosis (M) Present
[2017-06-10] MEDS: FAMOTIDINE 20 MG/2 ML VIAL IVP SCH (11:02)
[2017-06-10] MEDS: ONDANSETRON 16 MG in SODIUM CHLORIDE 0.9% 50 ML IVPB SCH (11:02)
[2017-06-10] MEDS: predniSONE 50 MG TAB PO SCH ×2 (11:02→20:25)
[2017-06-10] MEDS: predniSONE 20 MG TAB PO SCH ×2 (11:02→20:25)
[2017-06-10] MEDS ORDERED: diphenhydrAMINE 50 MG/ML 1 ML VIAL IVP ONE (12:00)
[2017-06-10] MEDS ORDERED: ACETAMINOPHEN TAB 325 MG TAB PO ONE (12:00)
[2017-06-10] MEDS ORDERED: riTUXimab 700 MG in SODIUM CHLORIDE 0.9% 500 ML IV ONE (12:00)
[2017-06-10] MEDS ORDERED: methylPREDNISolone SOD SUCCI 125 MG/2 ML VIAL IVP ONE (12:00)
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
[2017-06-10] MEDS: DOXORUBICIN HCL IV SCH (17:34)
[2017-06-10] MEDS: SODIUM CHLORIDE 0.9% IV SCH ×3 (17:34→17:42)
[2017-06-10] MEDS: VINCRISTINE SULFATE IV SCH (17:34)
[2017-06-10] MEDS: ETOPOSIDE IV SCH (17:42)
[2017-06-10 17:59] LABS: Uric Acid 4.5 mg/dL (3.5-8.5)
--- NOTE | 2017-06-10 20:01 | XR ---
EXAMINATION TYPE: XR abdomen 2V DATE OF EXAM: 06/10/2017 COMPARISON: 03/16/2017 HISTORY: Abdominal pain. Lymphoma. TECHNIQUE: 3 views FINDINGS: There is no sign of intestinal obstruction or pneumoperitoneum. Fecal pattern is normal. Th ere is vertebroplasty in the lumbar spine. Lung bases are clear of consolidation. There are no pathol ogic calcifications over the kidneys. IMPRESSION: Nonacute abdomen. No adverse change compared to old exam.
[2017-06-10] MEDS: ACETAMINOPHEN TAB 325 MG TAB PO SCH (20:23)
[2017-06-10] MEDS: CALCIUM CARB-VIT D 500MG-200UN 1 EACH TAB PO SCH (20:24)
[2017-06-10] MEDS: ASPIRIN 81 MG PO SCH (20:24)
[2017-06-10] MEDS: FERROUS SULFATE 325 MG TAB PO SCH (20:24)
[2017-06-10] MEDS: VIT A,C & E-LUTEIN-MINERALS 1 EACH TAB PO SCH (20:24)
[2017-06-10] MEDS: amLODIPine 10 MG TAB PO SCH (20:24)
[2017-06-10] MEDS: CHOLECALCIFEROL 1,000 UNIT TAB PO SCH (20:24)
[2017-06-10] MEDS: metFORMIN 500 MG TAB PO SCH (20:24)
[2017-06-10] MEDS ORDERED: NON-FORMULARY DRUG (Omega-3 Fatty Acids/Fish Oil [Fish Oil 1,000 Mg Softgel] 1 CAP) PO SCH (21:00)
[2017-06-11 06:56] LABS: Anisocytosis Slight; Basophils % (A) 0 %; Eosinophils % (A) 0 %; HCT 28.7 % (39.0-53.0); HGB 9.3 gm/dL (13.0-17.5); Lymphocytes # (A) 0.4 k/uL (1.0-4.8); Lymphocytes % (A) 3 %; MCH 34.8 pg (25.0-35.0); MCHC 32.4 g/dL (31.0-37.0); MCV 107.4 fL (80.0-100.0); Macrocytosis Marked; Monocytes # (A) 0.2 k/uL (0-1.0); Monocytes % (A) 1 %; Neutrophils # (A) 14.2 k/uL (1.3-7.7); Neutrophils % (A) 96 %; Platelet Count 322 k/uL (150-450); RBC 2.67 m/uL (4.30-5.90); RDW 17.4 % (11.5-15.5); WBC 14.9 k/uL (3.8-10.6)
[2017-06-11 07:14] LABS: Albumin 3.6 g/dL (3.5-5.0); Calcium 8.8 mg/dL (8.4-10.2); Potassium 4.7 mmol/L (3.5-5.1); Total Bilirubin 0.1 mg/dL (0.2-1.3); Total Protein 5.8 g/dL (6.3-8.2)
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
[2017-06-11] MEDS: PANTOPRAZOLE 40 MG TABLET PO SCH (09:38)
[2017-06-11] MEDS: ENOXAPARIN 40 MG/0.4 ML SYRINGE SQ SCH (09:39)
[2017-06-11] MEDS: METOPROLOL SUCCINATE (ER) 25 MG TAB.ER.24H PO SCH (09:39)
[2017-06-11] MEDS: ALLOPURINOL 300 MG TAB PO SCH (09:39)
[2017-06-11] MEDS: predniSONE 50 MG TAB PO SCH ×2 (09:40→21:57)
[2017-06-11] MEDS: predniSONE 20 MG TAB PO SCH ×2 (09:40→21:57)
[2017-06-11] MEDS: metFORMIN 500 MG TAB PO SCH ×2 (09:40→21:57)
[2017-06-11] MEDS: CLOPIDOGREL 75 MG TAB PO SCH (09:44)
[2017-06-11] MEDS: ACETAMINOPHEN TAB 325 MG TAB PO SCH ×2 (09:49→21:58)
[2017-06-11] MEDS: CHOLECALCIFEROL 1,000 UNIT TAB PO SCH ×2 (10:34→21:56)
[2017-06-11] MEDS ORDERED: PETROLATUM, WHITE OINT 50 GM TUBE TOPICAL PRN (11:49)
--- NOTE | 2017-06-11 11:49 | P.PN ---
Subjective Progress Note Date: 06/11/17 Principal diagnosis: Large B Cell Lymphoma Day 2 of R-EPOCH and Mr. Strong is tolerating well. His appetite is great, he is eating well. He denies nausea, vomiting, diarrhea or constipation at this time. His rib pain from "pulling a muscle" has improved, likely from steroids. Objective - Vital Signs Vital signs: Vital Signs Temp 98.8 F 06/11/17 07:40 Pulse 85 06/11/17 07:40 Resp 18 06/11/17 07:40 BP 147/67 06/11/17 07:40 Pulse Ox 97 06/11/17 07:40 Intake & Output 06/10/17 06/11/17 06/11/17 18:59 06:59 18:59 Intake Total 465.212 6140.4 Balance 311.809 3579.4 Weight 72.03 kg 78.5 kg Intake: Intake, IV Titration 992.027 4024.4 Amount DOXOrubicin HCL 15 mg In 128.4 Sodium Chloride 0.9% 250 ml @ 10.729 mls/hr IV Q24H [facility] Rx#:[id number] Etoposide 76 mg In Sodium 126 Chloride 0.9% 250 ml @ 10.575 mls/hr IV Q24H [facility] Rx#:[id number] Sodium Chloride 0.9% 1, 900 000 ml @ 75 mls/hr IV . [id number] [facility] Rx#:[id number] riTUXimab 700 mg In 406.100 Sodium Chloride 0.9% 500 ml @ Titrate IV .Q0M [facility] Rx#:[id number] vinCRIStine SULFATE 0.6 25.0 mg In Sodium Chloride 0.9 % 50 ml @ 2.108 mls/hr IV Q24H [facility] Rx#:[id number] Other: Voiding Method Toilet # Voids 4 2 - Constitutional General appearance: Present: cooperative, no acute distress - EENT Eyes: Present: EOMI, dentition normal ENT: Present: NA/AT, normal oropharynx, thrush - Neck Details: Supple, Trachea midline Neck: Present: normal ROM - Respiratory Respiratory: bilateral: CTA (No increased effort) - Cardiovascular Rhythm: regular Heart sounds: normal: S1, S2 - Peripheral edema leg Peripheral Edema: bilateral: Trace (Dryness on bilateral legs and feet and evidence of recent edema that has improved. ) - Gastrointestinal Gastrointestinal Comment(s): Xray failed to show concern obstruction General gastrointestinal: Present: normal bowel sounds, soft - Integumentary Integumentary Comment(s): Dryness and tight shiny appearsance extremities from recent pitting edema that has resolved Integumentary: Present: flushed, pale - Neurologic Neurologic Comment(s): no focal defect Neurologic: Present: CNII-XII intact - Musculoskeletal Musculoskeletal: Present: gait normal, generalized weakness, strength equal bilaterally - Psychiatric Psychiatric: Present: A&O x's 3, appropriate affect, intact judgment & insight - Labs CBC & Chem 7: 06/11/17 06:26 0418 06:26 Labs: Abnormal Lab Results - Last 24 Hours (Table) 06/11/17 06/11/17 Range/Units 06:26 06:26 WBC 14.9 H (3.8-10.6) k/uL RBC 2.67 L (4.30-5.90) m/uL Hgb 9.3 L (13.0-17.5) gm/dL Hct 28.7 L (39.0-53.0) % MCV 107.4 H (80.0-100.0) fL RDW 17.4 H (11.5-15.5) % Neutrophils # 14.2 H (1.3-7.7) k/uL Lymphocytes # 0.4 L (1.0-4.8) k/uL BUN 23 H (9-20) mg/dL Glucose 172 H (74-99) mg/dL Total Bilirubin 0.1 L (0.2-1.3) mg/dL Total Protein 5.8 L (6.3-8.2) g/dL - Imaging and Cardiology Abdominal x-ray: report reviewed Assessment and Plan (1) At risk for readmission to hospital Current Visit: No Status: Acute Code(s): Z91.89 - OTH PERSONAL RISK FACTORS , NOT ELSEWHERE CLASSIFIED SNOMED Code(s): 5907709447650 (2) Diffuse large B-cell lymphoma of extranodal site Current Visit: No Status: Acute Priority: High Code(s): C83.39 - DIFFUSE LARGE B-CELL LYMPHOMA, EXTRNOD AND SOLID ORGAN SITES SNOMED Code(s): 493811833 (3) Macrocytic anemia Current Visit: No Status: Acute Priority: Medium Code(s): D53.9 - NUTRITIONAL ANEMIA, UNSPECIFIED SNOMED Code(s): 77141498 (4) Pancytopenia due to antineoplastic chemotherapy Current Visit: No Status: Acute Priority: Medium Code(s): D61.810 - ANTINEOPLASTIC CHEMOTHERAPY INDUCED PANCYTOPENIA; T45.1X5A - ADVERSE EFFECT OF ANTINEOPLASTIC AND IMMUNOSUP DRUGS, INIT SNOMED Code(s): 581854283268275 (5) Partial small bowel obstruction Current Visit: No Status: Acute Priority: High Code(s): K56.600 - PARTIAL INTESTINAL OBSTRUCTION, UNSPECIFIED TO CAUSE SNOMED Code(s): 641996435 Plan: Assessment and Plan: 1. Large B cell Lymphoma - Here for Cycle 6 of 6 of R-EPOCH - Start day one of chemotherapy today - Check CBC and CMP daily - Check baseline Uric acid and LDH - Plan Neulasta after Discharge, I will add to discharge instruction when completed. 2. Recent question of partial bowel obstruction: - Asymptomatic and abdomen does not appear acute on exam, reassessed with xray and stable no concerning obtruction at this time and bowel movements per patient are normal at his time. 3. Chemo induced Anemia - - Transfusion support if hemoglobin less than 8 4. Bilateral Lower extremity Edema and dryness - Improving - WIll order aquaphor to apply bilateral lower extremities BID. Physician Attestation: I have completed the full history and physical of this patient, discussed and agree with above dictation by Marta Oakes NP, dictated as a scribe
[2017-06-11] MEDS: DOCUSATE 100 MG CAP PO SCH (12:25)
[2017-06-11] MEDS: SALT AND SODA MOUTHWASH 1,000 ML PO SCH ×2 (12:27→19:35)
[2017-06-11] MEDS: SODIUM CHLORIDE 0.9% 1,000 ML IV SCH (18:14)
[2017-06-11] MEDS: FAMOTIDINE 20 MG/2 ML VIAL IVP SCH (19:59)
[2017-06-11] MEDS: ONDANSETRON 16 MG in SODIUM CHLORIDE 0.9% 50 ML IVPB SCH (19:59)
[2017-06-11] MEDS: SODIUM CHLORIDE 0.9% IV SCH ×3 (20:36)
[2017-06-11] MEDS: ETOPOSIDE IV SCH (20:36)
[2017-06-11] MEDS: VINCRISTINE SULFATE IV SCH (20:36)
[2017-06-11] MEDS: DOXORUBICIN HCL IV SCH (20:36)
[2017-06-11] MEDS: ASPIRIN 81 MG PO SCH (21:56)
[2017-06-11] MEDS: VIT A,C & E-LUTEIN-MINERALS 1 EACH TAB PO SCH (21:57)
[2017-06-11] MEDS: amLODIPine 10 MG TAB PO SCH (21:57)
[2017-06-11] MEDS: CALCIUM CARB-VIT D 500MG-200UN 1 EACH TAB PO SCH (21:58)
[2017-06-11] MEDS: FERROUS SULFATE 325 MG TAB PO SCH (22:00)
[2017-06-12] MEDS: SALT AND SODA MOUTHWASH 1,000 ML PO SCH ×5 (01:53→20:45)
[2017-06-12] MEDS: SODIUM CHLORIDE 0.9% 1,000 ML IV SCH ×2 (02:00→15:23)
[2017-06-12 08:03] LABS: Albumin 2.9 g/dL (3.5-5.0); Calcium 8.5 mg/dL (8.4-10.2); Potassium 4.8 mmol/L (3.5-5.1); Total Bilirubin 0.1 mg/dL (0.2-1.3)
[2017-06-12 08:04] LABS: Anisocytosis Slight; Basophils % (A) 0 %; Eosinophils % (A) 0 %; HCT 24.2 % (39.0-53.0); HGB 7.9 gm/dL (13.0-17.5); Lymphocytes # (A) 0.3 k/uL (1.0-4.8); Lymphocytes % (A) 2 %; MCHC 32.6 g/dL (31.0-37.0); MCV 107.5 fL (80.0-100.0); Macrocytosis Marked; Mean Platelet Volume 7.8; Monocytes # (A) 0.3 k/uL (0-1.0); Monocytes % (A) 2 %; Neutrophils # (A) 14.8 k/uL (1.3-7.7); Neutrophils % (A) 96 %; Platelet Count 261 k/uL (150-450); RBC 2.25 m/uL (4.30-5.90); RDW 17.5 % (11.5-15.5); WBC 15.5 k/uL (3.8-10.6)
--- NOTE | 2017-06-12 08:08 | P.PN ---
Subjective Progress Note Date: 06/12/17 Principal diagnosis: Discontinue proximal known on a patient with history of lymphoma and here for two-month every effusion. The patient states no new complaints. Tolerating diet appropriately. No overt weakness noted. Objective - Vital Signs Vital signs: Vital Signs Temp 97.9 F 06/12/17 07:00 Pulse 62 06/12/17 07:00 Resp 18 06/12/17 07:00 BP 132/62 06/12/17 07:00 Pulse Ox 93 L 06/12/17 03:40 Intake & Output 06/11/17 06/12/17 06/12/17 18:59 06:59 18:59 Intake Total 650 Balance 650 Weight 80.5 kg Intake: Intake, IV Titration 650 Amount Ondansetron 16 mg In 50 Sodium Chloride 0.9% 50 ml @ 100 mls/hr IVPB Q24H [facility] Rx#:[id number] Sodium Chloride 0.9% 1, 600 000 ml @ 75 mls/hr IV . [id number] [facility] Rx#:[id number] Other: Voiding Method Toilet Toilet # Voids 2 2 - Constitutional General appearance: Present: average body habitus - EENT Eyes: Absent: abnormal pupil - Respiratory Respiratory: bilateral: CTA - Cardiovascular Rhythm: regular Heart sounds: normal: S1, S2 Abnormal Heart Sounds: Absent: S3 Gallop - Gastrointestinal General gastrointestinal: Present: soft. Absent: tenderness - Labs CBC & Chem 7: 06/12/17 07:01 06/11/17 06:26 Labs: Abnormal Lab Results - Last 24 Hours (Table) 06/12/17 Range/Units 07:01 WBC 15.5 H (3.8-10.6) k/uL RBC 2.25 L (4.30-5.90) m/uL Hgb 7.9 L (13.0-17.5) gm/dL Hct 24.2 L (39.0-53.0) % MCV 107.5 H (80.0-100.0) fL RDW 17.5 H (11.5-15.5) % Assessment and Plan (1) Diffuse large B-cell lymphoma of extranodal site Current Visit: No Status: Acute Priority: High Code(s): C83.39 - DIFFUSE LARGE B-CELL LYMPHOMA, EXTRNOD AND SOLID ORGAN SITES SNOMED Code(s): 130915943 (2) Diabetes mellitus Current Visit: Yes Status: Chronic Priority: Medium Code(s): E11.9 - TYPE 2 DIABETES MELLITUS WITHOUT COMPLICATIONS SNOMED Code(s): 02531370 (3) Essential (primary) hypertension Current Visit: No Status: Chronic Code(s): I10 - ESSENTIAL (PRIMARY) HYPERTENSION SNOMED Code(s): 89407059 (4) Hyperlipidemia Current Visit: No Status: Chronic Priority: Low Code(s): E78.5 - HYPERLIPIDEMIA, UNSPECIFIED SNOMED Code(s): 10103981 Plan: Continue current regimen or treatment. Dr. Sher's group will covering for the weekend. Watch sugar closely. Despite discharge in next 48-72 hours.
[2017-06-12] MEDS: ACETAMINOPHEN TAB 325 MG TAB PO SCH ×2 (08:38→20:45)
[2017-06-12] MEDS: PANTOPRAZOLE 40 MG TABLET PO SCH (08:38)
[2017-06-12] MEDS: CHOLECALCIFEROL 1,000 UNIT TAB PO SCH ×2 (08:39→20:44)
[2017-06-12] MEDS: ALLOPURINOL 300 MG TAB PO SCH (08:39)
[2017-06-12] MEDS: ENOXAPARIN 40 MG/0.4 ML SYRINGE SQ SCH (08:39)
[2017-06-12] MEDS: CLOPIDOGREL 75 MG TAB PO SCH (08:39)
[2017-06-12] MEDS: predniSONE 50 MG TAB PO SCH ×2 (08:40→20:44)
[2017-06-12] MEDS: metFORMIN 500 MG TAB PO SCH ×2 (08:40→20:44)
[2017-06-12] MEDS: METOPROLOL SUCCINATE (ER) 25 MG TAB.ER.24H PO SCH (08:40)
[2017-06-12] MEDS: predniSONE 20 MG TAB PO SCH ×2 (08:40→20:44)
[2017-06-12 09:42] LABS: Anisocytosis (M) Present; Hypochromasia (M) Present; Poikilocytosis (M) Present
[2017-06-12] MEDS: DOCUSATE 100 MG CAP PO SCH (13:28)
--- NOTE | 2017-06-12 16:26 | P.PN ---
Subjective Progress Note Date: 06/12/17 The patient feels somewhat fatigued. However he is tolerating treatment well otherwise. He denies any fever/chills/nausea/vomiting/diarrhea. He is having fairly regular bowel movements, and abdominal discomfort has resolved Objective - Vital Signs Vital signs: Vital Signs Temp 97.3 F L 06/12/17 14:49 Pulse 65 06/12/17 14:49 Resp 18 06/12/17 14:49 BP 117/57 06/12/17 14:49 Pulse Ox 95 06/12/17 14:49 Intake & Output 06/11/17 06/12/17 06/12/17 18:59 06:59 18:59 Intake Total 650 Balance 650 Weight 80.5 kg Intake: Intake, IV Titration 650 Amount Ondansetron 16 mg In 50 Sodium Chloride 0.9% 50 ml @ 100 mls/hr IVPB Q24H [facility] Rx#:[id number] Sodium Chloride 0.9% 1, 600 000 ml @ 75 mls/hr IV . [id number] [facility] Rx#:[id number] Other: Voiding Method Toilet Toilet Toilet # Voids 2 2 - Constitutional General appearance: Present: no acute distress - EENT Eyes: Present: EOMI, PERRLA ENT: Present: hearing grossly normal, normal oropharynx - Respiratory Respiratory: bilateral: CTA - Cardiovascular Rhythm: regular Heart sounds: normal: S1, S2 - Gastrointestinal General gastrointestinal: Present: normal bowel sounds, soft - Integumentary Integumentary: Present: normal - Neurologic Neurologic: Present: CNII-XII intact - Musculoskeletal Musculoskeletal: Present: generalized weakness, strength equal bilaterally - Psychiatric Psychiatric: Present: A&O x's 3, appropriate affect - Labs CBC & Chem 7: 06/12/17 07:01 06/12/17 07:01 Labs: Abnormal Lab Results - Last 24 Hours (Table) 06/12/17 06/12/17 Range/Units 07:01 07:01 WBC 15.5 H (3.8-10.6) k/uL RBC 2.25 L (4.30-5.90) m/uL Hgb 7.9 L (13.0-17.5) gm/dL Hct 24.2 L (39.0-53.0) % MCV 107.5 H (80.0-100.0) fL RDW 17.5 H (11.5-15.5) % Neutrophils # 14.8 H (1.3-7.7) k/uL Lymphocytes # 0.3 L (1.0-4.8) k/uL Chloride 108 H (98-107) mmol/L BUN 28 H (9-20) mg/dL Glucose 156 H (74-99) mg/dL Total Bilirubin 0.1 L (0.2-1.3) mg/dL Total Protein 5.0 L (6.3-8.2) g/dL Albumin 2.9 L (3.5-5.0) g/dL Assessment and Plan (1) Diffuse large B-cell lymphoma of extranodal site Narrative/Plan: The patient is admitted for cycle #6 of R-EPO CH chemotherapy. He will complete day #2/5 tonight. He is tolerating treatment well so far without any untoward side effects. Continue chemotherapy per protocol. Continue monitoring with clinical exams and labs, which have been ordered Current Visit: No Status: Acute Priority: High Code(s): C83.39 - DIFFUSE LARGE B-CELL LYMPHOMA, EXTRNOD AND SOLID ORGAN SITES SNOMED Code(s): 876357600 (2) Anemia aplastic aregenerative Narrative/Plan: This is due to chemotherapy. Dose has been decreased with cycle 5 onwards, with better hemoglobin overall. Drop in hemoglobin has been noted as expected, but this is in a safe range. Continue to monitor and supplement if needed Current Visit: No Status: Chronic Priority: Medium Code(s): D61.9 - APLASTIC ANEMIA, UNSPECIFIED SNOMED Code(s): 887924423 Plan: Dr. Frances is following for management of his other medical problems Abdominal pain has resolved, with abdominal x-ray showing no significant findings
[2017-06-12] MEDS: FAMOTIDINE 20 MG/2 ML VIAL IVP SCH (19:39)
[2017-06-12] MEDS: ONDANSETRON 16 MG in SODIUM CHLORIDE 0.9% 50 ML IVPB SCH (19:39)
[2017-06-12] MEDS: FERROUS SULFATE 325 MG TAB PO SCH (20:43)
[2017-06-12] MEDS: VIT A,C & E-LUTEIN-MINERALS 1 EACH TAB PO SCH (20:43)
[2017-06-12] MEDS: ASPIRIN 81 MG PO SCH (20:43)
[2017-06-12] MEDS: amLODIPine 10 MG TAB PO SCH (20:44)
[2017-06-12] MEDS: CALCIUM CARB-VIT D 500MG-200UN 1 EACH TAB PO SCH (20:44)
[2017-06-12] MEDS: ETOPOSIDE IV SCH (22:45)
[2017-06-12] MEDS: SODIUM CHLORIDE 0.9% IV SCH ×3 (22:45)
[2017-06-12] MEDS: VINCRISTINE SULFATE IV SCH (22:45)
[2017-06-12] MEDS: DOXORUBICIN HCL IV SCH (22:45)
[2017-06-13] MEDS: SODIUM CHLORIDE 0.9% 1,000 ML IV SCH ×2 (04:08→17:45)
[2017-06-13 07:30] LABS: Anisocytosis Slight; Basophils % (A) 0 %; Eosinophils % (A) 0 %; HGB 8.6 gm/dL (13.0-17.5); Lymphocytes # (A) 0.3 k/uL (1.0-4.8); Lymphocytes % (A) 3 %; MCH 34.9 pg (25.0-35.0); MCHC 31.6 g/dL (31.0-37.0); MCV 110.3 fL (80.0-100.0); Macrocytosis Marked; Mean Platelet Volume 7.4; Monocytes # (A) 0.3 k/uL (0-1.0); Monocytes % (A) 2 %; Neutrophils % (A) 95 %; Platelet Count 276 k/uL (150-450); RBC 2.45 m/uL (4.30-5.90); RDW 17.8 % (11.5-15.5); WBC 11.6 k/uL (3.8-10.6)
[2017-06-13 07:40] LABS: Albumin 3.1 g/dL (3.5-5.0); Calcium 8.4 mg/dL (8.4-10.2); Potassium 4.5 mmol/L (3.5-5.1); Total Bilirubin 0.2 mg/dL (0.2-1.3); Total Protein 5.3 g/dL (6.3-8.2)
[2017-06-13] MEDS: PANTOPRAZOLE 40 MG TABLET PO SCH (08:52)
[2017-06-13] MEDS: ALLOPURINOL 300 MG TAB PO SCH (08:52)
[2017-06-13] MEDS: ACETAMINOPHEN TAB 325 MG TAB PO SCH ×2 (08:52→21:44)
[2017-06-13] MEDS: ENOXAPARIN 40 MG/0.4 ML SYRINGE SQ SCH (08:53)
[2017-06-13] MEDS: CLOPIDOGREL 75 MG TAB PO SCH (08:53)
[2017-06-13] MEDS: predniSONE 20 MG TAB PO SCH ×2 (08:53→21:45)
[2017-06-13] MEDS: predniSONE 50 MG TAB PO SCH ×2 (08:53→21:45)
[2017-06-13] MEDS: METOPROLOL SUCCINATE (ER) 25 MG TAB.ER.24H PO SCH (08:53)
[2017-06-13] MEDS: CHOLECALCIFEROL 1,000 UNIT TAB PO SCH ×2 (08:53→21:45)
[2017-06-13] MEDS: metFORMIN 500 MG TAB PO SCH ×2 (08:54→21:45)
--- NOTE | 2017-06-13 11:25 | P.PN ---
Subjective Patient underwent chemo therapy for diffuse large B-cell lymphoma and patient is an 75 mL of fluid no overnight events Constitutional: Denied any fatigue denied any fever. Cardio vascular: denied any chest pain, palpitations Gastrointestinal denied any nausea vomiting Pulmonary: Denied any shortness of breath cough Neurologic denied any new focal deficits Objective - Vital Signs Vital signs: Vital Signs Temp 96.0 F L 06/13/17 08:18 Pulse 50 L 06/13/17 08:18 Resp 18 06/13/17 08:18 BP 121/63 06/13/17 08:18 Pulse Ox 97 06/13/17 08:18 Intake & Output 06/12/17 06/13/17 06/13/17 18:59 06:59 18:59 Intake Total 2035.6 Balance 2035.6 Weight 83 kg Intake: Intake, IV Titration 855.6 Amount DOXOrubicin HCL 15 mg In 94.4 Sodium Chloride 0.9% 250 ml @ 10.729 mls/hr IV Q24H [facility] Rx#:[id number] Etoposide 76 mg In Sodium 92.8 Chloride 0.9% 250 ml @ 10.575 mls/hr IV Q24H [facility] Rx#:[id number] Ondansetron 16 mg In 50 Sodium Chloride 0.9% 50 ml @ 100 mls/hr IVPB Q24H [facility] Rx#:[id number] Sodium Chloride 0.9% 1, 600 000 ml @ 75 mls/hr IV . [id number] [facility] Rx#:[id number] vinCRIStine SULFATE 0.6 18.4 mg In Sodium Chloride 0.9 % 50 ml @ 2.108 mls/hr IV Q24H [facility] Rx#:[id number] Oral 1180 Other: Voiding Method Toilet Toilet Toilet # Voids 2 2 - Exam PHYSICAL EXAMINATION: GENERAL: The patient is alert and oriented x3, not in any acute distress. Well developed, well nourished. HEENT: Pupils are round and equally reacting to light. EOMI. No scleral icterus. No conjunctival pallor. Normocephalic, atraumatic. No pharyngeal erythema. No thyromegaly. CARDIOVASCULAR: S1 and S2 present. No murmurs, rubs, or gallops. PULMONARY: Chest is clear to auscultation, no wheezing or crackles. ABDOMEN: Soft, nontender, nondistended, normoactive bowel sounds. No palpable organomegaly. MUSCULOSKELETAL: No joint swelling or deformity. EXTREMITIES: No cyanosis, clubbing, or pedal edema. NEUROLOGICAL: Gross neurological examination did not reveal any focal deficits. SKIN: No rashes. - Labs CBC & Chem 7: 06/13/17 06:50 06/13/17 06:50 Labs: Abnormal Lab Results - Last 24 Hours (Table) 06/13/17 06/13/17 Range/Units 06:50 06:50 WBC 11.6 H (3.8-10.6) k/uL RBC 2.45 L (4.30-5.90) m/uL Hgb 8.6 L (13.0-17.5) gm/dL Hct 27.0 L (39.0-53.0) % MCV 110.3 H (80.0-100.0) fL RDW 17.8 H (11.5-15.5) % Neutrophils # 11.0 H (1.3-7.7) k/uL Lymphocytes # 0.3 L (1.0-4.8) k/uL Chloride 108 H (98-107) mmol/L BUN 34 H (9-20) mg/dL Glucose 161 H (74-99) mg/dL AST 15 L (17-59) U/L Total Protein 5.3 L (6.3-8.2) g/dL Albumin 3.1 L (3.5-5.0) g/dL Assessment and Plan Plan: -Diffuse large B-cell lymphoma undergoing chemotherapy: Continue with the chemotherapy IV fluids -Testis. Reflux disease -Type 2 diabetes mellitus with uncontrolled blood sugars continue with present regimen titrate depending on the blood sugars -Hypertension -Leukocytosis secondary to lymphoma
--- NOTE | 2017-06-13 11:53 | P.PN ---
Subjective Progress Note Date: 06/13/17 Principal diagnosis: Diffuse large B-cell non-Hodgkin's lymphoma, on high dose infusional chemotherapy The patient is currently on day #3 of Rituxan-EPO CH. He denies any new complaints. No history specifically, or fever/chills/nausea/vomiting. He is having bowel movements every one-2 days. No recurrence of abdominal pain. His appetite is starting to drop Objective - Vital Signs Vital signs: Vital Signs Temp 96.0 F L 06/13/17 08:18 Pulse 50 L 06/13/17 08:18 Resp 18 06/13/17 08:18 BP 121/63 06/13/17 08:18 Pulse Ox 97 06/13/17 08:18 Intake & Output 06/12/17 06/13/17 06/13/17 18:59 06:59 18:59 Intake Total 2035.6 Balance 2035.6 Weight 83 kg Intake: Intake, IV Titration 855.6 Amount DOXOrubicin HCL 15 mg In 94.4 Sodium Chloride 0.9% 250 ml @ 10.729 mls/hr IV Q24H [facility] Rx#:[id number] Etoposide 76 mg In Sodium 92.8 Chloride 0.9% 250 ml @ 10.575 mls/hr IV Q24H [facility] Rx#:[id number] Ondansetron 16 mg In 50 Sodium Chloride 0.9% 50 ml @ 100 mls/hr IVPB Q24H [facility] Rx#:[id number] Sodium Chloride 0.9% 1, 600 000 ml @ 75 mls/hr IV . [id number] [facility] Rx#:[id number] vinCRIStine SULFATE 0.6 18.4 mg In Sodium Chloride 0.9 % 50 ml @ 2.108 mls/hr IV Q24H [facility] Rx#:[id number] Oral 1180 Other: Voiding Method Toilet Toilet Toilet # Voids 2 2 - Constitutional General appearance: Present: no acute distress - EENT Eyes: Present: EOMI, PERRLA ENT: Present: hearing grossly normal, normal oropharynx - Respiratory Respiratory: bilateral: CTA - Cardiovascular Rhythm: regular Heart sounds: normal: S1, S2 - Gastrointestinal General gastrointestinal: Present: normal bowel sounds, soft - Integumentary Integumentary: Present: normal - Neurologic Neurologic: Present: CNII-XII intact - Musculoskeletal Musculoskeletal: Present: generalized weakness - Psychiatric Psychiatric: Present: A&O x's 3, appropriate affect - Labs CBC & Chem 7: 06/13/17 06:50 06/13/17 06:50 Labs: Abnormal Lab Results - Last 24 Hours (Table) 06/13/17 06/13/17 Range/Units 06:50 06:50 WBC 11.6 H (3.8-10.6) k/uL RBC 2.45 L (4.30-5.90) m/uL Hgb 8.6 L (13.0-17.5) gm/dL Hct 27.0 L (39.0-53.0) % MCV 110.3 H (80.0-100.0) fL RDW 17.8 H (11.5-15.5) % Neutrophils # 11.0 H (1.3-7.7) k/uL Lymphocytes # 0.3 L (1.0-4.8) k/uL Chloride 108 H (98-107) mmol/L BUN 34 H (9-20) mg/dL Glucose 161 H (74-99) mg/dL AST 15 L (17-59) U/L Total Protein 5.3 L (6.3-8.2) g/dL Albumin 3.1 L (3.5-5.0) g/dL Assessment and Plan (1) Diffuse large B-cell lymphoma of extranodal site Narrative/Plan: The patient is on day #3 of cycle #6. As noted is tolerating treatment well so far. Labs were reviewed and are in a safe range with no intervention required. Continue chemotherapy per protocol, with continued monitoring with clinical exams and labs, which have been ordered Current Visit: No Status: Acute Priority: High Code(s): C83.39 - DIFFUSE LARGE B-CELL LYMPHOMA, EXTRNOD AND SOLID ORGAN SITES SNOMED Code(s): 262455475 (2) Anemia aplastic aregenerative Narrative/Plan: Hemoglobin is fairly stable, and his 8.6, which is in a safe range. Current Visit: No Status: Chronic Priority: Medium Code(s): D61.9 - APLASTIC ANEMIA, UNSPECIFIED SNOMED Code(s): 414730784
[2017-06-13] MEDS: SALT AND SODA MOUTHWASH 1,000 ML PO SCH ×4 (13:22→21:46)
[2017-06-13] MEDS: DOCUSATE 100 MG CAP PO SCH (13:22)
[2017-06-13] MEDS: FAMOTIDINE 20 MG/2 ML VIAL IVP SCH (13:23)
[2017-06-13] MEDS: ONDANSETRON 16 MG in SODIUM CHLORIDE 0.9% 50 ML IVPB SCH (21:44)
[2017-06-13] MEDS: FERROUS SULFATE 325 MG TAB PO SCH (21:45)
[2017-06-13] MEDS: VIT A,C & E-LUTEIN-MINERALS 1 EACH TAB PO SCH (21:45)
[2017-06-13] MEDS: amLODIPine 10 MG TAB PO SCH (21:45)
[2017-06-13] MEDS: ASPIRIN 81 MG PO SCH (21:45)
[2017-06-13] MEDS: CALCIUM CARB-VIT D 500MG-200UN 1 EACH TAB PO SCH (21:45)
[2017-06-13] MEDS: SODIUM CHLORIDE 0.9% IV SCH ×3 (22:05→22:06)
[2017-06-13] MEDS: VINCRISTINE SULFATE IV SCH (22:05)
[2017-06-13] MEDS: ETOPOSIDE IV SCH (22:06)
[2017-06-13] MEDS: DOXORUBICIN HCL IV SCH (22:06)
[2017-06-14 07:22] LABS: Anisocytosis Slight; Basophils % (A) 0 %; Eosinophils % (A) 0 %; HCT 24.2 % (39.0-53.0); Lymphocytes # (A) 0.2 k/uL (1.0-4.8); Lymphocytes % (A) 2 %; MCH 35.9 pg (25.0-35.0); MCHC 33.1 g/dL (31.0-37.0); MCV 108.6 fL (80.0-100.0); Mean Platelet Volume 7.3; Monocytes # (A) 0.2 k/uL (0-1.0); Monocytes % (A) 2 %; Neutrophils # (A) 8.5 k/uL (1.3-7.7); Neutrophils % (A) 95 %; Platelet Count 261 k/uL (150-450); RBC 2.23 m/uL (4.30-5.90); RDW 17.5 % (11.5-15.5)
[2017-06-14 07:23] LABS: Macrocytosis Marked
[2017-06-14 07:38] LABS: Albumin 2.8 g/dL (3.5-5.0); Calcium 8.5 mg/dL (8.4-10.2); Potassium 4.7 mmol/L (3.5-5.1); Total Bilirubin 0.2 mg/dL (0.2-1.3); Total Protein 4.8 g/dL (6.3-8.2)
[2017-06-14] MEDS: predniSONE 20 MG TAB PO SCH ×2 (09:30→20:37)
[2017-06-14] MEDS: predniSONE 50 MG TAB PO SCH ×2 (09:30→20:38)
[2017-06-14] MEDS: SODIUM CHLORIDE 0.9% 1,000 ML IV SCH ×2 (09:30→21:23)
[2017-06-14] MEDS: ENOXAPARIN 40 MG/0.4 ML SYRINGE SQ SCH (09:30)
[2017-06-14] MEDS: metFORMIN 500 MG TAB PO SCH ×2 (09:31→20:38)
[2017-06-14] MEDS: ACETAMINOPHEN TAB 325 MG TAB PO SCH ×2 (09:31→20:36)
[2017-06-14] MEDS: METOPROLOL SUCCINATE (ER) 25 MG TAB.ER.24H PO SCH (09:31)
[2017-06-14] MEDS: PANTOPRAZOLE 40 MG TABLET PO SCH (09:31)
[2017-06-14] MEDS: CLOPIDOGREL 75 MG TAB PO SCH (09:31)
[2017-06-14] MEDS: CHOLECALCIFEROL 1,000 UNIT TAB PO SCH ×2 (09:31→20:37)
[2017-06-14] MEDS: ALLOPURINOL 300 MG TAB PO SCH (09:32)
--- NOTE | 2017-06-14 09:38 | P.PN ---
Subjective Progress Note Date: 06/14/17 The patient is continuing on chemotherapy, and denies any new complaint, other than slow progressive increase in fatigue. No history of fever/chills/nausea/ vomiting/mouth sores/diarrhea. He did have a bowel movement yesterday. Objective - Vital Signs Vital signs: Vital Signs Temp 96.0 F L 06/14/17 07:49 Pulse 51 L 06/14/17 07:49 Resp 18 06/14/17 07:49 BP 147/78 06/14/17 07:49 Pulse Ox 96 06/14/17 07:49 Intake & Output 06/13/17 06/14/17 06/14/17 18:59 06:59 18:59 Intake Total 360 1260.0 Balance 360 1260.0 Weight 86 kg Intake: Intake, IV Titration 1260.0 Amount DOXOrubicin HCL 15 mg In 141.6 Sodium Chloride 0.9% 250 ml @ 10.729 mls/hr IV Q24H [facility] Rx#:[id number] Etoposide 76 mg In Sodium 139.2 Chloride 0.9% 250 ml @ 10.575 mls/hr IV Q24H [facility] Rx#:[id number] Ondansetron 16 mg In 50 Sodium Chloride 0.9% 50 ml @ 100 mls/hr IVPB Q24H [facility] Rx#:[id number] Sodium Chloride 0.9% 1, 900 000 ml @ 75 mls/hr IV . [id number] [facility] Rx#:[id number] vinCRIStine SULFATE 0.6 29.2 mg In Sodium Chloride 0.9 % 50 ml @ 2.108 mls/hr IV Q24H [facility] Rx#:[id number] Oral 360 Other: Voiding Method Toilet Toilet # Voids 4 - Constitutional General appearance: Present: no acute distress - EENT Eyes: Present: PERRLA ENT: Present: hearing grossly normal, normal oropharynx - Respiratory Respiratory: bilateral: CTA - Cardiovascular Rhythm: regular Heart sounds: normal: S1, S2 - Gastrointestinal General gastrointestinal: Present: normal bowel sounds, soft - Integumentary Integumentary: Present: normal - Neurologic Neurologic: Present: CNII-XII intact - Musculoskeletal Musculoskeletal: Present: generalized weakness, strength equal bilaterally - Psychiatric Psychiatric: Present: A&O x's 3, appropriate affect - Labs CBC & Chem 7: 06/14/17 06:36 04/15/18 06:36 Labs: Abnormal Lab Results - Last 24 Hours (Table) 06/14/17 06/14/17 Range/Units 06:36 06:36 RBC 2.23 L (4.30-5.90) m/uL Hgb 8.0 L (13.0-17.5) gm/dL Hct 24.2 L (39.0-53.0) % MCV 108.6 H (80.0-100.0) fL MCH 35.9 H (25.0-35.0) pg RDW 17.5 H (11.5-15.5) % Neutrophils # 8.5 H (1.3-7.7) k/uL Lymphocytes # 0.2 L (1.0-4.8) k/uL Chloride 108 H (98-107) mmol/L BUN 33 H (9-20) mg/dL Glucose 159 H (74-99) mg/dL AST 13 L (17-59) U/L Total Protein 4.8 L (6.3-8.2) g/dL Albumin 2.8 L (3.5-5.0) g/dL Assessment and Plan (1) Diffuse large B-cell lymphoma of extranodal site Narrative/Plan: The patient is continuing on her Rituxan-EPO CH. We will complete this cycle ( #6) tomorrow. So far he appears to be tolerating it well without any untoward side effects. Assuming no new issues, he will be discharged after completion of treatment and then follow-up in the office for Neulasta injection. Continue to monitor with clinical exams and labs, which have been ordered Current Visit: No Status: Acute Priority: High Code(s): C83.39 - DIFFUSE LARGE B-CELL LYMPHOMA, EXTRNOD AND SOLID ORGAN SITES SNOMED Code(s): 298406493 (2) Anemia aplastic aregenerative Narrative/Plan: Hemoglobin has fluctuated somewhat during this admission, and is now 8, versus 9.3 at admission. This is still in a safe range. Continue to monitor now, and in the outpatient setting, with transfusion as needed Current Visit: No Status: Chronic Priority: Medium Code(s): D61.9 - APLASTIC ANEMIA, UNSPECIFIED SNOMED Code(s): 671292238
[2017-06-14] MEDS: SALT AND SODA MOUTHWASH 1,000 ML PO SCH ×4 (11:34→21:24)
[2017-06-14] MEDS: DOCUSATE 100 MG CAP PO SCH (13:49)
[2017-06-14] MEDS: FAMOTIDINE 20 MG/2 ML VIAL IVP SCH (13:51)
[2017-06-14] MEDS ORDERED: CYCLOPHOSPHAMIDE IV ONE (18:00)
[2017-06-14] MEDS ORDERED: SODIUM CHLORIDE 0.9% IV ONE (18:00)
[2017-06-14] MEDS: ONDANSETRON 16 MG in SODIUM CHLORIDE 0.9% 50 ML IVPB SCH (20:35)
[2017-06-14] MEDS: FERROUS SULFATE 325 MG TAB PO SCH (20:37)
[2017-06-14] MEDS: ASPIRIN 81 MG PO SCH (20:37)
[2017-06-14] MEDS: CALCIUM CARB-VIT D 500MG-200UN 1 EACH TAB PO SCH (20:37)
[2017-06-14] MEDS: VIT A,C & E-LUTEIN-MINERALS 1 EACH TAB PO SCH (20:38)
[2017-06-14] MEDS: amLODIPine 10 MG TAB PO SCH (20:38)
[2017-06-15] MEDS: ACETAMINOPHEN TAB 325 MG TAB PO SCH (07:59)
[2017-06-15] MEDS: metFORMIN 500 MG TAB PO SCH (07:59)
[2017-06-15] MEDS: CLOPIDOGREL 75 MG TAB PO SCH (07:59)
[2017-06-15] MEDS: ALLOPURINOL 300 MG TAB PO SCH (07:59)
[2017-06-15] MEDS: CHOLECALCIFEROL 1,000 UNIT TAB PO SCH (08:03)
[2017-06-15] MEDS: SODIUM CHLORIDE 0.9% 1,000 ML IV SCH (08:03)
[2017-06-15] MEDS: PANTOPRAZOLE 40 MG TABLET PO SCH (08:03)
[2017-06-15] MEDS: METOPROLOL SUCCINATE (ER) 25 MG TAB.ER.24H PO SCH (08:03)
[2017-06-15] MEDS: ENOXAPARIN 40 MG/0.4 ML SYRINGE SQ SCH (08:03)
[2017-06-15] MEDS: SALT AND SODA MOUTHWASH 1,000 ML PO SCH ×2 (08:04→13:12)
[2017-06-15] MEDS: DOCUSATE 100 MG CAP PO SCH (08:04)
[2017-06-15 08:10] LABS: Albumin 2.8 g/dL (3.5-5.0); Calcium 8.5 mg/dL (8.4-10.2); Potassium 4.4 mmol/L (3.5-5.1); Total Bilirubin 0.4 mg/dL (0.2-1.3)
[2017-06-15 08:23] LABS: Anisocytosis Slight; HCT 25.3 % (39.0-53.0); HGB 8.3 gm/dL (13.0-17.5); MCH 34.7 pg (25.0-35.0); MCHC 32.6 g/dL (31.0-37.0); MCV 106.3 fL (80.0-100.0); Macrocytosis Marked; Mean Platelet Volume 7.8; Platelet Count 261 k/uL (150-450); RBC 2.38 m/uL (4.30-5.90); RDW 16.9 % (11.5-15.5); WBC 7.7 k/uL (3.8-10.6)
[2017-06-15 08:38] VITALS: BP 143/68; PULSE 51; RESP 16
[2017-06-15 08:39] VITALS: TEMP 96
[2017-06-15 10:23] LABS: Lymphocytes # (M) 0.08 k/uL (1.0-4.8); Monocytes # (M) 0.08 k/uL (0-1.0); Neutrophils # (M) 7.55 k/uL (1.3-7.7); Neutrophils % (M) 98 %; Nucleated Red Blood Cells 0 /100 WBC (0-0); Total Cells Counted 100
[2017-06-15 10:24] LABS: Poikilocytosis (M) Present; RBC Fragments Present
--- NOTE | 2017-06-15 18:40 | P.DS ---
Providers Date of admission: 06/10/17 07:58 Expected date of discharge: 06/15/17 Attending physician: Monet Montoya Consults: 06/10/17 09:00 Consult Physician Routine Consulting Provider: Ck Frances Consult Reason/Comments: medical management Do you want consulting provider notified?: Yes Placement Type Exists?: Yes Primary care physician: Monet Montoya - Discharge Diagnosis(es) (1) Diffuse large B-cell lymphoma of extranodal site Status: Acute Priority: High (2) Anemia aplastic aregenerative Status: Chronic Priority: Medium Hospital Course: The patient is a 76-year-old male, who had presented in 09/15 it abdominal pain with evidence of perforation. This was at an outside hospital. He underwent surgery with finding of diffuse large B-cell non-Hodgkin's lymphoma involving the small intestine. The disease was completely resected. PET scans at the time showed no evidence of metastatic disease. Adjuvant chemotherapy was recommended. The patient decided to move here and was therefore seen in consultation. However, therapy was delayed because of several issues including a hospitalization for him, his 's illness, and delay in moving to this area. He started his first cycle of Rituxan-EPO CH in 02/15. Restaging PET scans done prior to that showed no evidence of recurrence. The patient was admitted for cycle 6/6 of his regimen. He has had some cumulative toxicity, requiring blood product transfusions, as well as dose reductions. The patient tolerated his regimen well without any untoward side effects. He did have abdominal discomfort at the time of admission and underwent an abdominal x-ray, due to his history of intermittent partial small bowel obstruction. This was negative and symptoms resolved. He was monitored with clinical exams and labs. He did not require any blood product supplementation during his stay. After completion of treatment, as he was clinically stable, it was decided to discharge him home He is to come to the office tomorrow for Neulasta. He has follow-up office visits already scheduled Pertinent Studies: Abdominal x-ray Procedures: High dose infusional chemotherapy Patient Condition at Discharge: Stable Plan - Discharge Summary Discharge Rx Participant: No New Discharge Prescriptions: No Action Docusate [Colace] 100 mg PO DAILY@1200 Vits A,C,E/Lutein/Minerals [Ocuvite with Lutein Tablet] 1 tab PO HS Cholecalciferol [Vitamin D3] 1,000 unit PO BID Acetaminophen [Tylenol 8 Hour] 650 mg PO BID Ferrous Sulfate [Iron (65 MG Elemental)] 325 mg PO HS [place]-3 Fatty Acids/Fish Oil [Fish Oil 1,000 mg Softgel] 1 cap PO BID Jeferson/D3/Mag11/Zinc/Pressure Tank Operator/Azar/Bor [Caltrate 600+D Plus Tablet] 1 tab PO HS Aspirin 81 mg PO HS Allopurinol [Zyloprim] 300 mg PO DAILY Pantoprazole Sodium [Protonix] 40 mg PO AC-BRKFST Mirabegron [Myrbetriq] 50 mg PO HS metFORMIN HCL 1,000 mg PO BID Metoprolol Succinate [Toprol XL] 25 mg PO DAILY Clopidogrel Bisulfate [Plavix] 75 mg PO DAILY Ondansetron [Zofran ODT] 4 mg PO Q4HR PRN #50 tab PRN Reason: Nausea And Vomiting amLODIPine [Norvasc] 10 mg PO HS Discharge Medication List Acetaminophen [Tylenol 8 Hour] 650 mg PO BID 02/10/17 [History] Allopurinol [Zyloprim] 300 mg PO DAILY 02/10/17 [History] Aspirin 81 mg PO HS 02/10/17 [History] Jeferson/D3/Mag11/Zinc/Pressure Tank Operator/Azar/Bor [Caltrate 600+D Plus Tablet] 1 tab PO HS [History] Cholecalciferol [Vitamin D3] 1,000 unit PO BID 02/10/17 [History] Clopidogrel Bisulfate [Plavix] 75 mg PO DAILY 02/10/17 [History] Docusate [Colace] 100 mg PO DAILY@1200 02/10/17 [History] Ferrous Sulfate [Iron (65 MG Elemental)] 325 mg PO HS 02/10/17 [History] Metoprolol Succinate [Toprol XL] 25 mg PO DAILY 02/10/17 [History] Mirabegron [Myrbetriq] 50 mg PO HS 02/10/17 [History] [place]-3 Fatty Acids/Fish Oil [Fish Oil 1,000 mg Softgel] 1 cap PO BID 02/10/17 [ History] Pantoprazole Sodium [Protonix] 40 mg PO AC-BRKFST 02/10/17 [History] Vits A,C,E/Lutein/Minerals [Ocuvite with Lutein Tablet] 1 tab PO HS 02/10/17 [ History] metFORMIN HCL 1,000 mg PO BID 02/10/17 [History] Ondansetron [Zofran ODT] 4 mg PO Q4HR PRN #50 tab 02/15/17 [Rx] amLODIPine [Norvasc] 10 mg PO HS 04/07/17 [History] Follow up Appointment(s)/Referral(s): Coleman Orellana MD [STAFF PHYSICIAN] - 07/01/17 3:15 pm (to go to [facility] on 06/16/17 for maryann ) Patient Instructions/Handouts: Lung Cancer (DC) Discharge Disposition: HOME SELF-CARE
--- NOTE | 2017-06-22 13:20 | CDI ---
Documentation Clarification Form Date: 06/22/2017 12:00:00 AM From: ОЛЕГ Murrell; Lety Espitia Therapeutic Massage Technician Phone: If you have a question about this query, please contact Lety Espitia Therapeutic Massage Technician at [phone] between 8am and 5pm. Admit Date: 06/10/2017 7:58:00 AM Patient Name: Zev Strong Visit Number: [id number] Discharge Date: 06/15/2017 ATTENTION: The Clinical Documentation Specialists (CDI) and [facility] Coding Staff appreciate your assistance in clarifying documentation. Please respond to the clarification below the line at the bottom and electronically sign. The CDI & [facility] Coding staff will review the response and follow-up if needed. Please note: Queries are made part of the Legal Health Record. If you have any questions, please contact the author of this message via ITS. Dr. Winkler, The patient has diabetes, as indicated on H&P. Per progress note dated 06/13, type 2 diabetes mellitus with uncontrolled blood sugars is documented. Lab findings show glucose readings ranging from 122 to 172. In order to capture the severity of Illness and necessary documentation specificity, please clarify: DM uncontrolled w/hypoglycemia Other, please specify Unable to Determine DM uncontrolled w/hyperglycemia MTDD
== END 2017-06-15 16:30 | disposition home or self-care (01) | DRG 846 ==
LOC: 5ONC 06-10 07:58
PROVIDERS: ADMIT Internal Medicine Hematology & Oncology; ATTEND Internal Medicine Hematology & Oncology
DX: Z51.11 Encounter for antineoplastic chemotherapy (principal); D61.810 Antineoplastic chemotherapy induced pancytopenia; C83.39 Diffuse large B-cell lymphoma, extranodal and solid organ sites; B37.0 Candidal stomatitis; E78.5 Hyperlipidemia, unspecified; D53.9 Nutritional anemia, unspecified; I10 Essential (primary) hypertension; K21.9 Gastro-esophageal reflux disease without esophagitis; M06.9 Rheumatoid arthritis, unspecified; E11.65 Type 2 diabetes mellitus with hyperglycemia; R60.0 Localized edema; T45.1X5A Adverse effect of antineoplastic and immunosuppressive drugs, initial encounter; G31.84 Mild cognitive impairment of uncertain or unknown etiology; R32 Unspecified urinary incontinence; Z79.02 Long term (current) use of antithrombotics/antiplatelets; Z79.82 Long term (current) use of aspirin; Z79.84 Long term (current) use of oral hypoglycemic drugs; Z79.899 Other long term (current) drug therapy; Z82.49 Family history of ischemic heart disease and other diseases of the circulatory system; Z85.46 Personal history of malignant neoplasm of prostate; Z86.718 Personal history of other venous thrombosis and embolism; Z87.81 Personal history of (healed) traumatic fracture; Z88.5 Allergy status to narcotic agent; Z88.0 Allergy status to penicillin; Z88.2 Allergy status to sulfonamides
CPT/HCPCS: 74019; 80053; 83615; 84550; 85025

== ENCOUNTER → 2017-06-17 | Outpatient (CLI) | payer MEDICARE, BC ==
[~2017-06-17] MED LIST: PEGFILGRASTIM 6 MG/0.6 ML SYRINGE SQ NR
[2017-06-17 08:30] VITALS: BP 151/72; PULSE 72; RESP 16; TEMP 98.2
== END ==
LOC: PROCWHC3 08:10
PROVIDERS: ATTEND Internal Medicine Hematology & Oncology
DX: D70.1 Agranulocytosis secondary to cancer chemotherapy (principal)
CPT/HCPCS: 96372; J2505

== ENCOUNTER → 2017-06-27 | Outpatient (CLI) | payer MEDICARE, BC ==
--- NOTE | 2017-06-28 14:31 | PE ---
EXAMINATION TYPE: PET CT fusion skull to thigh DATE OF EXAM: 06/27/2017 CLINICAL HISTORY: 76-year-old male restaging B cell lymphoma. Last chemotherapy on 06/14/2017. Patient receiving injections of Neulasta. TECHNIQUE: Following the intravenous administration of 11.2 mCi of F-18 FDG, whole body images are performed from the skull base to the midthigh. Images are reviewed on the computer in the coronal, a xial, and sagittal planes. Reconstructed rotating images are created on independent workstation and reviewed on the computer. A localization and attenuation correction CT is performed in conjunction with the PET scan. Glucose level: 98 mg/dL CTDI: 3.92 mGy DLP: 349.21 mGy-cm COMPARISON: 05/19/2017 and PET/CT 01/17/2017 FINDINGS: PET: Physiologic FDG uptake within the neck and chest. Average liver SUV 2.3. Variable moderate to intense FDG uptake throughout the colon shows segmental pattern likely physiolog ic muscular uptake. No discrete abnormality on CT images. Variable wvgy-gt-jfdrybax homogeneous FDG uptake throughout the osseous structures, max SUV 3.0, in k eeping with bone marrow stimulation. Suspect some urine contamination. Also, physiologic hypermetabolism involving the testes. ATTENUATION CORRECTION CT: Visualized paranasal sinuses and mastoid air cells are clear. No cervical lymphadenopathy. Right anterior chest wall injection port with catheter tip at the cavoatrial junction. Moderate bilat eral gynecomastia. Heart is upper limits of normal in size. Coronary vessel calcifications are a pascual er for coronary artery disease. Ascending aorta borderline ectatic at 3.7 cm. Ectasia of the upper de scending thoracic aorta 3.5 cm. Mild atherosclerotic arch calcifications with conventional arch vesse l branching anatomy. No thoracic lymphadenopathy. Evaluation of the lungs shows no consolidation or pleural effusion. Small hiatal hernia. Moderate atherosclerotic calcifications throughout the abdominal aorta and iliac arteries. Scattered mild to moderate stool burden. No mesenteric or retroperitoneal lymphadenopathy identified. No dilated small bowel, free fluid, or f ree air. Redemonstrated left inguinal hernia containing a large loop of sigmoid colon. Nonobstructiv e changes. No abnormal fluid collection the pelvis or pelvic lymphadenopathy. Bones: Mild degenerative changes of the hips and SI joints. Degenerative changes throughout the lumba r spine with vertebroplasty changes at L1, L2, and L3. Cervical spondylosis. IMPRESSION: 1. Diffuse increased bone marrow uptake in keeping with treatment related marrow stimulation. 2. No suspicious lymphadenopathy or hypermetabolism to suggest active disease/recurrence. 3. Continued left inguinal hernia containing a large loop of sigmoid colon. No obstructive changes.
== END | disposition home or self-care (01) ==
LOC: RADPETMAIN 10:11
PROVIDERS: ATTEND Internal Medicine Hematology & Oncology
DX: C83.38 Diffuse large B-cell lymphoma, lymph nodes of multiple sites (principal); K40.90 Unilateral inguinal hernia, without obstruction or gangrene, not specified as recurrent; R93.7 Abnormal findings on diagnostic imaging of other parts of musculoskeletal system
CPT/HCPCS: 78815; A9552

== ENCOUNTER 2017-08-06 12:42 | Observation (INO) | payer MEDICARE, BC ==
[2017-08-06] MEDS ORDERED: NITROGLYCERIN OINT 1 INCH/GM PACKET TOPICAL STA (13:04)
[2017-08-06] MEDS ORDERED: ASPIRIN 81 MG PO STA (13:04)
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
[2017-08-06 13:25] LABS: Basophils % (A) 0 %; Eosinophils # (A) 0.2 k/uL (0-0.7); Eosinophils % (A) 3 %; HCT 32.8 % (39.0-53.0); HGB 10.6 gm/dL (13.0-17.5); Lymphocytes # (A) 0.7 k/uL (1.0-4.8); Lymphocytes % (A) 8 %; MCH 34.6 pg (25.0-35.0); MCHC 32.5 g/dL (31.0-37.0); MCV 106.5 fL (80.0-100.0); Macrocytosis Moderate; Mean Platelet Volume 6.8; Monocytes # (A) 0.5 k/uL (0-1.0); Monocytes % (A) 6 %; Neutrophils # (A) 7.4 k/uL (1.3-7.7); Neutrophils % (A) 82 %; Platelet Count 234 k/uL (150-450); RBC 3.08 m/uL (4.30-5.90)
[2017-08-06 13:35] LABS: INR 1.1 (<1.2); Partial Thromboplastin Time 23.2 sec (22.0-30.0); Prothrombin Time 10.8 sec (9.0-12.0)
--- NOTE | 2017-08-06 13:40 | XR ---
EXAMINATION TYPE: XR chest 2V DATE OF EXAM: 08/06/2017 COMPARISON: 05/01/2017 HISTORY: Shortness of breath TECHNIQUE: Frontal and lateral views of the chest are obtained. FINDINGS: Scattered senescent parenchymal changes noted. Hyperinflation compatible with COPD. Focal eventration right hemidiaphragm. Right-sided MediPort catheter in place. No evidence for infiltrate. No evidence for atelectasis. Heart size is stable. Mediastinal structures are stable and grossly unremarkable. No evidence for hilar prominence. Degenerative changes dorsal spine. IMPRESSION: 1. No evidence for acute pulmonary disease.
[2017-08-06 13:41] LABS: Magnesium 1.5 mg/dL (1.6-2.3); Potassium 4.6 mmol/L (3.5-5.1); Total Bilirubin 0.4 mg/dL (0.2-1.3); Total Protein 6.1 g/dL (6.3-8.2)
[2017-08-06 13:48] LABS: Creatine Kinase 63 U/L (55-170)
[2017-08-06 13:59] LABS: Creatine Kinase MB 1.2 ng/mL (0.0-2.4); Troponin I <0.012 ng/mL (0.000-0.034)
[2017-08-06] MEDS ORDERED: NITROGLYCERIN SL TABS 0.4 MG TAB SUBLINGUAL PRN (14:32)
[2017-08-06 19:54] LABS: Creatine Kinase 56 U/L (55-170)
[2017-08-06] MEDS: NITROGLYCERIN OINT 1 INCH/GM PACKET TOPICAL SCH ×2 (19:57→23:14)
[2017-08-06 20:06] LABS: Creatine Kinase MB 0.9 ng/mL (0.0-2.4); Troponin I <0.012 ng/mL (0.000-0.034)
[2017-08-06] MEDS ORDERED: ONDANSETRON ODT 4 MG TAB PO PRN (21:46)
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
[2017-08-07] MEDS: amLODIPine 10 MG TAB PO SCH ×2 (01:21→20:25)
[2017-08-07] MEDS: VIT A,C & E-LUTEIN-MINERALS 1 EACH TAB PO SCH ×2 (01:21→20:24)
[2017-08-07 01:23] LABS: Creatine Kinase MB 0.5 ng/mL (0.0-2.4); Troponin I 0.013 ng/mL (0.000-0.034)
[2017-08-07 03:09] LABS: Cholesterol 133 mg/dL (<200); HDL Cholesterol 59 mg/dL (40-60); LDL Cholesterol,Calculated 61 mg/dL (0-99); Triglycerides 65 mg/dL (<150)
[2017-08-07] MEDS: NITROGLYCERIN OINT 1 INCH/GM PACKET TOPICAL SCH ×3 (05:45→17:01)
[2017-08-07 07:13] LABS: Glucose,Whole Blood 136 mg/dL (75-99)
[2017-08-07] MEDS ORDERED: NON-FORMULARY DRUG (Omega-3 Fatty Acids/Fish Oil [Fish Oil 1,000 Mg Softgel] 1 CAP) PO SCH (09:00)
[2017-08-07] MEDS ORDERED: ASPIRIN 325 MG TAB PO SCH (09:00)
[2017-08-07] MEDS ORDERED: CLOPIDOGREL 75 MG TAB PO SCH (09:00)
[2017-08-07] MEDS ORDERED: ATORVASTATIN 10 MG TAB PO SCH (09:00)
[2017-08-07] MEDS: metFORMIN 500 MG TAB PO SCH ×2 (11:01→20:25)
[2017-08-07] MEDS: CHOLECALCIFEROL 1,000 UNIT TAB PO SCH (11:01)
[2017-08-07] MEDS: PANTOPRAZOLE 40 MG TABLET PO SCH (11:01)
[2017-08-07] MEDS: IBUPROFEN 400 MG TAB PO SCH ×3 (11:01→21:49)
[2017-08-07] MEDS: ALLOPURINOL 300 MG TAB PO SCH (11:01)
[2017-08-07] MEDS: ACETAMINOPHEN TAB 325 MG TAB PO SCH ×2 (11:02→20:24)
[2017-08-07 11:13] VITALS: BMI 22.3
[2017-08-07] MEDS: ATORVASTATIN 40 MG TAB PO SCH (11:41)
[2017-08-07 12:04] LABS: Glucose,Whole Blood 240 mg/dL (75-99)
[2017-08-07] MEDS ORDERED: ASPIRIN 81 MG PO SCH (14:21)
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
[2017-08-07] MEDS: DOCUSATE 100 MG CAP PO SCH (14:34)
[2017-08-07 15:57] LABS: Hemoglobin A1C 5.6 % (4.0-6.0)
--- NOTE | 2017-08-07 15:59 | P.PN ---
Subjective Progress Note Date: 08/07/17 Principal diagnosis: This is a continue progress on a 76-year-old man with B-cell lymphoma came in with history of worsening chest pressure. Acute coronary syndrome is ruled out any type of myocardial infarction enzymatic elevation is negative. He states he feels much better. I appreciate cardiology input. Question element of pericarditis. Plavix has been discontinued. No history of previous ulcers. No significant nausea, vomiting or diarrhea is noted. Objective - Vital Signs Vital signs: Vital Signs Temp 98.0 F 08/07/17 15:42 Pulse 75 08/07/17 15:42 Resp 18 08/07/17 15:42 BP 95/53 08/07/17 15:42 Pulse Ox 95 08/07/17 15:42 Intake & Output 08/06/17 08/07/17 08/07/17 18:59 06:59 18:59 Weight 72.575 kg 72.575 kg Other: Voiding Method Toilet Toilet Diaper Diaper Incontinent Incontinent # Voids 2 1 - Constitutional General appearance: Present: average body habitus - EENT Eyes: Absent: abnormal pupil - Respiratory Respiratory: bilateral: CTA - Cardiovascular Rhythm: regular Heart sounds: normal: S1, S2 Abnormal Heart Sounds: Absent: S3 Gallop - Integumentary Integumentary: Absent: jaundiced - Musculoskeletal Musculoskeletal: Present: gait normal - Psychiatric Psychiatric: Present: A&O x's 3 - Labs CBC & Chem 7: 08/06/17 12:55 08/06/17 12:55 Labs: Abnormal Lab Results - Last 24 Hours (Table) 08/07/17 08/07/17 08/07/17 Range/Units 00:14 07:10 11:34 ESR 31 H (0-15) mm/hr POC Glucose (mg/dL) 136 H (75-99) mg/dL Total Creatine Kinase 42 L (55-170) U/L C-Reactive Protein (<10.0) mg/L 08/07/17 08/07/17 Range/Units 11:34 12:03 ESR (0-15) mm/hr POC Glucose (mg/dL) 240 H (75-99) mg/dL Total Creatine Kinase (55-170) U/L C-Reactive Protein 149.7 H (<10.0) mg/L Assessment and Plan (1) Unstable angina pectoris Current Visit: Yes Status: Acute Code(s): I20.0 - UNSTABLE ANGINA SNOMED Code(s): 0535681 (2) At risk for readmission to hospital Current Visit: No Status: Acute Code(s): Z91.89 - OTH PERSONAL RISK FACTORS , NOT ELSEWHERE CLASSIFIED SNOMED Code(s): 2770589639590 (3) Chest pain Current Visit: No Status: Acute Code(s): R07.9 - CHEST PAIN, UNSPECIFIED SNOMED Code(s): 32497703 (4) Diffuse large B-cell lymphoma of extranodal site Current Visit: No Status: Acute Priority: High Code(s): C83.39 - DIFFUSE LARGE B-CELL LYMPHOMA, EXTRNOD AND SOLID ORGAN SITES SNOMED Code(s): 830318683 (5) Diabetes mellitus Current Visit: No Status: Chronic Priority: Medium Code(s): E11.9 - TYPE 2 DIABETES MELLITUS WITHOUT COMPLICATIONS SNOMED Code(s): 72981374 (6) Essential (primary) hypertension Current Visit: No Status: Chronic Code(s): I10 - ESSENTIAL (PRIMARY) HYPERTENSION SNOMED Code(s): 10626052 (7) Hyperlipidemia Current Visit: No Status: Chronic Priority: Low Code(s): E78.5 - HYPERLIPIDEMIA, UNSPECIFIED SNOMED Code(s): 08038078 Plan: Continue current regimen or treatment. Echocardiogram is pending. If negative, patient does not show any further symptoms, despite discharge in a.m. Colonoscopy will covering for the weekend. Appreciate cardiology input. Time with Patient: Less than 30
[2017-08-07 17:21] LABS: Glucose,Whole Blood 97 mg/dL (75-99)
[2017-08-07 20:42] LABS: Glucose,Whole Blood 127 mg/dL (75-99)
[2017-08-07] MEDS ORDERED: ZINC PO SCH (21:00)
[2017-08-07] MEDS ORDERED: MANG PO SCH (21:00)
[2017-08-07] MEDS ORDERED: BOR PO SCH (21:00)
[2017-08-07] MEDS ORDERED: D3 PO SCH (21:00)
[2017-08-07] MEDS ORDERED: METOPROLOL SUCCINATE (ER) 25 MG TAB.ER.24H PO SCH (21:00)
[2017-08-07] MEDS ORDERED: CAL PO SCH (21:00)
[2017-08-07] MEDS ORDERED: Mirabegron [Myrbetriq] 50 MG PO SCH (21:00)
[2017-08-07] MEDS ORDERED: MAG11 PO SCH (21:00)
[2017-08-07] MEDS ORDERED: FERROUS SULFATE 325 MG TAB PO SCH (21:00)
[2017-08-07] MEDS ORDERED: COP PO SCH (21:00)
[2017-08-08] MEDS: NITROGLYCERIN OINT 1 INCH/GM PACKET TOPICAL SCH ×3 (04:53→14:07)
[2017-08-08 06:57] LABS: Glucose,Whole Blood 102 mg/dL (75-99)
[2017-08-08] MEDS: IBUPROFEN 400 MG TAB PO SCH ×2 (08:25→16:23)
[2017-08-08] MEDS: ACETAMINOPHEN TAB 325 MG TAB PO SCH (08:26)
[2017-08-08] MEDS: ALLOPURINOL 300 MG TAB PO SCH (08:27)
[2017-08-08] MEDS: metFORMIN 500 MG TAB PO SCH (08:27)
[2017-08-08] MEDS: PANTOPRAZOLE 40 MG TABLET PO SCH (08:27)
[2017-08-08] MEDS: CHOLECALCIFEROL 1,000 UNIT TAB PO SCH (08:27)
[2017-08-08] MEDS: ATORVASTATIN 40 MG TAB PO SCH (08:27)
[2017-08-08] MEDS: DOCUSATE 100 MG CAP PO SCH (08:28)
--- NOTE | 2017-08-08 08:31 | ECHOF ---
Referral Reason:chest pain MEASUREMENTS -------- HEIGHT: 180.3 cm WEIGHT: 72.6 kg BP: 126/68 RVIDd: 2.4 cm (< 3.3) IVSd: 1.0 cm (0.6 - 1.1) LVIDd: 5.8 cm (3.9 - 5.3) LVPWd: 1.1 cm (0.6 - 1.1) IVSs: 1.3 cm LVIDs: 4.6 cm LVPWs: 1.5 cm LAESV Index (A-L): 19.40 ml/m Ao Diam: 3.4 cm (2.0 - 3.7) AV Cusp: 1.6 cm (1.5 - 2.6) LA Diam: 3.3 cm (2.7 - 3.8) EPSS: 1.1 cm MV E Urban: 0.56 m/s MV DecT: 233 ms MV A Urban: 0.72 m/s MV E/A Ratio: 0.77 AR PHT: 630 ms RAP: 5.00 mmHg RVSP: 30.65 mmHg MV EF SLOPE: 95.09 mm/s (70 - 150) MV EXCURSION: 1.93 cm (> 18.000) FINDINGS -------- Sinus rhythm. This was a technically adequate study. The left ventricular size is normal. Left ventricular wall thickness is normal. Overall left vent ricular systolic function is mild-moderately impaired with, an EF between 40 - 45 %. Septal Hypokin esis The right ventricle is normal in size and function. Normal LA size by volume 22+/-6 ml/m2. RA appears enlarged. Aortic valve is trileaflet and is mildly thickened. There is mild aortic regurgitation. There is no evidence of aortic stenosis. The mitral valve leaflets are mildly thickened. Mild mitral regurgitation is present. There is mi ldly calcified chordae. Trace tricuspid regurgitation present. Right ventricular systolic pressure is normal at < 35 mmHg. There is no evidence of pulmonary hypertension. Trace/mild (physiologic) pulmonic regurgitation. The aortic root size is normal. IVC Not well visulized. There is no pericardial effusion. CONCLUSIONS -------- 1. Sinus rhythm. 2. This was a technically adequate study. 3. The left ventricular size is normal. 4. Left ventricular wall thickness is normal. 5. Overall left ventricular systolic function is mild-moderately impaired with, an EF between 40 - 45 %. 6. Septal Hypokinesis 7. Normal LA size by volume 22+/-6 ml/m2. 8. RA appears enlarged. 9. Aortic valve is trileaflet and is mildly thickened. 10. There is mild aortic regurgitation. 11. The mitral valve leaflets are mildly thickened. 12. Mild mitral regurgitation is present. 13. There is mildly calcified chordae. 14. Trace tricuspid regurgitation present. 15. Right ventricular systolic pressure is normal at < 35 mmHg. 16. There is no evidence of pulmonary hypertension. 17. Trace/mild (physiologic) pulmonic regurgitation. 18. The aortic root size is normal. 19. IVC Not well visulized. 20. There is no pericardial effusion. CERTIFIED TUMOR REGISTRAR: Johnny Cummins RDCS
--- NOTE | 2017-08-08 09:28 | PN ---
PROGRESS NOTE This is a 76-year-old gentleman with history of diffuse large B-cell lymphoma and dysplastic anemia, [id number] diabetes, whom I evaluated in my office recently, came to hospital with chest discomfort that was atypical and probably noncardiac in origin. He ruled out for myocardial infarction and had an echocardiogram that shows [id number] LV systolic dysfunction with mild aortic regurgitation. At the time of my evaluation, he is comfortable at rest and is free of symptoms. PHYSICAL EXAMINATION: On exam vital signs are stable. There is no jugular venous distention. Carotid upstroke is normal. There is no bruit. Chest exam reveals good air entry bilaterally. Heart exam reveals first and second heart sounds and a systolic murmur at the apex. Abdomen is soft. Exam of extremities did not reveal any edema. Peripheral pulses are felt. LABS: Show that the potassium is 4.6 creatinine is 1.3. Three sets of troponins are negative and LDL cholesterol is 61. ASSESSMENT: 1. Chest pain atypical probably musculoskeletal. 2. Cardiomyopathy with mild to moderate LV dysfunction. PLAN: No further cardiac workup at this time. Continue with current medications. I will arrange followup through my office on discharge. It is unclear if he had a recent stress test are not. If he did not, we will schedule him for one. MMODL / IJN: [id number] /
[2017-08-08 12:00] LABS: Glucose,Whole Blood 130 mg/dL (75-99)
[2017-08-08 12:02] VITALS: BP 98/58; PULSE 63; RESP 16; TEMP 97.9
--- NOTE | 2017-08-08 16:42 | P.DS ---
Providers Date of admission: 08/06/17 14:49 Attending physician: Ck Frances Consults: 08/06/17 14:32 Consult Physician Urgent Consulting Provider: [facility] Consult Reason/Comments: Unstable angina Do you want consulting provider notified?: Yes Primary care physician: Ck Frances [facility] Course: Mr. Strong is a pleasant 76-year-old male past medical history significant for diabetes mellitus, hypertension, dyslipideimia and B-cell lymphoma with recent chemotherapy that subsided in May. He denies history of coronary artery disease and has recently established with Dr. Cardoza to assess for heart murmur. He states he started having a pain in his chest yesterday when he woke up. The pain was from shoulder to shoulder and described as an ache in his chest. No radiation of the pain to the back, neck, jaw or arms. Denies associated shortness of breath, nausea, vomiting, dizziness, palpitations or diaphoresis. Initially when the pain started it lasted for approximately 3 hours before he came to ED for evaluation. The pain slowly subsided on its own overnight with no specific alleviating factors. At the time of my exam he describes a dull ache present. EKG reveals sinus mechanism with no acute ST or T-wave abnormalities. Chest xray negative for an acute cardiopulmonary process. Most recent echocardiogram performed in the office June 2017 reveals preserved left ventricular systolic function with ejection fraction 55%, moderate to severe aortic regurgitation and mild tricuspid regurgitation. Most recent Lexiscan stress test performed in the office May 2017 reveals no evidence of reversible cardiac ischemia. Most recent carotid duplex performed in the office reveals bilateral 16-49% nonobstructive stenosis. 24-hour Holter monitor performed May 2017 reveals frequent PVCs, bigeminy and a nonsustained 3 beat run of ventricular tachycardia. Patient was monitored for ACS rule out- he had serial troponins and EKGs within normal limits. Patient was started on Motrin for possible pericarditis after which his symptoms did improve. Patient's Plavix has been discontinued. His Lipitor has been increased from 10 to 40 mg during this hospital stay. The rest of his home medications have been continued. Patient had an echocardiogram done showing ejection fraction of 40-45%. He was cleared by cardiology services to be discharged home today. Discharge diagnosis Chest pain atypical- differential is still musculoskeletal versus pericarditis - not acute coronary syndrome Cardiomyopathy with mild to moderate LV dysfunction ejection fraction of 40-45% History of B-cell lymphoma I aortic regurgitation Hypertension Hyperlipidemia Type 2 diabetes mellitus Discussed with the patient that he would be discharged on Motrin for 5 more days for suspected pericarditis. And his Lipitor has been increased from 10-40 mg. Patient is advised to follow-up with his PCP in 3-4 days and also cardiology in 1 week. More than 35 minutes spent with the discharge of the patient. Patient Condition at Discharge: Stable Plan - Discharge Summary Discharge Rx Participant: No New Discharge Prescriptions: New Ibuprofen [Motrin] 400 mg PO TID 5 Days #15 tab Atorvastatin [Lipitor] 40 mg PO DAILY #30 tab Continue Docusate [Colace] 100 mg PO DAILY@1200 Vits A,C,E/Lutein/Minerals [Ocuvite with Lutein Tablet] 1 tab PO HS Cholecalciferol [Vitamin D3] 2,000 unit PO DAILY Acetaminophen [Tylenol 8 Hour] 650 mg PO BID Ferrous Sulfate [Iron (65 MG Elemental)] 325 mg PO HS [place]-3 Fatty Acids/Fish Oil [Fish Oil 1,000 mg Softgel] 1 cap PO BID Jeferson/D3/Mag11/Zinc/Fleet Sales Manager/Azar/Bor [Caltrate 600+D Plus Tablet] 1 tab PO HS Aspirin 81 mg PO HS Allopurinol [Zyloprim] 300 mg PO DAILY Pantoprazole Sodium [Protonix] 40 mg PO AC-BRKFST Mirabegron [Myrbetriq] 50 mg PO HS metFORMIN HCL 1,000 mg PO BID Metoprolol Succinate [Toprol XL] 25 mg PO HS Ondansetron [Zofran ODT] 4 mg PO Q4HR PRN #50 tab PRN Reason: Nausea And Vomiting amLODIPine [Norvasc] 10 mg PO HS Discontinued Clopidogrel Bisulfate [Plavix] 75 mg PO DAILY Atorvastatin [Lipitor] 10 mg PO DAILY Discharge Medication List Acetaminophen [Tylenol 8 Hour] 650 mg PO BID 02/10/17 [History] Allopurinol [Zyloprim] 300 mg PO DAILY 02/10/17 [History] Aspirin 81 mg PO HS 02/10/17 [History] Jeferson/D3/Mag11/Zinc/Fleet Sales Manager/Azar/Bor [Caltrate 600+D Plus Tablet] 1 tab PO HS [History] Cholecalciferol [Vitamin D3] 2,000 unit PO DAILY 02/10/17 [History] Docusate [Colace] 100 mg PO DAILY@1200 02/10/17 [History] Ferrous Sulfate [Iron (65 MG Elemental)] 325 mg PO HS 02/10/17 [History] Metoprolol Succinate [Toprol XL] 25 mg PO HS 02/10/17 [History] Mirabegron [Myrbetriq] 50 mg PO HS 02/10/17 [History] [place]-3 Fatty Acids/Fish Oil [Fish Oil 1,000 mg Softgel] 1 cap PO BID 02/10/17 [ History] Pantoprazole Sodium [Protonix] 40 mg PO AC-BRKFST 02/10/17 [History] Vits A,C,E/Lutein/Minerals [Ocuvite with Lutein Tablet] 1 tab PO HS 02/10/17 [ History] metFORMIN HCL 1,000 mg PO BID 02/10/17 [History] Ondansetron [Zofran ODT] 4 mg PO Q4HR PRN #50 tab 02/15/17 [Rx] amLODIPine [Norvasc] 10 mg PO HS 04/07/17 [History] Atorvastatin [Lipitor] 40 mg PO DAILY #30 tab 08/08/17 [Rx] Ibuprofen [Motrin] 400 mg PO TID 5 Days #15 tab 08/08/17 [Rx] Follow up Appointment(s)/Referral(s): Ck Frances MD [Primary Care Provider] - 1-2 days Doe Cardoza MD [STAFF PHYSICIAN] - 1 Week Discharge Disposition: HOME SELF-CARE
== END 2017-08-08 16:44 | disposition home or self-care (01) ==
LOC: EC 12:42 → 3OBS 14:49
PROVIDERS: ADMIT Family Medicine; ATTEND Family Medicine
DX: R07.89 Other chest pain (principal); E11.9 Type 2 diabetes mellitus without complications; E78.5 Hyperlipidemia, unspecified; K21.9 Gastro-esophageal reflux disease without esophagitis; M06.9 Rheumatoid arthritis, unspecified; I35.1 Nonrheumatic aortic (valve) insufficiency; I10 Essential (primary) hypertension; C83.39 Diffuse large B-cell lymphoma, extranodal and solid organ sites; I42.9 Cardiomyopathy, unspecified; Z79.82 Long term (current) use of aspirin; Z79.899 Other long term (current) drug therapy; Z79.02 Long term (current) use of antithrombotics/antiplatelets; Z82.49 Family history of ischemic heart disease and other diseases of the circulatory system; Z88.5 Allergy status to narcotic agent; Z88.0 Allergy status to penicillin; Z88.2 Allergy status to sulfonamides
CPT/HCPCS: 99285; 36415; 94760; 93005; 93306; 80061; 80053; 85652; 82550 ×2; 82553 ×2; 83735; 84484 ×2; 85025; 85610; 85730; 86140; 83036; 71046; G0378 ×3

== ENCOUNTER → 2017-09-28 | Outpatient (CLI) | payer MEDICARE, BC ==
--- NOTE | 2017-09-28 15:27 | CT ---
EXAMINATION TYPE: CT ChestAbdPelvis w con DATE OF EXAM: 09/28/2017 COMPARISON: 06/27/2017 PET/CT and CT abdomen dated 05/19/2017. HISTORY: Follow up scan CT DLP: 1124.6 mGycm. Automated Exposure Control for Dose Reduction was Utilized. CONTRAST: CT scan of the thorax, abdomen and pelvis is performed with IV Contrast, patient injected with 50 mL of Isovue 300. FINDINGS: LUNGS: There is a 2 mm superior segment left lower lobe pulmonary nodule on series 5 image 30. This i s retrospectively present on the exam of 01/17/2017-PET/CT-and likely benign although surveillance is recommended. No new focal consolidation is seen. There is no pleural effusion or pneumothorax seen . The tracheobronchial tree is patent. MEDIASTINUM: There are no greater than 1 cm hilar or mediastinal lymph nodes. No pericardial effusi on is seen. Moderate three-vessel coronary calcifications are noted. Right-sided Mediport is again p resent. Thoracic aorta again measures approximately 3.6 cm, nonenlarged. Descending thoracic aorta me asures up to 2.9 cm distally and 3.2 cm proximally minimal atherosclerosis is seen of the thoracic ao rta. OTHER: There is overall symmetric retroareolar gynecomastia. LIVER/GB: No significant abnormality is appreciated. Cholelithiasis. PANCREAS: No significant abnormality is seen. No ductal dilatation. SPLEEN: No significant abnormality is seen. ADRENALS: No significant abnormality is seen. KIDNEYS: Kidneys enhance and excrete symmetrically. No hydronephrosis. BOWEL: The previously noted small hiatal hernia is redemonstrated. Residual contrast is seen within t he distal esophagus. Alternatively this could be from gastroesophageal reflux but is small amount. Th ere is redemonstration of a large bowel containing left inguinal hernia as seen on the prior exam of 01/18/2017. No proximal dilatation to suggest obstruction. GENITAL ORGANS: Surgical clips are seen in the prostatic bed. Prostate gland is surgically absent. No suspicious focal mass or soft tissue density in the postsurgical site. LYMPH NODES: No greater than 1cm abdominal or pelvic lymph nodes are appreciated. OSSEOUS STRUCTURES: Multiple old healed left-sided rib fractures are seen posteriorly. There are mult ilevel compression deformities of L1-L3 and T8. There is grade 1 anterolisthesis of L5 on S1, likely on a degenerative basis. Multilevel degenerative change of the spine is again noted and of the femora l acetabular joints. No new suspicious osseous lesion is seen. OTHER: There is severe tortuosity of the abdominal aorta although there is no evidence of aneurysmal dilatation. There is extensive calcific atheromatous change of the abdominal aorta and its branches. IMPRESSION: 1. No evidence of adenopathy within the chest, abdomen, or pelvis to indicate recurrence. 2. Redemonstration of a large bowel containing left inguinal hernia with no current CT evidence of ob struction. 3. Stable 2 mm left pulmonary nodule dating back to thousand 17, favored to be benign although survei llance is recommended.
== END | disposition home or self-care (01) ==
LOC: RADPROMAIN 12:25
PROVIDERS: ATTEND Internal Medicine Hematology & Oncology
DX: C83.38 Diffuse large B-cell lymphoma, lymph nodes of multiple sites (principal); K40.90 Unilateral inguinal hernia, without obstruction or gangrene, not specified as recurrent; R91.1 Solitary pulmonary nodule; Z88.2 Allergy status to sulfonamides; Z88.1 Allergy status to other antibiotic agents
CPT/HCPCS: 82565; 84520; 71260; 74177; J1642; Q9967

== ENCOUNTER 2017-11-12 20:22 | Emergency (ER) | payer MEDICARE, BC ==
[2017-11-12 20:38] VITALS: RESP 18
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
--- NOTE | 2017-11-12 21:22 | XR ---
EXAMINATION TYPE: XR Hip RT and AP Pelvis DATE OF EXAM: 11/12/2017 COMPARISON: NONE HISTORY: Right hip pain TECHNIQUE: A single AP view of the pelvis is obtained. Two views of the right hip are obtained. FINDINGS: The pelvic ring is intact. The proximal right femur and hip joint appear intact. There is c alcification at the greater trochanter of the right femur. There are surgical clips in the pelvis. Sa croiliac joints appear normal. IMPRESSION: Calcification consistent with trochanteric calcific bursitis. No fracture seen.
[2017-11-12] MEDS ORDERED: predniSONE 50 MG TAB PO STA (21:55)
[2017-11-12 22:13] VITALS: BP 134/60; PULSE 84; TEMP 98
== END 2017-11-12 22:23 | disposition home or self-care (01) ==
LOC: EC 20:22
DX: M70.61 Trochanteric bursitis, right hip (principal); E11.9 Type 2 diabetes mellitus without complications; I10 Essential (primary) hypertension; K21.9 Gastro-esophageal reflux disease without esophagitis; Z86.718 Personal history of other venous thrombosis and embolism; Z79.82 Long term (current) use of aspirin; Z79.899 Other long term (current) drug therapy; Z79.84 Long term (current) use of oral hypoglycemic drugs; Z88.0 Allergy status to penicillin; Z88.2 Allergy status to sulfonamides; Z88.5 Allergy status to narcotic agent
CPT/HCPCS: 73502; 99283; J7512

== ENCOUNTER 2017-12-18 13:53 | Inpatient (IN) | payer MEDICARE, BC ==
[2017-12-18] MEDS ORDERED: ONDANSETRON 4 MG/2 ML VIAL IVP STA (14:35)
[2017-12-18] MEDS ORDERED: SODIUM CHLORIDE 0.9% 1,000 ML IV STA (14:35)
[2017-12-18] MEDS ORDERED: ACETAMINOPHEN IV (For NPO) 1,000 MG in EMPTY BAG 1 BAG IVPB STA (14:35)
[2017-12-18 15:15] LABS: Basophils % (A) 0 %; Eosinophils # (A) 0.1 k/uL (0-0.7); Eosinophils % (A) 0 %; HCT 37.4 % (39.0-53.0); HGB 12.5 gm/dL (13.0-17.5); Lymphocytes # (A) 0.1 k/uL (1.0-4.8); Lymphocytes % (A) 1 %; MCH 35.6 pg (25.0-35.0); MCHC 33.3 g/dL (31.0-37.0); MCV 106.9 fL (80.0-100.0); Macrocytosis Moderate; Mean Platelet Volume 6.6; Monocytes # (A) 0.4 k/uL (0-1.0); Monocytes % (A) 3 %; Neutrophils # (A) 11.9 k/uL (1.3-7.7); Neutrophils % (A) 96 %; Platelet Count 225 k/uL (150-450); RDW 14.9 % (11.5-15.5); WBC 12.4 k/uL (3.8-10.6)
[2017-12-18 15:23] LABS: Albumin 4.1 g/dL (3.5-5.0); Calcium 9.6 mg/dL (8.4-10.2); Potassium 5.2 mmol/L (3.5-5.1); Total Bilirubin 0.7 mg/dL (0.2-1.3)
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
[2017-12-18 15:30] LABS: INR 1.1 (<1.2); Prothrombin Time 10.5 sec (9.0-12.0)
[2017-12-18 15:35] LABS: Partial Thromboplastin Time 20.7 sec (22.0-30.0)
--- NOTE | 2017-12-18 15:38 | XR ---
EXAMINATION TYPE: XR chest 2V DATE OF EXAM: 12/18/2017 COMPARISON: Prior chest x-ray 08/06/2017 HISTORY: Vomiting x1 day, abnormal chest x-ray TECHNIQUE: Frontal and lateral views of the chest are obtained. FINDINGS: Findings are stable. Port is present in the right pectoral region, catheter coursing towar ds the level of the superior vena cava. Patient is rotated. Multiple old left-sided rib fractures are present. No evident pneumothorax or pleural effusion. Patchy basilar density is noted. Prominent bryn g lines suggest underlying COPD. Heart size is likely stable. Pulmonary vascularity and salma not sig nificantly changed. Aorta is dense. IMPRESSION: Basilar atelectasis.
--- NOTE | 2017-12-18 17:41 | CT ---
EXAMINATION TYPE: CT abdomen pelvis w con DATE OF EXAM: 12/18/2017 COMPARISON: 09/28/2017 HISTORY: Generalized pain with nausea CT DLP: 778.2 mGycm Automated exposure control for dose reduction was used. TECHNIQUE: Helical acquisition of images was performed from the lung bases through the pelvis. CONTRAST: Performed without Oral Contrast and with IV Contrast, patient injected with 100 mL of Isovue 300. FINDINGS: There is some minimal atelectasis at the right lung base. There is no pleural effusion. There is no p ericardial effusion. Heart appears enlarged. Liver shows no focal defect. Bile ducts are not dilated. Gallbladder appears normal. Spleen appears n ormal. There is no evidence of pancreatic mass. There are surgical clips in the left upper quadrant. This could relate to bariatric surgery. There is no adrenal mass. Kidneys show satisfactory contrast opacification. There is no hydronephrosi s. There is no evidence of a renal mass. Ureters are not dilated. Abdominal aorta is atheromatous. Th ere is no retroperitoneal adenopathy. There is no mesenteric adenopathy. Bladder distends smoothly. T here is large left side scrotal hernia that contains the sigmoid colon. There is incarceration. No ob struction seen. I see no evidence of any significant bowel dilated loops. There is no ascites. There is no sign of free air. There are compression fractures of L1 and L2-L3 unchanged. There is vertebrop lasty at L2 and L3. The bony pelvis appears intact. IMPRESSION: NO ACUTE ABNORMALITY OF THE ABDOMEN AND PELVIS. LEFT SIDE SCROTAL HERNIA UNCHANGED COMPARED TO OLD EX AM. NO BOWEL OBSTRUCTION.
[2017-12-18 19:09] LABS: Appearance,Urine Clear (Clear); Bacteria,Urine Few /hpf; Bilirubin,Urine Negative (Negative); Blood,Urine Negative (Negative); Color,Urine Yellow; Glucose,Urine (UA) Trace (Negative); Ketones,Urine Negative (Negative); Leukocyte Esterase,Urine Negative (Negative); Mucus,Urine Rare /hpf; Nitrite,Urine Negative (Negative); Protein,Urine 1+ (Negative); RBC,Urine 1 /hpf (0-5); Specific Gravity,Urine 1.016 (1.001-1.035); Squamous Epithelial Cell,Urine <1 /hpf (0-4); Urobilinogen,Urine <2.0 mg/dL (<2.0)
[2017-12-18] MEDS ORDERED: MORPHINE SULFATE 4 MG/ML SYRINGE IV PRN (19:25)
[2017-12-18] MEDS ORDERED: ONDANSETRON 4 MG/2 ML VIAL IVP PRN (19:25)
[2017-12-18] MEDS ORDERED: SODIUM CHLORIDE 0.9% 1,000 ML IV ONE (19:25)
[2017-12-18] MEDS ORDERED: NALOXONE 0.4 MG/ML 1 ML VIAL IV PRN (19:25)
[2017-12-18 22:21] LABS: Appearance,Urine Clear (Clear); Bacteria,Urine Occasional /hpf; Bilirubin,Urine Negative (Negative); Blood,Urine Negative (Negative); Color,Urine Yellow; Glucose,Urine (UA) Trace (Negative); Ketones,Urine Negative (Negative); Leukocyte Esterase,Urine Negative (Negative); Mucus,Urine Rare /hpf; Nitrite,Urine Negative (Negative); Protein,Urine 1+ (Negative); RBC,Urine 1 /hpf (0-5); Specific Gravity,Urine 1.016 (1.001-1.035); Squamous Epithelial Cell,Urine <1 /hpf (0-4); Urobilinogen,Urine <2.0 mg/dL (<2.0)
[2017-12-18] MEDS ORDERED: ACETAMINOPHEN TAB 325 MG TAB PO PRN (22:59)
[2017-12-19] MEDS: FERROUS SULFATE 325 MG TAB PO SCH ×2 (01:54→22:08)
[2017-12-19] MEDS: ALLOPURINOL 300 MG TAB PO SCH ×2 (01:54→22:09)
[2017-12-19] MEDS: amLODIPine 10 MG TAB PO SCH ×2 (01:54→22:08)
[2017-12-19] MEDS: METOPROLOL SUCCINATE (ER) 25 MG TAB.ER.24H PO SCH ×2 (01:54→22:08)
[2017-12-19 02:14] LABS: Hemoglobin A1C 6.1 % (4.0-6.0)
[2017-12-19 07:18] LABS: Basophils % (A) 0 %; Eosinophils % (A) 0 %; HCT 29.7 % (39.0-53.0); Lymphocytes # (A) 0.3 k/uL (1.0-4.8); Lymphocytes % (A) 3 %; MCH 34.2 pg (25.0-35.0); MCHC 32.2 g/dL (31.0-37.0); MCV 106.3 fL (80.0-100.0); Macrocytosis Moderate; Mean Platelet Volume 6.9; Monocytes # (A) 0.4 k/uL (0-1.0); Monocytes % (A) 5 %; Neutrophils # (A) 7.2 k/uL (1.3-7.7); Neutrophils % (A) 90 %; Platelet Count 167 k/uL (150-450); RBC 2.79 m/uL (4.30-5.90); RDW 14.6 % (11.5-15.5)
[2017-12-19 07:20] LABS: HGB 9.6 gm/dL (13.0-17.5)
[2017-12-19] MEDS ORDERED: metFORMIN 500 MG TAB PO SCH (07:30)
[2017-12-19 07:42] LABS: Glucose,Whole Blood 109 mg/dL (75-99)
[2017-12-19 07:44] LABS: Albumin 2.9 g/dL (3.5-5.0); Calcium 8.2 mg/dL (8.4-10.2); Potassium 4.3 mmol/L (3.5-5.1); Total Bilirubin 0.4 mg/dL (0.2-1.3); Total Protein 5.3 g/dL (6.3-8.2)
[2017-12-19] MEDS: INSULIN ASPART 100 UNIT/ML 1 ML 10 ML VIAL SQ SCH ×4 (08:10→22:09)
[2017-12-19] MEDS: HEPARIN SODIUM,PORCINE 5,000 UNIT/ML 1 ML VIAL SQ SCH ×2 (08:43→22:08)
[2017-12-19] MEDS: ATORVASTATIN 40 MG TAB PO SCH (08:43)
[2017-12-19] MEDS: FAMOTIDINE 20 MG TAB PO SCH (08:43)
[2017-12-19] MEDS: VIT A,C & E-LUTEIN-MINERALS 1 EACH TAB PO SCH (08:44)
[2017-12-19 12:02] LABS: Glucose,Whole Blood 119 mg/dL (75-99)
[2017-12-19] MEDS ORDERED: LEVOFLOXACIN 500MG-D5W PMX 500 MG in DEXTROSE/WATER 1 100ML.BAG IVPB SCH (14:00)
--- NOTE | 2017-12-19 14:19 | XR ---
EXAMINATION TYPE: XR abdomen 2V , 3 VIEWS DATE OF EXAM ORDERED: 12/19/2017 HISTORY: Abdomen pain. COMPARISON: None. FINDINGS: There've been previous kyphoplasty is at L2 and L3. Lung bases are clear. Within the abdomen, the abdominal gas pattern is normal. There is no evidence of obstruction or free air. No unusual calcifications are seen. IMPRESSION: NO ACUTE INTRA-ABDOMINAL ABNORMALITY.
[2017-12-19 17:40] LABS: Glucose,Whole Blood 91 mg/dL (75-99)
[2017-12-19] MEDS: TRIMETHOBENZAMIDE 300 MG CAP PO SCH (17:46)
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
[2017-12-19 20:21] LABS: Glucose,Whole Blood 94 mg/dL (75-99)
[2017-12-19] MEDS ORDERED: NON-FORMULARY DRUG (Mirabegron [Myrbetriq] 50 MG) PO SCH (21:00)
[2017-12-20] MEDS: TRIMETHOBENZAMIDE 300 MG CAP PO SCH ×2 (00:07→09:24)
[2017-12-20 01:55] VITALS: TEMP 98.2
[2017-12-20 07:29] LABS: Glucose,Whole Blood 86 mg/dL (75-99)
[2017-12-20 09:23] VITALS: BP 124/65; PULSE 62; RESP 16
[2017-12-20] MEDS: FAMOTIDINE 20 MG TAB PO SCH (09:24)
[2017-12-20] MEDS: VIT A,C & E-LUTEIN-MINERALS 1 EACH TAB PO SCH (09:24)
[2017-12-20] MEDS: HEPARIN SODIUM,PORCINE 5,000 UNIT/ML 1 ML VIAL SQ SCH (09:24)
[2017-12-20] MEDS: ATORVASTATIN 40 MG TAB PO SCH (09:24)
[2017-12-20] MEDS: INSULIN ASPART 100 UNIT/ML 1 ML 10 ML VIAL SQ SCH ×2 (09:47→12:49)
[2017-12-20 12:33] LABS: Glucose,Whole Blood 95 mg/dL (75-99)
--- NOTE | 2017-12-20 13:19 | P.DS ---
Providers Date of admission: 12/18/17 18:09 Attending physician: Ada Sher Consults: 12/19/17 13:40 Consult Physician Routine Consulting Provider: Coleman Orellana Consult Reason/Comments: lymphoma Do you want consulting provider notified?: Yes Primary care physician: Ck Frances [facility] Course: 77-year-old admitted with abdominal pain nausea vomiting possibly gastroenteritis patient also has low-grade fever patient received levofloxacin because of some atelectasis and the dr sheet from yesterday believes she may have early pneumonia which cannot be completely ruled out because of that I'll discharge him on the week of antibiotics. Patient had history of lymphoma for which patient underwent follow-up CAT scans which are negative patient was evaluated by oncology will follow with oncology as an outpatient patient will be discharged on levofloxacin for about a week patient mostly has a gastroenteritis which will not require any antibiotics although I cannot completely rule out early bibasilar pneumonia considering his fever which can be from atelectasis. PHYSICAL EXAMINATION: GENERAL: The patient is alert and oriented x3, not in any acute distress. Well developed, well nourished. HEENT: Pupils are round and equally reacting to light. EOMI. No scleral icterus. No conjunctival pallor. Normocephalic, atraumatic. No pharyngeal erythema. No thyromegaly. CARDIOVASCULAR: S1 and S2 present. No murmurs, rubs, or gallops. PULMONARY: Chest is clear to auscultation, no wheezing or crackles. ABDOMEN: Soft, nontender, nondistended, normoactive bowel sounds. No palpable organomegaly. MUSCULOSKELETAL: No joint swelling or deformity. EXTREMITIES: No cyanosis, clubbing, or pedal edema. NEUROLOGICAL: Gross neurological examination did not reveal any focal deficits. SKIN: No rashes. Systemic inflammatory response syndrome: Secondary to possibility of gastroenteritis pneumonia cannot be ruled out -Lymphoma -Type 2 diabetes mellitus -History of DVT in the past -Gastroesophageal reflux disease -Hyperlipidemia -I potential Patient Condition at Discharge: Stable Plan - Discharge Summary Discharge Rx Participant: No New Discharge Prescriptions: New Levofloxacin [Levaquin] 500 mg PO DAILY #5 tab Continue Vits A,C,E/Lutein/Minerals [Ocuvite with Lutein Tablet] 1 tab PO HS Ferrous Sulfate [Iron (65 MG Elemental)] 325 mg PO HS Lena-3 Fatty Acids/Fish Oil [Fish Oil 1,000 mg Softgel] 1 cap PO BID Jeferson/D3/Mag11/Zinc/Lime Supervisor/Azar/Bor [Caltrate 600+D Plus Tablet] 1 tab PO HS Allopurinol [Zyloprim] 300 mg PO HS Pantoprazole Sodium [Protonix] 40 mg PO AC-BRKFST Mirabegron [Myrbetriq] 50 mg PO HS metFORMIN HCL 1,000 mg PO BID Metoprolol Succinate [Toprol XL] 25 mg PO HS Ondansetron [Zofran ODT] 4 mg PO Q4HR PRN #50 tab PRN Reason: Nausea And Vomiting amLODIPine [Norvasc] 10 mg PO HS Atorvastatin [Lipitor] 40 mg PO DAILY #30 tab Discharge Medication List Allopurinol [Zyloprim] 300 mg PO HS 02/10/17 [History] Jeferson/D3/Mag11/Zinc/Lime Supervisor/Azar/Bor [Caltrate 600+D Plus Tablet] 1 tab PO HS [History] Ferrous Sulfate [Iron (65 MG Elemental)] 325 mg PO HS 02/10/17 [History] Metoprolol Succinate [Toprol XL] 25 mg PO HS 02/10/17 [History] Mirabegron [Myrbetriq] 50 mg PO HS 02/10/17 [History] Lena-3 Fatty Acids/Fish Oil [Fish Oil 1,000 mg Softgel] 1 cap PO BID 02/10/17 [ History] Pantoprazole Sodium [Protonix] 40 mg PO AC-BRKFST 02/10/17 [History] Vits A,C,E/Lutein/Minerals [Ocuvite with Lutein Tablet] 1 tab PO HS 02/10/17 [ History] metFORMIN HCL 1,000 mg PO BID 02/10/17 [History] Ondansetron [Zofran ODT] 4 mg PO Q4HR PRN #50 tab 02/15/17 [Rx] amLODIPine [Norvasc] 10 mg PO HS 04/07/17 [History] Atorvastatin [Lipitor] 40 mg PO DAILY #30 tab 08/08/17 [Rx] Levofloxacin [Levaquin] 500 mg PO DAILY #5 tab 12/20/17 [Rx] Follow up Appointment(s)/Referral(s): Ck Frances MD [Primary Care Provider] - 3 Days Discharge Disposition: HOME SELF-CARE
[2017-12-20] MEDS ORDERED: LEVOFLOXACIN 500 MG TAB PO SCH (18:00)
--- NOTE | 2017-12-21 10:32 | P.PN ---
Progress Note - Text Patient was admitted with fever source was unknown at that time urease essentially negative his blood cultures came back positive today with gram- negative bacilli. Patient was discharged on Levaquin for 5 days. I called the patient patient doesn't have any fever patient is feeling really good. Patient was asked to come back to the hospital if he feels lethargic lightheaded or if he is febrile. Same thing was discussed the primary care physician 7 more days of Levaquin prescription will be provided completing total 14 day of therapy for bacteremia with gram-negative bacilli
== END 2017-12-20 16:00 | disposition home or self-care (01) | DRG 871 ==
LOC: EC 13:53 → 4SSUR 18:09
PROVIDERS: ADMIT Hospitalist; ATTEND Hospitalist
DX: A41.50 Gram-negative sepsis, unspecified (principal); J18.9 Pneumonia, unspecified organism; C85.90 Non-Hodgkin lymphoma, unspecified, unspecified site; J98.11 Atelectasis; E11.9 Type 2 diabetes mellitus without complications; E78.5 Hyperlipidemia, unspecified; E86.0 Dehydration; I10 Essential (primary) hypertension; K21.9 Gastro-esophageal reflux disease without esophagitis; M06.9 Rheumatoid arthritis, unspecified; Z79.84 Long term (current) use of oral hypoglycemic drugs; Z82.49 Family history of ischemic heart disease and other diseases of the circulatory system; Z88.1 Allergy status to other antibiotic agents; Z88.5 Allergy status to narcotic agent; Z88.2 Allergy status to sulfonamides; Z79.899 Other long term (current) drug therapy
CPT/HCPCS: 36415; 71046; 74019; 74177; 80053; 81001; 82150; 83036; 83605; 83690; 84484; 85025; 85610; 85730; 87040; 87502; 93005; 96361; 96365; 96374; 96375; 99285

== ENCOUNTER → 2018-04-09 | Outpatient (CLI) | payer MEDICARE, BC ==
--- NOTE | 2018-04-11 20:52 | CT ---
EXAMINATION TYPE: CT ChestAbdPelvis wo con DATE OF EXAM: 04/09/2018 COMPARISON: CT chest abdomen and pelvis January 12, [address] PET CT June 27, 2017 [address] PET CT 2016 HISTORY: lymphoma, suspect mets per order. CT DLP: 519.40 mGycm. Automated Exposure Control for Dose Reduction was Utilized. TECHNIQUE: CT scan of the thorax, abdomen and pelvis is performed with oral but without IV contrast. IV contrast could not be given due to diminished renal function. FINDINGS: LUNGS: The lungs are grossly clear, there is no new concerning parenchymal mass or nodule identified. There is stable 3 mm superior left lower lobe nodule axial image 33. Minimal subpleural reticulatio n left lower lobe remains present. There is no pleural effusion or pneumothorax seen. The tracheobro nchial tree is patent. MEDIASTINUM: There are no greater than 1 cm hilar or mediastinal lymph nodes. No pericardial effusi on is seen. Heart size is stable and mildly enlarged. Coronary artery calcification is redemonstrate d which is noted marker for underlying coronary artery disease. OTHER: Prominent bilateral gynecomastia is redemonstrated. There is stable right subclavian Mediport catheter. LIVER/GB: No significant abnormality is appreciated. PANCREAS: No significant abnormality is seen. SPLEEN: No significant abnormality is seen. ADRENALS: No significant abnormality is seen. KIDNEYS: No significant abnormality is seen. BOWEL: Small hiatal hernia is present. GENITAL ORGANS: Prostate is surgically absent with multiple surgical clips at this level identified. Hernia containing portion of sigmoid colon is redemonstrated. Oral contrast reaches left colon on cur rent study. There is no suspicious small or large bowel dilatation. A few diverticula in the left and sigmoid colon are redemonstrated. LYMPH NODES: No greater than 1cm abdominal or pelvic lymph nodes are appreciated. OSSEOUS STRUCTURES: Osseous structures are demineralized. As shaped scoliosis is present. Vertebropla sty L2 and L3 levels is redemonstrated. There is mild compression 3 level. There is severe compressio n of L1 and L2 levels with sclerosis redemonstrated. Moderate narrowing of both hip joints is redemon strated. Multiple old posterior left rib fractures are redemonstrated. OTHER: There is moderate to severe atherosclerotic change of aorta extending into branch vessels with ectatic course of the abdominal aorta. IMPRESSION: No new adenopathy identified to suggest neoplastic recurrence. No significant change fro m prior.
== END | disposition home or self-care (01) ==
LOC: RADPROMAIN 13:28
PROVIDERS: ATTEND Internal Medicine Hematology & Oncology
DX: C83.38 Diffuse large B-cell lymphoma, lymph nodes of multiple sites (principal); Z88.0 Allergy status to penicillin; Z88.2 Allergy status to sulfonamides
CPT/HCPCS: 71250; 74176; 82565; 84520

== ENCOUNTER 2018-05-02 15:49 | Emergency (ER) | payer MEDICARE, BC ==
[2018-05-02 15:57] VITALS: RESP 18
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
--- NOTE | 2018-05-02 16:32 | XR ---
EXAMINATION TYPE: XR elbow limited LT DATE OF EXAM: 05/02/2018 COMPARISON: NONE HISTORY: Pain TECHNIQUE: 2 views FINDINGS: I see no fracture nor dislocation. Elbow joint spaces are normal. There is no sign of joint effusion. IMPRESSION: Negative left elbow exam.
--- NOTE | 2018-05-02 16:33 | XR ---
EXAMINATION TYPE: XR knee complete LT DATE OF EXAM: 05/02/2018 COMPARISON: NONE HISTORY: Pain TECHNIQUE: 3 views FINDINGS: I see no fracture nor dislocation. Joint spaces are normal. There is no sign of knee joint effusion. IMPRESSION: Negative left knee exam.
--- NOTE | 2018-05-02 16:34 | XR ---
EXAMINATION TYPE: XR Hip Complete LT DATE OF EXAM: 05/02/2018 COMPARISON: NONE HISTORY: Pain TECHNIQUE: 2 views FINDINGS: There is no evidence of fracture nor dislocation. Left hip joint spaces fairly normal. Sacr oiliac joint is intact. IMPRESSION: Negative left hip exam.
--- NOTE | 2018-05-02 17:12 | XR ---
EXAMINATION TYPE: XR pelvis AP view DATE OF EXAM: 05/02/2018 COMPARISON: 11/12/2017 HISTORY: Fall TECHNIQUE: Single view FINDINGS: Pelvic ring appears intact. There are surgical clips at the floor of the pelvis. Sacroiliac joints are intact. I see no definite fracture. IMPRESSION: No displaced pelvic fracture seen. No change compared to old exam.
--- NOTE | 2018-05-02 17:31 | CT ---
EXAMINATION TYPE: CT hip LT wo con DATE OF EXAM: 05/02/2018 COMPARISON: None HISTORY: Left hip pain after fall injury CT DLP: 387.1 mGycm Automated exposure control for dose reduction was used. FINDINGS: There is nondisplaced fracture of the medial left acetabulum. There is nondisplaced fracture of the l eft inferior pubic ramus. There is comminuted fracture of the right pubic symphysis. There is nondisp laced fracture of the right inferior pubic ramus. The proximal left femur shows no fracture. There is osteopenia. IMPRESSION: THERE IS FRACTURE OF THE ANTERIOR MEDIAL LEFT ACETABULUM. THERE ARE BILATERAL INFERIOR PUBIC RAMI NON DISPLACED FRACTURES. THERE IS COMMINUTED FRACTURES RIGHT PUBIC SYMPHYSIS. NO SIGNIFICANT DISPLACEMENT . THERE IS MILD FAT STRANDING ON THE LEFT LATERAL LOWER PELVIC SIDEWALL CONSISTENT WITH MINIMAL HEMOR RHAGE. THERE IS INCARCERATED LEFT SCROTAL HERNIA THAT CONTAINS SIGMOID COLON. OSTEOPENIA.
[2018-05-02 18:37] VITALS: BP 133/75; PULSE 52; TEMP 98.1
[2018-05-02 18:40] LABS: Basophils % (A) 0 %; Eosinophils # (A) 0.2 k/uL (0-0.7); Eosinophils % (A) 2 %; HCT 36.2 % (39.0-53.0); HGB 12.1 gm/dL (13.0-17.5); Lymphocytes % (A) 10 %; MCH 34.2 pg (25.0-35.0); MCHC 33.4 g/dL (31.0-37.0); MCV 102.4 fL (80.0-100.0); Macrocytosis Slight; Mean Platelet Volume 6.9; Monocytes # (A) 0.5 k/uL (0-1.0); Monocytes % (A) 5 %; Neutrophils # (A) 8.3 k/uL (1.3-7.7); Neutrophils % (A) 83 %; Platelet Count 229 k/uL (150-450); RBC 3.53 m/uL (4.30-5.90); RDW 13.4 % (11.5-15.5)
[2018-05-02] MEDS ORDERED: MORPHINE SULFATE 4 MG/ML SYRINGE IVP STA (18:49)
[2018-05-02 18:52] LABS: Calcium 9.4 mg/dL (8.4-10.2); Potassium 4.7 mmol/L (3.5-5.1)
[2018-05-02 18:58] LABS: Partial Thromboplastin Time 23.1 sec (22.0-30.0); Prothrombin Time 10.7 sec (9.0-12.0)
== END 2018-05-02 18:59 | disposition short-term general hospital (02) ==
LOC: EC 15:49
DX: S32.402A Unspecified fracture of left acetabulum, initial encounter for closed fracture (principal); S32.592A Other specified fracture of left pubis, initial encounter for closed fracture; S32.591A Other specified fracture of right pubis, initial encounter for closed fracture; S80.212A Abrasion, left knee, initial encounter; S50.312A Abrasion of left elbow, initial encounter; K40.90 Unilateral inguinal hernia, without obstruction or gangrene, not specified as recurrent; E11.9 Type 2 diabetes mellitus without complications; K21.9 Gastro-esophageal reflux disease without esophagitis; I10 Essential (primary) hypertension; Z79.84 Long term (current) use of oral hypoglycemic drugs; Z79.899 Other long term (current) drug therapy; Z88.0 Allergy status to penicillin; Z88.2 Allergy status to sulfonamides; Z88.5 Allergy status to narcotic agent; Z86.718 Personal history of other venous thrombosis and embolism; Z85.72 Personal history of non-Hodgkin lymphomas; Z85.46 Personal history of malignant neoplasm of prostate; Z90.79 Acquired absence of other genital organ(s); W01.0XXA Fall on same level from slipping, tripping and stumbling without subsequent striking against object, initial encounter; Y93.01 Activity, walking, marching and hiking
CPT/HCPCS: 36415; 80048; 85025; 85610; 85730; 72170; 73502; 73070; 73562; 73700; 99285; 96374; J2270

== ENCOUNTER → 2018-08-06 | Outpatient (CLI) | payer MEDICARE, BC ==
--- NOTE | 2018-08-06 15:51 | CT ---
EXAMINATION TYPE: CT ChestAbdPelvis wo con DATE OF EXAM: 08/06/2018 COMPARISON: Prior CT 04/09/2018 HISTORY: Lymphoma. CT DLP: 702.5 mGycm. Automated Exposure Control for Dose Reduction was Utilized. TECHNIQUE: CT scan of the thorax, abdomen and pelvis is performed without IV contrast. FINDINGS: Lack of intravenous contrast could compromise sensitivity. There is a port in the right pec mike region, catheter courses into the superior vena cava. There is a hiatal hernia present. Changes of gynecomastia noted. There are coronary artery calcifications. LUNGS: The lungs are grossly clear, there is no concerning parenchymal mass or nodule identified. T here is no pleural effusion or pneumothorax seen. The tracheobronchial tree is patent. MEDIASTINUM: There are no greater than 1 cm hilar or mediastinal lymph nodes. No pericardial effusi on is seen. OTHER: No additional significant abnormality is seen. LIVER/GB: No significant abnormality is appreciated. PANCREAS: No significant abnormality is seen. SPLEEN: No significant abnormality is seen. ADRENALS: No significant abnormality is seen. KIDNEYS: No significant abnormality is seen. BOWEL: No significant abnormality is seen. GENITAL ORGANS: No gross abnormality seen. Left inguinal hernia contains fat and bowel loops as on pr ior, no evident bowel obstruction. Multiple surgical clips present in the pelvis, prostate not seen. LYMPH NODES: No greater than 1cm abdominal or pelvic lymph nodes are appreciated. OSSEOUS STRUCTURES: Multiple old left-sided rib fractures are present posteriorly on the left which d o not appear fused. There is abnormal thickening, distortion of the pubic ramus on the right, there i s cortical thickening and suggestion of fracture, postop changes noted within the left pubic bone ext ending into the ischium. Vertebroplasty changes are present for multiple lumbar compression fractures similar to prior exam. Screw placement across the sacrum has been performed in the interval, some sc lerosis in the sacrum suggests possible fracture healing. Inferior ramus fractures bilaterally, there is callus formation however. OTHER: No significant additional abnormality is seen. IMPRESSION: Multiple posttraumatic changes are described. No evident adenopathy. Noncontrast exam. Ad ditional findings above.
== END | disposition home or self-care (01) ==
LOC: RADPROMAIN 13:28
PROVIDERS: ATTEND Internal Medicine Hematology & Oncology
DX: Z03.89 Encounter for observation for other suspected diseases and conditions ruled out (principal); K44.9 Diaphragmatic hernia without obstruction or gangrene; K40.90 Unilateral inguinal hernia, without obstruction or gangrene, not specified as recurrent; I25.10 Atherosclerotic heart disease of native coronary artery without angina pectoris; C83.38 Diffuse large B-cell lymphoma, lymph nodes of multiple sites; Z98.890 Other specified postprocedural states; Z88.0 Allergy status to penicillin; Z88.2 Allergy status to sulfonamides
CPT/HCPCS: 36415; 71250; 74176; 82565; 84520

== ENCOUNTER → 2018-09-30 | Outpatient (CLI) | payer OTHER ==
--- NOTE | 2018-10-01 07:26 | US ---
EXAMINATION TYPE: US kidneys/renal and bladder DATE OF EXAM: 09/30/2018 COMPARISON: NONE CLINICAL HISTORY: R94.4 Abnormal results of kidney function studies. Abnormal renal function EXAM MEASUREMENTS: Right Kidney: 8.4 x 4.1 x 4.3 cm Left Kidney: 8.9 x 4.6 x 3.8 cm Right Kidney: no evidence of hydronephrosis Left Kidney: no evidence of hydronephrosis Bladder: appears wnl Bilateral Jets seen: no There is slight cortical renal atrophy bilaterally. There is no evidence for hydronephrosis at this p oint in time. No nephrolithiasis is seen. No masses are identified. The urinary bladder is anechoi c. Bilateral ureteral jets are seen. IMPRESSION: Sonographic sequela of medical renal disease. No hydronephrosis or nephrolithiasis.
== END | disposition home or self-care (01) ==
LOC: RADUSWWP 15:18
DX: R94.4 Abnormal results of kidney function studies (principal); Z88.0 Allergy status to penicillin; Z88.2 Allergy status to sulfonamides
CPT/HCPCS: 76770

== ENCOUNTER → 2018-12-06 | Outpatient (CLI) | payer MEDICARE, BC ==
--- NOTE | 2018-12-06 14:46 | CT ---
EXAMINATION TYPE: CT ChestAbdPelvis wo con DATE OF EXAM: 12/06/2018 COMPARISON: CT chest abdomen and pelvis August 06, [address] PET CT January 17, 2017. HISTORY: Follow up to lymphoma initially diagnosed in the abdomen before 2018 CT DLP: 693.2 mGycm. Automated Exposure Control for Dose Reduction was Utilized. TECHNIQUE: CT scan of the thorax, abdomen and pelvis is performed with oral but without IV contrast. FINDINGS: LUNGS: New small to moderate-sized left pleural effusion with associated left basilar compressive ate lectasis. Some left-sided volume loss remains present. Right lung remains clear. MEDIASTINUM: There are no definitive greater than 1 cm hilar or mediastinal lymph nodes. Slightly dim inished sensitivity due to lack of IV contrast. No cardiomegaly or pericardial effusion is seen. Co ronary artery calcifications are redemonstrated. OTHER: Persistent oval bilateral subareolar gynecomastia. Stable right internal jugular Mediport cath eter terminating in SVC. LIVER/GB: No significant abnormality is appreciated. PANCREAS: No significant abnormality is seen. SPLEEN: No significant abnormality is seen. ADRENALS: No significant abnormality is seen. KIDNEYS: No significant abnormality is seen. BOWEL: Oral contrast reaches level of right colon. No suspicious small or large bowel dilatation. Per sistent bowel containing left inguinal hernia partially imaged on current study. GENITAL ORGANS: Surgical clips from prostatectomy in the pelvis. LYMPH NODES: No greater than 1cm abdominal or pelvic lymph nodes are appreciated. OSSEOUS STRUCTURES: Surgical change through the pelvis shaped scoliotic curvature. Demineralization w ith vertebroplasty L2 and L3 levels. [id number] height loss at L1 and L2 levels with sclerosi s. Slight posterior retropulsion redemonstrated. No significant interval change. Old healed fracture deformities right superior and inferior pelvic rami near symphysis without widening. Old left posteri or rib fractures are redemonstrated. OTHER: Moderate calcified plaque in ectatic abdominal aorta extends into iliac branch vessels IMPRESSION: No new mass or adenopathy. New small to moderate-sized left pleural effusion of uncertai n etiology.
== END | disposition home or self-care (01) ==
LOC: RADCTMAIN 12:37
PROVIDERS: ATTEND Internal Medicine Hematology & Oncology
DX: Z03.89 Encounter for observation for other suspected diseases and conditions ruled out (principal); J90 Pleural effusion, not elsewhere classified; C83.38 Diffuse large B-cell lymphoma, lymph nodes of multiple sites; Z88.0 Allergy status to penicillin; Z88.2 Allergy status to sulfonamides
CPT/HCPCS: 36415; 71250; 74176; 82565; 84520

== ENCOUNTER → 2019-01-07 | Outpatient (CLI) | payer MEDICARE, BC ==
[2019-01-07 15:36] LABS: HCT 36.7 % (39.0-53.0); HGB 11.6 gm/dL (13.0-17.5); MCH 31.2 pg (25.0-35.0); MCHC 31.7 g/dL (31.0-37.0); MCV 98.4 fL (80.0-100.0); Platelet Count 388 k/uL (150-450); RBC 3.73 m/uL (4.30-5.90); RDW 13.2 % (11.5-15.5); WBC 6.1 k/uL (3.8-10.6)
[2019-01-07 15:51] LABS: Appearance,Urine Clear (Clear); Bilirubin,Urine Negative (Negative); Blood,Urine Negative (Negative); Color,Urine Yellow; Glucose,Urine (UA) Negative (Negative); Hyaline Casts,Urine 3 /lpf (0-2); Ketones,Urine Negative (Negative); Leukocyte Esterase,Urine Negative (Negative); Mucus,Urine Rare /hpf; Nitrite,Urine Negative (Negative); Protein,Urine 2+ (Negative); RBC,Urine 1 /hpf (0-5); Specific Gravity,Urine 1.017 (1.001-1.035); WBC,Urine 1 /hpf (0-5)
[2019-01-07 19:05] LABS: African American GFR (CKD) 47.5 (60.0-200.0); Albumin 4.3 g/dL (3.80-4.90); Albumin/Globulin Ratio 1.79 (1.60-3.17); BUN/Creat Ratio 13.13 Ratio (12.00-20.00); Calcium 9.5 mg/dL (8.7-10.3); Globulin 2.4 g/dL (1.6-3.3); Potassium 4.7 mmol/L (3.5-5.5); Total Bilirubin 0.5 mg/dL (0.3-1.2); Total Protein 6.7 g/dL (6.2-8.2); Uric Acid 7.9 mg/dL (3.7-8.7)
[2019-01-07 19:06] LABS: % Iron Saturation 14.39 (15.00-50.00); Magnesium 2.1 mg/dL (1.5-2.4); Phosphorus 3.6 mg/dL (2.4-5.1)
[2019-01-07 19:16] LABS: Ferritin 505.6 ng/mL (22.0-322.0)
== END ==
LOC: LABWHC1 14:43
PROVIDERS: ATTEND Internal Medicine
DX: N18.3 Chronic kidney disease, stage 3 (moderate) (principal); D63.1 Anemia in chronic kidney disease; N39.0 Urinary tract infection, site not specified; N25.81 Secondary hyperparathyroidism of renal origin; E55.9 Vitamin D deficiency, unspecified; M10.9 Gout, unspecified
CPT/HCPCS: 36415; 80053; 81001; 82306; 82728; 83540; 83550; 83735; 83970; 84100; 84550; 85027

== ENCOUNTER → 2019-01-12 | Outpatient (CLI) | payer MEDICARE, BC ==
--- NOTE | 2019-01-13 07:18 | US ---
EXAMINATION TYPE: US kidneys/renal and bladder DATE OF EXAM: 01/12/2019 COMPARISON: September 30, [address] 12/06/2018 CLINICAL HISTORY: N18.3 Chronic Kidney disease stage III. Abnormal labs EXAM MEASUREMENTS: Right Kidney: 8.7 x 4.3 x 4.6 cm Left Kidney: 8.5 x 3.9 x 4.2 cm Limited due to overlying bowel gas Right Kidney: No hydronephrosis or masses seen Left Kidney: mid anterior lesion, possible dromedary hump? = 1.6 x 1.6 x 1.3 cm Bladder: moderately distended, lower portion not visualized Left bladder jet seen There is no evidence for hydronephrosis at this point in time. No nephrolithiasis is seen. No osmin s are identified. The urinary bladder is anechoic. Bilateral ureteral jets are seen. IMPRESSION: No evidence for renal mass. Dromedary hump, confirmed on recent CT.
== END | disposition home or self-care (01) ==
LOC: RADUSWWP 15:42
PROVIDERS: ATTEND Internal Medicine
DX: N18.3 Chronic kidney disease, stage 3 (moderate) (principal)
CPT/HCPCS: 76770

== ENCOUNTER → 2019-01-14 | Outpatient (CLI) | payer MEDICARE, BC ==
--- NOTE | 2019-01-14 11:03 | US ---
EXAMINATION TYPE: US abdomen complete DATE OF EXAM: 01/14/2019 COMPARISON: US & CT 2019 CLINICAL HISTORY: R10.84 generalized quadrant pain. Intermittent abdomen pain x 3 months EXAM MEASUREMENTS: Liver Length: 15.0 cm Gallbladder Wall: 0.2 cm CBD: 0.4 cm Spleen: 8.3 cm Right Kidney: 7.4 x 4.7 x 4.1 cm Left Kidney: 8.5 x 4.6 x 4.5 cm Pancreas: visualized portions wnl, limited by overlying midline bowel gas Liver: scanned intercostally, appears wnl Gallbladder: 0.3cm echogenic focus seen, wall measures wnl Evidence for sonographic Null's sign: no CBD: visualized portions wnl, limited by overlying bowel gas Spleen: wnl Right Kidney: no hydronephrosis or masses seen Left Kidney: 2.4 x 1.6 x 2.3cm anterior mid area seen, possible dromedary hump, seen on previous leana dy Upper IVC: wnl Abd Aorta: visualized portions appear wnl The liver is homogenous. The intrahepatic portion of the IVC and proximal abdominal aorta are within normal limits. Common bile duct is unremarkable. The visualized portions of the pancreas are homog enous. The spleen is unremarkable. Kidneys are symmetric and free of hydronephrosis. IMPRESSION: 1. Although the left renal lesion appears as a dromedary hump on the prior exam it is somewhat more c onspicuous on today's examination and could represent a true renal mass. This could be confirmed with CT abdomen with contrast. 2. Cholelithiasis without sonographic evidence of acute cholecystitis.
== END | disposition home or self-care (01) ==
LOC: RADUSWWP 09:16
PROVIDERS: ATTEND Family Medicine
DX: K80.20 Calculus of gallbladder without cholecystitis without obstruction (principal); N28.89 Other specified disorders of kidney and ureter
CPT/HCPCS: 76700

== ENCOUNTER → 2019-03-16 | Outpatient (CLI) | payer MEDICARE, BC ==
[2019-03-16 11:46] LABS: HCT 39.4 % (39.0-53.0); HGB 12.3 gm/dL (13.0-17.5); MCH 31.2 pg (25.0-35.0); MCHC 31.2 g/dL (31.0-37.0); Macrocytosis Slight; Mean Platelet Volume 7.1; Platelet Count 241 k/uL (150-450); RBC 3.94 m/uL (4.30-5.90); RDW 14.8 % (11.5-15.5); WBC 5.2 k/uL (3.8-10.6)
[2019-03-16 11:55] LABS: Appearance,Urine Clear (Clear); Bilirubin,Urine Negative (Negative); Blood,Urine Negative (Negative); Color,Urine Yellow; Glucose,Urine (UA) Negative (Negative); Ketones,Urine Negative (Negative); Leukocyte Esterase,Urine Negative (Negative); Mucus,Urine Rare /hpf; Nitrite,Urine Negative (Negative); Protein,Urine 2+ (Negative); Specific Gravity,Urine 1.019 (1.001-1.035); Urobilinogen,Urine <2.0 mg/dL (<2.0); WBC,Urine 1 /hpf (0-5)
[2019-03-16 16:47] LABS: % Iron Saturation 18.69 (15.00-50.00); African American GFR (CKD) 47.5 (60.0-200.0); Albumin 4.3 g/dL (3.80-4.90); Albumin/Globulin Ratio 2.15 (1.60-3.17); Anion Gap 9.9 mmol/L (4.00-12.00); BUN/Creat Ratio 11.88 Ratio (12.00-20.00); Calcium 9.4 mg/dL (8.7-10.3); Carbon Dioxide 25.1 mmol/L (21.6-31.8); Magnesium 1.9 mg/dL (1.5-2.4); Non-African American GFR(CKD) 40.9 (60.0-200.0); Phosphorus 3.2 mg/dL (2.4-5.1); Potassium 4.4 mmol/L (3.5-5.5); Total Bilirubin 0.4 mg/dL (0.3-1.2); Total Protein 6.3 g/dL (6.2-8.2); Uric Acid 7.5 mg/dL (3.7-8.7)
[2019-03-16 16:55] LABS: Ferritin 183.8 ng/mL (22.0-322.0)
== END | disposition home or self-care (01) ==
LOC: LABWHC1 10:41
PROVIDERS: ATTEND Internal Medicine
DX: N39.0 Urinary tract infection, site not specified (principal); N18.3 Chronic kidney disease, stage 3 (moderate); D63.1 Anemia in chronic kidney disease; M10.9 Gout, unspecified; E55.9 Vitamin D deficiency, unspecified; E21.3 Hyperparathyroidism, unspecified
CPT/HCPCS: 36415; 80053; 81001; 82728; 83540; 83550; 83735; 83970; 84100; 84550; 85027

== ENCOUNTER → 2019-04-04 | Outpatient (CLI) | payer BC, MEDICARE ==
--- NOTE | 2019-04-04 15:00 | CT ---
EXAMINATION TYPE: CT ChestAbdPelvis wo con DATE OF EXAM: 04/04/2019 COMPARISON: 12/06/2018 HISTORY: Patient has large b0-cell lymphoma. in for follow up. CT DLP: 1129mGycm Unenhanced CT of the Chest, Abdomen and Pelvis Unenhanced CT of the chest ,abdomen and pelvis is performed. The lack of intravenous contrast limits evaluation of the solid and hollow viscera. Oral contrast: Yes CT Chest: LUNGS: The lungs are clear and free of infiltrate or atelectasis. No pulmonary nodule or mass is det ected. Small left-sided pleural effusion which has diminished in size since prior examination.. MEDIA STINUM: Thoracic aorta is of normal caliber. The heart is not enlarged. No evidence for mediastina l mass or adenopathy. HILAR STRUCTURES: No evidence for mass. No hilar adenopathy is appreciated. OTHER: Bilateral gynecomastia. CONTRAST CT ABDOMEN AND PELVIS: LIVER/GB: No calcified gallstones. No space occupying hepatic lesion. Biliary tree is of normal ca liber. PANCREAS: No inflammation. No distinct mass. SPLEEN: No splenic enlargement. No lesion seen. ADRENALS: No nodule. No thickening. KIDNEYS/BLADDER: No hydronephrosis. No nephrolithiasis. No disctinct renal mass. BOWEL: Normal appendix. Normal bowel caliber. No inflammation. Left inguinal hernia containing a se gment of small bowel without obstruction. GENITAL ORGANS: No gross abnormality. LYMPH NODES: No greater than 1cm abdominal or pelvic lymph nodes are appreciated. AORTA: No significant abnormality. OSSEOUS STRUCTURES: Severe chronic compression fractures of L1-L4. OTHER: No significant additional abnormality is seen. IMPRESSION: 1. No evidence for recurrent adenopathy. 2. Left-sided pleural effusion has diminished in size since previous study.
== END | disposition home or self-care (01) ==
LOC: RADPROMAIN 12:33
PROVIDERS: ATTEND Internal Medicine Hematology & Oncology
DX: J90 Pleural effusion, not elsewhere classified (principal); Z88.2 Allergy status to sulfonamides; Z88.0 Allergy status to penicillin
CPT/HCPCS: 36415; 71250; 74176; 82565; 84520

== ENCOUNTER → 2019-10-03 | Outpatient (CLI) | payer MEDICARE ==
--- NOTE | 2019-10-03 12:53 | CT ---
EXAMINATION TYPE: CT ChestAbdPelvis wo con DATE OF EXAM: 10/03/2019 COMPARISON: 04/04/2019 HISTORY: Follow up lymphoma CT DLP: 1217 mGycm. Automated Exposure Control for Dose Reduction was Utilized. TECHNIQUE: CT scan of the thorax, abdomen and pelvis is performed without IV contrast. FINDINGS: LUNGS: Subsegmental consolidation left lung base. There is no sizable pleural effusion on today's exa m. No pneumothorax. On image #30 there is a 2 mm nodule superior segment left lower lobe retrospectiv ajit stable. Mediport noted. There is a small amount of gynecomastia. Dense coronary artery calcificat ion noted. Calcification of the aortic root noted. HILAR STRUCTURES: No evidence for mass. No hilar adenopathy is appreciated. . OTHER: No additional significant abnormality is seen. LIVER/GB: No significant abnormality is appreciated. PANCREAS: No significant abnormality is seen. SPLEEN: No significant abnormality is seen. ADRENALS: No significant abnormality is seen. KIDNEYS: No significant abnormality is seen. BOWEL: Nonspecific abdomen. Stable left inguinal hernia. No obstruction. Postsurgical changes in the perirectal region. Low-lying bladder be seen with cystocele. LYMPH NODES: No greater than 1cm abdominal or pelvic lymph nodes are appreciated. OSSEOUS STRUCTURES: Multilevel degenerative disc disease with severe compression fracture of L1-L4. P ostsurgical change involving the pelvis. Remote rib fractures noted. OTHER: Aorta of normal caliber. Atherosclerotic change is seen. IMPRESSION: 1. Within the anterior abdominal fat posterior to the left rectus muscle there is a area of ill-defin ed attenuation measuring a maximal thickness 1.7 cm by 3.6 cm. Appears somewhat ill-defined and may r epresent mesenteric congestion, lymphangitic lymphoma infiltration or edema. Enteritis or inflammator y process not excluded, however, there is no bowel wall thickening. Correlate clinically. 2. Left basilar atelectasis favored over pneumonia. Stable 2 mm nodule unchanged from 2018 and theref ore benign superior segment left lower lobe. A Yellow level critical message alert has been initiated for Coleman Orellana MD via the [employer] on 10/03/2019 12:51 PM. This message alert has been sent to Coleman Orellana MD via e preferences provided by the clinician for the receipt of Radiology Critical Findings. Message ID [id number].
== END | disposition home or self-care (01) ==
LOC: RADCTMAIN 09:19
PROVIDERS: ATTEND Internal Medicine Hematology & Oncology
DX: J98.11 Atelectasis (principal); E65 Localized adiposity; C83.38 Diffuse large B-cell lymphoma, lymph nodes of multiple sites; Z88.0 Allergy status to penicillin; Z88.2 Allergy status to sulfonamides
CPT/HCPCS: 71250; 74176

== ENCOUNTER → 2019-10-21 | Outpatient (CLI) | payer MEDICARE ==
--- NOTE | 2019-10-23 14:43 | PE ---
EXAMINATION TYPE: PET CT fusion skull to thigh DATE OF EXAM: 10/21/2019 COMPARISON: 10/03/2019 CT chest abdomen pelvis Prior PET/CT: 06/27/2017 HISTORY: Lymphoma, ascites TECHNIQUE: Following the intravenous administration of 10.56 mCi of F-18 FDG, whole body images are performed from the skull base to the midthigh. Images are reviewed on the computer in the coronal, a xial, and sagittal planes. Reconstructed rotating images are created on independent workstation and reviewed on the computer. A localization and attenuation correction CT is performed in conjunction with the PET scan. DLP: 493.86 mGycm SCAN: Subsequent Blood glucose: 112 mg/dL Average Mediastinum SUV: 1.62 Average Liver SUV: 2.39 FINDINGS: Note is made of muscular activity during this examination. This is rate are within the para spinal regions are scattered throughout the exam. NECK: No suspicious uptake THORAX: No suspicious uptake ABDOMEN: No suspicious uptake PELVIS: No suspicious uptake OSSEOUS STRUCTURES: No suspicious uptake LOCALIZATION CT: There is a left lower quadrant inguinal hernia containing loops of bowel extending t owards the scrotum. COMPARISON: No significant interval changes are evident. IMPRESSION: 1. No suspicious radiotracer changes to suggest recurrent lymphoma. 2. Left inguinal hernia containing nonobstructed loops of bowel.
== END | disposition home or self-care (01) ==
LOC: RADPETMAIN 10:39
PROVIDERS: ATTEND Internal Medicine Hematology & Oncology
DX: K40.90 Unilateral inguinal hernia, without obstruction or gangrene, not specified as recurrent (principal); C83.38 Diffuse large B-cell lymphoma, lymph nodes of multiple sites
CPT/HCPCS: 78815; A9552

== ENCOUNTER → 2020-01-24 | Outpatient (CLI) | payer MEDICARE ==
--- NOTE | 2020-01-24 13:09 | CT ---
EXAMINATION TYPE: CT ChestAbdPelvis wo con DATE OF EXAM: 01/24/2020 COMPARISON: HISTORY: Lymphoma CT DLP: 787.10mGycm Unenhanced CT of the Chest, Abdomen and Pelvis Unenhanced CT of the chest ,abdomen and pelvis is performed. The lack of intravenous contrast limits evaluation of the solid and hollow viscera. Oral contrast: Yes CT Chest: LUNGS: The lungs are clear and free of infiltrate or atelectasis. No pulmonary nodule or mass is det ected. No pleural effusion or CT evidence of interstitial lung disease. MEDIASTINUM: Thoracic aorta is of normal caliber. The heart is not enlarged. No evidence for media stinal mass or adenopathy. HILAR STRUCTURES: No evidence for mass. No hilar adenopathy is appreciated. OTHER: No significant abnormality. CONTRAST CT ABDOMEN AND PELVIS: LIVER/GB: No calcified gallstones. No space occupying hepatic lesion. Biliary tree is of normal ca liber. PANCREAS: No inflammation. No distinct mass. SPLEEN: No splenic enlargement. No lesion seen. ADRENALS: No nodule. No thickening. KIDNEYS/BLADDER: No hydronephrosis. No nephrolithiasis. No disctinct renal mass. BOWEL: Normal appendix. Normal bowel caliber. No inflammation. GENITAL ORGANS: No gross abnormality. LYMPH NODES: No greater than 1cm abdominal or pelvic lymph nodes are appreciated. AORTA: No significant abnormality. OSSEOUS STRUCTURES: No significant abnormality is seen. OTHER: Left inguinal hernia contains a segment of colon. There is extension to the left scrotal sac. IMPRESSION: 1. No evidence for recurrent lymphoma within the chest abdomen or pelvis at this time.
== END | disposition home or self-care (01) ==
LOC: RADCTMAIN 10:48
PROVIDERS: ATTEND Internal Medicine Hematology & Oncology
DX: C83.38 Diffuse large B-cell lymphoma, lymph nodes of multiple sites (principal); Z88.0 Allergy status to penicillin; Z88.2 Allergy status to sulfonamides
CPT/HCPCS: 36415; 71250; 74176; 82565; 84520

== ENCOUNTER → 2020-08-02 | Outpatient (CLI) | payer MEDICARE ==
--- NOTE | 2020-08-03 06:40 | CT ---
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 Remote history of prostate cancer. CT DLP: 851.50 mGycm. Automated Exposure Control for Dose Reduction was Utilized. TECHNIQUE: CT scan of the thorax, abdomen and pelvis is performed with oral but without IV contrast. FINDINGS: LUNGS: Small focal areas of groundglass opacity in the right upper lobe noted near axial image 18 on current study. Stable mild left basilar linear scarring and/or atelectasis. Stable 4 mm superior left lower lobe nodule axial image 27. No new or enlarging greater than 5 mm nodules. No pleural effusion or pneumothorax seen currently. MEDIASTINUM: There are no definitive new greater than 1 cm mediastinal lymph nodes. Slightly diminish ed sensitivity due to lack of IV contrast. No cardiomegaly or pericardial effusion is seen. Coronar y artery calcifications are redemonstrated. OTHER: Persistent bilateral subareolar gynecomastia. Stable right subclavian Mediport catheter termin ating in SVC. LIVER/GB: No significant abnormality is appreciated. PANCREAS: No significant abnormality is seen. SPLEEN: No significant abnormality is seen. ADRENALS: No significant abnormality is seen. KIDNEYS: No significant abnormality is seen. BOWEL: Oral contrast reaches level of splenic flexure. No suspicious small or large bowel dilatation. Persistent bowel containing left inguinal hernia without obstruction. Diverticulosis in the sigmoid colon of the pelvis. GENITAL ORGANS: Surgical clips from prostatectomy in the pelvis. LYMPH NODES: No new greater than 1cm abdominal or pelvic lymph nodes are appreciated. Some swirling o f the central pelvic mesentery with mild mesenteric edema is redemonstrated near axilla measures 91 u nchanged from most recent study. OSSEOUS STRUCTURES: Surgical change through the pelvis through both sacroiliac joints redemonstrated . S-shaped scoliosis redemonstrated. Demineralization with vertebroplasty at L2 and L3 levels redemon strated. [id number] chronic height loss at L1 and L2 levels with sclerosis redemonstrated. Sl ight posterior retropulsion redemonstrated. Stable [id number] loss with sclerosis involving the anterior L4 vertebra. Old healed fracture deformities right superior and inferior pelvic rami near symphysis without widening. Old fracture left inferior pelvic ramus redemonstrated. Surgical change t hrough the left superior pelvic ramus redemonstrated. Old left posterior mid rib fractures are redemo nstrated. OTHER: Moderate calcified plaque in ectatic abdominal aorta extends into iliac branch vessels IMPRESSION: No new or enlarging mass or adenopathy to suggest active lymphoma recurrence. Stable mild mesenteric edema centered in the upper to mid pelvis just left of midline from most recent study.
== END | disposition home or self-care (01) ==
LOC: RADCTMAIN 16:40
PROVIDERS: ATTEND Internal Medicine Hematology & Oncology
DX: C83.38 Diffuse large B-cell lymphoma, lymph nodes of multiple sites (principal); Z85.46 Personal history of malignant neoplasm of prostate
CPT/HCPCS: 71250; 74176

== ENCOUNTER → 2021-01-28 | Outpatient (CLI) | payer MEDICARE ==
--- NOTE | 2021-01-28 16:52 | CT ---
EXAMINATION TYPE: CT ChestAbdPelvis wo con DATE OF EXAM: 01/28/2021 INDICATION: Lymphoma. COMPARISON: 01/28/2021 CT DLP: 1001.6 mGycm CONTRAST: Performed with Oral Contrast. No intravenous contrast. TECHNIQUE: Axial images at 5 mm thick sections. Reconstructed images in the coronal plane. Delayed images through the kidneys. FINDINGS: CT CHEST: Portion of the thyroid visualized is normal. No suspicious lung nodules or focal infiltrates are present. No enlarged mediastinal or hilar adenopathy is evident. The ascending aorta diameter at the level of the main pulmonary artery is 4.3 cm. The main pulmonary artery diameter at the bifurcation is 2.9 cm. Moderate coronary artery calcification is present. Jaciel e gynecomastia may be present. Small hiatal hernia is present. CT ABDOMEN: Liver: Normal Spleen: Normal Pancreas: Normal Adrenal glands: The adrenal glands are normal. Gallbladder: Normal Kidneys: No masses are evident. No hydronephrosis is present. No cysts are present. No renal stone s are evident. Aorta: Vascular calcification is within the aorta. There is tortuosity of the aorta. Inferior vena cava: Normal. CT PELVIS: There is a left inguinal hernia containing nondilated loops of colon. Loops of bowel within the abdomen and pelvis are normal. There are loops lacking oral contrast or with limited distention limiting their evaluation. Appendix: Normal as visualized. Urinary bladder: Normal. Genitourinary structures: Prostate is not identified. There may been a prior prostatectomy. Osseous structures: Multilevel compression deformities are through the lumbar spine. Degenerative dis c changes are present. Scoliosis is present. There is fixation bolt within the sacrum and ilium and w ithin the left ischium. Lymphadenopathy: No suspicious enlarged inguinal adenopathy is evident. Obturator canals and iliac ch ains appear normal. No enlarged periaortic and retrocaval adenopathy is evident. No retrocrural adeno luz is evident. No enlarged mediastinal or axillary lymphadenopathy is identified. Mild mesenteric inflammatory changes in the mid anterior pelvis appears stable. IMPRESSIONS: 1. No suspicious changes to suggest recurrent lymphoma. 2. Left inguinal hernia containing nondilated loop of colon. 3. Multilevel compression deformities within the lumbar spine
== END | disposition home or self-care (01) ==
LOC: RADPROMAIN 13:52
PROVIDERS: ATTEND Internal Medicine Hematology & Oncology
DX: Z85.72 Personal history of non-Hodgkin lymphomas (principal); K40.91 Unilateral inguinal hernia, without obstruction or gangrene, recurrent
CPT/HCPCS: 82565; 84520; 71250; 74176; 36415; Q9967

== ENCOUNTER 2021-07-02 12:39 | Emergency (ER) | payer MEDICARE ==
--- NOTE | 2021-07-02 15:29 | CT ---
EXAMINATION TYPE: CT lumbar spine wo con DATE OF EXAM: 07/02/2021 3:18 PM COMPARISON: 01/28/2021 HISTORY: Low back pain, history of lymphoma. CT DLP: 1288.6 mGycm Automated exposure control for dose reduction was used. Unenhanced CT of the lumbar spine was performed. Bone and soft tissue window settings are submitted as well as coronal and sagittal reconstructions. There is a kyphosis of the lumbar spine with severe compression fractures of L1, L2 and L4 which are similar to the prior CT scan. Previous vertebral horace sty at L2 and L3 noted. There is multilevel facet arthropathy and foraminal encroachment. Scoliotic c urvature seen. At T12-L1 there is retropulsion from the severe compression fracture of L1 resulting in thecal sac co mpression. MRI would be required to assess for spinal cord contact. Facet arthropathy and foraminal e ncroachment. Canal stenosis suggested. L1-L2: Retropulsion with a large spur resulting in severe compression of the thecal sac. This could b e encroaching upon the distal margin the spinal cord. Facet arthropathy and foraminal encroachment no nica. Finding appears similar to prior exam. L2-L3: Retropulsion with anterior compression of the thecal sac and canal stenosis. Chronic deformity of the left transverse process. Bilateral foraminal encroachment with disc bulging and canal stenosi s. L3-L4: A diffuse disc protrusion with compression deformities of L3 and L4. Facet arthropathy is note d and there is hypertrophy ligamentum flavum. Severe canal stenosis and bilateral foraminal encroachm ent. L4-L5: Severe degenerative disc disease with facet arthropathy. Compression deformity or fracture of L4 stable from prior exam. There appears to be bilateral foraminal encroachment and canal stenosis. L5-S1: Degenerative disc disease with facet arthropathy. There is atherosclerotic change of the aorta. Hiatal hernia noted. Cardiomegaly. Subsegmental change left lower lobe. Assessment spinal cord and canal limited due to poor resolution and artifact. Postsu rgical changes involving the pelvic bones are noted. Chronic appearing deformities of the transverse processes of L2-L4. IMPRESSION: 1. There are multiple severe compression fractures of the lumbar spine which are similar to prior CT scan of 01/28/2021. Posterior retropulsion and bony spurring at T12-L1 and L1-L2 result in significan t canal stenosis likely encroach upon the spinal cord and could be correlated with MRI as clinically warranted. 2. Multilevel degenerative disc disease, facet arthropathy, foraminal encroachment is suspected canal stenosis.
[2021-07-02] MEDS ORDERED: ACETAMINOPHEN TAB 500 MG TAB PO STA (16:20)
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
[2021-07-02 16:46] VITALS: BP 164/88; PULSE 61; RESP 16; TEMP 97.8
== END 2021-07-02 16:43 | disposition home or self-care (01) ==
LOC: EC 12:39
DX: M48.061 Spinal stenosis, lumbar region without neurogenic claudication (principal); E11.9 Type 2 diabetes mellitus without complications; I10 Essential (primary) hypertension; Z82.79 Family history of other congenital malformations, deformations and chromosomal abnormalities; K21.9 Gastro-esophageal reflux disease without esophagitis; Z79.1 Long term (current) use of non-steroidal anti-inflammatories (NSAID); Z88.0 Allergy status to penicillin; Z88.2 Allergy status to sulfonamides; Z88.5 Allergy status to narcotic agent
CPT/HCPCS: 72131; 99283

== ENCOUNTER → 2021-07-20 | Outpatient (CLI) | payer MEDICARE ==
--- NOTE | 2021-07-21 09:16 | MR ---
EXAMINATION TYPE: MR lumbar spine wo con DATE OF EXAM: 07/20/2021 COMPARISON: CT lumbar spine July 02, 2021 HISTORY: Low back pain for 5-10 years. Compression fractures. TECHNIQUE: Multiplanar, multisequence imaging of the lumbar spine is performed without IV contrast. FINDINGS: Sagittal images of the lumbar spine redemonstrate reversal of normal lumbar lordosis center ed upper lumbar spine. There is persistent mild chronic compression type fracture at L4 level. There is persistent mild to moderate compression type fracture at the L3 vertebra with low signal from vert ebroplasty. There is persistent severe compression type fracture of L2 vertebra with vertebroplasty e xtending into the L1-L2 disc space. There is persistent moderate to severe compression type fracture at the L1 vertebra. There is diminished T1 and T2 signal involving the T12 vertebra on MRI, possible interval vertebroplasty? Without height loss. There is artifact from large fusion screw in the upper sacrum through the bilateral sacroiliac joints. Multilevel disc desiccation is present. Moderate to a dvanced disc space narrowing L4-L5 level redemonstrated. The conus medullaris is normal in position and signal ending at T12-L1 disc space. The bone marrow signal intensity is within normal limits at the L5 vertebra and the T11 vertebra. Axial images show T11-T12 level to appear within normal limits. Axial images at T12-L1 level show mild/moderate broad-based disc bulge effacing anterior thecal sac. Axial images at the L1-L2 level show [id number] broad disc bulge mildly effaces the anterior th ecal sac. Axial images at L2-L3 level show moderate broad disc bulge effacing anterior thecal sac. Bilateral ne ural foramina are patent. Axial images at L3-L4 level show moderate to advanced broad disc bulging and mild facet arthropathy a nd ligamentum flavum hypertrophy. There is some effacement of the anterior and posterior lateral thec al sac greater on the right. There is asymmetric moderate right-sided neural foraminal narrowing. Axial images at the L4-L5 level shows posterior spur disc complex mildly effaces the anterior thecal sac. There is mild left and moderate right-sided neural foraminal narrowing. There is slightly more p rominent right foraminal disc protrusion component. Axial images at L5-S1 level show artifact from upper sacral fusion screw. There is mild/moderate face t arthropathy bilaterally. There is small central disc protrusion minimally effacing anterior thecal sac. Bilateral neural foramina are patent. Asymmetric mild fat replaced atrophy of the right iliopsoas muscle noted versus opposite left side. IMPRESSION: Loss of normal lumbar lordosis. Multilevel compression type fractures redemonstrated with out significant change. Multilevel vertebroplasty is redemonstrated. Abnormal low signal involving th e T12 vertebra of uncertain etiology. Multilevel degenerative changes present as detailed above.
== END | disposition home or self-care (01) ==
LOC: RADMRIMAIN 09:59
PROVIDERS: ATTEND Family Medicine
DX: S32.009A Unspecified fracture of unspecified lumbar vertebra, initial encounter for closed fracture (principal); M40.46 Postural lordosis, lumbar region; Z98.1 Arthrodesis status
CPT/HCPCS: 72148

== ENCOUNTER → 2021-07-31 | Outpatient (CLI) | payer MEDICARE ==
--- NOTE | 2021-08-01 12:47 | CT ---
EXAMINATION TYPE: CT ChestAbdPelvis wo con DATE OF EXAM: 07/31/2021 INDICATION: Lymphoma COMPARISON: 01/28/2021 CT DLP: 652.2 mGycm CONTRAST: Performed with Oral Contrast. No intravenous contrast. TECHNIQUE: Axial images at 5 mm thick sections. Reconstructed images in the coronal plane. Delayed images through the kidneys. FINDINGS: CT CHEST: Portion of the thyroid visualized is normal. Some gynecomastia may be present. There is a punctate nodule within the left upper lung field measuring 0.3 cm. Series 4 image 27. This was present previously. No enlarged mediastinal or hilar adenopathy is evident. No supraclavicular adenopathy is evident. No enlarged axillary adenopathy is evident. No subcarinal adenopathy is evident. The ascending aorta diameter at the level of the main pulmonary artery is 3.7 cm. The main pulmonary artery diameter at the bifurcation is 3.3 cm. Coronary artery calcification is present. CT ABDOMEN: There is a hiatal hernia with contrast present. Liver: Normal Spleen: Normal Pancreas: Normal Adrenal glands: The adrenal glands are normal. Gallbladder: Normal Kidneys: No masses are evident. No hydronephrosis is present. No cysts are present. No renal stone s are evident. Aorta: Vascular calcification is within the aorta. Inferior vena cava: Normal. CT PELVIS: Left inguinal hernia containing a loop of colon is evident. No obstruction is identified. Loops of bowel within the abdomen and pelvis are normal. Oral contrast extends to the distal small yolie wel loops. No contrast within the loops of bowel within the left inguinal hernia. No contrast within the colon at this time. No suspicious dilated loops of bowel to suggest obstruction. There are loo ps of bowel which are incompletely distended or lack oral contrast limiting their evaluation. Appendix: Not identified. No dilated tubular structure or inflammatory changes evident. Urinary bladder: Normal. Genitourinary structures: Prostate appears unremarkable Osseous structures: No suspicious lytic or sclerotic lesions. Old pelvic fractures may be present. Lymphadenopathy: No suspicious periaortic and retrocaval adenopathy is evident. No obturator canal or iliac chain adenopathy evident. No suspicious inguinal adenopathy. IMPRESSIONS: 1. No suspicious adenopathy to suggest recurrent or metastatic lymphoma. 2. Stable punctate nodule within the posterior left upper lung field 3. Hiatal hernia 4. Left inguinal hernia containing nonobstructed colon.
== END | disposition home or self-care (01) ==
LOC: RADPROMAIN 09:24
PROVIDERS: ATTEND Internal Medicine Hematology & Oncology
DX: C85.90 Non-Hodgkin lymphoma, unspecified, unspecified site (principal); K44.9 Diaphragmatic hernia without obstruction or gangrene; K40.90 Unilateral inguinal hernia, without obstruction or gangrene, not specified as recurrent
CPT/HCPCS: 82565; 84520; 71250; 74176; J1642

== ENCOUNTER → 2021-11-28 | Outpatient (CLI) | payer MEDICARE ==
--- NOTE | 2021-11-28 16:56 | US ---
EXAMINATION TYPE: US kidneys/renal and bladder DATE OF EXAM: 11/28/2021 COMPARISON: NONE CLINICAL HISTORY: N18.32 ckd stage 3b. EXAM MEASUREMENTS: Right Kidney: 7.0 x 4.1 x 3.9 cm Left Kidney: 8.5 x 4.9 x 3.7 cm No hydronephrosis. No renal stones identified. Right Kidney: atrophied kidney with cortical thinning, somewhat limited visualization due to overlyin g bowel gas Left Kidney: atrophied kidney with cortical thinning, somewhat limited visualization due to overlying bowel gas Bladder: Patient unable to well fill due to incontinence IMPRESSION: 1. Renal atrophy.
== END | disposition home or self-care (01) ==
LOC: RADUSWWP 11:51
PROVIDERS: ATTEND Internal Medicine Nephrology
DX: N26.1 Atrophy of kidney (terminal) (principal)
CPT/HCPCS: 76770

== ENCOUNTER → 2022-01-27 | Outpatient (CLI) | payer MEDICARE ==
--- NOTE | 2022-01-28 17:58 | CT ---
EXAMINATION TYPE: CT ChestAbdPelvis w con DATE OF EXAM: 01/27/2022 INDICATION: Follow up for lymphoma. COMPARISON: 07/31/2021 CT DLP: 934.9 mGycm CONTRAST: Performed with Oral Contrast and with IV Contrast, patient injected with 70ml mL of Isovue 300. TECHNIQUE: Axial images at 5 mm thick sections. Reconstructed images in the coronal plane. Delayed images through the kidneys. FINDINGS: CT CHEST: Portion of the thyroid visualized is normal. No suspicious lung nodules or focal infiltrates are present. There is a small 0.4 cm nodule in the po sterior lateral left upper lung field, present previously measuring 0.3 cm which may be within measur ement error. Continued monitoring is recommended.1 No enlarged mediastinal or hilar adenopathy is evident. The ascending aorta diameter at the level of the main pulmonary artery is 3.7 cm. The main pulmonary artery diameter at the bifurcation is 3.1 cm. Coronary artery calcifications noted. CT ABDOMEN: Liver: Normal Spleen: Normal Pancreas: Normal Adrenal glands: The adrenal glands are normal. Gallbladder: Normal Kidneys: No masses are evident. No hydronephrosis is present. No cysts are present. Delayed images were obtained through the kidneys, which remain unremarkable. Aorta: Vascular calcification is within the aorta. Aorta is tortuous. Inferior vena cava: Normal. CT PELVIS: Nonobstructing left inguinal hernia containing a loop of bowel is evident extending into t he hemiscrotum. Loops of bowel within the abdomen and pelvis are normal. There are loops of bowel which are incom pletely distended or lack oral contrast limiting their evaluation. Appendix: Normal as visualized. Urinary bladder: Normal. Genitourinary structures: Osseous structures: No suspicious lytic or sclerotic lesions. Old pubic ramus fractures are present. Prior pelvic hardware fracture repair is evident. Degenerative changes are noted lower lumbar spine. There is prior vertebral plasty of the lumbar spine. Old posterior right lower rib fractures are. Old Posterior left mid rib fractures are present. Lymphadenopathy: No suspicious lymphadenopathy is present. A few scattered small lymph nodes may be p resent during the exam IMPRESSIONS: 1. No suspicious recurrent or metastatic lymphoma CT exam. 2. Punctate nodule in the left lung 1 mm larger, continued monitoring is recommended. 3. Left inguinal hernia containing bowel without obstruction.
== END | disposition home or self-care (01) ==
LOC: RADPROMAIN 09:34
PROVIDERS: ATTEND Internal Medicine Hematology & Oncology
DX: C83.38 Diffuse large B-cell lymphoma, lymph nodes of multiple sites (principal); K40.90 Unilateral inguinal hernia, without obstruction or gangrene, not specified as recurrent; R91.1 Solitary pulmonary nodule
CPT/HCPCS: 82565; 84520; 71260; 74177; 36415; J1642; Q9967